=== PATIENT | female | born 1945 | race Caucasian/White ===

== ENCOUNTER 2018-05-09 13:47 | Emergency (ER) | payer MEDICARE, BC, SELFPAY ==
[2018-05-09 13:48] VITALS: BP 96/62; PULSE 60; RESP 18; TEMP 36.7; O2SAT 99; BMI 25.0
--- NOTE | 2018-05-09 15:07 | ED.VISSUMM ---
- ER Visit Summary Date of Service: 05/09/18 Chief Complaint: Bilateral hip pain History of Present Illness: The patient is a 73 F who fell out of bed 2 days ago. She did not hit her head. No LOC. She has pain in the bilateral hips. Worse with movement. She took nothing for it at home. Physical Examination: Vitals are reviewed. Bilateral hips are tender when you push the greater trochanter. She has mild pain with logroll. She does have painful range of motion. She has 2+ pulses in the feet bilaterally Test Results: X-rays of the bilateral hips with pelvis views reveal no fractures Emergency Department Course and Treatment: Patient was given Tylenol. She was ambulated in the emergency department. She does have some residual right-sided leg weakness from a stroke. states that her ambulation is at baseline. Patient will be given Tylenol to take at home. Will follow up with PCP Treatment Plan: [] Disposition: Discharge Impression: Bilateral hip contusion This note was generated with [employer] dictation software. It may contain incorrect words, spelling, and punctuation that were not noted in review of the chart prior to signing ED Disposition - Plan for ED Patient: Chief Complaint: Lower Extremity Injury Referrals: Stephane Palomino MD [Primary Care Provider] -
[2018-05-09] MEDS: Acetaminophen 500 MG Tablet 1000 MG PO (15:15)
--- NOTE | 2018-05-09 15:20 | RAD_ITS ---
STUDY: X-RAY - PELVIS AND BILATERAL HIPS REASON FOR EXAM: Female, 73 years old. Bilateral hip pain after a fall TECHNIQUE: Radiological exam, hip, bilateral, with pelvis when performed; minimum of 5 views, 5 views obtained COMPARISON: None. FINDINGS: There is a non-specific bowel gas pattern. Normal visualized soft tissue structures. Tubing coiled over the sacrum and left iliac bone. There is narrowing with cortical sclerosis and osteophyte formation of the sacroiliac joint consistent with degenerative osteoarthritic changes. Normal bilateral superior and inferior pubic rami. Normal pubic symphysis. Normal bilateral ischial tuberosities. Normal visualized right femoral head. Normal right acetabulum. There is mild articular joint space narrowing of the right hip. Normal visualized left femoral head. Normal left acetabulum. There is mild articular joint space narrowing of the left hip. RAD/Hips B/L min 2 views w/ Pelvis IMPRESSION: Degenerative arthrosis, no demonstrated fracture or suspicious osseous lesion. However, hip and pelvic fractures in patients of this age can be subtle, if there is strong clinical suspicion of a fracture, recommend further evaluation with cross-sectional imaging Electronically Signed: Bandar Keith MD at 15:37 EDT , Service support ,
--- NOTE | 2018-05-09 16:35 | ED.DEP ---
ED Disposition - Plan for ED Patient: Disposition: Home or Assisted Living Chief Complaint: Lower Extremity Injury Instructions: ED Contusion Hip Prescriptions: Acetaminophen [Tylenol Extra Strength] 500 mg PO Q6H PRN PRN #30 tab PRN Reason: Pain Referrals: Stephane Palomino MD [Primary Care Provider] -
--- NOTE | 2018-05-09 16:38 | ED.RN ---
this rn and pt assisted pt in ambulation. pt refuses to use walker, and insists on walking without an assistive device. pt with steady ambulation with assistance. per pt , pt drags right leg residually from a previous stroke.
[2018-05-09 16:46] VITALS: BP 151/100; PULSE 64; RESP 14; O2SAT 97
== END 2018-05-09 16:48 | disposition home or self-care (01) ==
PROVIDERS: Emergency Provider Emergency Medicine; Family Provider Family Medicine; PCP Family Medicine
DX: S70.02XA Contusion of left hip, initial encounter (principal); S70.01XA Contusion of right hip, initial encounter; I69.351 Hemiplegia and hemiparesis following cerebral infarction affecting right dominant side; I63.9 Cerebral infarction, unspecified; I10 Essential (primary) hypertension; F31.9 Bipolar disorder, unspecified; Z79.02 Long term (current) use of antithrombotics/antiplatelets; Z79.899 Other long term (current) drug therapy; W06.XXXA Fall from bed, initial encounter; Y93.89 Activity, other specified; Y92.003 Bedroom of unspecified non-institutional (private) residence as the place of occurrence of the external cause; Y99.8 Other external cause status
CPT/HCPCS: 73521; 99283

== ENCOUNTER 2018-08-06 12:40 | Observation (INO) | payer MEDICARE, MEDICAID, SELFPAY ==
[2018-08-06 12:40] VITALS: BP 130/82; PULSE 71; RESP 16; TEMP 36.9; BMI 23.3
--- NOTE | 2018-08-06 13:01 | RAD_ITS ---
STUDY: X-RAY - LEFT ANKLE REASON FOR EXAM: Female, 73 years old. Fall out of bed. Pain. TECHNIQUE: 3 view(s) of the ankle. COMPARISON: None. FINDINGS: There is generalized osteopenia. There is an oblique comminuted minimally displaced fracture of the distal fibula originating at the tibiotalar articulation. There is slight widening of the medial tibiotalar joint Normal visualized talus and calcaneus. The visualized subtalar, talonavicular, calcaneocuboid and tarsal articulations are normal. There is focal soft tissue swelling over the lateral malleolus/distal fibula. RAD/Ankle min 3 Views IMPRESSION: Osteopenia with distal fibular fracture and slight widening of the medial tibiotalar joint as described. Electronically Signed: Kody Shea MD at 14:06 EDT , Service support ,
--- NOTE | 2018-08-06 13:01 | RAD_ITS ---
STUDY: X-RAY - LEFT FOOT CLINICAL: Female, 73 years old. Fall out of bed. Pain and swelling. TECHNIQUE: 3 view(s) of the foot. COMPARISON: None. FINDINGS: There is generalized osteopenia. Normal talus, calcaneus, and tarsal bones. Normal visualized subtalar, talonavicular, calcaneocuboid, tarsal and tarsometatarsal articulations. Normal metatarsi. There is moderate arthrosis of the metatarsal phalangeal and interphalangeal joints with hammertoe deformities. The soft tissue structures are unremarkable. RAD/Foot min 3 Views IMPRESSION: Osteopenia with osteoarthritic changes. No acute osseous abnormality. Electronically Signed: Kody Shea MD at 14:04 EDT , Service support ,
--- NOTE | 2018-08-06 13:04 | ED.VISSUMM ---
- ER Visit Summary Date of Service: 08/06/18 Chief Complaint: Foot and ankle pain History of Present Illness: The patient is a 73 F with a history of stroke, left-sided deficits, speech changes, NPH. She fell out of bed last night and injured her left foot and ankle. She denies any other injuries. She did not hit her head or lose consciousness. She does take Plavix but denies any other thinners. Physical Examination: Afebrile and vital signs unremarkable. Head and neck are atraumatic. Heart regular. Lungs clear. Left foot and ankle are diffusely swollen, primarily over the dorsal surface and lateral surface of her foot as well as around her lateral malleolus. She is tender to palpation to the area. No obvious deformities. Skin intact. Test Results: X-rays pending Emergency Department Course and Treatment: Patient declined pain medicine while awaiting results. Patient has a distal fibula fracture with joint widening. Patient was placed in a posterior and sugar tong splint. She did have some pain with this but otherwise tolerated it well. She is neurovascular intact distally. She continued to declined pain medicine. Patient wanted to go home and follow-up as an outpatient. She was unable to ambulate using a walker. Patient was agreeable to admission. I did speak with Dr. Bejarano and I discussed with the hospitalist for admission. Treatment Plan: As above Disposition: Admission Impression: 1. Distal fibula fracture left 2. Inability to ambulate This note was generated with [employer] dictation software. It may contain incorrect words, spelling, and punctuation that were not noted in review of the chart prior to signing ED Disposition - Plan for ED Patient: Chief Complaint: Fall Referrals: Stephane Palomino MD [Primary Care Provider] -
[2018-08-06 15:07] VITALS: BP 125/63; PULSE 68; RESP 17; O2SAT 100
--- NOTE | 2018-08-06 15:21 | HP.PCM_ITS ---
Problem List (1) Fall Status: Acute History of Present Illness Date of Admission: 08/06/18 Chief Complaint: Mechanical fall The patient is a 73 year old F with past medical history of stroke with residual right-sided weakness and facial droop, NPH, hyperlipidemia, chronic alcoholic dementia, hype hypertension hypothyroidism. She was admitted via the ED on 08/06/18 with a complaint of a fall from her bed in the early hours of the day of presentation. According to patient and , she was sitting on her bed and then suddenly slumped out of bed and hit her head. She denies any loss of consciousness and denies any antecedent palpitations, dizziness, lightheadedness or loss of balance. According to her he thinks she may have tripped though he says she was sitting on the bed. This is not the first fall she has had in the last fell about a month or so ago. She denied any fever or chills, any burning sensation with urination, any cough or chest pain, any abdominal pain, any diarrhea vomiting. She lives at home with her and is able to ambulate only with his help. Review of systems otherwise negative. In the ED, x-rays done showed distal left fibula fracture. She has been admitted to be managed for the fibula fracture due to mechanical fall. [] Past Medical History Past Medical History (Chronic Problems): Chronic Problems Left-sided weakness (Chronic) recent CVA February 2016 Ramos esophagus (Chronic) Glaucoma (Chronic) Rheumatoid arthritis (Chronic) Lupus (Chronic) Mitral valve disorder (Chronic) Normal pressure hydrocephalus (Chronic) Bipolar disorder (Chronic) Hemiparesis affecting left side as late effect of stroke (Chronic) Alcoholic dementia (Chronic) Stroke (Chronic) Benign essential hypertension (Chronic) Allergies ciprofloxacin Allergy (Verified 08/06/18 12:44) Unknown Penicillins Allergy (Verified 08/06/18 12:44) Unknown Sulfa (Sulfonamide Antibiotics) Allergy (Verified 08/06/18 12:44) Unknown thimerosal [From Merthiolate] Allergy (Verified 08/06/18 12:44) Rash topiramate [From Topamax] Allergy (Verified 08/06/18 12:44) Unknown Home Medications: Ambulatory Orders Medication Instructions Recorded Atorvastatin Calcium 20 mg PO QHS 10/28/17 Calcitriol [Rocaltrol] 0.25 mcg PO DAILY 10/28/17 Cholecalciferol (Vitamin D3) 5,000 unit PO DAILY 10/28/17 [Vitamin D3] Donepezil HCl 10 mg PO DAILY 10/28/17 Esomeprazole Magnesium 40 mg PO DAILY 10/28/17 Levothyroxine [Synthroid] 50 mcg PO DAILY 10/28/17 Sertraline HCl [Zoloft] 50 mg PO QHS 10/28/17 Solifenacin Succinate [Vesicare] 5 mg PO DAILY 10/28/17 Bimatoprost [Lumigan] 1 drop LEFT EYE QHS 05/09/18 Clopidogrel Bisulfate [Plavix] 75 mg PO DAILY 05/09/18 Lisinopril [Prinivil] 10 mg PO DAILY 05/09/18 Vitamin B Complex 1 tab PO DAILY 05/09/18 Brimonidine Tartrate/Timolol 1 drop LEFT EYE BID 08/06/18 [Combigan Eye Drops] Calcium Carbonate/Vitamin D3 2 each PO DAILY 08/06/18 [Calcium 600-Vit D3 500 Softgel] Dorzolamide 2% [Trusopt] 1 drop LEFT EYE BID 08/06/18 Metoprolol Succinate 25 mg PO DAILY 08/06/18 Quetiapine Fumarate [Seroquel] 50 mg PO QHS 08/06/18 Surgical History: total knee arthroplasty - Bilateral, - - Right shoulder surgery Parathyroidectomy Psychiatric History: Bipolar - Bipolar disorder has not been verified according to the patient's , Depression 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 Lives: Spouse/ Significant Other Smoking Status: Former smoker Alcohol: None Drugs: None - *Family History Maternal History Items: Heart Disease Paternal History Items: Heart Disease, No pertinent history - in 70s Review of Systems Constitutional: Denies: Chills, Fever, Malaise, Weight Change Eyes: Denies: Blurred vision HEENT: Denies: Head Aches, Sinus Congestion, Sinus Drainage Cardiovascular: Denies: Chest Pain, Chest Tightness, Palpitations Respiratory: Denies: Cough, Shortness of breath at rest, Sputum production Gastrointestinal: Denies: Abdominal Pain, Diarrhea, Nausea, Vomiting Genitourinary: Denies: Dysuria Musculoskeletal: Reports: - - LLE pain from fall and fracture Skin: Denies: Rash, Wounds Neurological: Reports: Balance problems - 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 Denies: Focal weakness, Numbness, Tingling Psychiatric: Denies: Anxiety, Depression, Homicidal Ideations, Suicidal Ideations Hematologic/ Lymphatic: Denies: Easy Bruising, Easy Bleeding VTE Information - Inpt Only VTE Present on Admission: No VTE Pharm Prophylaxis ordered?: Yes Patient Problems: Active and Suspected Problems Fall (Acute) - Physical Exam General: Alert, Oriented x3, Cooperative, No apparent distress HEENT: Atraumatic, - - pupillary constriction and ptosis of right eye- chronic, residual from previous stroke Oral: Moist Mucosa Neck: Supple, No JVD, Negative Carotid Bruits Lungs: Clear to auscultation, Normal air movement, No rhonchi, No wheeze, No rales Cardiovascular: Regular rate, Regular Rhythm, Normal S1, Normal S2, No murmurs Abdomen: Bowel Sounds Present, Soft, Non Tender, Non-Distended, No Hepato- splenomegaly Extremities: No clubbing, No cyanosis, No edema, Capillary Refill Less than 3 Seconds Skin: No rashes, No breakdown Musculoskeletal: - - LLE in cast; able to wiggle toes Lymphatic: No Cervical, Supraclavicular, or Inguinal Adenopathy Neurological: Facial Droop - right facial droop, which is chronic; has expressive aphasia; ptosis and slight miosis of right eye, which is chronic, - - gait not checked Psych/Mental Status: Normal Affect, Agitated, Alert and oriented to time, place, person, mood and affect Vital Signs Temp Pulse Resp BP Pulse Ox 98.4 F 68 17 125/63 H 100 08/06/18 12:40 08/06/18 15:07 08/06/18 15:07 08/06/18 15:07 08/06/18 15:07 Oxygen Delivery Method Room Air Weight: 145 lb Body Mass Index (BMI) 23.3 Finger Stick Blood Glucose 88 Assessment/Plan All Active Problems Fall (Acute) medical management (Acute) Metabolic encephalopathy (Acute) Altered mental status (Acute) Aphasia (Acute) 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 1. Mechanical fall * slipped and fell out of her bed; has been having recurrent falls at home, according to her * hit her head and fractured her left fibula * admit to [facility] with telemetry; will get EKG * fall precautions * PT/OT consult * monitor telemetry to ensure she doesnt have arrhythmia which could contribute to her fall * Get CT of the brain to rule out any intracranial bleed. * 2. Distal left fibula fracture due to fall * X-ray showed displaced distal left fibular fracture was a result of the fall. * Orthopedics- Dr Bejarano consulted. Left leg put in splint in the ED. * tylenol for pain * 3. History of stroke, with residual right sided weakness * Statin, Plavix; will continue * PT/OT consulted * 4. Chronic dementia, aetiology unclear * On donepezil * 5. Bipolar disorder and depression: On Seroquel and sertraline. 6. Hypothyroidism: Synthroid 7. Vitamin D deficiency. Vitamin D replacement and calcitriol. 8. Hypertension: on lisinopril DVT prophylaxis: Heparin CODE STATUS: Full code. * Patient has been counseled extensively about different types of CODE STATUS namely DNR CCA, DNR CCA and full code. Patient and elected to be full code. Total [id number] time 18 minutes. Code Visit OBSV E&M: 38578 Initial observation care L3 Procedures: 60589 Advncd Care Plan 30 Min
--- NOTE | 2018-08-06 15:34 | CT_ITS ---
STUDY: CT BRAIN WITHOUT CONTRAST REASON FOR EXAM: Female, 73 years old. Status post fall RADIATION DOSAGE (If Supplied By Facility): CTDIvol = ( 44.99 ) mGy, DLP = ( 796.11 ) mGycm TECHNIQUE: Transaxial CT imaging of the brain was performed without administration of intravenous contrast material. Individualized dose optimization techniques were used for this CT. COMPARISON: October 28, 2017 FINDINGS: Normal soft tissue structures. Normal calvarium. There is a new right frontal approach ventriculostomy catheter terminating in the frontal horn of the left lateral ventricle. There is intracranial atherosclerosis. Remote lacunar infarcts noted in the basal ganglia bilaterally. There is moderate cerebral atrophy with widening of the extra-axial spaces and ventricular dilatation. There are areas of decreased attenuation within the white matter tracts of the supratentorial brain, consistent with microvascular disease changes. Normal brainstem. Normal cerebellum. There is no intracranial hemorrhage. There are no findings of an acute ischemic infarction. Normal visualized paranasal sinuses. CT/Brain/Head without Contrast IMPRESSION: Chronic involutional changes of the brain. Electronically Signed: Pranay Pacheco MD at 16:11 EDT , Service support ,
[2018-08-06 16:24] VITALS: BMI 25.0
[2018-08-06 16:50] VITALS: BMI 25.0
[2018-08-06 17:09] VITALS: BP 125/61; PULSE 76; RESP 16; TEMP 36.6; O2SAT 98
[2018-08-06 17:16] VITALS: PULSE 70
--- NOTE | 2018-08-06 17:48 | NURSING ---
PT REFUSING ENSURE- NOT ORDERED
[2018-08-06 19:19] VITALS: PULSE 79
[2018-08-06 19:58] VITALS: BP 132/62; PULSE 83; RESP 14; TEMP 36.7; O2SAT 98
--- NOTE | 2018-08-06 20:23 | EKG12_ITS ---
Test Reason : FALL Blood Pressure : / mmHG Vent. Rate : 077 BPM Atrial Rate : 077 BPM P-R Int : 158 ms QRS Dur : 076 ms QT Int : 400 ms P-R-T Axes : 054 022 050 degrees QTc Int : 452 ms Normal sinus rhythm Low voltage QRS Nonspecific T wave abnormality Abnormal ECG Confirmed by FLORENTINO PETER, JM ([id number]), make up editor CORTNEY STROUD ([id number]) on 08/16/2018 4:16:16 PM Referred By: DR DUNCAN Confirmed By:JM GOOD MD
[2018-08-06] MEDS: QUEtiapine 25 MG Tablet PO (22:45)
[2018-08-06] MEDS: Heparin Injection (Vial) 5,000 UNIT/ML VIAL 5000 UNIT SC (22:45)
[2018-08-06] MEDS: Donepezil HCl 10 MG Tablet PO (22:45)
[2018-08-06] MEDS: Atorvastatin Calcium 20 MG Tablet PO (22:45)
[2018-08-06] MEDS: Latanoprost 0.005% 1 Bottle 1 DRP EACH EYE (22:46)
[2018-08-06] MEDS: Timolol 0.5% 5ML OPTH.BTL 1 DRP LEFT EYE (22:46)
[2018-08-06] MEDS: Dorzolamide 2% 10ml Bottle 1 DRP LEFT EYE (23:02)
[2018-08-07] VITALS (10 sets, daily range): BP systolic 111–137; BP diastolic 67–79; PULSE 64–78; RESP 16–18; TEMP 36.4–36.9; O2SAT 98–100
[2018-08-07 05:37] LABS: Absolute Lymphocyte Count 1.94 X10^3/ul (0.83-4.51); Absolute Neutrophil Count 3.4 X10^3/uL (2.0-7.7); Basophil# 0.01 X10^3/uL; Basophil% 0.2 % (0-1); Eosinophil# 0.18 X10^3/uL; Eosinophils% 2.9 % (0-5); Hematocrit 35.7 % (37-47); Hemoglobin 11.3 g/dl (12.0-15.0); Lymphocyte # 1.94 X10^3/ul (4.0); Lymphocyte % 31.5 % (19-41); Mean Corp Hgb Conc 31.7 g/gl (32-36); Mean Corpuscular Hgb 27.1 pg (27.0-32.0); Mean Corpuscular Volume 85.6 fL (81-99); Mean Platelet Vol. 10.2 fl (6.2-12.0); Monocyte# 0.58 X10^3/uL; Monocyte% 9.4 % (0-10); Neutrophil # 3.43 X10^3/uL (2.7-7.7); Neutrophil % 55.8 % (47-70); Platelet Count 192 K/mm3 (150-450); RBC Distribution Width CV 14.1 % (11.6-14.6); RBC Distribution Width SD 43.5 fl (35.1-43.9); Red Blood Count 4.17 M/mm3 (4.2-5.4); White Blood Count 6.2 K/mm3 (4.4-11.0)
[2018-08-07 05:51] LABS: Anion Gap 7 (5-15); BUN 20 mg/dL (7-18); BUN/Creat Ratio 16.4 RATIO (10-20); Calcium,Total 8.9 mg/dL (8.5-10.1); Chloride 105 mmol/L (98-107); Creatinine, Serum 1.22 mg/dL (0.55-1.02); EST Glomerular Filtration Rate 46 mL/min (>60); Est Glom Filt Rate - Afr Amer 56 mL/min (>60); Estimated Creatinine Clearance 39.02 ml/min; Glucose 91 mg/dL (74-106); Potassium 3.6 mmol/L (3.5-5.1); Sodium Level 142 mmol/L (136-145)
[2018-08-07] MEDS: Heparin Injection (Vial) 5,000 UNIT/ML VIAL 5000 UNIT SC ×3 (06:07→21:10)
[2018-08-07] MEDS: Levothyroxine 50 MCG Tablet PO (06:07)
[2018-08-07 06:25] LABS: POSITIVE COUNT NO; POSITIVE DIFFERENTIAL NO; POSITIVE MORPHOLOGY NO
--- NOTE | 2018-08-07 09:50 | CASEMGMT ---
RN VEENA Assessment Intro role of CM to patient and her . Hx of CVA, R sided weakness and expressive aphasia noted. Pt was able to participate in assessment given time for speech difficulties. Pt and her are agreeable that with fx of L ankle, pending surgery, and weakness on R side, anticipation is that pt will need SNF on dc. First choice is [facility]CU and they are agreeable to having name placed on list. RN VEENA explained pending insurance approval and bed availability, secondary choice may be needed. -Surgery may not be scheduled until early next week. PT/OT evaluations pending. PCP: [facility]: [facility] D[facility]: [facility] Living Arrangements: Two story home, 1st floor set up SW Consult for dc planning, probable SNF placement. Carol GIL updated.
[2018-08-07] MEDS: Calcium Carb/Vitamin D 1 TABLET Tablet 2 TABLET PO (09:59)
[2018-08-07] MEDS: BRIMONIDINE 0.2% 5ML BOTTLE 1 DRP LEFT EYE ×2 (10:00→21:09)
[2018-08-07] MEDS: Clopidogrel Bisulfate 75 MG Tablet PO (10:01)
[2018-08-07] MEDS: Mirabegron 50 MG TAB.ER.24H PO (10:01)
[2018-08-07] MEDS: Tolterodine Tartrate 2 MG CAP.SA PO (10:01)
[2018-08-07] MEDS: Calcitriol 0.25 MCG Capsule PO (10:02)
[2018-08-07] MEDS: Pantoprazole Sodium 40 MG Tablet PO (10:02)
[2018-08-07] MEDS: Sertraline 50 MG Tablet PO (10:03)
[2018-08-07] MEDS: Lisinopril 10 MG Tablet PO (10:03)
[2018-08-07] MEDS: QUEtiapine 25 MG Tablet PO ×2 (10:03→21:13)
[2018-08-07] MEDS: Timolol 0.5% 5ML OPTH.BTL 1 DRP LEFT EYE ×2 (10:03→21:13)
[2018-08-07] MEDS: Metoprolol(XL)Succ 25 MG Tablet PO (10:05)
[2018-08-07] MEDS: Dorzolamide 2% 10ml Bottle 1 DRP LEFT EYE ×2 (10:05→21:18)
--- NOTE | 2018-08-07 10:15 | CASEMGMT ---
POTTER form reviewed and explained to pt's in room. Questions answered re: their MCR advantage plan and prior auth for SNF's. Signed by and copy given.
--- NOTE | 2018-08-07 10:56 | CASEMGMT ---
Per OT, recommendation is for SNF on dc. RN CM updated Carol GIL. Surgery on ankle fx not scheduled yet. Scar MARTINSN RN ACM
--- NOTE | 2018-08-07 11:20 | PCM.CONS.GEN ---
Reason for Consult Date of Consultation: 08/06/18 Reason for Consultation: Left ankle fracture History of Present Illness: The patient is a 73 year old F with a left unstable ankle fracture. She fell two nights ago and presented to the [facility] ER for evaluation. Given her complex medical history she was admitted when she was unable to be NWB LLE. [] Past Medical History Past Medical History (Chronic Problems): Chronic Problems Left-sided weakness (Chronic) recent CVA February 2016 Ramos esophagus (Chronic) Glaucoma (Chronic) Rheumatoid arthritis (Chronic) Lupus (Chronic) Mitral valve disorder (Chronic) Normal pressure hydrocephalus (Chronic) Bipolar disorder (Chronic) Hemiparesis affecting left side as late effect of stroke (Chronic) Alcoholic dementia (Chronic) Stroke (Chronic) Benign essential hypertension (Chronic) Allergies ciprofloxacin Allergy (Verified 08/06/18 12:44) Unknown Penicillins Allergy (Verified 08/06/18 12:44) Unknown Sulfa (Sulfonamide Antibiotics) Allergy (Verified 08/06/18 12:44) Unknown thimerosal [From Merthiolate] Allergy (Verified 08/06/18 12:44) Rash Home Medications: Ambulatory Orders Medication Instructions Recorded Atorvastatin Calcium 20 mg PO QHS 10/28/17 Calcitriol [Rocaltrol] 0.25 mcg PO DAILY 10/28/17 Cholecalciferol (Vitamin D3) 5,000 unit PO DAILY 10/28/17 [Vitamin D3] Donepezil HCl 10 mg PO DAILY 10/28/17 Esomeprazole Magnesium 40 mg PO DAILY 10/28/17 Levothyroxine [Synthroid] 50 mcg PO DAILY 10/28/17 Sertraline HCl [Zoloft] 50 mg PO QHS 10/28/17 Solifenacin Succinate [Vesicare] 5 mg PO DAILY 10/28/17 Bimatoprost [Lumigan] 1 drop LEFT EYE QHS 05/09/18 Clopidogrel Bisulfate [Plavix] 75 mg PO DAILY 05/09/18 Lisinopril [Prinivil] 10 mg PO DAILY 05/09/18 Vitamin B Complex 1 tab PO DAILY 05/09/18 Brimonidine Tartrate/Timolol 1 drop LEFT EYE BID 08/06/18 [Combigan Eye Drops] Calcium Carbonate/Vitamin D3 2 each PO DAILY 08/06/18 [Calcium 600-Vit D3 500 Softgel] Dorzolamide 2% [Trusopt] 1 drop LEFT EYE BID 08/06/18 Metoprolol Succinate 25 mg PO DAILY 08/06/18 Quetiapine Fumarate [Seroquel] 50 mg PO QHS 08/06/18 Surgical History: total knee arthroplasty - Bilateral, - - Right shoulder surgery Parathyroidectomy Psychiatric History: Bipolar - Bipolar disorder has not been verified according to the patient's , Depression 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 She states her ankle has less pain. She is concerned with being able to be nonweightbearing to the LLE Objective: Vasc: L digits with brisk cap refill, noted mild edema MS: multilayer compressive dressing in place Neuro: light touch sensation intact Radiographs: 3 views of the left ankle with an oblique comminuted fracture of the lateral malleolus and increased medial clear space noted - Physical Exam Psych/Mental Status: Normal Affect Vital Signs Temp Pulse Resp BP Pulse Ox 98.4 F 78 16 125/79 H 99 08/07/18 09:57 08/07/18 10:05 08/07/18 09:57 08/07/18 10:05 08/07/18 09:57 Oxygen Delivery Method Room Air Weight: 155 lb 1.6 oz Body Mass Index (BMI) 25.0 Finger Stick Blood Glucose 88 Intake and Output for Last 24 Hours 08/05/18 08/06/18 08/07/18 23:59 23:59 23:59 Intake Total 350 / 350 100 / 100 Balance 350 / 350 100 / 100 Laboratory Tests Past 24 Hrs 08/07/18 08/07/18 05:15 05:15 WBC 6.2 RBC 4.17 L Hgb 11.3 L Hct 35.7 L MCV 85.6 MCH 27.1 MCHC 31.7 L RDW 14.1 RDW Differential 43.5 Plt Count 192 MPV 10.2 Immature Gran % (Auto) 0.200 Neut % (Auto) 55.8 Lymph % (Auto) 31.5 [place] % (Auto) 9.4 Eos % (Auto) 2.9 Baso % (Auto) 0.2 Absolute Neuts (auto) 3.4 Absolute Lymphs (auto) 1.94 Total Counted Not Reportable Sodium 142 Potassium 3.6 Chloride 105 Carbon Dioxide 30.0 Anion Gap 7 BUN 20 H Creatinine 1.22 H Estim Creat Clear Calc 39.02 Est GFR (MDRD) Af Amer 56 L Est GFR (MDRD) Non-Af 46 L BUN/Creatinine Ratio 16.4 Glucose 91 Calcium 8.9 Assessment/Plan All Active Problems Fall (Acute) medical management (Acute) Metabolic encephalopathy (Acute) Altered mental status (Acute) Aphasia (Acute) 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 (Acute) A/p 73 yo F with unstable left ankle fracture -PT evaluated at bedside -imaging and notes reviewed -discussed the radiographs with pt and her . Her ankle fracture appears to be unstable with both a lateral malleolus fracture and increased medial clear space. I recommended ORIF of the L ankle. Given her complex medical history we will need an intradisciplinary approach for a successful post operative healing period. WE talked about potentially needing placement. Risks and benefits of surgery vs conservative treatment were discussed. PT and her will discuss this and we can schedule surgery next week if they would like to proceed. She will need to be NWB LLE with only limited toe touch for balance either for surgical or conservative care. All questions and concerns were addressed. If patient is still in patient next week I will come see her or if she is d/c then I would like them to follow up with me in clinic next Monday or Monday at [facility]. -Recommend RICE therapy and pt should be in a tall cam walker at all times. PT/PMNR consult for evaluation of NWB LLE and therapy. Please order cam walker. -Please call with questions
--- NOTE | 2018-08-07 14:16 | PCM.PN.HOSP ---
Patient Problems: Active and Suspected Problems Fall (Acute) Subjective: The patient was admitted yesterday after she had a fall on her head on the day of admission. She slumped out of her bed from sitting position and hit her head but no loss of consciousness, dizziness, lightheadedness or chest symptoms. There is a history of frequent fall, previous was on last month. She has history of a stroke with residual right-sided weakness and facial droop, NPH, dyslipidemia, chronic alcoholic dementia and hypertension X-ray shows distal left fibula fracture with widening of the medial tibiotalar joint. Left leg is in the cast. Patient is to complain of left lower leg pain mainly lateral aspect Vitals/I&O's: Vital Signs Temp Pulse Resp BP Pulse Ox 98.0 F 64 16 111/67 100 08/07/18 13:59 08/07/18 13:59 08/07/18 13:59 08/07/18 13:59 08/07/18 13:59 Oxygen Delivery Method Room Air Weight: 155 lb 1.6 oz Body Mass Index (BMI) 25.0 Finger Stick Blood Glucose 88 Intake and Output for Last 24 Hours 08/05/18 08/06/18 08/07/18 23:59 23:59 23:59 Intake Total 350 / 350 100 / 100 Balance 350 / 350 100 / 100 General: Alert, Oriented x3, Cooperative HEENT: Atraumatic, PERRLA, EOMI, Normocephalic Neck: Supple, No JVD, Negative Carotid Bruits Lungs: Clear to auscultation, No rhonchi, No wheeze, No rales, Diminished Cardiovascular: Regular rate, Regular Rhythm, Normal S1, Normal S2, No murmurs Abdomen: Bowel Sounds Present, Soft, Non Tender, Non-Distended Extremities: Capillary Refill Less than 3 Seconds, Edema Skin: No rashes, No breakdown Musculoskeletal: Arthritic Changes, Muscle Wasting, Tenderness, - - Left below-knee cast Neurological: - - Chronic right-sided weakness with facial droop from previous stroke Psych/Mental Status: Normal Affect, Appropriate Laboratory Results 08/07/18 05:15: WBC 6.2, RBC 4.17 L, Hgb 11.3 L, Hct 35.7 L, MCV 85.6, MCH 27.1, MCHC 31.7 L, RDW 14.1, RDW Differential 43.5, Plt Count 192, MPV 10.2, Immature Gran % (Auto) 0.200, Neut % (Auto) 55.8, Lymph % (Auto) 31.5, Graham % (Auto) 9.4, Eos % (Auto) 2.9, Baso % (Auto) 0.2, Absolute Neuts (auto) 3.4, Absolute Lymphs (auto) 1.94, Total Counted Not Reportable 08/07/18 05:15: Sodium 142, Potassium 3.6, Chloride 105, Carbon Dioxide 30.0, Anion Gap 7, BUN 20 H, Creatinine 1.22 H, Estim Creat Clear Calc 39.02, Est GFR (MDRD) Af Amer 56 L, Est GFR (MDRD) Non-Af 46 L, BUN/Creatinine Ratio 16.4, Glucose 91, Calcium 8.9 Current Medications Acetaminophen (Tylenol) 650 mg PO Q6H PRN PRN PRN Reason: PAIN Atorvastatin Calcium (Lipitor) 20 mg PO QHS [facility] Last Admin: 08/06/18 22:45 Dose: 20 mg Brimonidine Tartrate (Brimonidine 0.2% 5ml Bottle) 1 drop LEFT EYE BID [facility] Last Admin: 08/07/18 10:00 Dose: 1 drop Calcitriol (Rocaltrol) 0.25 mcg PO DAILY [facility] Last Admin: 08/07/18 10:02 Dose: 0.25 mcg Calcium/Vitamin D (Os-Geoff 500mg + D) [facility] Admin: 08/07/18 09:59 Dose: 2 tablet Cholecalciferol (Vitamin D) 5,000 unit PO DAILY [facility] Last Admin: 08/07/18 10:05 Dose: 5,000 unit Clopidogrel Bisulfate (Plavix) 75 mg PO DAILY [facility] Last Admin: 08/07/18 10:01 Dose: 75 mg Donepezil HCl (Aricept) 10 mg PO QHS [facility] Last Admin: 08/06/18 22:45 Dose: 10 mg Dorzolamide HCl (Trusopt) 1 drop LEFT EYE BID [facility] Last Admin: 08/07/18 10:05 Dose: 1 drop Heparin Sodium (Porcine) (Heparin Na) 5,000 unit SC Q8 [facility] Last Admin: 08/07/18 14:05 Dose: 5,000 unit Sodium Chloride () 250 mls @ 15 mls/hr IV .[id number] PRN PRN Reason: SALINE FLUSH Latanoprost (Xalatan Opthalmic) 1 drop EACH EYE QHS [facility] Last Admin: 08/06/18 22:46 Dose: 1 drop Levothyroxine Sodium (Synthroid) 50 mcg PO DAILY@0600 [facility] Last Admin: 08/07/18 06:07 Dose: 50 mcg Lisinopril (Zestril) 10 mg PO DAILY [facility] Last Admin: 08/07/18 10:03 Dose: 10 mg Magnesium Hydroxide (Milk Of Magnesia) 30 ml PO DAILY PRN PRN PRN Reason: Constipation Metoprolol Succinate (Toprol Xl (Beta Ben)) 25 mg PO DAILY [facility] Last Admin: 08/07/18 10:05 Dose: 25 mg Pantoprazole Sodium (Protonix) 40 mg PO DAILY [facility] Last Admin: 08/07/18 10:02 Dose: 40 mg Quetiapine Fumarate (Seroquel) 25 mg PO BID [facility] Last Admin: 08/07/18 10:03 Dose: 25 mg Sertraline HCl (Zoloft) 50 mg PO DAILY [facility] Last Admin: 08/07/18 10:03 Dose: 50 mg Sodium Chloride () 5 - 30 ml IV UD PRN PRN Reason: SALINE FLUSH Timolol Maleate (Timoptic) 1 drop LEFT EYE BID [facility] Last Admin: 08/07/18 10:03 Dose: 1 drop Tolterodine Tartrate (Detrol La) 2 mg PO DAILY [facility] Last Admin: 08/07/18 10:01 Dose: 2 mg Medical Necessity - Tobacco Use Smoking Status: Former smoker Tobacco Use: Cigarettes Assessment/Plan All Active Problems Fall (Acute) medical management (Acute) Metabolic encephalopathy (Acute) Altered mental status (Acute) Aphasia (Acute) 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 (Acute) The patient is a 73-year-old female with history of stroke with residual right-sided weakness and facial droop, NPH, dyslipidemia, chronic alcoholic dementia and hypertension was admitted on 08/06/18 after she had a fall on her head on the day of admission. She slumped out of her bed from sitting position and hit her head but no loss of consciousness, dizziness, lightheadedness or chest symptoms. She has recurrent history of frequent fall, previous was on last month. X-ray shows distal left fibula fracture with widening of the medial tibiotalar joint. Left leg is in the cast. Patient was seen by orthopedic surgeon. 1. Mechanical fall complicating into left unstable ankle fracture with distal fibular fracture, both a lateral malleolus fracture and increased medial tibotalar joint space complicated with generalized osteopenia. The x-ray of left ankle and foot reviewed. Shows oblique comminuted minimally displaced fracture of distal fibula originating at the tibiotalar articulation. Slight widening of the medial tibiotalar joint. Soft tissue swelling over the lateral malleolus and distal fibula. Fall precaution. PT and OT consult. Patient was seen by orthopedic surgeon and recommended 1 week of cast and conservative management and then operative intervention. 2. History of stroke, with residual right sided weakness Statin, Plavix; will continue PT/OT consulted 3. Chronic dementia, probably alcohol related dementia; exact aetiology unclear On donepezil 4. Bipolar disorder and depression: On Seroquel and sertraline. 5. Hypothyroidism: Synthroid 6. Vitamin D deficiency. Vitamin D replacement and calcitriol. 7. Hypertension: on lisinopril DVT prophylaxis: Heparin. Discussed with the patient and her near the bedside. Clinical updates were given regarding the management plan, orthopedic surgery input and discharge plan regarding transfer to SNF. Laboratory Results 08/07/18 05:15: WBC 6.2, RBC 4.17 L, Hgb 11.3 L, Hct 35.7 L, MCV 85.6, MCH 27.1, MCHC 31.7 L, RDW 14.1, RDW Differential 43.5, Plt Count 192, MPV 10.2, Immature Gran % (Auto) 0.200, Neut % (Auto) 55.8, Lymph % (Auto) 31.5, Graham % (Auto) 9.4, Eos % (Auto) 2.9, Baso % (Auto) 0.2, Absolute Neuts (auto) 3.4, Absolute Lymphs (auto) 1.94, Total Counted Not Reportable 08/07/18 05:15: Sodium 142, Potassium 3.6, Chloride 105, Carbon Dioxide 30.0, Anion Gap 7, BUN 20 H, Creatinine 1.22 H, Estim Creat Clear Calc 39.02, Est GFR (MDRD) Af Amer 56 L, Est GFR (MDRD) Non-Af 46 L, BUN/Creatinine Ratio 16.4, Glucose 91, Calcium 8.9 Clinical Impression(s) from Imaging Studies Ankle X-Ray 08/06/18 13:01 IMPRESSION: Osteopenia with distal fibular fracture and slight widening of the medial tibiotalar joint as described. Foot X-Ray 08/06/18 13:01 IMPRESSION: Osteopenia with osteoarthritic changes. No acute osseous abnormality. Brain CT 08/06/18 15:34 IMPRESSION: Chronic involutional changes of the brain. Code Visit Inpatient E&M: 32055 Subs Hosp L3
--- NOTE | 2018-08-07 14:20 | PN_ITS ---
Patient Problems: Active and Suspected Problems Fall (Acute) Subjective: The patient was admitted yesterday after she had a fall on her head on the day of admission. She slumped out of her bed from sitting position and hit her head but no loss of consciousness, dizziness, lightheadedness or chest symptoms. There is a history of frequent fall, previous was on last month. She has history of a stroke with residual right-sided weakness and facial droop, NPH, dyslipidemia, chronic alcoholic dementia and hypertension X-ray shows distal left fibula fracture with widening of the medial tibiotalar joint. Left leg is in the cast. Patient is to complain of left lower leg pain mainly lateral aspect Vitals/I&O's: Vital Signs Temp Pulse Resp BP Pulse Ox 98.0 F 64 16 111/67 100 08/07/18 13:59 08/07/18 13:59 08/07/18 13:59 08/07/18 13:59 08/07/18 13:59 Oxygen Delivery Method Room Air Weight: 155 lb 1.6 oz Body Mass Index (BMI) 25.0 Finger Stick Blood Glucose 88 Intake and Output for Last 24 Hours 08/05/18 08/06/18 08/07/18 23:59 23:59 23:59 Intake Total 350 / 350 100 / 100 Balance 350 / 350 100 / 100 General: Alert, Oriented x3, Cooperative HEENT: Atraumatic, PERRLA, EOMI, Normocephalic Neck: Supple, No JVD, Negative Carotid Bruits Lungs: Clear to auscultation, No rhonchi, No wheeze, No rales, Diminished Cardiovascular: Regular rate, Regular Rhythm, Normal S1, Normal S2, No murmurs Abdomen: Bowel Sounds Present, Soft, Non Tender, Non-Distended Extremities: Capillary Refill Less than 3 Seconds, Edema Skin: No rashes, No breakdown Musculoskeletal: Arthritic Changes, Muscle Wasting, Tenderness, - - Left below- knee cast Neurological: - - Chronic right-sided weakness with facial droop from previous stroke Psych/Mental Status: Normal Affect, Appropriate Laboratory Results 08/07/18 05:15: WBC 6.2, RBC 4.17 L, Hgb 11.3 L, Hct 35.7 L, MCV 85.6, MCH 27.1, MCHC 31.7 L, RDW 14.1, RDW Differential 43.5, Plt Count 192, MPV 10.2, Immature Gran % (Auto) 0.200, Neut % (Auto) 55.8, Lymph % (Auto) 31.5, Nance % (Auto) 9.4, Eos % (Auto) 2.9, Baso % (Auto) 0.2, Absolute Neuts (auto) 3.4, Absolute Lymphs (auto) 1.94, Total Counted Not Reportable 08/07/18 05:15: Sodium 142, Potassium 3.6, Chloride 105, Carbon Dioxide 30.0, Anion Gap 7, BUN 20 H, Creatinine 1.22 H, Estim Creat Clear Calc 39.02, Est GFR (MDRD) Af Amer 56 L, Est GFR (MDRD) Non-Af 46 L, BUN/Creatinine Ratio 16.4, Glucose 91, Calcium 8.9 Current Medications Acetaminophen (Tylenol) 650 mg PO Q6H PRN PRN PRN Reason: PAIN Atorvastatin Calcium (Lipitor) 20 mg PO QHS [facility] Last Admin: 08/06/18 22:45 Dose: 20 mg Brimonidine Tartrate (Brimonidine 0.2% 5ml Bottle) 1 drop LEFT EYE BID [facility] Last Admin: 08/07/18 10:00 Dose: 1 drop Calcitriol (Rocaltrol) 0.25 mcg PO DAILY [facility] Last Admin: 08/07/18 10:02 Dose: 0.25 mcg Calcium/Vitamin D (Os-Geoff 500mg + D) [facility] Last Admin: 08/07/18 09:59 Dose: 2 tablet Cholecalciferol (Vitamin D) 5,000 unit PO DAILY [facility] Last Admin: 08/07/18 10:05 Dose: 5,000 unit Clopidogrel Bisulfate (Plavix) 75 mg PO DAILY [facility] Last Admin: 08/07/18 10:01 Dose: 75 mg Donepezil HCl (Aricept) 10 mg PO QHS [facility] Last Admin: 08/06/18 22:45 Dose: 10 mg Dorzolamide HCl (Trusopt) 1 drop LEFT EYE BID [facility] Last Admin: 08/07/18 10:05 Dose: 1 drop Heparin Sodium (Porcine) (Heparin Na) 5,000 unit SC Q8 [facility] Last Admin: 08/07/18 14:05 Dose: 5,000 unit Sodium Chloride () 250 mls @ 15 mls/hr IV .[id number] PRN PRN Reason: SALINE FLUSH Latanoprost (Xalatan Opthalmic) 1 drop EACH EYE QHS [facility] Last Admin: 08/06/18 22:46 Dose: 1 drop Levothyroxine Sodium (Synthroid) 50 mcg PO DAILY@0600 [facility] Last Admin: 08/07/18 06:07 Dose: 50 mcg Lisinopril (Zestril) 10 mg PO DAILY [facility] Last Admin: 08/07/18 10:03 Dose: 10 mg Magnesium Hydroxide (Milk Of Magnesia) 30 ml PO DAILY PRN PRN PRN Reason: Constipation Metoprolol Succinate (Toprol Xl (Beta Ben)) 25 mg PO DAILY [facility] Last Admin: 08/07/18 10:05 Dose: 25 mg Pantoprazole Sodium (Protonix) 40 mg PO DAILY [facility] Last Admin: 08/07/18 10:02 Dose: 40 mg Quetiapine Fumarate (Seroquel) 25 mg PO BID [facility] Last Admin: 08/07/18 10:03 Dose: 25 mg Sertraline HCl (Zoloft) 50 mg PO DAILY [facility] Last Admin: 08/07/18 10:03 Dose: 50 mg Sodium Chloride () 5 - 30 ml IV UD PRN PRN Reason: SALINE FLUSH Timolol Maleate (Timoptic) 1 drop LEFT EYE BID [facility] Last Admin: 08/07/18 10:03 Dose: 1 drop Tolterodine Tartrate (Detrol La) 2 mg PO DAILY [facility] Last Admin: 08/07/18 10:01 Dose: 2 mg Medical Necessity - Tobacco Use Smoking Status: Former smoker Tobacco Use: Cigarettes Assessment/Plan All Active Problems Fall (Acute) medical management (Acute) Metabolic encephalopathy (Acute) Altered mental status (Acute) Aphasia (Acute) 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 (Acute) The patient is a 73-year-old female with history of stroke with residual right- sided weakness and facial droop, NPH, dyslipidemia, chronic alcoholic dementia and hypertension was admitted on 08/06/18 after she had a fall on her head on the day of admission. She slumped out of her bed from sitting position and hit her head but no loss of consciousness, dizziness, lightheadedness or chest symp toms. She has recurrent history of frequent fall, previous was on last month. X-ray shows distal left fibula fracture with widening of the medial tibiotalar joint. Left leg is in the cast. Patient was seen by orthopedic surgeon. 1. Mechanical fall complicating into left unstable ankle fracture with distal fibular fracture, both a lateral malleolus fracture and increased medial tibotalar joint space complicated with generalized osteopenia. The x-ray of left ankle and foot reviewed. Shows oblique comminuted minimally displaced fracture of distal fibula originating at the tibiotalar articulation. Slight widening of the medial tibiotalar joint. Soft tissue swelling over the lateral malleolus and distal fibula. Fall precaution. PT and OT consult. Patient was seen by orthopedic surgeon and recommended 1 week of cast and conservative management and then operative intervention. 2. History of stroke, with residual right sided weakness * Statin, Plavix; will continue * PT/OT consulted 3. Chronic dementia, probably alcohol related dementia; exact aetiology unclear * On donepezil 4. Bipolar disorder and depression: On Seroquel and sertraline. 5. Hypothyroidism: Synthroid 6. Vitamin D deficiency. Vitamin D replacement and calcitriol. 7. Hypertension: on lisinopril DVT prophylaxis: Heparin. Discussed with the patient and her near the bedside. Clinical updates were given regarding the management plan, orthopedic surgery input and discharge plan regarding transfer to SNF. Laboratory Results 08/07/18 05:15: WBC 6.2, RBC 4.17 L, Hgb 11.3 L, Hct 35.7 L, MCV 85.6, MCH 27.1, MCHC 31.7 L, RDW 14.1, RDW Differential 43.5, Plt Count 192, MPV 10.2, Immature Gran % (Auto) 0.200, Neut % (Auto) 55.8, Lymph % (Auto) 31.5, Nance % (Auto) 9.4, Eos % (Auto) 2.9, Baso % (Auto) 0.2, Absolute Neuts (auto) 3.4, Absolute Lymphs (auto) 1.94, Total Counted Not Reportable 08/07/18 05:15: Sodium 142, Potassium 3.6, Chloride 105, Carbon Dioxide 30.0, Anion Gap 7, BUN 20 H, Creatinine 1.22 H, Estim Creat Clear Calc 39.02, Est GFR (MDRD) Af Amer 56 L, Est GFR (MDRD) Non-Af 46 L, BUN/Creatinine Ratio 16.4, Glucose 91, Calcium 8.9 Clinical Impression(s) from Imaging Studies Ankle X-Ray 08/06/18 13:01 IMPRESSION: Osteopenia with distal fibular fracture and slight widening of the medial tibiotalar joint as described. Foot X-Ray 08/06/18 13:01 IMPRESSION: Osteopenia with osteoarthritic changes. No acute osseous abnormality. Brain CT 08/06/18 15:34 IMPRESSION: Chronic involutional changes of the brain. Code Visit Inpatient E&M: 14345 Subs Hosp L3
--- NOTE | 2018-08-07 15:30 | CASEMGMT ---
Social Work Note SW received referral that pt is interested in TCU at discharge. LOUISE placed a call to referral line and provided referral. Susan states that she is able to accept pt and will submit for pre-cert. LOUISE informed Susan that pt is not having surgery till next week so the plan is for pt to go to TCU and then probably back to TCU after surgery for rehabilitation. Susan states understanding. Plan: TCU pending pre-cert Danna Sarmiento DIRECTOR OF DIVERSITY AND INCLUSION, [employer]
[2018-08-07] MEDS: Acetaminophen 325 MG Tablet 650 MG PO (21:12)
[2018-08-07] MEDS: Donepezil HCl 10 MG Tablet PO (21:13)
[2018-08-07] MEDS: Atorvastatin Calcium 20 MG Tablet PO (21:13)
[2018-08-07] MEDS: Latanoprost 0.005% 1 Bottle 1 DRP EACH EYE (21:20)
[2018-08-08] VITALS (8 sets, daily range): BP systolic 106–120; BP diastolic 64–69; PULSE 60–80; RESP 16–18; TEMP 36.6–36.8; O2SAT 94–100
[2018-08-08] MEDS: Acetaminophen 325 MG Tablet 650 MG PO (06:53)
[2018-08-08] MEDS: Levothyroxine 50 MCG Tablet PO (06:56)
[2018-08-08] MEDS: Heparin Injection (Vial) 5,000 UNIT/ML VIAL 5000 UNIT SC (06:58)
--- NOTE | 2018-08-08 09:10 | PCM.TXEXTCAR ---
- Diet 08/06/18 16:45 Diet: Cardiac/Low Cholesterol Food consistency:: Regular Liquid Consistency:: Regular/Thin - Routine Orders/Code Status Suppository Type: Dulcolax 10mg Suppository Frequency: Daily PRN - Therapies Weight Bearing: Non weight bearing Extremity Affected:: Bilateral Lower Physical Therapy: Eval and Treat Occupational Therapy: Eval and Treat - Allergies/Procedures Done in Hospital Allergies/Adverse Reactions: Allergies ciprofloxacin Allergy (Verified 08/06/18 12:44) Unknown Penicillins Allergy (Verified 08/06/18 12:44) Unknown Sulfa (Sulfonamide Antibiotics) Allergy (Verified 08/06/18 12:44) Unknown thimerosal [From Merthiolate] Allergy (Verified 08/06/18 12:44) Rash - Type of Care/Length of Stay Estimated LOS: Convalescent Care Less Than 30 days Type of Care Needed: Skilled Rehab Potential: Good Prognosis: Good - Additional Orders/Day of Discharge Day of Discharge: 08/08/18 - Follow Up Care Primary Care Physician: Stephane Palomino MD [Primary Care Provider] - Please follow up with your Primary Care Physician in: in 2 weeks Please Follow Up With: Don Bejarano DO When: in 1 week Please Follow Up With: Ann Aguilar DPM When: in 1 weeks
--- NOTE | 2018-08-08 09:13 | PCM.DC.SUM ---
Discharge Date and Diagnosis - Problem List Patient Problems: Active and Suspected Problems Fall (Acute) Date of Admission: 08/06/18 Date of Discharge: 08/08/18 - Primary Discharge Diagnosis Active and Suspected Problems Fall (Acute) - Secondary Discharge Diagnosis Chronic Problems Left-sided weakness (Chronic) recent CVA February 2016 Ramos esophagus (Chronic) Glaucoma (Chronic) Rheumatoid arthritis (Chronic) Lupus (Chronic) Mitral valve disorder (Chronic) Normal pressure hydrocephalus (Chronic) Bipolar disorder (Chronic) Hemiparesis affecting left side as late effect of stroke (Chronic) Alcoholic dementia (Chronic) Stroke (Chronic) Benign essential hypertension (Chronic) Hospital Course and Treatment Operations: None Summary of Care Provided: [] The patient is a 73-year-old female with history of stroke with residual right-sided weakness and facial droop, NPH, dyslipidemia, chronic alcoholic dementia and hypertension was admitted on 08/06/18 after she had a fall on her head on the day of admission. She slumped out of her bed from sitting position and hit her head but no loss of consciousness, dizziness, lightheadedness or chest symptoms. She has recurrent history of frequent fall, previous was on last month. X-ray shows distal left fibula fracture with widening of the medial tibiotalar joint. Left leg is in the cast. Patient was seen by orthopedic surgeon. 1. Mechanical fall complicating into left unstable ankle fracture with distal fibular fracture, both lateral malleolus fracture and increased medial tibotalar joint space complicated with generalized osteopenia. The x-ray of left ankle and foot reviewed. Shows oblique comminuted minimally displaced fracture of distal fibula originating at the tibiotalar articulation. Slight widening of the medial tibiotalar joint. Soft tissue swelling over the lateral malleolus and distal fibula. Fall precaution. PT and OT consult. Patient was seen by orthopedic surgeon and recommended 1 week of cast and conservative management and then operative intervention. CT head is negative of acute change. 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 History of stroke, with residual right sided weakness Statin, Plavix; will continue PT/OT consulted 3. Chronic dementia, probably alcohol related dementia; exact aetiology unclear On donepezil 4. Bipolar disorder and depression: On Seroquel and sertraline. 5. Hypothyroidism: Synthroid 6. Vitamin D deficiency. Vitamin D replacement and calcitriol. 7. Hypertension: on lisinopril DVT prophylaxis: Heparin. The patient was seen by PT and OT. Recommended subacute rehab. Patient is being transferred to SNF. Follow-up with orthopedic surgeon, Dr. Bejarano and podiatry Dr. Aguilar for left unstable ankle fracture with distal femoral fracture. Patient will need definitive ORIF surgery after improvement of swelling of leg. Discharge medication and discharge plan was discussed with the patient the presence of her . Discharge follow-up instructions completed. Prescription for Cam walker signed total time spent, exact 35 minutes on discharge meds reconciliation, examination, review of imaging and blood test and discussion with the patient on follow-up instructions. Patient Problems: Active and Suspected Problems Fall (Acute) Objective: General: Alert, Oriented x3, Cooperative HEENT: Atraumatic, PERRLA, EOMI, Normocephalic Neck: Supple, No JVD, Negative Carotid Bruits Lungs: Clear to auscultation, No rhonchi, No wheeze, No rales, air entry improved bilaterally. Cardiovascular: Regular rate, Regular Rhythm, Normal S1, Normal S2, No murmurs Abdomen: Bowel Sounds Present, Soft, Non Tender, Non-Distended Extremities: Capillary Refill Less than 3 Seconds, Edema on the left ankle Skin: No rashes, No breakdown Musculoskeletal: Arthritic Changes, Muscle Wasting, Tenderness, -Left below-knee cast Neurological: - - Chronic right-sided weakness with facial droop from previous stroke Psych/Mental Status: Normal Affect, Appropriate - Physical Exam Vital Signs Temp Pulse Resp BP Pulse Ox 98.3 F 63 16 109/69 100 08/08/18 03:05 08/08/18 04:01 08/08/18 03:05 08/08/18 03:05 08/08/18 03:05 Oxygen Delivery Method Room Air Weight: 155 lb 1.6 oz Body Mass Index (BMI) 25.0 Finger Stick Blood Glucose 88 Intake and Output for Last 24 Hours 08/06/18 08/07/18 08/08/18 23:59 23:59 23:59 Intake Total 350 / 350 570 / 570 100 / 100 Balance 350 / 350 570 / 570 100 / 100 Home Medications: Medications to take at Discharge Atorvastatin Calcium 20 mg PO QHS 10/28/17 Calcitriol [Rocaltrol] 0.25 mcg PO DAILY 10/28/17 Cholecalciferol (Vitamin D3) [Vitamin D3] 5,000 unit PO DAILY 10/28/17 Donepezil HCl 10 mg PO DAILY 10/28/17 Esomeprazole Magnesium 40 mg PO DAILY 10/28/17 Levothyroxine [Synthroid] 50 mcg PO DAILY 10/28/17 Sertraline HCl [Zoloft] 50 mg PO QHS 10/28/17 Solifenacin Succinate [Vesicare] 5 mg PO DAILY 10/28/17 Bimatoprost [Lumigan] 1 drop LEFT EYE QHS 05/09/18 Clopidogrel Bisulfate [Plavix] 75 mg PO DAILY 05/09/18 Lisinopril [Prinivil] 10 mg PO DAILY 05/09/18 Vitamin B Complex 1 tab PO DAILY 05/09/18 Brimonidine Tartrate/Timolol [Combigan Eye Drops] 1 drop LEFT EYE BID 08/06/18 Calcium Carbonate/Vitamin D3 [Calcium 600-Vit D3 500 Softgel] 2 each PO DAILY 08/06/18 Dorzolamide 2% [Trusopt] 1 drop LEFT EYE BID 08/06/18 Metoprolol Succinate 25 mg PO DAILY 08/06/18 Quetiapine Fumarate [Seroquel] 50 mg PO QHS 08/06/18 Acetaminophen [Tylenol Tablet] 650 mg PO Q6H PRN PRN tablet 08/08/18 Primary Care Physician: Stephane Palomino MD [Primary Care Provider] - Please follow up with your Primary Care Physician in: in 2 weeks Please Follow Up With: Don Bejarano DO When: in 1 week Please Follow Up With: Ann Aguilar DPM When: in 1 weeks Medical Necessity - Tobacco Use Smoking Status: Former smoker Tobacco Use: Cigarettes Meaningful Use Info Meaningful Use Diagnoses (Choose all that apply): None applicable Code Visit Inpatient E&M: 79225 Disch Hosp
[2018-08-08] MEDS: Calcium Carb/Vitamin D 1 TABLET Tablet 2 TABLET PO (09:53)
[2018-08-08] MEDS: Tolterodine Tartrate 2 MG CAP.SA PO (09:54)
[2018-08-08] MEDS: BRIMONIDINE 0.2% 5ML BOTTLE 1 DRP LEFT EYE (09:54)
[2018-08-08] MEDS: Calcitriol 0.25 MCG Capsule PO (09:55)
[2018-08-08] MEDS: Pantoprazole Sodium 40 MG Tablet PO (09:55)
[2018-08-08] MEDS: Clopidogrel Bisulfate 75 MG Tablet PO (09:55)
[2018-08-08] MEDS: QUEtiapine 25 MG Tablet PO (09:55)
--- NOTE | 2018-08-08 09:55 | CASEMGMT ---
RN CM Assessment CAM Walker script faxed to [facility] w/face sheet/insurance information. Requested to have delivered to [facility]. Scar HOPSON RN ACM
[2018-08-08] MEDS: Metoprolol(XL)Succ 25 MG Tablet PO (09:56)
[2018-08-08] MEDS: Timolol 0.5% 5ML OPTH.BTL 1 DRP LEFT EYE (09:56)
[2018-08-08] MEDS: Dorzolamide 2% 10ml Bottle 1 DRP LEFT EYE (09:56)
[2018-08-08] MEDS: Sertraline 50 MG Tablet PO (09:57)
[2018-08-08] MEDS: Lisinopril 10 MG Tablet PO (09:57)
--- NOTE | 2018-08-08 11:08 | CASEMGMT ---
PT/OT are now both completed so Susan in TCU was able to submit for precert. ZAAFR Penn, AUTOMATIC CORN GRINDER OPERATOR
--- NOTE | 2018-08-08 13:37 | CASEMGMT ---
Pt was approved to go to TCU today. LOUISE let pt, pt's , and pt's RN here know. LOUISE faxed over discharge instructions. No further needs anticipated. ZAFAR Penn, SENIOR INSPECTOR
--- NOTE | 2018-08-08 13:45 | CASEMGMT ---
Script for cam walker faxed to [facility]. Per Smita, it will be delivered to pt's room. RN CM notified nursing, and pt. Scar BSN RN ACM
--- NOTE | 2018-08-08 15:16 | NURSING ---
report called to TCU
== END 2018-08-08 15:59 | disposition skilled nursing facility (03) ==
LOC: ED 13:21 → MS2 15:45
PROVIDERS: Admitting Provider Student in an Organized Health Care Education/Training Program; Emergency Provider Emergency Medicine; Family Provider Family Medicine; PCP Family Medicine; Visit Provider Internal Medicine
DX: S82.832A Other fracture of upper and lower end of left fibula, initial encounter for closed fracture (principal); W06.XXXA Fall from bed, initial encounter; Y93.9 Activity, unspecified; Y92.9 Unspecified place or not applicable; I69.351 Hemiplegia and hemiparesis following cerebral infarction affecting right dominant side; Z87.891 Personal history of nicotine dependence; I69.392 Facial weakness following cerebral infarction; G91.2 (Idiopathic) normal pressure hydrocephalus; I10 Essential (primary) hypertension; F10.97 Alcohol use, unspecified with alcohol-induced persisting dementia; M06.9 Rheumatoid arthritis, unspecified; M32.9 Systemic lupus erythematosus, unspecified; S82.62XA Displaced fracture of lateral malleolus of left fibula, initial encounter for closed fracture; F31.9 Bipolar disorder, unspecified; E03.9 Hypothyroidism, unspecified; E55.9 Vitamin D deficiency, unspecified; E78.5 Hyperlipidemia, unspecified; Z23 Encounter for immunization; Z79.899 Other long term (current) drug therapy
CPT/HCPCS: 36415; 70450; 73610; 73630; 80048; 85025; 93005; 96372; 97110; 97162; 97166; 99218; 99281; G0008; 90686; G0378

== ENCOUNTER 2018-08-08 16:15 | Inpatient (IN) | payer MEDICARE, MEDICAID, SELFPAY ==
--- NOTE | 2018-08-08 16:15 | NURSING ---
PT ARRIVED FROM [facility] @
[2018-08-08 16:17] VITALS: BP 109/69; PULSE 81; RESP 20; TEMP 36.7; O2SAT 94
[2018-08-08 20:26] VITALS: BMI 24.7
[2018-08-08 20:30] VITALS: BMI 24.7
[2018-08-08] MEDS: Dorzolamide 2% 10ml Bottle 1 DRP LEFT EYE (21:01)
[2018-08-08] MEDS: BRIMONIDINE 0.2% 5ML BOTTLE 1 DRP LEFT EYE (21:02)
[2018-08-08] MEDS: Timolol 0.5% 5ML OPTH.BTL 1 DRP LEFT EYE (21:04)
[2018-08-08] MEDS: Atorvastatin Calcium 20 MG Tablet PO (21:06)
[2018-08-08] MEDS: QUEtiapine 25 MG Tablet 50 MG PO (21:06)
[2018-08-08] MEDS: Sertraline 50 MG Tablet PO (21:07)
[2018-08-08] MEDS: Latanoprost 0.005% 1 Bottle 1 DRP EACH EYE (21:07)
--- NOTE | 2018-08-08 21:59 | PCM.HP.STD ---
Problem List (1) Closed left ankle fracture Status: Acute (2) Left hemiparesis Status: Chronic (3) Dysarthria Status: Chronic (4) Hypertension Status: Chronic (5) Hypothyroidism Status: Chronic (6) GERD (gastroesophageal reflux disease) Status: Chronic (7) Overactive bladder Status: Chronic (8) Depression Status: Chronic (9) Ramos esophagus Status: Chronic (10) Glaucoma Status: Chronic (11) Rheumatoid arthritis Status: Chronic (12) Lupus Status: Chronic (13) Normal pressure hydrocephalus Status: Chronic (14) Bipolar disorder Status: Chronic (15) Alcoholic dementia Status: Chronic (16) Stroke Status: Chronic History of Present Illness Date of Admission: 08/08/18 Chief Complaint: Here for rehabiliation, strengthening, prior to ORIF left ankle per Dr. Aguliar. The patient is a 73 year old Female with below past medical history presented to [facility] Emergency Department 08/06/2018 with left foot, ankle pain. 08/06/2018 X-ray left ankle showed left ankle fracture. 08/06/2018 X-ray left foot showed osteoarthritis. Fell out of bed, hurt left ankle. Unable to ambulate with walker. 08/06/[address] CT head. Consult Orthopedics for left ankle fracture. 08/06/2018 CT head negative. 08/07/2018 Dr Aguilar recommends ORIF left ankle fracture. PT/OT. Surgery in 1 week when swelling improved. 08/08/2018 Admit to TCU with debility, here for rehabilitation, strengthening, prior to ORIF left ankle per Dr. Aguilar next week. Past Medical History Past Medical History (Chronic Problems): Chronic Problems Left hemiparesis (Chronic) Dysarthria (Chronic) Hypertension (Chronic) Hypothyroidism (Chronic) GERD (gastroesophageal reflux disease) (Chronic) Overactive bladder (Chronic) Depression (Chronic) Left-sided weakness (Chronic) recent CVA February 2016 Ramos esophagus (Chronic) Glaucoma (Chronic) Rheumatoid arthritis (Chronic) Lupus (Chronic) Mitral valve disorder (Chronic) Normal pressure hydrocephalus (Chronic) Bipolar disorder (Chronic) Hemiparesis affecting left side as late effect of stroke (Chronic) Alcoholic dementia (Chronic) Stroke (Chronic) Benign essential hypertension (Chronic) Allergies ciprofloxacin Allergy (Verified 08/06/18 12:44) Unknown Penicillins Allergy (Verified 08/06/18 12:44) Unknown Sulfa (Sulfonamide Antibiotics) Allergy (Verified 08/06/18 12:44) Unknown thimerosal [From Merthiolate] Allergy (Verified 08/06/18 12:44) Rash Home Medications: Ambulatory Orders Medication Instructions Recorded Atorvastatin Calcium 20 mg PO QHS 10/28/17 Calcitriol [Rocaltrol] 0.25 mcg PO DAILY 10/28/17 Cholecalciferol (Vitamin D3) 5,000 unit PO DAILY 10/28/17 [Vitamin D3] Donepezil HCl 10 mg PO DAILY 10/28/17 Esomeprazole Magnesium 40 mg PO DAILY 10/28/17 Levothyroxine [Synthroid] 50 mcg PO DAILY 10/28/17 Sertraline HCl [Zoloft] 50 mg PO QHS 10/28/17 Solifenacin Succinate [Vesicare] 5 mg PO DAILY 10/28/17 Bimatoprost [Lumigan] 1 drop LEFT EYE QHS 05/09/18 Clopidogrel Bisulfate [Plavix] 75 mg PO DAILY 05/09/18 Lisinopril [Prinivil] 10 mg PO DAILY 05/09/18 Vitamin B Complex 1 tab PO DAILY 05/09/18 Brimonidine Tartrate/Timolol 1 drop LEFT EYE BID 08/06/18 [Combigan Eye Drops] Calcium Carbonate/Vitamin D3 2 each PO DAILY 08/06/18 [Calcium 600-Vit D3 500 Softgel] Dorzolamide 2% [Trusopt] 1 drop LEFT EYE BID 08/06/18 Metoprolol Succinate 25 mg PO DAILY 08/06/18 Quetiapine Fumarate [Seroquel] 50 mg PO QHS 08/06/18 Acetaminophen [Tylenol Tablet] 650 mg PO Q6H PRN PRN tablet 08/08/18 Surgical History: total knee arthroplasty - Bilateral, - - Right shoulder surgery Parathyroidectomy Psychiatric History: Bipolar - Bipolar disorder has not been verified according to the patient's , Depression 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 VAULT CUSTODIAN history Lives: Spouse/ Significant Other Smoking Status: Former smoker Tobacco Use: Non-smoker Alcohol: None Drugs: None - *Family History Maternal History Items: Heart Disease Paternal History Items: Heart Disease, No pertinent history - in 70s Review of Systems Constitutional: Denies: Chills, Fever, Weight Change HEENT: Denies: Head Aches, Sinus Congestion, Sinus Drainage Cardiovascular: Denies: Chest Pain, Palpitations Respiratory: Denies: Cough, Shortness of breath at rest, Sputum production Gastrointestinal: Denies: Abdominal Pain, Nausea, Vomiting Genitourinary: Denies: Dysuria Musculoskeletal: Denies: Joint Pain, Joint Tenderness Skin: Denies: Rash, Wounds Neurological: Denies: Numbness, Tingling, Focal weakness Psychiatric: Denies: Anxiety, Depression, Homicidal Ideations, Suicidal Ideations Hematologic/ Lymphatic: Denies: Easy Bruising, Easy Bleeding VTE Information - Inpt Only VTE Present on Admission: No VTE Mechan Device Prophylaxis: Knee High MARGRET Hose VTE Pharm Prophylaxis ordered?: Yes Patient Problems: Active and Suspected Problems Closed left ankle fracture (Acute) - Physical Exam General: Alert, Oriented x3, Cooperative HEENT: Atraumatic, PERRLA, EOMI, Normocephalic Neck: Supple, No JVD, Negative Carotid Bruits Lungs: Clear to auscultation, Normal air movement Cardiovascular: Regular rate, No murmurs Abdomen: Bowel Sounds Present, Soft, Non Tender Extremities: No edema, Capillary Refill Less than 3 Seconds, - - Left ankle splinted. Skin: No rashes, No breakdown Musculoskeletal: No Tenderness to Palpation of Joints or Extremities Neurological: Cranial nerves II-XII grossly intact Psych/Mental Status: Normal Affect, Appropriate Vital Signs Temp Pulse Resp BP Pulse Ox 98.1 F 81 20 H 109/69 94 08/08/18 16:17 08/08/18 16:17 08/08/18 16:17 08/08/18 16:17 08/08/18 16:17 Oxygen Delivery Method Room Air Weight: 69.4 kg Body Mass Index (BMI) 24.7 Finger Stick Blood Glucose 88 Intake and Output for Last 24 Hours 08/06/18 08/07/18 08/08/18 23:59 23:59 23:59 Intake Total 360 / 360 Balance 360 / 360 Assessment/Plan All Active Problems Fall (Acute) Closed left ankle fracture (Acute) medical management (Acute) Metabolic encephalopathy (Acute) Altered mental status (Acute) Aphasia (Acute) 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 (Acute) 73 year old female with below past medical history hospitalized for left ankle fracture, admitted to TCU with debility, here for rehabilitation, strengthening, prior to ORIF left ankle per Dr. Aguilar next week, then disposition determination. Debility - PT/OT. Pain - Tylenol 1000MG Q6H PRN mild pain. Bowel - Miralax 17GM daily, Senna/colace 1 tablet BID, Dulcolax 10MG PO daily PRN. Pneumonia vaccination - Administer Prevnar 13 and/or Pneumovax 23 as necessary. DVT prophylaxis - Lovenox 30MG SC daily. Hyperlipidemia - Atorvastatin 20MG QHS. Glaucoma - Brimonidine 1GTT OS BID, Trusopt 1GTT OS BID, Xalatan 1GTT OU BID, Timoptic 1GTT OS BID. Vitamin D deficiency - Calcitriol 0.25MG daily, D3 5000IU daily. Calcium deficiency - Os-Geoff 500MG daily. Stroke - Plavix 75MG daily. Alcohol dementia - Donepezil 10MG daily. Nutrition - Ensure Enlive 120ML 4x/day. Hypothyroidism - Levothyroxine 50MCG daily. Hypertension - Metoprolol succinate 25MG daily, Lisinopril 10MG daily. GERD - Pantoprazole 40MG daily. 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 Overactive bladder - Tolterodine 2MG daily.
--- NOTE | 2018-08-08 22:05 | HP.PCM_ITS ---
Problem List (1) Closed left ankle fracture Status: Acute (2) Left hemiparesis Status: Chronic (3) Dysarthria Status: Chronic (4) Hypertension Status: Chronic (5) Hypothyroidism Status: Chronic (6) GERD (gastroesophageal reflux disease) Status: Chronic (7) Overactive bladder Status: Chronic (8) Depression Status: Chronic (9) Ramos esophagus Status: Chronic (10) Glaucoma Status: Chronic (11) Rheumatoid arthritis Status: Chronic (12) Lupus Status: Chronic (13) Normal pressure hydrocephalus Status: Chronic (14) Bipolar disorder Status: Chronic (15) Alcoholic dementia Status: Chronic (16) Stroke Status: Chronic History of Present Illness Date of Admission: 08/08/18 Chief Complaint: Here for rehabiliation, strengthening, prior to ORIF left ankle per Dr. Aguilar. The patient is a 73 year old Female with below past medical history presented to [facility] Emergency Department 08/06/2018 with left foot, ankle pain. 08/06/2018 X-ray left ankle showed left ankle fracture. 08/06/2018 X-ray left foot showed osteoarthritis. Fell out of bed, hurt left ankle. Unable to ambulate with walker. 08/06/2018 Admit [address] CT head. Consult Orthopedics for left ankle fracture. 08/06/2018 CT head negative. 08/07/2018 Dr Aguilar recommends ORIF left ankle fracture. PT/OT. Surgery in 1 week when swelling improved. 08/08/2018 Admit to TCU with debility, here for rehabilitation, strengthening, prior to ORIF left ankle per Dr. Aguilar next week. Past Medical History Past Medical History (Chronic Problems): Chronic Problems Left hemiparesis (Chronic) Dysarthria (Chronic) Hypertension (Chronic) Hypothyroidism (Chronic) GERD (gastroesophageal reflux disease) (Chronic) Overactive bladder (Chronic) Depression (Chronic) Left-sided weakness (Chronic) recent CVA February 2016 Ramos esophagus (Chronic) Glaucoma (Chronic) Rheumatoid arthritis (Chronic) Lupus (Chronic) Mitral valve disorder (Chronic) Normal pressure hydrocephalus (Chronic) Bipolar disorder (Chronic) Hemiparesis affecting left side as late effect of stroke (Chronic) Alcoholic dementia (Chronic) Stroke (Chronic) Benign essential hypertension (Chronic) Allergies ciprofloxacin Allergy (Verified 08/06/18 12:44) Unknown Penicillins Allergy (Verified 08/06/18 12:44) Unknown Sulfa (Sulfonamide Antibiotics) Allergy (Verified 08/06/18 12:44) Unknown thimerosal [From Merthiolate] Allergy (Verified 08/06/18 12:44) Rash Home Medications: Ambulatory Orders Medication Instructions Recorded Atorvastatin Calcium 20 mg PO QHS 10/28/17 Calcitriol [Rocaltrol] 0.25 mcg PO DAILY 10/28/17 Cholecalciferol (Vitamin D3) 5,000 unit PO DAILY 10/28/17 [Vitamin D3] Donepezil HCl 10 mg PO DAILY 10/28/17 Esomeprazole Magnesium 40 mg PO DAILY 10/28/17 Levothyroxine [Synthroid] 50 mcg PO DAILY 10/28/17 Sertraline HCl [Zoloft] 50 mg PO QHS 10/28/17 Solifenacin Succinate [Vesicare] 5 mg PO DAILY 10/28/17 Bimatoprost [Lumigan] 1 drop LEFT EYE QHS 05/09/18 Clopidogrel Bisulfate [Plavix] 75 mg PO DAILY 05/09/18 Lisinopril [Prinivil] 10 mg PO DAILY 05/09/18 Vitamin B Complex 1 tab PO DAILY 05/09/18 Brimonidine Tartrate/Timolol 1 drop LEFT EYE BID 08/06/18 [Combigan Eye Drops] Calcium Carbonate/Vitamin D3 2 each PO DAILY 08/06/18 [Calcium 600-Vit D3 500 Softgel] Dorzolamide 2% [Trusopt] 1 drop LEFT EYE BID 08/06/18 Metoprolol Succinate 25 mg PO DAILY 08/06/18 Quetiapine Fumarate [Seroquel] 50 mg PO QHS 08/06/18 Acetaminophen [Tylenol Tablet] 650 mg PO Q6H PRN PRN tablet 08/08/18 Surgical History: total knee arthroplasty - Bilateral, - - Right shoulder surgery Parathyroidectomy Psychiatric History: Bipolar - Bipolar disorder has not been verified according to the patient's , Depression 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 pertinent GASTROENTEROLOGY NURSE PRACTITIONER history Lives: Spouse/ Significant Other Smoking Status: Former smoker Tobacco Use: Non-smoker Alcohol: None Drugs: None - *Family History Maternal History Items: Heart Disease Paternal History Items: Heart Disease, No pertinent history - in 70s Review of Systems Constitutional: Denies: Chills, Fever, Weight Change HEENT: Denies: Head Aches, Sinus Congestion, Sinus Drainage Cardiovascular: Denies: Chest Pain, Palpitations Respiratory: Denies: Cough, Shortness of breath at rest, Sputum production Gastrointestinal: Denies: Abdominal Pain, Nausea, Vomiting Genitourinary: Denies: Dysuria Musculoskeletal: Denies: Joint Pain, Joint Tenderness Skin: Denies: Rash, Wounds Neurological: Denies: Numbness, Tingling, Focal weakness Psychiatric: Denies: Anxiety, Depression, Homicidal Ideations, Suicidal Sushant ations Hematologic/ Lymphatic: Denies: Easy Bruising, Easy Bleeding VTE Information - Inpt Only VTE Present on Admission: No VTE Mechan Device Prophylaxis: Knee High MARGRET Hose VTE Pharm Prophylaxis ordered?: Yes Patient Problems: Active and Suspected Problems Closed left ankle fracture (Acute) - Physical Exam General: Alert, Oriented x3, Cooperative HEENT: Atraumatic, PERRLA, EOMI, Normocephalic Neck: Supple, No JVD, Negative Carotid Bruits Lungs: Clear to auscultation, Normal air movement Cardiovascular: Regular rate, No murmurs Abdomen: Bowel Sounds Present, Soft, Non Tender Extremities: No edema, Capillary Refill Less than 3 Seconds, - - Left ankle splinted. Skin: No rashes, No breakdown Musculoskeletal: No Tenderness to Palpation of Joints or Extremities Neurological: Cranial nerves II-XII grossly intact Psych/Mental Status: Normal Affect, Appropriate Vital Signs Temp Pulse Resp BP Pulse Ox 98.1 F 81 20 H 109/69 94 08/08/18 16:17 08/08/18 16:17 08/08/18 16:17 08/08/18 16:17 08/08/18 16:17 Oxygen Delivery Method Room Air Weight: 69.4 kg Body Mass Index (BMI) 24.7 Finger Stick Blood Glucose 88 Intake and Output for Last 24 Hours 08/06/18 08/07/18 08/08/18 23:59 23:59 23:59 Intake Total 360 / 360 Balance 360 / 360 Assessment/Plan All Active Problems Fall (Acute) Closed left ankle fracture (Acute) medical management (Acute) Metabolic encephalopathy (Acute) Altered mental status (Acute) Aphasia (Acute) 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 (Acute) 73 year old female with below past medical history hospitalized for left ankle fracture, admitted to TCU with debility, here for rehabilitation, strengthening, prior to ORIF left ankle per Dr. Mychak next week, then disposition determination. * Debility - PT/OT. * Pain - Tylenol 1000MG Q6H PRN mild pain. * Bowel - Miralax 17GM daily, Senna/colace 1 tablet BID, Dulcolax 10MG PO daily PRN. * Pneumonia vaccination - Administer Prevnar 13 and/or Pneumovax 23 as necessary. * DVT prophylaxis - Lovenox 30MG SC daily. * Hyperlipidemia - Atorvastatin 20MG QHS. * Glaucoma - Brimonidine 1GTT OS BID, Trusopt 1GTT OS BID, Xalatan 1GTT OU BID, Timoptic 1GTT OS BID. * Vitamin D deficiency - Calcitriol 0.25MG daily, D3 5000IU daily. * Calcium deficiency - Os-Geoff 500MG daily. * Stroke - Plavix 75MG daily. * Alcohol dementia - Donepezil 10MG daily. * Nutrition - Ensure Enlive 120ML 4x/day. * Hypothyroidism - Levothyroxine 50MCG daily. * Hypertension - Metoprolol succinate 25MG daily, Lisinopril 10MG daily. * GERD - Pantoprazole 40MG daily. * Bipolar disorder - resident doing well on Seroquel 50MG QHS, assisted chronic use, GDR clinically contraindicated. 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 * Overactive bladder - Tolterodine 2MG daily.
[2018-08-09 05:58] LABS: Absolute Lymphocyte Count 1.47 X10^3/ul (0.83-4.51); Absolute Neutrophil Count 3.9 X10^3/uL (2.0-7.7); Basophil# 0.01 X10^3/uL; Basophil% 0.2 % (0-1); Eosinophil# 0.22 X10^3/uL; Eosinophils% 3.5 % (0-5); Hematocrit 35.6 % (37-47); Hemoglobin 11.3 g/dl (12.0-15.0); Lymphocyte # 1.47 X10^3/ul (4.0); Lymphocyte % 23.6 % (19-41); Mean Corp Hgb Conc 31.7 g/gl (32-36); Mean Corpuscular Hgb 26.9 pg (27.0-32.0); Mean Corpuscular Volume 84.8 fL (81-99); Mean Platelet Vol. 10.1 fl (6.2-12.0); Monocyte# 0.64 X10^3/uL; Monocyte% 10.3 % (0-10); Neutrophil # 3.87 X10^3/uL (2.7-7.7); Neutrophil % 62.2 % (47-70); POSITIVE COUNT NO; POSITIVE DIFFERENTIAL NO; POSITIVE MORPHOLOGY NO; Platelet Count 190 K/mm3 (150-450); RBC Distribution Width CV 14.1 % (11.6-14.6); RBC Distribution Width SD 43.3 fl (35.1-43.9); White Blood Count 6.2 K/mm3 (4.4-11.0)
[2018-08-09 06:33] LABS: Anion Gap 8 (5-15); BUN 27 mg/dL (7-18); BUN/Creat Ratio 19.4 RATIO (10-20); Calcium,Total 8.7 mg/dL (8.5-10.1); Chloride 105 mmol/L (98-107); Creatinine, Serum 1.39 mg/dL (0.55-1.02); EST Glomerular Filtration Rate 40 mL/min (>60); Est Glom Filt Rate - Afr Amer 48 mL/min (>60); Estimated Creatinine Clearance 34.25 ml/min; Glucose 96 mg/dL (74-106); Sodium Level 141 mmol/L (136-145)
[2018-08-09] MEDS: Timolol 0.5% 5ML OPTH.BTL 1 DRP LEFT EYE ×2 (06:34→20:27)
[2018-08-09] MEDS: Dorzolamide 2% 10ml Bottle 1 DRP LEFT EYE ×2 (06:34→20:27)
[2018-08-09] MEDS: Menthol/Lanolin/Calamine/Znox 113 GM Tube 1 APPLIC TOPICAL ×2 (06:34→20:27)
[2018-08-09] MEDS: Pantoprazole Sodium 40 MG Tablet PO (06:34)
[2018-08-09] MEDS: BRIMONIDINE 0.2% 5ML BOTTLE 1 DRP LEFT EYE ×2 (06:34→20:26)
[2018-08-09 06:35] VITALS: PULSE 81
[2018-08-09] MEDS: Polyethylene Glycol 3350 17 GM PACKET PO (06:35)
[2018-08-09] MEDS: Tolterodine Tartrate 2 MG CAP.SA PO (06:35)
[2018-08-09] MEDS: Metoprolol(XL)Succ 25 MG Tablet PO (06:35)
[2018-08-09] MEDS: Donepezil HCl 10 MG Tablet PO (06:35)
[2018-08-09] MEDS: Enoxaparin 30 MG/0.3 ML Syringe SC (06:35)
[2018-08-09] MEDS: Lisinopril 10 MG Tablet PO (06:35)
[2018-08-09] MEDS: Senna/Docusate Sodium 1 Tablet PO (06:35)
[2018-08-09] MEDS: Levothyroxine 50 MCG Tablet PO (06:35)
[2018-08-09] MEDS: Clopidogrel Bisulfate 75 MG Tablet PO (06:35)
[2018-08-09] MEDS: Calcitriol 0.25 MCG Capsule PO (06:37)
[2018-08-09] MEDS: Calcium Carb/Vitamin D 1 TABLET Tablet 2 TABLET PO (08:11)
[2018-08-09] MEDS: Tuberculin,Purif.prot.deriv. 50 TU/ML Vial 5 ML ID (11:22)
--- NOTE | 2018-08-09 12:48 | CASEMGMT ---
Reviewed and approved attached social services specialist student documentation. Rupali PETERSON, CHILDREN'S ENTERTAINER
[2018-08-09 15:39] VITALS: BP 126/60; PULSE 62; RESP 16; TEMP 36.4; O2SAT 99
[2018-08-09] MEDS: Nystatin Powder 15gm Bottle 1 APPLIC TOPICAL (20:28)
[2018-08-09] MEDS: QUEtiapine 25 MG Tablet 50 MG PO (21:34)
[2018-08-09] MEDS: Sertraline 50 MG Tablet PO (21:34)
[2018-08-09] MEDS: Atorvastatin Calcium 20 MG Tablet PO (21:34)
[2018-08-09] MEDS: Latanoprost 0.005% 1 Bottle 1 DRP EACH EYE (21:34)
[2018-08-09 21:35] VITALS: PULSE 72; O2SAT 95
[2018-08-10] MEDS: Donepezil HCl 10 MG Tablet PO (05:28)
[2018-08-10] MEDS: Tolterodine Tartrate 2 MG CAP.SA PO (05:28)
[2018-08-10] MEDS: Menthol/Lanolin/Calamine/Znox 113 GM Tube 1 APPLIC TOPICAL ×2 (05:28→20:50)
[2018-08-10] MEDS: Clopidogrel Bisulfate 75 MG Tablet PO (05:29)
[2018-08-10] MEDS: Enoxaparin 30 MG/0.3 ML Syringe SC (05:29)
[2018-08-10] MEDS: Senna/Docusate Sodium 1 Tablet PO (05:29)
[2018-08-10] MEDS: Pantoprazole Sodium 40 MG Tablet PO (05:29)
[2018-08-10] MEDS: Polyethylene Glycol 3350 17 GM PACKET PO (05:29)
[2018-08-10] MEDS: Nystatin Powder 15gm Bottle 1 APPLIC TOPICAL ×2 (05:29→20:51)
[2018-08-10 05:30] VITALS: PULSE 71
[2018-08-10] MEDS: Metoprolol(XL)Succ 25 MG Tablet PO (05:30)
[2018-08-10] MEDS: Levothyroxine 50 MCG Tablet PO (05:30)
[2018-08-10] MEDS: Lisinopril 10 MG Tablet PO (05:30)
[2018-08-10] MEDS: Acetaminophen 500 MG Tablet 1000 MG PO (09:00)
[2018-08-10] MEDS: Calcium Carb/Vitamin D 1 TABLET Tablet 2 TABLET PO (09:05)
[2018-08-10] MEDS: Calcitriol 0.25 MCG Capsule PO (09:05)
[2018-08-10] MEDS: BRIMONIDINE 0.2% 5ML BOTTLE 1 DRP LEFT EYE ×2 (09:06→20:53)
[2018-08-10] MEDS: Timolol 0.5% 5ML OPTH.BTL 1 DRP LEFT EYE ×2 (09:06→20:52)
[2018-08-10] MEDS: Dorzolamide 2% 10ml Bottle 1 DRP LEFT EYE ×2 (09:06→20:50)
[2018-08-10 16:00] VITALS: BP 97/63; PULSE 63; RESP 18; TEMP 36.4; O2SAT 96
[2018-08-10] MEDS: QUEtiapine 25 MG Tablet 50 MG PO (20:54)
[2018-08-10] MEDS: Atorvastatin Calcium 20 MG Tablet PO (20:54)
[2018-08-10] MEDS: Sertraline 50 MG Tablet PO (20:54)
[2018-08-10] MEDS: Latanoprost 0.005% 1 Bottle 1 DRP EACH EYE (20:56)
[2018-08-11] MEDS: Donepezil HCl 10 MG Tablet PO (06:19)
[2018-08-11 06:20] VITALS: BP 125/69; PULSE 63
[2018-08-11] MEDS: Metoprolol(XL)Succ 25 MG Tablet PO (06:20)
[2018-08-11] MEDS: Tolterodine Tartrate 2 MG CAP.SA PO (06:20)
[2018-08-11] MEDS: Enoxaparin 30 MG/0.3 ML Syringe SC (06:20)
[2018-08-11] MEDS: Levothyroxine 50 MCG Tablet PO (06:21)
[2018-08-11] MEDS: Lisinopril 10 MG Tablet PO (06:21)
[2018-08-11] MEDS: Clopidogrel Bisulfate 75 MG Tablet PO (06:21)
[2018-08-11] MEDS: Pantoprazole Sodium 40 MG Tablet PO (06:22)
[2018-08-11] MEDS: Nystatin Powder 15gm Bottle 1 APPLIC TOPICAL ×2 (06:23→20:19)
[2018-08-11] MEDS: Menthol/Lanolin/Calamine/Znox 113 GM Tube 1 APPLIC TOPICAL ×2 (06:23→20:18)
[2018-08-11] MEDS: Calcium Carb/Vitamin D 1 TABLET Tablet 2 TABLET PO (08:15)
[2018-08-11] MEDS: BRIMONIDINE 0.2% 5ML BOTTLE 1 DRP LEFT EYE ×2 (08:15→20:22)
[2018-08-11] MEDS: Calcitriol 0.25 MCG Capsule PO (08:15)
[2018-08-11] MEDS: Timolol 0.5% 5ML OPTH.BTL 1 DRP LEFT EYE ×2 (08:16→20:20)
[2018-08-11] MEDS: Dorzolamide 2% 10ml Bottle 1 DRP LEFT EYE ×2 (08:18→20:16)
[2018-08-11 15:28] VITALS: BP 104/63; PULSE 72; RESP 20; TEMP 36.7; O2SAT 98
[2018-08-11] MEDS: Atorvastatin Calcium 20 MG Tablet PO (20:19)
[2018-08-11] MEDS: QUEtiapine 25 MG Tablet 50 MG PO (20:20)
[2018-08-11] MEDS: Sertraline 50 MG Tablet PO (20:22)
[2018-08-11] MEDS: Latanoprost 0.005% 1 Bottle 1 DRP EACH EYE (20:26)
[2018-08-12] MEDS: Enoxaparin 30 MG/0.3 ML Syringe SC (06:41)
[2018-08-12] MEDS: Tolterodine Tartrate 2 MG CAP.SA PO (06:42)
[2018-08-12] MEDS: Levothyroxine 50 MCG Tablet PO (06:42)
[2018-08-12] MEDS: Donepezil HCl 10 MG Tablet PO (06:42)
[2018-08-12 06:43] VITALS: BP 140/71; PULSE 68
[2018-08-12] MEDS: Menthol/Lanolin/Calamine/Znox 113 GM Tube 1 APPLIC TOPICAL ×2 (06:43→19:58)
[2018-08-12] MEDS: Clopidogrel Bisulfate 75 MG Tablet PO (06:43)
[2018-08-12] MEDS: Pantoprazole Sodium 40 MG Tablet PO (06:43)
[2018-08-12] MEDS: Lisinopril 10 MG Tablet PO (06:43)
[2018-08-12] MEDS: Metoprolol(XL)Succ 25 MG Tablet PO (06:43)
[2018-08-12] MEDS: Nystatin Powder 15gm Bottle 1 APPLIC TOPICAL ×2 (06:44→19:48)
[2018-08-12] MEDS: Calcium Carb/Vitamin D 1 TABLET Tablet 2 TABLET PO (08:14)
[2018-08-12] MEDS: Calcitriol 0.25 MCG Capsule PO (08:14)
[2018-08-12] MEDS: Timolol 0.5% 5ML OPTH.BTL 1 DRP LEFT EYE ×2 (08:14→19:57)
[2018-08-12] MEDS: BRIMONIDINE 0.2% 5ML BOTTLE 1 DRP LEFT EYE ×2 (08:15→19:47)
[2018-08-12] MEDS: Dorzolamide 2% 10ml Bottle 1 DRP LEFT EYE ×2 (08:16→19:52)
[2018-08-12 15:20] VITALS: BP 81/47; PULSE 75; RESP 18; TEMP 35.8; O2SAT 99
[2018-08-12 15:23] VITALS: BP 106/47; PULSE 68
[2018-08-12] MEDS: QUEtiapine 25 MG Tablet 50 MG PO (20:32)
[2018-08-12] MEDS: Atorvastatin Calcium 20 MG Tablet PO (20:33)
[2018-08-12] MEDS: Sertraline 50 MG Tablet PO (20:33)
[2018-08-12] MEDS: Latanoprost 0.005% 1 Bottle 1 DRP EACH EYE (20:33)
[2018-08-13] MEDS: Donepezil HCl 10 MG Tablet PO (05:44)
[2018-08-13] MEDS: Levothyroxine 50 MCG Tablet PO (05:44)
[2018-08-13] MEDS: Pantoprazole Sodium 40 MG Tablet PO (05:44)
[2018-08-13] MEDS: Lisinopril 10 MG Tablet PO (05:44)
[2018-08-13] MEDS: Clopidogrel Bisulfate 75 MG Tablet PO (05:44)
[2018-08-13] MEDS: Enoxaparin 30 MG/0.3 ML Syringe SC (05:44)
[2018-08-13] MEDS: Tolterodine Tartrate 2 MG CAP.SA PO (05:44)
[2018-08-13] MEDS: Nystatin Powder 15gm Bottle 1 APPLIC TOPICAL ×2 (05:45→20:02)
[2018-08-13] MEDS: Menthol/Lanolin/Calamine/Znox 113 GM Tube 1 APPLIC TOPICAL ×2 (05:45→20:01)
[2018-08-13 05:48] VITALS: BP 108/62; PULSE 65
[2018-08-13] MEDS: Metoprolol(XL)Succ 25 MG Tablet PO (05:48)
[2018-08-13] MEDS: Timolol 0.5% 5ML OPTH.BTL 1 DRP LEFT EYE ×2 (08:51→20:03)
[2018-08-13] MEDS: BRIMONIDINE 0.2% 5ML BOTTLE 1 DRP LEFT EYE ×2 (08:51→19:53)
[2018-08-13] MEDS: Calcitriol 0.25 MCG Capsule PO (08:52)
[2018-08-13] MEDS: Calcium Carb/Vitamin D 1 TABLET Tablet 2 TABLET PO (08:52)
[2018-08-13] MEDS: Dorzolamide 2% 10ml Bottle 1 DRP LEFT EYE ×2 (08:52→19:58)
--- NOTE | 2018-08-13 14:01 | CASEMGMT ---
Insurance Clinical information sent. Pending continued stay approval at this time. Auth#[id number] Rupali PETERSON, CONTRACT FORESTER
[2018-08-13 15:42] VITALS: BP 103/58; PULSE 71; RESP 20; TEMP 35.9; O2SAT 95
[2018-08-13] MEDS: Atorvastatin Calcium 20 MG Tablet PO (20:56)
[2018-08-13] MEDS: QUEtiapine 25 MG Tablet 50 MG PO (20:56)
[2018-08-13] MEDS: Sertraline 50 MG Tablet PO (20:56)
[2018-08-13] MEDS: Latanoprost 0.005% 1 Bottle 1 DRP EACH EYE (20:56)
[2018-08-14 05:47] VITALS: BP 101/59; PULSE 69
[2018-08-14] MEDS: Enoxaparin 30 MG/0.3 ML Syringe SC (05:47)
[2018-08-14] MEDS: Levothyroxine 50 MCG Tablet PO (05:47)
[2018-08-14] MEDS: Metoprolol(XL)Succ 25 MG Tablet PO (05:47)
[2018-08-14] MEDS: Tolterodine Tartrate 2 MG CAP.SA PO (05:47)
[2018-08-14] MEDS: Pantoprazole Sodium 40 MG Tablet PO (05:47)
[2018-08-14] MEDS: Clopidogrel Bisulfate 75 MG Tablet PO (05:47)
[2018-08-14] MEDS: Lisinopril 10 MG Tablet PO (05:47)
[2018-08-14] MEDS: Donepezil HCl 10 MG Tablet PO (05:47)
[2018-08-14] MEDS: Nystatin Powder 15gm Bottle 1 APPLIC TOPICAL ×2 (05:48→20:27)
[2018-08-14] MEDS: Menthol/Lanolin/Calamine/Znox 113 GM Tube 1 APPLIC TOPICAL ×2 (05:49→20:26)
[2018-08-14] MEDS: Calcium Carb/Vitamin D 1 TABLET Tablet 2 TABLET PO (07:51)
[2018-08-14] MEDS: Dorzolamide 2% 10ml Bottle 1 DRP LEFT EYE ×2 (07:52→20:31)
[2018-08-14] MEDS: BRIMONIDINE 0.2% 5ML BOTTLE 1 DRP LEFT EYE ×2 (07:52→20:21)
[2018-08-14] MEDS: Calcitriol 0.25 MCG Capsule PO (07:52)
[2018-08-14] MEDS: Timolol 0.5% 5ML OPTH.BTL 1 DRP LEFT EYE ×2 (07:52→20:26)
--- NOTE | 2018-08-14 10:50 | CASEMGMT ---
Insurance Continued stay approved with next update due on 08/16/18. Auth#[id number] KRISTEN Don, MODELING TEACHER
[2018-08-14 15:30] VITALS: BP 97/63; PULSE 69; RESP 16; TEMP 36.4; O2SAT 98
[2018-08-14] MEDS: Atorvastatin Calcium 20 MG Tablet PO (20:32)
[2018-08-14] MEDS: QUEtiapine 25 MG Tablet 50 MG PO (20:33)
[2018-08-14] MEDS: Sertraline 50 MG Tablet PO (20:36)
[2018-08-14] MEDS: Latanoprost 0.005% 1 Bottle 1 DRP EACH EYE (20:36)
[2018-08-15 04:51] VITALS: BP 116/72; PULSE 61
[2018-08-15] MEDS: Clopidogrel Bisulfate 75 MG Tablet PO (04:51)
[2018-08-15] MEDS: Metoprolol(XL)Succ 25 MG Tablet PO (04:51)
[2018-08-15] MEDS: Nystatin Powder 15gm Bottle 1 APPLIC TOPICAL ×2 (04:51→21:37)
[2018-08-15] MEDS: Levothyroxine 50 MCG Tablet PO (04:51)
[2018-08-15] MEDS: Lisinopril 10 MG Tablet PO (04:51)
[2018-08-15] MEDS: Pantoprazole Sodium 40 MG Tablet PO (04:51)
[2018-08-15] MEDS: Enoxaparin 30 MG/0.3 ML Syringe SC (04:51)
[2018-08-15] MEDS: Donepezil HCl 10 MG Tablet PO (04:52)
[2018-08-15] MEDS: Menthol/Lanolin/Calamine/Znox 113 GM Tube 1 APPLIC TOPICAL ×2 (04:52→21:36)
[2018-08-15] MEDS: Tolterodine Tartrate 2 MG CAP.SA PO (04:52)
[2018-08-15] MEDS: Calcium Carb/Vitamin D 1 TABLET Tablet 2 TABLET PO (08:27)
[2018-08-15] MEDS: Timolol 0.5% 5ML OPTH.BTL 1 DRP LEFT EYE ×2 (08:27→21:35)
[2018-08-15] MEDS: Dorzolamide 2% 10ml Bottle 1 DRP LEFT EYE ×2 (08:27→21:35)
[2018-08-15] MEDS: Calcitriol 0.25 MCG Capsule PO (08:27)
[2018-08-15] MEDS: BRIMONIDINE 0.2% 5ML BOTTLE 1 DRP LEFT EYE ×2 (08:27→21:34)
--- NOTE | 2018-08-15 11:06 | NURSING ---
CLARIFIED WITH DR MADDEN OFFICE REGARDING APPT TODAY. DR TURNER WILL BE IN TO SEE PT TODAY. NO NEED TO GO TO APPT TODAY. WILL CANCEL TRANSPORT.
--- NOTE | 2018-08-15 11:32 | CASEMGMT ---
Brief interview for mental status (BIMS) and resident mood interview (PHQ-9) completed on this day. BIMS score 04/29. PHQ-9 score 02/09
[2018-08-15 15:56] VITALS: BP 104/54; PULSE 61; RESP 18; TEMP 35.9; O2SAT 91
--- NOTE | 2018-08-15 19:54 | PCM.CONS.GEN ---
Reason for Consult Date of Consultation: 08/15/18 Reason for Consultation: L ankle fracture History of Present Illness: The patient is a 73 year old F [] Past Medical History Past Medical History (Chronic Problems): Chronic Problems Left hemiparesis (Chronic) Dysarthria (Chronic) Hypertension (Chronic) Hypothyroidism (Chronic) GERD (gastroesophageal reflux disease) (Chronic) Overactive bladder (Chronic) Depression (Chronic) Left-sided weakness (Chronic) recent CVA February 2016 Ramos esophagus (Chronic) Glaucoma (Chronic) Rheumatoid arthritis (Chronic) Lupus (Chronic) Mitral valve disorder (Chronic) Normal pressure hydrocephalus (Chronic) Bipolar disorder (Chronic) Hemiparesis affecting left side as late effect of stroke (Chronic) Alcoholic dementia (Chronic) Stroke (Chronic) Benign essential hypertension (Chronic) Allergies ciprofloxacin Allergy (Verified 08/06/18 12:44) Unknown Penicillins Allergy (Verified 08/06/18 12:44) Unknown Sulfa (Sulfonamide Antibiotics) Allergy (Verified 08/06/18 12:44) Unknown thimerosal [From Merthiolate] Allergy (Verified 08/06/18 12:44) Rash Home Medications: Ambulatory Orders Medication Instructions Recorded Atorvastatin Calcium 20 mg PO QHS 10/28/17 Calcitriol [Rocaltrol] 0.25 mcg PO DAILY 10/28/17 Cholecalciferol (Vitamin D3) 5,000 unit PO DAILY 10/28/17 [Vitamin D3] Donepezil HCl 10 mg PO DAILY 10/28/17 Esomeprazole Magnesium 40 mg PO DAILY 10/28/17 Levothyroxine [Synthroid] 50 mcg PO DAILY 10/28/17 Sertraline HCl [Zoloft] 50 mg PO QHS 10/28/17 Solifenacin Succinate [Vesicare] 5 mg PO DAILY 10/28/17 Bimatoprost [Lumigan] 1 drop LEFT EYE QHS 05/09/18 Clopidogrel Bisulfate [Plavix] 75 mg PO DAILY 05/09/18 Lisinopril [Prinivil] 10 mg PO DAILY 05/09/18 Vitamin B Complex 1 tab PO DAILY 05/09/18 Brimonidine Tartrate/Timolol 1 drop LEFT EYE BID 08/06/18 [Combigan Eye Drops] Calcium Carbonate/Vitamin D3 2 each PO DAILY 08/06/18 [Calcium 600-Vit D3 500 Softgel] Dorzolamide 2% [Trusopt] 1 drop LEFT EYE BID 08/06/18 Metoprolol Succinate 25 mg PO DAILY 08/06/18 Quetiapine Fumarate [Seroquel] 50 mg PO QHS 08/06/18 Acetaminophen [Tylenol Tablet] 650 mg PO Q6H PRN PRN tablet 08/08/18 Surgical History: total knee arthroplasty - Bilateral, - - Right shoulder surgery Parathyroidectomy Psychiatric History: Bipolar - Bipolar disorder has not been verified according to the patient's , Depression 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 She was seen in the [facility] ER and than admitted secondary to fracture, hx of stroke and balance issues. I evaluated her last week as an inpatient and surgical intervention was discussed. She was then transferred to the TCU to improve ability to remain NWB LLE and await edema resolution for the L ankle ORIF. She is in a well padded posterior splint to LLE. PT examined at bedside. Her is present. Objective: LLE Exam: Vasc: DP pulse palpable, PT nonpalpable 2/2 edema, CRF < 3 seconds to all digits, warm to warm distal to proximal, Musc: + wiggle toes, other testing deferred 2/2 injury Neuro: light touch sensation diminished Derm: ++ edema and minimal ecchymosis Radiographs 08/06/2018 L ankle 3 views reviewed: oblique, comminuted fracture of the lateral malleolus with displacement laterally and proximally and increased medial clear space - Physical Exam General: Alert Extremities: No Calf Tenderness, Edema Skin: No rashes, No breakdown Vital Signs Temp Pulse Resp BP Pulse Ox 96.6 F L 61 18 104/54 L 91 08/15/18 15:56 08/15/18 15:56 08/15/18 15:56 08/15/18 15:56 08/15/18 15:56 Oxygen Delivery Method Room Air Weight: 153 lb 14.122 oz Body Mass Index (BMI) 24.7 Finger Stick Blood Glucose 88 Intake and Output for Last 24 Hours 08/13/18 08/14/18 08/15/18 23:59 23:59 23:59 Intake Total 360 / 360 660 / 660 440 / 440 Balance 360 / 360 660 / 660 440 / 440 Assessment/Plan All Active Problems Fall (Acute) Closed left ankle fracture (Acute) medical management (Acute) Metabolic encephalopathy (Acute) Altered mental status (Acute) Aphasia (Acute) 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 (Acute) 73 yo F with L unstable ankle fracture -pt evaluated at bedside- -labs, studies and notes reviewed -Recommend ORIF for L ankle fracture. Would like to take her MondayAugust 21 pending OR availability. Please make NPO monday @ mdn, pre-op labs to include bmp, cbc, active t&s along with any labs/studies per medicine and anesthesia. Please risk stratify. will be general anesthesia with a L popliteal-femoral block. PT and agree to procedure. Benefits and risks of non-operative and operative intervention discussed, including both internal and external fixation options. They elect to have ORIF done. Pt understands she will need to be NWB LLE post operatively. Risks include but are not limited to pain, bleeding, infection, delayed/nonhealing, need for further surgery, DVT PE. All questions and concerns were addressed. If OR time does not permit a case on MondayAugust 21 I will request August 23. -Please call with questions or concerns. Will let TCU know when surgery date is definite. -Please keep LLE elevated on 1-2 pillows while in bed. NWB LLE at all times. Pain medication per medicine team.
--- NOTE | 2018-08-15 20:02 | CON.PCM_ITS ---
Reason for Consult Date of Consultation: 08/15/18 Reason for Consultation: L ankle fracture History of Present Illness: The patient is a 73 year old F [] Past Medical History Past Medical History (Chronic Problems): Chronic Problems Left hemiparesis (Chronic) Dysarthria (Chronic) Hypertension (Chronic) Hypothyroidism (Chronic) GERD (gastroesophageal reflux disease) (Chronic) Overactive bladder (Chronic) Depression (Chronic) Left-sided weakness (Chronic) recent CVA February 2016 Ramos esophagus (Chronic) Glaucoma (Chronic) Rheumatoid arthritis (Chronic) Lupus (Chronic) Mitral valve disorder (Chronic) Normal pressure hydrocephalus (Chronic) Bipolar disorder (Chronic) Hemiparesis affecting left side as late effect of stroke (Chronic) Alcoholic dementia (Chronic) Stroke (Chronic) Benign essential hypertension (Chronic) Allergies ciprofloxacin Allergy (Verified 08/06/18 12:44) Unknown Penicillins Allergy (Verified 08/06/18 12:44) Unknown Sulfa (Sulfonamide Antibiotics) Allergy (Verified 08/06/18 12:44) Unknown thimerosal [From Merthiolate] Allergy (Verified 08/06/18 12:44) Rash Home Medications: Ambulatory Orders Medication Instructions Recorded Atorvastatin Calcium 20 mg PO QHS 10/28/17 Calcitriol [Rocaltrol] 0.25 mcg PO DAILY 10/28/17 Cholecalciferol (Vitamin D3) 5,000 unit PO DAILY 10/28/17 [Vitamin D3] Donepezil HCl 10 mg PO DAILY 10/28/17 Esomeprazole Magnesium 40 mg PO DAILY 10/28/17 Levothyroxine [Synthroid] 50 mcg PO DAILY 10/28/17 Sertraline HCl [Zoloft] 50 mg PO QHS 10/28/17 Solifenacin Succinate [Vesicare] 5 mg PO DAILY 10/28/17 Bimatoprost [Lumigan] 1 drop LEFT EYE QHS 05/09/18 Clopidogrel Bisulfate [Plavix] 75 mg PO DAILY 05/09/18 Lisinopril [Prinivil] 10 mg PO DAILY 05/09/18 Vitamin B Complex 1 tab PO DAILY 05/09/18 Brimonidine Tartrate/Timolol 1 drop LEFT EYE BID 08/06/18 [Combigan Eye Drops] Calcium Carbonate/Vitamin D3 2 each PO DAILY 08/06/18 [Calcium 600-Vit D3 500 Softgel] Dorzolamide 2% [Trusopt] 1 drop LEFT EYE BID 08/06/18 Metoprolol Succinate 25 mg PO DAILY 08/06/18 Quetiapine Fumarate [Seroquel] 50 mg PO QHS 08/06/18 Acetaminophen [Tylenol Tablet] 650 mg PO Q6H PRN PRN tablet 08/08/18 Surgical History: total knee arthroplasty - Bilateral, - - Right shoulder surgery Parathyroidectomy Psychiatric History: Bipolar - Bipolar disorder has not been verified according to the patient's , Depression 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 She was seen in the [facility] ER and than admitted secondary to fracture, hx of stroke and balance issues. I evaluated her last week as an inpatient and surgical intervention was discussed. She was then transferred to the TCU to improve ability to remain NWB LLE and await edema resolution for the L ankle ORIF. She is in a well padded posterior splint to LLE. PT examined at bedside. Her is present. Objective: LLE Exam: Vasc: DP pulse palpable, PT nonpalpable 2/2 edema, CRF < 3 seconds to all digits, warm to warm distal to proximal, Musc: + wiggle toes, other testing deferred 2/2 injury Neuro: light touch sensation diminished Derm: ++ edema and minimal ecchymosis Radiographs 08/06/2018 L ankle 3 views reviewed: oblique, comminuted fracture of the lateral malleolus with displacement laterally and proximally and increased medial clear space - Physical Exam General: Alert Extremities: No Calf Tenderness, Edema Skin: No rashes, No breakdown Vital Signs Temp Pulse Resp BP Pulse Ox 96.6 F L 61 18 104/54 L 91 08/15/18 15:56 08/15/18 15:56 08/15/18 15:56 08/15/18 15:56 08/15/18 15:56 Oxygen Delivery Method Room Air Weight: 153 lb 14.122 oz Body Mass Index (BMI) 24.7 Finger Stick Blood Glucose 88 Intake and Output for Last 24 Hours 08/13/18 08/14/18 08/15/18 23:59 23:59 23:59 Intake Total 360 / 360 660 / 660 440 / 440 Balance 360 / 360 660 / 660 440 / 440 Assessment/Plan All Active Problems Fall (Acute) Closed left ankle fracture (Acute) medical management (Acute) Metabolic encephalopathy (Acute) Altered mental status (Acute) Aphasia (Acute) 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 (Acute) 73 yo F with L unstable ankle fracture -pt evaluated at bedside- -labs, studies and notes reviewed -Recommend ORIF for L ankle fracture. Would like to take her MondayAugust 21 pending OR availability. Please make NPO monday @ mdn, pre-op labs to include bmp, cbc, active t&s along with any labs/studies per medicine and anesthesia. Please risk stratify. will be general anesthesia with a L popliteal- femoral block. PT and agree to procedure. Benefits and risks of non- operative and operative intervention discussed, including both internal and external fixation options. They elect to have ORIF done. Pt understands she will need to be NWB LLE post operatively. Risks include but are not limited to pain, bleeding, infection, delayed/nonhealing, need for further surgery, DVT PE. All questions and concerns were addressed. If OR time does not permit a case on MondayAugust 21 I will request August 23. -Please call with questions or concerns. Will let TCU know when surgery date is definite. -Please keep LLE elevated on 1-2 pillows while in bed. NWB LLE at all times. Pain medication per medicine team.
[2018-08-15 20:44] VITALS: PULSE 78; RESP 18; O2SAT 97
[2018-08-15] MEDS: Atorvastatin Calcium 20 MG Tablet PO (21:36)
[2018-08-15] MEDS: Latanoprost 0.005% 1 Bottle 1 DRP EACH EYE (21:37)
[2018-08-15] MEDS: QUEtiapine 25 MG Tablet 50 MG PO (21:37)
[2018-08-15] MEDS: Sertraline 50 MG Tablet PO (21:37)
[2018-08-16] MEDS: Tolterodine Tartrate 2 MG CAP.SA PO (04:37)
[2018-08-16] MEDS: Donepezil HCl 10 MG Tablet PO (04:37)
[2018-08-16] MEDS: Menthol/Lanolin/Calamine/Znox 113 GM Tube 1 APPLIC TOPICAL ×2 (04:37→20:18)
[2018-08-16] MEDS: Clopidogrel Bisulfate 75 MG Tablet PO (04:38)
[2018-08-16] MEDS: Lisinopril 10 MG Tablet PO (04:38)
[2018-08-16] MEDS: Levothyroxine 50 MCG Tablet PO (04:38)
[2018-08-16] MEDS: Pantoprazole Sodium 40 MG Tablet PO (04:38)
[2018-08-16] MEDS: Nystatin Powder 15gm Bottle 1 APPLIC TOPICAL ×2 (04:38→20:18)
[2018-08-16 04:40] VITALS: BP 107/67; PULSE 63
[2018-08-16] MEDS: Metoprolol(XL)Succ 25 MG Tablet PO (04:40)
[2018-08-16] MEDS: Enoxaparin 30 MG/0.3 ML Syringe SC (04:40)
[2018-08-16 06:09] LABS: Anion Gap 9 (5-15); BUN 31 mg/dL (7-18); BUN/Creat Ratio 25.2 RATIO (10-20); Calcium,Total 8.7 mg/dL (8.5-10.1); Chloride 107 mmol/L (98-107); Creatinine, Serum 1.23 mg/dL (0.55-1.02); EST Glomerular Filtration Rate 46 mL/min (>60); Est Glom Filt Rate - Afr Amer 55 mL/min (>60); Glucose 86 mg/dL (74-106); Sodium Level 142 mmol/L (136-145)
[2018-08-16 06:24] LABS: Absolute Lymphocyte Count 1.83 X10^3/ul (0.83-4.51); Absolute Neutrophil Count 4.5 X10^3/uL (2.0-7.7); Basophil# 0.01 X10^3/uL; Basophil% 0.1 % (0-1); Eosinophil# 0.31 X10^3/uL; Eosinophils% 4.3 % (0-5); Hematocrit 35.2 % (37-47); Hemoglobin 11.2 g/dl (12.0-15.0); Lymphocyte # 1.83 X10^3/ul (4.0); Lymphocyte % 25.5 % (19-41); Mean Corp Hgb Conc 31.8 g/gl (32-36); Mean Corpuscular Hgb 26.9 pg (27.0-32.0); Mean Corpuscular Volume 84.4 fL (81-99); Mean Platelet Vol. 10.1 fl (6.2-12.0); Monocyte# 0.49 X10^3/uL; Monocyte% 6.8 % (0-10); Neutrophil # 4.54 X10^3/uL (2.7-7.7); Neutrophil % 63.2 % (47-70); Platelet Count 238 K/mm3 (150-450); RBC Distribution Width SD 43.3 fl (35.1-43.9); Red Blood Count 4.17 M/mm3 (4.2-5.4); White Blood Count 7.2 K/mm3 (4.4-11.0)
[2018-08-16 06:34] LABS: POSITIVE COUNT NO; POSITIVE DIFFERENTIAL NO; POSITIVE MORPHOLOGY NO
[2018-08-16] MEDS: Calcitriol 0.25 MCG Capsule PO (08:22)
[2018-08-16] MEDS: Calcium Carb/Vitamin D 1 TABLET Tablet 2 TABLET PO (08:23)
[2018-08-16] MEDS: Dorzolamide 2% 10ml Bottle 1 DRP LEFT EYE ×2 (08:25→20:19)
[2018-08-16] MEDS: BRIMONIDINE 0.2% 5ML BOTTLE 1 DRP LEFT EYE ×2 (08:25→20:16)
[2018-08-16] MEDS: Timolol 0.5% 5ML OPTH.BTL 1 DRP LEFT EYE ×2 (08:25→20:23)
--- NOTE | 2018-08-16 11:44 | CASEMGMT ---
Insurance Clinical information sent. Pending continued stay approval at this time. Auth#[id number] KRISTEN Don, SEAFOOD CLERK
[2018-08-16] MEDS: Tuberculin,Purif.prot.deriv. 50 TU/ML Vial 5 ML ID (12:30)
[2018-08-16 16:00] VITALS: BP 94/52; PULSE 64; RESP 18; TEMP 36.2; O2SAT 94
--- NOTE | 2018-08-16 18:25 | NURSING ---
Dr. Jj called and said she is planning on doing surgery on pt's ankle on Aug 21 at noon. She will enter orders, pt and informed.
[2018-08-16] MEDS: QUEtiapine 25 MG Tablet 50 MG PO (20:20)
[2018-08-16] MEDS: Sertraline 50 MG Tablet PO (20:25)
[2018-08-16] MEDS: Latanoprost 0.005% 1 Bottle 1 DRP EACH EYE (20:26)
[2018-08-16] MEDS: Atorvastatin Calcium 20 MG Tablet PO (20:28)
[2018-08-17 06:11] VITALS: PULSE 74
[2018-08-17] MEDS: Metoprolol(XL)Succ 25 MG Tablet PO (06:11)
[2018-08-17] MEDS: Lisinopril 10 MG Tablet PO (06:11)
[2018-08-17] MEDS: Enoxaparin 30 MG/0.3 ML Syringe SC (06:11)
[2018-08-17] MEDS: Pantoprazole Sodium 40 MG Tablet PO (06:12)
[2018-08-17] MEDS: Tolterodine Tartrate 2 MG CAP.SA PO (06:12)
[2018-08-17] MEDS: Donepezil HCl 10 MG Tablet PO (06:12)
[2018-08-17] MEDS: Menthol/Lanolin/Calamine/Znox 113 GM Tube 1 APPLIC TOPICAL ×2 (06:12→21:41)
[2018-08-17] MEDS: Levothyroxine 50 MCG Tablet PO (06:12)
[2018-08-17] MEDS: Nystatin Powder 15gm Bottle 1 APPLIC TOPICAL ×2 (06:12→21:43)
[2018-08-17] MEDS: Clopidogrel Bisulfate 75 MG Tablet PO (06:12)
[2018-08-17] MEDS: Calcitriol 0.25 MCG Capsule PO (09:06)
[2018-08-17] MEDS: Timolol 0.5% 5ML OPTH.BTL 1 DRP LEFT EYE ×2 (09:07→21:41)
[2018-08-17] MEDS: Calcium Carb/Vitamin D 1 TABLET Tablet 2 TABLET PO (09:07)
[2018-08-17] MEDS: BRIMONIDINE 0.2% 5ML BOTTLE 1 DRP LEFT EYE ×2 (09:07→21:40)
[2018-08-17] MEDS: Dorzolamide 2% 10ml Bottle 1 DRP LEFT EYE ×2 (09:08→21:41)
--- NOTE | 2018-08-17 10:23 | CASEMGMT ---
Insurance Continued stay approved with next update due 08/21/18. Auth#[id number] KRISTEN Don, ADMINISTRATIVE TECHNICIAN
[2018-08-17 16:00] VITALS: BP 100/52; PULSE 73; RESP 16; TEMP 36.4; O2SAT 98
[2018-08-17] MEDS: Atorvastatin Calcium 20 MG Tablet PO (21:42)
[2018-08-17] MEDS: QUEtiapine 25 MG Tablet 50 MG PO (21:43)
[2018-08-17] MEDS: Latanoprost 0.005% 1 Bottle 1 DRP EACH EYE (21:44)
[2018-08-17] MEDS: Sertraline 50 MG Tablet PO (21:44)
[2018-08-18 05:15] VITALS: BP 96/55; PULSE 73; RESP 14; TEMP 36.6; O2SAT 96
[2018-08-18] MEDS: Clopidogrel Bisulfate 75 MG Tablet PO (05:18)
[2018-08-18] MEDS: Enoxaparin 30 MG/0.3 ML Syringe SC (05:18)
[2018-08-18] MEDS: Donepezil HCl 10 MG Tablet PO (05:18)
[2018-08-18] MEDS: Tolterodine Tartrate 2 MG CAP.SA PO (05:18)
[2018-08-18] MEDS: Pantoprazole Sodium 40 MG Tablet PO (05:18)
[2018-08-18 05:19] VITALS: PULSE 73
[2018-08-18] MEDS: Senna/Docusate Sodium 1 Tablet PO (05:19)
[2018-08-18] MEDS: Metoprolol(XL)Succ 25 MG Tablet PO (05:19)
[2018-08-18] MEDS: Lisinopril 10 MG Tablet PO (05:19)
[2018-08-18] MEDS: Levothyroxine 50 MCG Tablet PO (05:19)
[2018-08-18] MEDS: Menthol/Lanolin/Calamine/Znox 113 GM Tube 1 APPLIC TOPICAL ×2 (05:24→21:20)
[2018-08-18] MEDS: Nystatin Powder 15gm Bottle 1 APPLIC TOPICAL ×2 (05:24→21:23)
[2018-08-18] MEDS: Calcium Carb/Vitamin D 1 TABLET Tablet 2 TABLET PO (08:11)
[2018-08-18] MEDS: Dorzolamide 2% 10ml Bottle 1 DRP LEFT EYE ×2 (08:11→21:22)
[2018-08-18] MEDS: Calcitriol 0.25 MCG Capsule PO (08:12)
[2018-08-18] MEDS: BRIMONIDINE 0.2% 5ML BOTTLE 1 DRP LEFT EYE ×2 (08:12→21:19)
[2018-08-18] MEDS: Timolol 0.5% 5ML OPTH.BTL 1 DRP LEFT EYE ×2 (08:12→21:19)
[2018-08-18 15:44] VITALS: BP 99/54; PULSE 67; RESP 16; TEMP 36; O2SAT 98
[2018-08-18] MEDS: Acetaminophen 500 MG Tablet 1000 MG PO (17:52)
[2018-08-18] MEDS: Atorvastatin Calcium 20 MG Tablet PO (21:23)
[2018-08-18] MEDS: Latanoprost 0.005% 1 Bottle 1 DRP EACH EYE (21:23)
[2018-08-18] MEDS: QUEtiapine 25 MG Tablet 50 MG PO (21:23)
[2018-08-18 21:25] VITALS: PULSE 62; O2SAT 99
[2018-08-18] MEDS: Sertraline 50 MG Tablet PO (21:25)
[2018-08-19] MEDS: Donepezil HCl 10 MG Tablet PO (04:41)
[2018-08-19] MEDS: Menthol/Lanolin/Calamine/Znox 113 GM Tube 1 APPLIC TOPICAL ×2 (04:41→20:12)
[2018-08-19] MEDS: Tolterodine Tartrate 2 MG CAP.SA PO (04:41)
[2018-08-19 04:42] VITALS: BP 131/71; PULSE 67
[2018-08-19] MEDS: Senna/Docusate Sodium 1 Tablet PO (04:42)
[2018-08-19] MEDS: Pantoprazole Sodium 40 MG Tablet PO (04:42)
[2018-08-19] MEDS: Clopidogrel Bisulfate 75 MG Tablet PO (04:42)
[2018-08-19] MEDS: Nystatin Powder 15gm Bottle 1 APPLIC TOPICAL ×2 (04:42→20:14)
[2018-08-19] MEDS: Metoprolol(XL)Succ 25 MG Tablet PO (04:42)
[2018-08-19] MEDS: Levothyroxine 50 MCG Tablet PO (04:42)
[2018-08-19] MEDS: Enoxaparin 30 MG/0.3 ML Syringe SC (04:42)
[2018-08-19] MEDS: Lisinopril 10 MG Tablet PO (04:43)
[2018-08-19] MEDS: BRIMONIDINE 0.2% 5ML BOTTLE 1 DRP LEFT EYE ×2 (08:09→20:11)
[2018-08-19] MEDS: Calcium Carb/Vitamin D 1 TABLET Tablet 2 TABLET PO (08:09)
[2018-08-19] MEDS: Calcitriol 0.25 MCG Capsule PO (08:10)
[2018-08-19] MEDS: Dorzolamide 2% 10ml Bottle 1 DRP LEFT EYE ×2 (08:10→20:12)
[2018-08-19] MEDS: Timolol 0.5% 5ML OPTH.BTL 1 DRP LEFT EYE ×2 (08:12→20:11)
[2018-08-19 16:00] VITALS: BP 90/52; PULSE 60; RESP 16; TEMP 36.1; O2SAT 95
[2018-08-19] MEDS: Latanoprost 0.005% 1 Bottle 1 DRP EACH EYE (20:12)
[2018-08-19] MEDS: Atorvastatin Calcium 20 MG Tablet PO (20:14)
[2018-08-19] MEDS: Sertraline 50 MG Tablet PO (20:15)
[2018-08-19] MEDS: QUEtiapine 25 MG Tablet 50 MG PO (20:15)
[2018-08-19 20:17] VITALS: PULSE 70; O2SAT 98
[2018-08-20] MEDS: Menthol/Lanolin/Calamine/Znox 113 GM Tube 1 APPLIC TOPICAL ×2 (04:59→20:34)
[2018-08-20] MEDS: Enoxaparin 30 MG/0.3 ML Syringe SC (04:59)
[2018-08-20] MEDS: Tolterodine Tartrate 2 MG CAP.SA PO (04:59)
[2018-08-20] MEDS: Donepezil HCl 10 MG Tablet PO (04:59)
[2018-08-20 05:00] VITALS: BP 106/69; PULSE 60
[2018-08-20] MEDS: Metoprolol(XL)Succ 25 MG Tablet PO (05:00)
[2018-08-20] MEDS: Levothyroxine 50 MCG Tablet PO (05:00)
[2018-08-20] MEDS: Pantoprazole Sodium 40 MG Tablet PO (05:00)
[2018-08-20] MEDS: Lisinopril 10 MG Tablet PO (05:00)
[2018-08-20] MEDS: Clopidogrel Bisulfate 75 MG Tablet PO (05:00)
[2018-08-20] MEDS: Nystatin Powder 15gm Bottle 1 APPLIC TOPICAL ×2 (05:00→20:34)
[2018-08-20] MEDS: Senna/Docusate Sodium 1 Tablet PO (05:00)
[2018-08-20] MEDS: Calcium Carb/Vitamin D 1 TABLET Tablet 2 TABLET PO (09:17)
[2018-08-20] MEDS: Dorzolamide 2% 10ml Bottle 1 DRP LEFT EYE ×2 (09:18→20:29)
[2018-08-20] MEDS: Calcitriol 0.25 MCG Capsule PO (09:18)
[2018-08-20] MEDS: Timolol 0.5% 5ML OPTH.BTL 1 DRP LEFT EYE ×2 (09:18→20:29)
[2018-08-20] MEDS: BRIMONIDINE 0.2% 5ML BOTTLE 1 DRP LEFT EYE ×2 (09:19→20:29)
--- NOTE | 2018-08-20 11:56 | PCM.PN.RX ---
<Randy Archuleta D - Last Filed: 08/20/18 11:56> Progress Note - Pharmacy Subjective: TCU Admission Objective: Allergies ciprofloxacin Allergy (Verified 08/06/18 12:44) Unknown Penicillins Allergy (Verified 08/06/18 12:44) Unknown Sulfa (Sulfonamide Antibiotics) Allergy (Verified 08/06/18 12:44) Unknown thimerosal [From Merthiolate] Allergy (Verified 08/06/18 12:44) Rash Current Medications Generic Name Dose Route Start Last Admin Trade Name Freq PRN Reason Stop Dose Admin Acetaminophen 1,000 mg 08/08/18 22:23 08/18/18 17:52 Tylenol PO 1,000 mg Q6H PRN PRN Administration MILD PAIN (1-3/10) Atorvastatin Calcium 20 mg 08/08/18 22:00 08/19/18 20:14 Lipitor PO 20 mg QHS KHANH Administration Bisacodyl 10 mg 08/08/18 22:23 Dulcolax PO DAILY PRN Constipation Brimonidine Tartrate 1 drop 08/09/18 20:00 08/20/18 09:19 Brimonidine 0.2% 5ml Bottle LEFT EYE 1 drop 0800,1999 KHANH Administration Calamine/Phenol 1 applic 08/09/18 06:00 08/20/18 04:59 Calmoseptine Ointment TOPICAL 1 applicatio 0600,2200 KHANH Administration Protocol Calcitriol 0.25 mcg 08/10/18 08:00 08/20/18 09:18 Rocaltrol PO 0.25 mcg DAILY@0800 KHANH Administration Calcium/Vitamin D 2 tablet 08/09/18 08:00 08/20/18 09:17 Os-Geoff 500mg + D PO 2 tablet DAILYCM KHANH Administration Cholecalciferol 5,000 unit 08/10/18 08:00 08/20/18 09:18 Vitamin D PO 5,000 unit DAILY@0800 KHANH Administration Clopidogrel Bisulfate 75 mg 08/09/18 06:00 08/20/18 05:00 Plavix PO 75 mg DAILY KHANH Administration Donepezil HCl 10 mg 08/09/18 06:00 08/20/18 04:59 Aricept PO 10 mg DAILY KHANH Administration Dorzolamide HCl 1 drop 08/09/18 20:00 08/20/18 09:18 Trusopt LEFT EYE 1 drop 0800,2000 [facility] Administration Emollient Ointment 1 applic 08/09/18 06:00 08/20/18 04:59 Eucerin Intensive Repair TOPICAL 1 applicatio 599,2199 [facility] Administration Protocol Enoxaparin Sodium 30 mg 08/09/18 06:00 08/20/18 04:59 Lovenox SC 30 mg DAILY@0600 KHANH Administration Latanoprost 1 drop 08/08/18 22:00 08/19/18 20:12 Xalatan Opthalmic EACH EYE 1 drop QHS [facility] Administration Levothyroxine Sodium 50 mcg 08/09/18 06:00 08/20/18 05:00 Synthroid PO 50 mcg DAILY [facility] Administration Lisinopril 10 mg 08/09/18 06:00 08/20/18 05:00 Zestril PO 10 mg DAILY [facility] Administration Metoprolol Succinate 25 mg 08/09/18 06:00 08/20/18 05:00 Toprol Xl (Beta Ben) PO 25 mg DAILY [facility] Administration Nystatin 1 applic 08/09/18 22:00 08/20/18 05:00 Mycostatin Powder TOPICAL 1 applicatio 599,2199 [facility] Administration Protocol Pantoprazole Sodium 40 mg 08/09/18 06:00 08/20/18 05:00 Protonix PO 40 mg DAILY [facility] Administration Polyethylene Glycol 17 gm 08/09/18 06:00 08/20/18 05:00 Miralax PO Not Given DAILY [facility] Quetiapine Fumarate 50 mg 08/08/18 22:00 08/19/18 20:15 Seroquel PO 50 mg QHS [facility] Administration Senna/Docusate Sodium 1 tablet 08/09/18 06:00 08/20/18 05:00 Senokot-S, Angelia-Colace PO 1 tablet BID [facility] Administration Sertraline HCl 50 mg 08/08/18 22:00 08/19/18 20:15 Zoloft PO 50 mg QHS [facility] Administration Timolol Maleate 1 drop 08/09/18 20:00 08/20/18 09:18 Timoptic LEFT EYE 1 drop [facility] Administration Tolterodine Tartrate 2 mg 08/09/18 06:00 08/20/18 04:59 Detrol La PO 2 mg DAILY [facility] Administration Problem List Closed left ankle fracture (Acute) Left hemiparesis (Chronic) Dysarthria (Chronic) Hypertension (Chronic) Hypothyroidism (Chronic) GERD (gastroesophageal reflux disease) (Chronic) Overactive bladder (Chronic) Depression (Chronic) Vital Signs Temp Pulse Resp BP Pulse Ox 97.0 F L 60 16 106/69 98 08/19/18 16:00 08/20/18 05:00 08/19/18 16:00 08/20/18 05:00 08/19/18 20:17 Oxygen Delivery Method Room Air Weight: 69.8 kg Body Mass Index (BMI) 24.7 Finger Stick Blood Glucose 88 Sodium 142 mmol/L (136-145) 08/16/18 05:35 Potassium 4.0 mmol/L (3.5-5.1) 08/16/18 05:35 Chloride 107 mmol/L (98-107) 08/16/18 05:35 Carbon Dioxide 26.0 mmol/L (21.0-32.0) 08/16/18 05:35 Anion Gap 9 (5-15) 08/16/18 05:35 BUN 31 mg/dL (7-18) H 08/16/18 05:35 Creatinine 1.23 mg/dL (0.55-1.02) H 08/16/18 05:35 Est GFR (MDRD) Af Amer 55 mL/min (>60) L 08/16/18 05:35 Est GFR (MDRD) Non-Af 46 mL/min (>60) L 08/16/18 05:35 BUN/Creatinine Ratio 25.2 RATIO (10-20) H 08/16/18 05:35 Glucose 86 mg/dL (74-106) 08/16/18 05:35 Assessment/Plan: 1) Pain APAP for mild pain. Continue to monitor prn medication use, daily pain scores. 2) HTN Lisinopril, metoprolol. Continue to monitor BP/HR, renal function, electrolytes. 3) Hx Stroke Clopidogrel, atorvastatin. Continue to monitor lipids, s/s stroke, s/s bleeding. 4) Dementia Donepezil at HS. Continue to monitor clinically. 5) GI Pantoprazole daily. Continue to monitor s/s GI distress. 6) Hypothyroidism Levothyroxine daily. Continue to monitor s/s hyper/hypothyroidism. 7) Ophtho Dorzolamide, latanoprost, brimonidine, timolol. Continue to monitor clinically. 8) DVT PPx Enoxaparin daily. Continue to monitor s/s bleeding/clot. 9) D Deficiency D, Ca/D, calcitriol. Continue to monitor clinically. 10) OAB Tolterodine daily. Continue to monitor clinically. Consider dc for lack of efficacy and increased risk of ADR in elderly. Psychotropic Medications: 11) Bipolar/Depression Quetiapine at HS, sertraline daily. Continue to monitor s/s depression. Patient has been maintained on both medications for a long period of time with good efficacy. Unnecessary Medications: None Bowel Regimen: 12) Senna/s, PEG, prn bisacodyl. Continue to monitor prn medication use, for constipation/diarrhea. Date of Note:: 08/20/18 - Provider Comments Provider responsibility: Provider responsible to enter orders to implement recommendations <Keenan Simmons Chi - Last Filed: 08/20/18 12:58> Progress Note - Pharmacy Subjective: [] Objective: Allergies ciprofloxacin Allergy (Verified 08/20/18 11:57) Unknown Penicillins Allergy (Verified 08/20/18 11:57) Unknown Sulfa (Sulfonamide Antibiotics) Allergy (Verified 08/20/18 11:57) Unknown thimerosal [From Merthiolate] Allergy (Verified 08/20/18 11:57) Rash Current Medications Generic Name Dose Route Start Last Admin Trade Name Freq PRN Reason Stop Dose Admin Acetaminophen 1,000 mg 08/08/18 22:23 08/18/18 17:52 Tylenol PO 1,000 mg Q6H PRN PRN Administration MILD PAIN (1-3/10) Atorvastatin Calcium 20 mg 08/08/18 22:00 08/19/18 20:14 Lipitor PO 20 mg QHS KHANH Administration Bisacodyl 10 mg 08/08/18 22:23 Dulcolax PO DAILY PRN Constipation Brimonidine Tartrate 1 drop 08/09/18 20:00 08/20/18 09:19 Brimonidine 0.2% 5ml Bottle LEFT EYE 1 drop 0800,1999 [facility] Administration Calamine/Phenol 1 applic 08/09/18 06:00 08/20/18 04:59 Calmoseptine Ointment TOPICAL 1 applicatio 0600,2200 [facility] Administration Protocol Calcitriol 0.25 mcg 08/10/18 08:00 08/20/18 09:18 Rocaltrol PO 0.25 mcg DAILY@0800 [facility] Administration Calcium/Vitamin D 2 tablet 08/09/18 08:00 08/20/18 09:17 Os-Geoff 500mg + D PO 2 tablet DAILYCM [facility] Administration Cholecalciferol 5,000 unit 08/10/18 08:00 08/20/18 09:18 Vitamin D PO 5,000 unit DAILY@0800 [facility] Administration Clopidogrel Bisulfate 75 mg 08/09/18 06:00 08/20/18 12:07 Plavix PO Not Given DAILY [facility] Donepezil HCl 10 mg 08/09/18 06:00 08/20/18 04:59 Aricept PO 10 mg DAILY [facility] Administration Dorzolamide HCl 1 drop 08/09/18 20:00 08/20/18 09:18 Trusopt LEFT EYE 1 drop [facility] Administration Emollient Ointment 1 applic 08/09/18 06:00 08/20/18 04:59 Eucerin Intensive Repair TOPICAL 1 applicatio [phone] [facility] Administration Protocol Enoxaparin Sodium 30 mg 08/09/18 06:00 08/20/18 12:07 Lovenox SC Not Given DAILY@0600 [facility] Latanoprost 1 drop 08/08/18 22:00 08/19/18 20:12 Xalatan Opthalmic EACH EYE 1 drop QHS [facility] Administration Levothyroxine Sodium 50 mcg 08/09/18 06:00 08/20/18 05:00 Synthroid PO 50 mcg DAILY [facility] Administration Lisinopril 10 mg 08/09/18 06:00 08/20/18 05:00 Zestril PO 10 mg DAILY [facility] Administration Metoprolol Succinate 25 mg 08/09/18 06:00 08/20/18 05:00 Toprol Xl (Beta Ben) PO 25 mg DAILY [facility] Administration Nystatin 1 applic 08/09/18 22:00 08/20/18 05:00 Mycostatin Powder TOPICAL 1 applicatio 599,2199 [facility] Administration Protocol Pantoprazole Sodium 40 mg 08/09/18 06:00 08/20/18 05:00 Protonix PO 40 mg DAILY [facility] Administration Polyethylene Glycol 17 gm 08/09/18 06:00 08/20/18 05:00 Miralax PO Not Given DAILY [facility] Quetiapine Fumarate 50 mg 08/08/18 22:00 08/19/18 20:15 Seroquel PO 50 mg QHS KHANH Administration Senna/Docusate Sodium 1 tablet 08/09/18 06:00 08/20/18 05:00 Senokot-S, Angelia-Colace PO 1 tablet BID K[facility]ANH Administration Sertraline HCl 50 mg 08/08/18 22:00 08/19/18 20:15 Zoloft PO 50 mg QHS KHANH Administration Timolol Maleate 1 drop 08/09/18 20:00 08/20/18 09:18 Timoptic LEFT EYE 1 drop K[facility]ANH Administration Tolterodine Tartrate 2 mg 08/09/18 06:00 08/20/18 04:59 Detrol La PO 2 mg DAILY KHANH Administration Problem List Closed left ankle fracture (Acute) Left hemiparesis (Chronic) Dysarthria (Chronic) Hypertension (Chronic) Hypothyroidism (Chronic) GERD (gastroesophageal reflux disease) (Chronic) Overactive bladder (Chronic) Depression (Chronic) Vital Signs Temp Pulse Resp BP Pulse Ox 97.0 F L 60 16 106/69 98 08/19/18 16:00 08/20/18 05:00 08/19/18 16:00 08/20/18 05:00 08/19/18 20:17 Oxygen Delivery Method Room Air Weight: 69.8 kg Body Mass Index (BMI) 24.7 Finger Stick Blood Glucose 88 Sodium 142 mmol/L (136-145) 08/16/18 05:35 Potassium 4.0 mmol/L (3.5-5.1) 08/16/18 05:35 Chloride 107 mmol/L (98-107) 08/16/18 05:35 Carbon Dioxide 26.0 mmol/L (21.0-32.0) 08/16/18 05:35 Anion Gap 9 (5-15) 08/16/18 05:35 BUN 31 mg/dL (7-18) H 08/16/18 05:35 Creatinine 1.23 mg/dL (0.55-1.02) H 08/16/18 05:35 Est GFR (MDRD) Af Amer 55 mL/min (>60) L 08/16/18 05:35 Est GFR (MDRD) Non-Af 46 mL/min (>60) L 08/16/18 05:35 BUN/Creatinine Ratio 25.2 RATIO (10-20) H 08/16/18 05:35 Glucose 86 mg/dL (74-106) 08/16/18 05:35 Assessment/Plan: Psychotropic Medications: Unnecessary Medications: Bowel Regimen: - Provider Comments Provider responsibility: Provider responsible to enter orders to implement recommendations Provider Comments to Recommendations by Pharmacy: Agree
--- NOTE | 2018-08-20 12:06 | PHA.CONS_ITS ---
<Randy Archuleta D - Last Filed: 08/20/18 11:56> Progress Note - Pharmacy Subjective: TCU Admission Objective: Allergies ciprofloxacin Allergy (Verified 08/06/18 12:44) Unknown Penicillins Allergy (Verified 08/06/18 12:44) Unknown Sulfa (Sulfonamide Antibiotics) Allergy (Verified 08/06/18 12:44) Unknown thimerosal [From Merthiolate] Allergy (Verified 08/06/18 12:44) Rash Current Medications Generic Name Dose Route Start Last Admin Trade Name Freq PRN Reason Stop Dose Admin Acetaminophen 1,000 mg 08/08/18 22:23 08/18/18 17:52 Tylenol PO 1,000 mg Q6H PRN PRN Administration MILD PAIN (1-3/10) Atorvastatin Calcium 20 mg 08/08/18 22:00 08/19/18 20:14 Lipitor PO 20 mg QHS KHANH Administration Bisacodyl 10 mg 08/08/18 22:23 Dulcolax PO DAILY PRN Constipation Brimonidine Tartrate 1 drop 08/09/18 20:00 08/20/18 09:19 Brimonidine 0.2% 5ml Bottle LEFT EYE 1 drop 0800,1999 KHANH Administration Calamine/Phenol 1 applic 08/09/18 06:00 08/20/18 04:59 Calmoseptine Ointment TOPICAL 1 applicatio 0600,2200 KHANH Administration Protocol Calcitriol 0.25 mcg 08/10/18 08:00 08/20/18 09:18 Rocaltrol PO 0.25 mcg DAILY@0800 KHANH Administration Calcium/Vitamin D 2 tablet 08/09/18 08:00 08/20/18 09:17 Os-Geoff 500mg + D PO 2 tablet DAILYCM KHANH Administration Cholecalciferol 5,000 unit 08/10/18 08:00 08/20/18 09:18 Vitamin D PO 5,000 unit DAILY@0800 KHANH Administration Clopidogrel Bisulfate 75 mg 08/09/18 06:00 08/20/18 05:00 Plavix PO 75 mg DAILY KHANH Administration Donepezil HCl 10 mg 08/09/18 06:00 08/20/18 04:59 Aricept PO 10 mg DAILY KHANH Administration Dorzolamide HCl 1 drop 08/09/18 20:00 08/20/18 09:18 Trusopt LEFT EYE 1 drop 0800,2000 [facility] Administration Emollient Ointment 1 applic 08/09/18 06:00 08/20/18 04:59 Eucerin Intensive Repair TOPICAL 1 applicatio 599,2199 [facility] Administration Protocol Enoxaparin Sodium 30 mg 08/09/18 06:00 08/20/18 04:59 Lovenox SC 30 mg DAILY@0600 KHANH Administration Latanoprost 1 drop 08/08/18 22:00 08/19/18 20:12 Xalatan Opthalmic EACH EYE 1 drop QHS [facility] Administration Levothyroxine Sodium 50 mcg 08/09/18 06:00 08/20/18 05:00 Synthroid PO 50 mcg DAILY [facility] Administration Lisinopril 10 mg 08/09/18 06:00 08/20/18 05:00 Zestril PO 10 mg DAILY [facility] Administration Metoprolol Succinate 25 mg 08/09/18 06:00 08/20/18 05:00 Toprol Xl (Beta Ben) PO 25 mg DAILY [facility] Administration Nystatin 1 applic 08/09/18 22:00 08/20/18 05:00 Mycostatin Powder TOPICAL 1 applicatio 599,2199 [facility] Administration Protocol Pantoprazole Sodium 40 mg 08/09/18 06:00 08/20/18 05:00 Protonix PO 40 mg DAILY [facility] Administration Polyethylene Glycol 17 gm 08/09/18 06:00 08/20/18 05:00 Miralax PO Not Given DAILY [facility] Quetiapine Fumarate 50 mg 08/08/18 22:00 08/19/18 20:15 Seroquel PO 50 mg QHS [facility] Administration Senna/Docusate Sodium 1 tablet 08/09/18 06:00 08/20/18 05:00 Senokot-S, Angelia-Colace PO 1 tablet BID [facility] Administration Sertraline HCl 50 mg 08/08/18 22:00 08/19/18 20:15 Zoloft PO 50 mg QHS [facility] Administration Timolol Maleate 1 drop 08/09/18 20:00 08/20/18 09:18 Timoptic LEFT EYE 1 drop [facility] Administration Tolterodine Tartrate 2 mg 08/09/18 06:00 08/20/18 04:59 Detrol La PO 2 mg DAILY [facility] Administration Problem List Closed left ankle fracture (Acute) Left hemiparesis (Chronic) Dysarthria (Chronic) Hypertension (Chronic) Hypothyroidism (Chronic) GERD (gastroesophageal reflux disease) (Chronic) Overactive bladder (Chronic) Depression (Chronic) Vital Signs Temp Pulse Resp BP Pulse Ox 97.0 F L 60 16 106/69 98 08/19/18 16:00 08/20/18 05:00 08/19/18 16:00 08/20/18 05:00 08/19/18 20:17 Oxygen Delivery Method Room Air Weight: 69.8 kg Body Mass Index (BMI) 24.7 Finger Stick Blood Glucose 88 Sodium 142 mmol/L (136-145) 08/16/18 05:35 Potassium 4.0 mmol/L (3.5-5.1) 08/16/18 05:35 Chloride 107 mmol/L (98-107) 08/16/18 05:35 Carbon Dioxide 26.0 mmol/L (21.0-32.0) 08/16/18 05:35 Anion Gap 9 (5-15) 08/16/18 05:35 BUN 31 mg/dL (7-18) H 08/16/18 05:35 Creatinine 1.23 mg/dL (0.55-1.02) H 08/16/18 05:35 Est GFR (MDRD) Af Amer 55 mL/min (>60) L 08/16/18 05:35 Est GFR (MDRD) Non-Af 46 mL/min (>60) L 08/16/18 05:35 BUN/Creatinine Ratio 25.2 RATIO (10-20) H 08/16/18 05:35 Glucose 86 mg/dL (74-106) 08/16/18 05:35 Assessment/Plan: 1) Pain APAP for mild pain. Continue to monitor prn medication use, daily pain scores. 2) HTN Lisinopril, metoprolol. Continue to monitor BP/HR, renal function, electrolytes. 3) Hx Stroke Clopidogrel, atorvastatin. Continue to monitor lipids, s/s stroke, s/s bleeding. 4) Dementia Donepezil at HS. Continue to monitor clinically. 5) GI Pantoprazole daily. Continue to monitor s/s GI distress. 6) Hypothyroidism Levothyroxine daily. Continue to monitor s/s hyper/hypothyroidism. 7) Ophtho Dorzolamide, latanoprost, brimonidine, timolol. Continue to monitor clinic ally. 8) DVT PPx Enoxaparin daily. Continue to monitor s/s bleeding/clot. 9) D Deficiency D, Ca/D, calcitriol. Continue to monitor clinically. 10) OAB Tolterodine daily. Continue to monitor clinically. Consider dc for lack of efficacy and increased risk of ADR in elderly. Psychotropic Medications: 11) Bipolar/Depression Quetiapine at HS, sertraline daily. Continue to monitor s/s depression. Patient has been maintained on both medications for a long period of time with good efficacy. Unnecessary Medications: None Bowel Regimen: 12) Senna/s, PEG, prn bisacodyl. Continue to monitor prn medication use, for constipation/diarrhea. Date of Note:: 08/20/18 - Provider Comments Provider responsibility: Provider responsible to enter orders to implement recommendations <Keenan Simmons Chi - Last Filed: 08/20/18 12:58> Progress Note - Pharmacy Subjective: [] Objective: Allergies ciprofloxacin Allergy (Verified 08/20/18 11:57) Unknown Penicillins Allergy (Verified 08/20/18 11:57) Unknown Sulfa (Sulfonamide Antibiotics) Allergy (Verified 08/20/18 11:57) Unknown thimerosal [From Merthiolate] Allergy (Verified 08/20/18 11:57) Rash Current Medications Generic Name Dose Route Start Last Admin Trade Name Freq PRN Reason Stop Dose Admin Acetaminophen 1,000 mg 08/08/18 22:23 08/18/18 17:52 Tylenol PO 1,000 mg Q6H PRN PRN Administration MILD PAIN (1-3/10) Atorvastatin Calcium 20 mg 08/08/18 22:00 08/19/18 20:14 Lipitor PO 20 mg QHS KHANH Administration Bisacodyl 10 mg 08/08/18 22:23 Dulcolax PO DAILY PRN Constipation Brimonidine Tartrate 1 drop 08/09/18 20:00 08/20/18 09:19 Brimonidine 0.2% 5ml Bottle LEFT EYE 1 drop 0800,1999 [facility] Administration Calamine/Phenol 1 applic 08/09/18 06:00 08/20/18 04:59 Calmoseptine Ointment TOPICAL 1 applicatio 0600,2200 [facility] Administration Protocol Calcitriol 0.25 mcg 08/10/18 08:00 08/20/18 09:18 Rocaltrol PO 0.25 mcg DAILY@0800 [facility] Administration Calcium/Vitamin D 2 tablet 08/09/18 08:00 08/20/18 09:17 Os-Geoff 500mg + D PO 2 tablet DAILYCM [facility] Administration Cholecalciferol 5,000 unit 08/10/18 08:00 08/20/18 09:18 Vitamin D PO 5,000 unit DAILY@0800 [facility] Administration Clopidogrel Bisulfate 75 mg 08/09/18 06:00 08/20/18 12:07 Plavix PO Not Given DAILY [facility] Donepezil HCl 10 mg 08/09/18 06:00 08/20/18 04:59 Aricept PO 10 mg DAILY [facility] Administration Dorzolamide HCl 1 drop 08/09/18 20:00 08/20/18 09:18 Trusopt LEFT EYE 1 drop 799,1999 [facility] Administration Emollient Ointment 1 applic 08/09/18 06:00 08/20/18 04:59 Eucerin Intensive Repair TOPICAL 1 applicatio 599,2199 [facility] Administration Protocol Enoxaparin Sodium 30 mg 08/09/18 06:00 08/20/18 12:07 Lovenox SC Not Given DAILY@0600 [facility] Latanoprost 1 drop 08/08/18 22:00 08/19/18 20:12 Xalatan Opthalmic EACH EYE 1 drop QHS [facility] Administration Levothyroxine Sodium 50 mcg 08/09/18 06:00 08/20/18 05:00 Synthroid PO 50 mcg DAILY [facility] Administration Lisinopril 10 mg 08/09/18 06:00 08/20/18 05:00 Zestril PO 10 mg DAILY [facility] Administration Metoprolol Succinate 25 mg 08/09/18 06:00 08/20/18 05:00 Toprol Xl (Beta Ben) PO 25 mg DAILY [facility] Administration Nystatin 1 applic 08/09/18 22:00 08/20/18 05:00 Mycostatin Powder TOPICAL 1 applicatio 599,2199 [facility] Administration Protocol Pantoprazole Sodium 40 mg 08/09/18 06:00 08/20/18 05:00 Protonix PO 40 mg DAILY [facility] Administration Polyethylene Glycol 17 gm 08/09/18 06:00 08/20/18 05:00 Miralax PO Not Given DAILY [facility] Quetiapine Fumarate 50 mg 08/08/18 22:00 08/19/18 20:15 Seroquel PO 50 mg QHS KHANH Administration Senna/Docusate Sodium 1 tablet 08/09/18 06:00 08/20/18 05:00 Senokot-S, Angelia-Colace PO 1 tablet BID KHANH Administration Sertraline HCl 50 mg 08/08/18 22:00 08/19/18 20:15 Zoloft PO 50 mg QHS KHANH Administration Timolol Maleate 1 drop 08/09/18 20:00 08/20/18 09:18 Timoptic LEFT EYE 1 drop KHANH Administration Tolterodine Tartrate 2 mg 08/09/18 06:00 08/20/18 04:59 Detrol La PO 2 mg DAILY KHANH Administration Problem List Closed left ankle fracture (Acute) Left hemiparesis (Chronic) Dysarthria (Chronic) Hypertension (Chronic) Hypothyroidism (Chronic) GERD (gastroesophageal reflux disease) (Chronic) Overactive bladder (Chronic) Depression (Chronic) Vital Signs Temp Pulse Resp BP Pulse Ox 97.0 F L 60 16 106/69 98 08/19/18 16:00 08/20/18 05:00 08/19/18 16:00 08/20/18 05:00 08/19/18 20:17 Oxygen Delivery Method Room Air Weight: 69.8 kg Body Mass Index (BMI) 24.7 Finger Stick Blood Glucose 88 Sodium 142 mmol/L (136-145) 08/16/18 05:35 Potassium 4.0 mmol/L (3.5-5.1) 08/16/18 05:35 Chloride 107 mmol/L (98-107) 08/16/18 05:35 Carbon Dioxide 26.0 mmol/L (21.0-32.0) 08/16/18 05:35 Anion Gap 9 (5-15) 08/16/18 05:35 BUN 31 mg/dL (7-18) H 08/16/18 05:35 Creatinine 1.23 mg/dL (0.55-1.02) H 08/16/18 05:35 Est GFR (MDRD) Af Amer 55 mL/min (>60) L 08/16/18 05:35 Est GFR (MDRD) Non-Af 46 mL/min (>60) L 08/16/18 05:35 BUN/Creatinine Ratio 25.2 RATIO (10-20) H 08/16/18 05:35 Glucose 86 mg/dL (74-106) 08/16/18 05:35 Assessment/Plan: Psychotropic Medications: Unnecessary Medications: Bowel Regimen: - Provider Comments Provider responsibility: Provider responsible to enter orders to implement recommendations Provider Comments to Recommendations by Pharmacy: Agree
--- NOTE | 2018-08-20 12:07 | NURSING ---
Yris from preop called with orders to hold plavix and lovenox in AM for ORIF lt ankle by Dr Aguilar. Pt NPO after MN, ok to give thyroid med, metoprolol and protonix before surgery with sips water.
[2018-08-20 16:00] VITALS: BP 103/63; PULSE 74; RESP 20; TEMP 36.2; O2SAT 97
--- NOTE | 2018-08-20 20:17 | PCM.PN.ORT ---
Patient Problems: Active and Suspected Problems Closed left ankle fracture (Acute) Subjective: PT evaluated at bedside. She reports she is doing well and ready for surgery tomorrow. We again reviewed the surgical plan with plates and screws. She understands she will need to be NWB to operative extremity. LEg is wrapped in a compressive bandage with a well padded posterior splint in place. Denies calf pain/cp/sob. Objective: Vasc: capillary refill < 3 seconds to all digits Derm: dressing place Neuro: light touch sensation intact MS: deferred 2/2 fx - Physical Exam General: Alert, Cooperative Vital Signs Temp Pulse Resp BP Pulse Ox 97.2 F L 74 20 H 103/63 97 08/20/18 16:00 08/20/18 16:00 08/20/18 16:00 08/20/18 16:00 08/20/18 16:00 Oxygen Delivery Method Room Air Weight: 153 lb 14.122 oz Body Mass Index (BMI) 24.7 Finger Stick Blood Glucose 88 Intake and Output for Last 24 Hours 08/19/18 08/19/18 08/20/18 00:59 23:59 23:59 Intake Total 360 / 360 Balance 360 / 360 Medical Necessity - Tobacco Use Smoking Status: Former smoker Tobacco Use: Non-smoker Assessment/Plan All Active Problems Fall (Acute) Closed left ankle fracture (Acute) medical management (Acute) Metabolic encephalopathy (Acute) Altered mental status (Acute) Aphasia (Acute) 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 -will need to be strict NWB LLE -will defer to anesthesia regarding type of anesthesia and regional block vs local -please call with questions or concerns
[2018-08-20] MEDS: Atorvastatin Calcium 20 MG Tablet PO (20:28)
[2018-08-20] MEDS: Latanoprost 0.005% 1 Bottle 1 DRP EACH EYE (20:28)
[2018-08-20] MEDS: Sertraline 50 MG Tablet PO (20:28)
[2018-08-20] MEDS: QUEtiapine 25 MG Tablet 50 MG PO (20:28)
[2018-08-21 06:07] VITALS: BP 157/93; PULSE 73
[2018-08-21] MEDS: Pantoprazole Sodium 40 MG Tablet PO (06:07)
[2018-08-21] MEDS: Levothyroxine 50 MCG Tablet PO (06:07)
[2018-08-21] MEDS: Metoprolol(XL)Succ 25 MG Tablet PO (06:07)
--- NOTE | 2018-08-21 10:38 | NURSING ---
Resident off unit at this time. Has been taken to OR.
--- NOTE | 2018-08-21 10:47 | NURSING ---
Pt off unit to surgery via bed at 1030
--- NOTE | 2018-08-21 11:29 | CASEMGMT ---
Insurance Clinical information sent. Pending continued stay approval at this time. Auth#[id number] KRISTEN Don, NON DESTRUCTIVE TESTER
--- NOTE | 2018-08-21 14:57 | MDS.RN ---
Information for the mds was obtained from review of the clinical record, interview of resident, staff, and direct observation of resident's care.
--- NOTE | 2018-08-21 15:32 | NURSING ---
Back from OR and back in room. Eyes open and talking to staff. Reports having some pain. Ice pack to Lt ankle. Ankle incision and lower leg covered with dressing. Taking sips of water. Scopolamine patch noted behind Rt ear.
[2018-08-21] MEDS: Lisinopril 10 MG Tablet PO (15:39)
[2018-08-21] MEDS: Tolterodine Tartrate 2 MG CAP.SA PO (15:39)
[2018-08-21] MEDS: Donepezil HCl 10 MG Tablet PO (15:40)
[2018-08-21 16:00] VITALS: BP 145/76; PULSE 68; RESP 16; TEMP 36.3; O2SAT 95
[2018-08-21] MEDS: Sertraline 50 MG Tablet PO (21:01)
[2018-08-21] MEDS: Atorvastatin Calcium 20 MG Tablet PO (21:01)
[2018-08-21] MEDS: oxyCODONE 5 MG Tablet 10 MG PO (21:01)
[2018-08-21] MEDS: QUEtiapine 25 MG Tablet 50 MG PO (21:01)
[2018-08-21] MEDS: Dorzolamide 2% 10ml Bottle 1 DRP LEFT EYE (21:10)
[2018-08-21] MEDS: Latanoprost 0.005% 1 Bottle 1 DRP EACH EYE (21:10)
[2018-08-21] MEDS: BRIMONIDINE 0.2% 5ML BOTTLE 1 DRP LEFT EYE (21:10)
[2018-08-21] MEDS: Timolol 0.5% 5ML OPTH.BTL 1 DRP LEFT EYE (21:12)
[2018-08-21] MEDS: Menthol/Lanolin/Calamine/Znox 113 GM Tube 1 APPLIC TOPICAL (21:13)
[2018-08-21] MEDS: Nystatin Powder 15gm Bottle 1 APPLIC TOPICAL (21:13)
--- NOTE | 2018-08-21 23:55 | NURSING ---
Pt complaint of lower abd pain. Abd distended and firm. Pt incontinent of small amounts of urine since return from surgery. Pt bladder scanned for 449. Pt straight cath of 500cc with moderate amount of urine in attends.
[2018-08-22] MEDS: oxyCODONE 5 MG Tablet 10 MG PO ×3 (05:07→21:02)
[2018-08-22 05:08] VITALS: BP 108/71; PULSE 80
[2018-08-22] MEDS: Donepezil HCl 10 MG Tablet PO (05:08)
[2018-08-22] MEDS: Lisinopril 10 MG Tablet PO (05:08)
[2018-08-22] MEDS: Tolterodine Tartrate 2 MG CAP.SA PO (05:08)
[2018-08-22] MEDS: Pantoprazole Sodium 40 MG Tablet PO (05:08)
[2018-08-22] MEDS: Enoxaparin 30 MG/0.3 ML Syringe SC (05:08)
[2018-08-22] MEDS: Levothyroxine 50 MCG Tablet PO (05:08)
[2018-08-22] MEDS: Metoprolol(XL)Succ 25 MG Tablet PO (05:08)
[2018-08-22] MEDS: Clopidogrel Bisulfate 75 MG Tablet PO (05:08)
[2018-08-22] MEDS: Menthol/Lanolin/Calamine/Znox 113 GM Tube 1 APPLIC TOPICAL ×2 (05:15→21:01)
[2018-08-22] MEDS: Nystatin Powder 15gm Bottle 1 APPLIC TOPICAL ×2 (05:15→21:01)
[2018-08-22] MEDS: Calcium Carb/Vitamin D 1 TABLET Tablet 2 TABLET PO (08:32)
[2018-08-22] MEDS: BRIMONIDINE 0.2% 5ML BOTTLE 1 DRP LEFT EYE ×2 (08:32→20:58)
[2018-08-22] MEDS: Calcitriol 0.25 MCG Capsule PO (08:33)
[2018-08-22] MEDS: Dorzolamide 2% 10ml Bottle 1 DRP LEFT EYE ×2 (08:34→20:57)
[2018-08-22] MEDS: Timolol 0.5% 5ML OPTH.BTL 1 DRP LEFT EYE ×2 (08:34→20:58)
[2018-08-22] MEDS: 0.9% NaCl Peripheral Flush Adult/Peds IV (11:30)
[2018-08-22 14:19] VITALS: BP 113/49; PULSE 73; RESP 20; TEMP 36.8; O2SAT 96
--- NOTE | 2018-08-22 14:23 | NURSING ---
Addendum entered by Danna Barr 08/22/18 18:25: CALLED RADIOLOGY TO READ KUB. STATES IT WILL BE READ WITHIN THE HOUR. Original Note: Addendum entered by Danna Barr 08/22/18 16:43: R' IN LESS DISTRESS THAN EARLIER. WHEN ASKED TO RATE PAIN, STILL RATES 10/10. OFFERED TYLENOL BUT REFUSED. R' APPEARS COMFORTABLE IN BED. AT BEDSIDE. WILL MONITOR. Original Note: R' C/O SEVERE ABDOMINAL PAIN RATES 10/10. STATES IT'S SHARP. SPANS ACROSS LOWER ABDOMEN. R' TEARFUL. VS STABLE. BS PRESENT X4, ABDOMEN SLIGHTLY DISTENDED. INCONTINENT MODERATE AMOUNT. BLADDER SCAN FOR 181CC. NOTIFIED DR. WASHINGTON-LEANN FOR KUB. MEDICATED WITH OXYIR. WILL MONITOR.
--- NOTE | 2018-08-22 15:00 | RAD_ITS ---
STUDY: X-RAY - ABDOMEN/PELVIS REASON FOR EXAM: Female, 73 years old. Abdominal pain TECHNIQUE: AP supine and decubitus views of the abdomen and pelvis. COMPARISON: None. FINDINGS: Normal visualized lung bases. There is an unremarkable bowel gas pattern. There is no demonstrated free abdominal air. The visualized liver, spleen and kidneys are grossly normal in size and morphology. Normal soft tissue structures. There are degenerative changes of the visualized thoracic and lumbar spine. A ASSOCIATE DENTIST shunt is noted. RAD/Abd Inc Decub and/or Erect IMPRESSION: There is no evidence of ileus, obstruction, or free intraperitoneal air. There are degenerative changes of the visualized thoracic and lumbar spine spine. A ASSOCIATE DENTIST shunt is noted with tip terminating in the right pelvis. Electronically Signed: Luis Mascorro MD at 19:10 EST , Service support ,
[2018-08-22 16:00] VITALS: BP 136/89; PULSE 69; RESP 20; TEMP 36.8; O2SAT 99
--- NOTE | 2018-08-22 16:35 | CASEMGMT ---
Insurance Continued stay approved with next update due on 08/24/18. Auth#[id number] KRISTEN Don, PORTAL ADMINISTRATOR
--- NOTE | 2018-08-22 20:10 | NURSING ---
Dr. Aguilar in to see pt. Continue with NWB, leave splint dry and intact, ice and elevate.
[2018-08-22] MEDS: Latanoprost 0.005% 1 Bottle 1 DRP EACH EYE (20:58)
[2018-08-22] MEDS: QUEtiapine 25 MG Tablet 50 MG PO (21:02)
[2018-08-22] MEDS: Atorvastatin Calcium 20 MG Tablet PO (21:02)
[2018-08-22] MEDS: Sertraline 50 MG Tablet PO (21:02)
[2018-08-23] MEDS: oxyCODONE 5 MG Tablet 10 MG PO ×2 (05:23→17:15)
[2018-08-23] MEDS: Tolterodine Tartrate 2 MG CAP.SA PO (05:23)
[2018-08-23] MEDS: Menthol/Lanolin/Calamine/Znox 113 GM Tube 1 APPLIC TOPICAL ×2 (05:24→20:53)
[2018-08-23] MEDS: Levothyroxine 50 MCG Tablet PO (05:24)
[2018-08-23] MEDS: Donepezil HCl 10 MG Tablet PO (05:24)
[2018-08-23] MEDS: Enoxaparin 30 MG/0.3 ML Syringe SC (05:24)
[2018-08-23] MEDS: Clopidogrel Bisulfate 75 MG Tablet PO (05:24)
[2018-08-23] MEDS: Lisinopril 10 MG Tablet PO (05:24)
[2018-08-23] MEDS: Pantoprazole Sodium 40 MG Tablet PO (05:24)
[2018-08-23] MEDS: Nystatin Powder 15gm Bottle 1 APPLIC TOPICAL ×2 (05:24→20:52)
[2018-08-23 05:26] VITALS: BP 145/72; PULSE 88
[2018-08-23] MEDS: Metoprolol(XL)Succ 25 MG Tablet PO (05:26)
[2018-08-23 06:14] LABS: Absolute Lymphocyte Count 1.68 X10^3/ul (0.83-4.51); Absolute Neutrophil Count 6.6 X10^3/uL (2.0-7.7); Basophil# 0.01 X10^3/uL; Basophil% 0.1 % (0-1); Eosinophil# 0.17 X10^3/uL; Eosinophils% 1.8 % (0-5); Hematocrit 35.1 % (37-47); Hemoglobin 11.2 g/dl (12.0-15.0); Lymphocyte # 1.68 X10^3/ul (4.0); Lymphocyte % 18.2 % (19-41); Mean Corp Hgb Conc 31.9 g/gl (32-36); Mean Corpuscular Hgb 27.1 pg (27.0-32.0); Mean Platelet Vol. 10.3 fl (6.2-12.0); Monocyte# 0.78 X10^3/uL; Monocyte% 8.4 % (0-10); Neutrophil # 6.58 X10^3/uL (2.7-7.7); Neutrophil % 71.2 % (47-70); Platelet Count 276 K/mm3 (150-450); RBC Distribution Width CV 14.2 % (11.6-14.6); Red Blood Count 4.13 M/mm3 (4.2-5.4); White Blood Count 9.3 K/mm3 (4.4-11.0)
[2018-08-23 06:26] LABS: Anion Gap 8 (5-15); BUN 22 mg/dL (7-18); BUN/Creat Ratio 16.3 RATIO (10-20); Calcium,Total 8.8 mg/dL (8.5-10.1); Chloride 103 mmol/L (98-107); Creatinine, Serum 1.35 mg/dL (0.55-1.02); EST Glomerular Filtration Rate 41 mL/min (>60); Est Glom Filt Rate - Afr Amer 50 mL/min (>60); Estimated Creatinine Clearance 35.26 ml/min; Glucose 99 mg/dL (74-106); Sodium Level 140 mmol/L (136-145)
[2018-08-23 06:33] LABS: POSITIVE COUNT NO; POSITIVE DIFFERENTIAL NO; POSITIVE MORPHOLOGY NO
[2018-08-23] MEDS: Calcium Carb/Vitamin D 1 TABLET Tablet 2 TABLET PO (08:23)
[2018-08-23] MEDS: Calcitriol 0.25 MCG Capsule PO (08:23)
[2018-08-23] MEDS: Dorzolamide 2% 10ml Bottle 1 DRP LEFT EYE ×2 (08:24→20:49)
[2018-08-23] MEDS: BRIMONIDINE 0.2% 5ML BOTTLE 1 DRP LEFT EYE ×2 (08:24→20:51)
[2018-08-23] MEDS: Timolol 0.5% 5ML OPTH.BTL 1 DRP LEFT EYE ×2 (08:25→20:50)
[2018-08-23 15:39] VITALS: BP 130/62; PULSE 73; RESP 16; TEMP 36.8; O2SAT 94
[2018-08-23] MEDS: Atorvastatin Calcium 20 MG Tablet PO (20:49)
[2018-08-23] MEDS: Sertraline 50 MG Tablet PO (20:49)
[2018-08-23] MEDS: QUEtiapine 25 MG Tablet 50 MG PO (20:49)
[2018-08-23] MEDS: Latanoprost 0.005% 1 Bottle 1 DRP EACH EYE (20:50)
[2018-08-24 05:06] VITALS: BP 155/77; PULSE 71
[2018-08-24] MEDS: oxyCODONE 5 MG Tablet 10 MG PO ×2 (05:06→13:17)
[2018-08-24] MEDS: Clopidogrel Bisulfate 75 MG Tablet PO (05:06)
[2018-08-24] MEDS: Levothyroxine 50 MCG Tablet PO (05:06)
[2018-08-24] MEDS: Tolterodine Tartrate 2 MG CAP.SA PO (05:06)
[2018-08-24] MEDS: Enoxaparin 30 MG/0.3 ML Syringe SC (05:06)
[2018-08-24] MEDS: Pantoprazole Sodium 40 MG Tablet PO (05:06)
[2018-08-24] MEDS: Metoprolol(XL)Succ 25 MG Tablet PO (05:06)
[2018-08-24] MEDS: Lisinopril 10 MG Tablet PO (05:06)
[2018-08-24] MEDS: Menthol/Lanolin/Calamine/Znox 113 GM Tube 1 APPLIC TOPICAL ×2 (05:06→20:17)
[2018-08-24] MEDS: Donepezil HCl 10 MG Tablet PO (05:06)
[2018-08-24] MEDS: Nystatin Powder 15gm Bottle 1 APPLIC TOPICAL ×2 (05:13→20:20)
[2018-08-24] MEDS: Calcium Carb/Vitamin D 1 TABLET Tablet 2 TABLET PO (08:42)
[2018-08-24] MEDS: Timolol 0.5% 5ML OPTH.BTL 1 DRP LEFT EYE ×2 (08:42→20:16)
[2018-08-24] MEDS: Calcitriol 0.25 MCG Capsule PO (08:42)
[2018-08-24] MEDS: BRIMONIDINE 0.2% 5ML BOTTLE 1 DRP LEFT EYE ×2 (08:43→20:16)
[2018-08-24] MEDS: Dorzolamide 2% 10ml Bottle 1 DRP LEFT EYE ×2 (08:43→20:17)
--- NOTE | 2018-08-24 13:36 | CASEMGMT ---
Insurance Clinical update sent via secure email. Will await continued stay determination. Auth # [id number] KRISTEN Small
[2018-08-24 14:42] VITALS: PULSE 73; O2SAT 92
[2018-08-24 15:57] VITALS: BP 101/49; PULSE 78; RESP 18; TEMP 36.8; O2SAT 97
[2018-08-24] MEDS: Polyethylene Glycol 3350 17 GM PACKET PO (16:55)
[2018-08-24] MEDS: Latanoprost 0.005% 1 Bottle 1 DRP EACH EYE (20:20)
[2018-08-24] MEDS: Sertraline 50 MG Tablet PO (21:05)
[2018-08-24] MEDS: Atorvastatin Calcium 20 MG Tablet PO (21:05)
[2018-08-24] MEDS: QUEtiapine 25 MG Tablet 50 MG PO (21:05)
[2018-08-25] MEDS: Levothyroxine 50 MCG Tablet PO (05:43)
[2018-08-25] MEDS: Lisinopril 10 MG Tablet PO (05:43)
[2018-08-25 05:44] VITALS: BP 135/78; PULSE 81
[2018-08-25] MEDS: Pantoprazole Sodium 40 MG Tablet PO (05:44)
[2018-08-25] MEDS: Tolterodine Tartrate 2 MG CAP.SA PO (05:44)
[2018-08-25] MEDS: Metoprolol(XL)Succ 25 MG Tablet PO (05:44)
[2018-08-25] MEDS: Donepezil HCl 10 MG Tablet PO (05:44)
[2018-08-25] MEDS: Clopidogrel Bisulfate 75 MG Tablet PO (05:44)
[2018-08-25] MEDS: Enoxaparin 30 MG/0.3 ML Syringe SC (05:45)
[2018-08-25] MEDS: Menthol/Lanolin/Calamine/Znox 113 GM Tube 1 APPLIC TOPICAL ×2 (05:45→19:54)
[2018-08-25] MEDS: Nystatin Powder 15gm Bottle 1 APPLIC TOPICAL ×2 (05:45→19:55)
[2018-08-25] MEDS: Senna/Docusate Sodium 1 Tablet PO (05:46)
[2018-08-25] MEDS: BRIMONIDINE 0.2% 5ML BOTTLE 1 DRP LEFT EYE ×2 (09:44→19:52)
[2018-08-25] MEDS: Dorzolamide 2% 10ml Bottle 1 DRP LEFT EYE ×2 (09:44→19:54)
[2018-08-25] MEDS: Timolol 0.5% 5ML OPTH.BTL 1 DRP LEFT EYE ×2 (09:44→19:53)
[2018-08-25] MEDS: Calcium Carb/Vitamin D 1 TABLET Tablet 2 TABLET PO (09:45)
[2018-08-25] MEDS: Calcitriol 0.25 MCG Capsule PO (09:46)
[2018-08-25] MEDS: oxyCODONE 5 MG Tablet 10 MG PO (15:45)
[2018-08-25 16:00] VITALS: BP 102/52; PULSE 76; RESP 18; TEMP 36.8; O2SAT 98
[2018-08-25] MEDS: Latanoprost 0.005% 1 Bottle 1 DRP EACH EYE (19:56)
[2018-08-25 20:00] VITALS: PULSE 60; O2SAT 96
[2018-08-25] MEDS: QUEtiapine 25 MG Tablet 50 MG PO (21:12)
[2018-08-25] MEDS: Atorvastatin Calcium 20 MG Tablet PO (21:12)
[2018-08-25] MEDS: Sertraline 50 MG Tablet PO (21:12)
[2018-08-26] MEDS: Tolterodine Tartrate 2 MG CAP.SA PO (05:15)
[2018-08-26] MEDS: Enoxaparin 30 MG/0.3 ML Syringe SC (05:15)
[2018-08-26] MEDS: Donepezil HCl 10 MG Tablet PO (05:15)
[2018-08-26] MEDS: Menthol/Lanolin/Calamine/Znox 113 GM Tube 1 APPLIC TOPICAL ×2 (05:15→20:30)
[2018-08-26 05:16] VITALS: PULSE 64
[2018-08-26] MEDS: Nystatin Powder 15gm Bottle 1 APPLIC TOPICAL ×2 (05:16→20:31)
[2018-08-26] MEDS: Metoprolol(XL)Succ 25 MG Tablet PO (05:16)
[2018-08-26] MEDS: Clopidogrel Bisulfate 75 MG Tablet PO (05:16)
[2018-08-26] MEDS: Levothyroxine 50 MCG Tablet PO (05:16)
[2018-08-26] MEDS: Pantoprazole Sodium 40 MG Tablet PO (05:16)
[2018-08-26] MEDS: Senna/Docusate Sodium 1 Tablet PO (05:16)
[2018-08-26] MEDS: Lisinopril 10 MG Tablet PO (05:17)
[2018-08-26] MEDS: BRIMONIDINE 0.2% 5ML BOTTLE 1 DRP LEFT EYE ×2 (07:54→20:29)
[2018-08-26] MEDS: Timolol 0.5% 5ML OPTH.BTL 1 DRP LEFT EYE ×2 (07:55→20:29)
[2018-08-26] MEDS: Dorzolamide 2% 10ml Bottle 1 DRP LEFT EYE ×2 (07:55→20:30)
[2018-08-26] MEDS: Calcitriol 0.25 MCG Capsule PO (07:56)
[2018-08-26] MEDS: Calcium Carb/Vitamin D 1 TABLET Tablet 2 TABLET PO (07:56)
--- NOTE | 2018-08-26 11:50 | NURSING ---
pt assisted in sitting up in bed and lunch served. visitor in to see pt.
[2018-08-26 15:40] VITALS: BP 123/63; PULSE 72; RESP 18; TEMP 36.7; O2SAT 97
[2018-08-26] MEDS: Latanoprost 0.005% 1 Bottle 1 DRP EACH EYE (20:32)
[2018-08-26 21:25] VITALS: PULSE 71; O2SAT 96
[2018-08-26] MEDS: Atorvastatin Calcium 20 MG Tablet PO (21:25)
[2018-08-26] MEDS: Sertraline 50 MG Tablet PO (21:25)
[2018-08-26] MEDS: QUEtiapine 25 MG Tablet 50 MG PO (21:25)
[2018-08-27] MEDS: Menthol/Lanolin/Calamine/Znox 113 GM Tube 1 APPLIC TOPICAL ×2 (06:17→20:24)
[2018-08-27] MEDS: Tolterodine Tartrate 2 MG CAP.SA PO (06:18)
[2018-08-27] MEDS: Donepezil HCl 10 MG Tablet PO (06:18)
[2018-08-27 06:19] VITALS: BP 122/75; PULSE 64
[2018-08-27] MEDS: Levothyroxine 50 MCG Tablet PO (06:19)
[2018-08-27] MEDS: Metoprolol(XL)Succ 25 MG Tablet PO (06:19)
[2018-08-27] MEDS: Clopidogrel Bisulfate 75 MG Tablet PO (06:19)
[2018-08-27] MEDS: Enoxaparin 30 MG/0.3 ML Syringe SC (06:19)
[2018-08-27] MEDS: Pantoprazole Sodium 40 MG Tablet PO (06:19)
[2018-08-27] MEDS: Nystatin Powder 15gm Bottle 1 APPLIC TOPICAL ×2 (06:19→20:24)
[2018-08-27] MEDS: Senna/Docusate Sodium 1 Tablet PO (06:19)
[2018-08-27] MEDS: Lisinopril 10 MG Tablet PO (06:20)
[2018-08-27] MEDS: Calcium Carb/Vitamin D 1 TABLET Tablet 2 TABLET PO (08:48)
[2018-08-27] MEDS: Calcitriol 0.25 MCG Capsule PO (08:48)
[2018-08-27] MEDS: BRIMONIDINE 0.2% 5ML BOTTLE 1 DRP LEFT EYE ×2 (08:49→20:19)
[2018-08-27] MEDS: Dorzolamide 2% 10ml Bottle 1 DRP LEFT EYE ×2 (08:49→20:19)
[2018-08-27] MEDS: Timolol 0.5% 5ML OPTH.BTL 1 DRP LEFT EYE ×2 (08:49→20:19)
[2018-08-27 16:00] VITALS: BP 92/48; PULSE 70; RESP 16; TEMP 36.4; O2SAT 96
--- NOTE | 2018-08-27 17:01 | RAD_ITS ---
STUDY: X-RAY - ABDOMEN/PELVIS REASON FOR EXAM: Female, 73 years old. Abdominal pain TECHNIQUE: Single AP view of the abdomen / pelvis. COMPARISON: August 22, 2018. FINDINGS: Normal visualized lung bases. Shunt catheter extends to the pelvis. There is an unremarkable bowel gas pattern. There is no demonstrated free abdominal air. The visualized liver, spleen and kidneys are grossly normal in size and morphology. There are vascular calcifications. There is levoscoliosis with degenerative change of the spine. RAD/Abdomen Single View (Portable) IMPRESSION: No obstruction. Electronically Signed: Kevin Elizabeth MD at 22:30 EST , Service support ,
[2018-08-27] MEDS: Latanoprost 0.005% 1 Bottle 1 DRP EACH EYE (20:19)
[2018-08-27] MEDS: QUEtiapine 25 MG Tablet 50 MG PO (20:21)
[2018-08-27] MEDS: Sertraline 50 MG Tablet PO (20:21)
[2018-08-27] MEDS: Atorvastatin Calcium 20 MG Tablet PO (20:22)
[2018-08-27 20:55] LABS: Bacteria 0 SEEN /hpf (None Seen); Mucous, Urine 0 SEEN /hpf (<or=2+); Squamous Epithelial Cells - UA 0 SEEN /hpf (5-10)
[2018-08-27 20:58] LABS: Color, Urine Yellow (Yellow); Glucose, Dipstick Normal (Normal); Ketone-Dipstick Negative (Negative); Leukocyte Esterase-Dipstick 500 /ul (Negative); Nitrite-Dipstick Negative (Negative); Occult Blood-Urine 10 /ul (Negative); Protein-Dipstick 30 mg/dl (Negative); Urine Bilirubin Dipstick Negative (Negative); Urine Clarity Sl. Cloudy (Clear); Urine Urobilinogen Normal (Normal)
[2018-08-27 21:20] LABS: Red Blood Cells-Urine 0-5 SEEN /hpf (0-5); White Blood Cells 50-100 SEEN /hpf (0-5)
[2018-08-28 06:16] VITALS: PULSE 89
[2018-08-28] MEDS: Tolterodine Tartrate 2 MG CAP.SA PO (06:16)
[2018-08-28] MEDS: Clopidogrel Bisulfate 75 MG Tablet PO (06:16)
[2018-08-28] MEDS: Levothyroxine 50 MCG Tablet PO (06:16)
[2018-08-28] MEDS: Lisinopril 10 MG Tablet PO (06:16)
[2018-08-28] MEDS: CEFUROXIME AXETIL 250 MG TABLET 500 MG PO ×2 (06:16→17:00)
[2018-08-28] MEDS: Donepezil HCl 10 MG Tablet PO (06:16)
[2018-08-28] MEDS: Metoprolol(XL)Succ 25 MG Tablet PO (06:16)
[2018-08-28] MEDS: Pantoprazole Sodium 40 MG Tablet PO (06:16)
[2018-08-28] MEDS: Enoxaparin 30 MG/0.3 ML Syringe SC (06:16)
[2018-08-28] MEDS: Menthol/Lanolin/Calamine/Znox 113 GM Tube 1 APPLIC TOPICAL ×2 (06:17→19:49)
[2018-08-28] MEDS: Nystatin Powder 15gm Bottle 1 APPLIC TOPICAL ×2 (06:17→19:48)
[2018-08-28] MEDS: Calcium Carb/Vitamin D 1 TABLET Tablet 2 TABLET PO (08:04)
[2018-08-28] MEDS: Calcitriol 0.25 MCG Capsule PO (08:05)
[2018-08-28] MEDS: Dorzolamide 2% 10ml Bottle 1 DRP LEFT EYE ×2 (08:06→19:48)
[2018-08-28] MEDS: BRIMONIDINE 0.2% 5ML BOTTLE 1 DRP LEFT EYE ×2 (08:06→19:48)
[2018-08-28] MEDS: Timolol 0.5% 5ML OPTH.BTL 1 DRP LEFT EYE ×2 (08:06→19:48)
--- NOTE | 2018-08-28 15:14 | CASEMGMT ---
Insurance Continued stay approved with next update due on 08/28/18. Clinical information faxed on this day, pending continued stay approval at this time. Auth#[id number] KRISTEN Don, SPOOLING SUPERVISOR
[2018-08-28 16:00] VITALS: BP 106/62; PULSE 64; RESP 18; TEMP 37; O2SAT 97
[2018-08-28] MEDS: Sertraline 50 MG Tablet PO (19:48)
[2018-08-28] MEDS: Atorvastatin Calcium 20 MG Tablet PO (19:48)
[2018-08-28] MEDS: Latanoprost 0.005% 1 Bottle 1 DRP EACH EYE (19:48)
[2018-08-28] MEDS: QUEtiapine 25 MG Tablet 50 MG PO (19:48)
[2018-08-29 05:09] VITALS: BP 114/65; PULSE 69
[2018-08-29] MEDS: Donepezil HCl 10 MG Tablet PO (05:09)
[2018-08-29] MEDS: Levothyroxine 50 MCG Tablet PO (05:09)
[2018-08-29] MEDS: Metoprolol(XL)Succ 25 MG Tablet PO (05:09)
[2018-08-29] MEDS: Pantoprazole Sodium 40 MG Tablet PO (05:09)
[2018-08-29] MEDS: Clopidogrel Bisulfate 75 MG Tablet PO (05:09)
[2018-08-29] MEDS: Tolterodine Tartrate 2 MG CAP.SA PO (05:09)
[2018-08-29] MEDS: CEFUROXIME AXETIL 250 MG TABLET 500 MG PO ×2 (05:10→17:01)
[2018-08-29] MEDS: Enoxaparin 30 MG/0.3 ML Syringe SC (05:10)
[2018-08-29] MEDS: Lisinopril 10 MG Tablet PO (05:10)
[2018-08-29] MEDS: Menthol/Lanolin/Calamine/Znox 113 GM Tube 1 APPLIC TOPICAL ×2 (05:14→21:44)
[2018-08-29] MEDS: Nystatin Powder 15gm Bottle 1 APPLIC TOPICAL ×2 (05:14→21:43)
[2018-08-29] MEDS: Calcitriol 0.25 MCG Capsule PO (08:43)
[2018-08-29] MEDS: Calcium Carb/Vitamin D 1 TABLET Tablet 2 TABLET PO (08:43)
[2018-08-29] MEDS: Timolol 0.5% 5ML OPTH.BTL 1 DRP LEFT EYE ×2 (08:43→21:41)
[2018-08-29] MEDS: BRIMONIDINE 0.2% 5ML BOTTLE 1 DRP LEFT EYE ×2 (08:44→21:40)
[2018-08-29] MEDS: Dorzolamide 2% 10ml Bottle 1 DRP LEFT EYE ×2 (08:44→21:41)
--- NOTE | 2018-08-29 15:07 | CASEMGMT ---
Insurance Continued stay denied with last cover day being 08/31/18 and resident to discharge or financial responsibility to begin on 09/01/18. Auth#[id number] KRISTEN Don, PARTS PERSON
[2018-08-29 16:00] VITALS: BP 111/71; PULSE 66; RESP 20; TEMP 36.3; O2SAT 97
--- NOTE | 2018-08-29 16:33 | CASEMGMT ---
Social Work Spoke with resident and resident family in room. This mental health social worker communicating that continued stay has been denied by insurance with last cover day being 08/31/18 and resident to discharge or financial responsibility to begin on 09/01/18. Resident and resident family are not agreeable to insurance decision and plan to appeal. This mental health social worker communicating appeal process. Resident spouse plans to initiate appeal on this day. This mental health social worker broaching topic of discharge plan in the event that appeal is lost. Resident and resident spouse aware that resident spouse is unable to provide needed care within the home. Resident/resident family aware that an extended care facility will not be covered by resident [place] insurance, resident does have Medicaid. Resident plan B would be to discharge to an extended care facility under Medicaid if appeal is lost. Resident choices of nursing homes in order of preference are as follows: 1. [facility] and 2. [facility]. Support given. [facility] This mental health social worker making referral. [facility] reporting to have openings. Clinical information faxed. Pending approval at this time. Transfer form initiated. Proposed discharge date: 09/01/18 pending appeal. PLAN: Discharge to [facility] pending approval by the [place] and outcome of appeal. Would transfer under intermediate level of care. Will continue to follow. TWIN DonW, TABLE COVER FOLDER
--- NOTE | 2018-08-29 18:20 | NURSING ---
dr gill reviewed urine culture prelim results, new order to dc ceftin.
[2018-08-29] MEDS: oxyCODONE 5 MG Tablet 10 MG PO (19:07)
--- NOTE | 2018-08-29 21:23 | TREXTCAR_ITS ---
- Diet 08/21/18 17:33 Diet: Regular Diet Is pt able to select menu?: Yes Diet Comments: no added salt - Routine Orders/Code Status Suppository Type: Dulcolax 10mg Suppository Frequency: Daily PRN [facility] - Wound(s) Lt ankle Wound Type: Surgical Incision - Therapies Weight Bearing: Non weight bearing - Problem/Diagnosis (1) Closed left ankle fracture Status: Acute Current Visit: Yes (2) Left hemiparesis Status: Chronic Current Visit: Yes (3) Dysarthria Status: Chronic Current Visit: Yes (4) Hypertension Status: Chronic Current Visit: Yes (5) Hypothyroidism Status: Chronic Current Visit: Yes (6) GERD (gastroesophageal reflux disease) Status: Chronic Current Visit: Yes (7) Overactive bladder Status: Chronic Current Visit: Yes (8) Depression Status: Chronic Current Visit: Yes (9) Ramos esophagus Status: Chronic Current Visit: No (10) Glaucoma Status: Chronic Current Visit: No (11) Rheumatoid arthritis Status: Chronic Current Visit: No (12) Lupus Status: Chronic Current Visit: No (13) Normal pressure hydrocephalus Status: Chronic Current Visit: No (14) Bipolar disorder Status: Chronic Current Visit: No (15) Alcoholic dementia Status: Chronic Current Visit: No (16) Stroke Status: Chronic Current Visit: No - Allergies/Procedures Done in Hospital Allergies/Adverse Reactions: Allergies ciprofloxacin Allergy (Verified 08/20/18 11:57) Unknown Penicillins Allergy (Verified 08/20/18 11:57) Unknown Sulfa (Sulfonamide Antibiotics) Allergy (Verified 08/20/18 11:57) Unknown thimerosal [From Merthiolate] Allergy (Verified 08/20/18 11:57) Rash - Type of Care/Length of Stay Estimated LOS: More Than 30 Days Type of Care Needed: Intermediate Rehab Potential: Fair Prognosis: Fair - Additional Orders/Day of Discharge Day of Discharge: 09/01/18 - Dietary and Speech Recommendations Dietitian Recommendations/Changes: Rec diet change to regular, no added salt to maximize PO intake prior to surgery next week. Continue Ensure w/ medpass. - Follow Up Care Primary Care Physician: Stephane Palomino MD [Primary Care Provider] - Please follow up with your Primary Care Physician in: 1 week. Please Follow Up With: Knapic,Don, DO When: 2 weeks. Please Follow Up With: Ann Aguilar DPM When: 2 weeks.
--- NOTE | 2018-08-29 21:23 | PCM.DC.SUM ---
Discharge Date and Diagnosis - Problem List Patient Problems: Active and Suspected Problems Closed left ankle fracture (Acute) Date of Admission: 08/08/18 Date of Discharge: 09/01/18 - Primary Discharge Diagnosis Active and Suspected Problems Closed left ankle fracture (Acute) - Secondary Discharge Diagnosis Chronic Problems Left hemiparesis (Chronic) Dysarthria (Chronic) Hypertension (Chronic) Hypothyroidism (Chronic) GERD (gastroesophageal reflux disease) (Chronic) Overactive bladder (Chronic) Depression (Chronic) Left-sided weakness (Chronic) recent CVA February 2016 Ramos esophagus (Chronic) Glaucoma (Chronic) Rheumatoid arthritis (Chronic) Lupus (Chronic) Mitral valve disorder (Chronic) Normal pressure hydrocephalus (Chronic) Bipolar disorder (Chronic) Hemiparesis affecting left side as late effect of stroke (Chronic) Alcoholic dementia (Chronic) Stroke (Chronic) Benign essential hypertension (Chronic) Hospital Course and Treatment Imaging Results: 08/21/18 17:33 Diet: Regular Diet Is pt able to select menu?: Yes Diet Comments: no added salt Clinical Impression(s) from Imaging Studies Abdomen X-Ray 08/22/18 15:00 IMPRESSION: There is no evidence of ileus, obstruction, or free intraperitoneal air. There are degenerative changes of the visualized thoracic and lumbar spine spine. A ROAD BUILDER shunt is noted with tip terminating in the right pelvis. Electronically Signed: Luis Mascorro MD at 19:10 EST , Service support , KUB X-Ray 08/27/18 17:01 IMPRESSION: No obstruction. Electronically Signed: Kevin Elizabeth MD at 22:30 EST , Service support , Microbiology 08/27/18 20:44 Urine Catheter - Catheter Urine Culture - Preliminary Gram positive joanne Operations: None Procedures: None Summary of Care Provided: The patient is a 73 year old Female with below past medical history hospitalized for left ankle fracture, admitted to TCU with debility, here for rehabilitation, strengthening, prior to ORIF left ankle per Dr. Aguilar next week, then disposition determination. 08/21/2018 Dr. Aguilar L lateral malleolus ORIF with transyndesmotic screw fixation. Discharge to the [facility] [place], under intermediate level of care. Patient Problems: Active and Suspected Problems Closed left ankle fracture (Acute) - Physical Exam Vital Signs Temp Pulse Resp BP Pulse Ox 97.3 F L 66 20 H 111/71 97 08/29/18 16:00 08/29/18 16:00 08/29/18 16:00 08/29/18 16:00 08/29/18 16:00 Oxygen Delivery Method Room Air Weight: 70.42 kg Body Mass Index (BMI) 24.7 Finger Stick Blood Glucose 88 Intake and Output for Last 24 Hours 08/27/18 08/28/18 08/29/18 23:59 23:59 23:59 Intake Total 360 / 360 480 / 480 720 / 720 Balance 360 / 360 480 / 480 720 / 720 Microbiology Past 72 Hours 08/27/18 20:44 Urine Culture - Preliminary Urine Catheter - Catheter Gram positive joanne Discharge Diet: No Restrictions Weight Bearing Status: No weight bearing Call your doctor if you observe: Fever of 101 or Higher, Inability to urinate, Inability to have a bowel movement, Shortness of breath, Chest pain, Uncontrolled pain Home Medications: Medications to take at Discharge Atorvastatin Calcium 20 mg PO QHS 10/28/17 Calcitriol [Rocaltrol] 0.25 mcg PO DAILY 10/28/17 Cholecalciferol (Vitamin D3) [Vitamin D3] 5,000 unit PO DAILY 10/28/17 Donepezil HCl 10 mg PO DAILY 10/28/17 Esomeprazole Magnesium 40 mg PO DAILY 10/28/17 Levothyroxine [Synthroid] 50 mcg PO DAILY 10/28/17 Sertraline HCl [Zoloft] 50 mg PO QHS 10/28/17 Solifenacin Succinate [Vesicare] 5 mg PO DAILY 10/28/17 Bimatoprost [Lumigan] 1 drop LEFT EYE QHS 05/09/18 Clopidogrel Bisulfate [Plavix] 75 mg PO DAILY 05/09/18 Lisinopril [Prinivil] 10 mg PO DAILY 05/09/18 Vitamin B Complex 1 tab PO DAILY 05/09/18 Brimonidine Tartrate/Timolol [Combigan Eye Drops] 1 drop LEFT EYE BID 08/06/18 Calcium Carbonate/Vitamin D3 [Calcium 600-Vit D3 500 Softgel] 2 each PO DAILY 08/06/18 Dorzolamide 2% [Trusopt] 1 drop LEFT EYE BID 08/06/18 Metoprolol Succinate 25 mg PO DAILY 08/06/18 Quetiapine Fumarate [Seroquel] 50 mg PO QHS 08/06/18 Acetaminophen [Tylenol] 1,000 mg PO Q6H PRN PRN tablet 08/29/18 Brimonidine Tartrate 0.2% [Brimonidine 0.2% 5Ml Bottle] 1 drop LEFT EYE 0800,2000 bottle 08/29/18 Menthol/Lanolin/Calamine/Znox [Calmoseptine Ointment] 1 applic TOPICAL 0600,2200 tube 08/29/18 Nystatin Powder [Mycostatin Powder] 1 applic TOPICAL 0600,2200 bottle 08/29/18 Oxycodone [Oxyir] 10 mg PO Q4H PRN PRN 3 Days #30 tab 08/29/18 Polyethylene Glycol 3350 [Miralax] 17 gm PO DAILY PRN packet 08/29/18 Senna/Docusate Sodium [Senokot-S] 1 tablet PO BID PRN tablet 08/29/18 Timolol 0.5% [Timoptic] 1 drop LEFT EYE 0800,2000 opth.btl 08/29/18 Following Prescrptions Were Given to Patient: Oxycodone [Oxyir] 10 mg PO Q4H PRN PRN 3 Days #30 tab PRN Reason: Moderate Pain (4-5/10) Primary Care Physician: Stephane Palomino MD [Primary Care Provider] - Please follow up with your Primary Care Physician in: 1 week. Please Follow Up With: Don Bejarano DO When: 2 weeks. Please Follow Up With: Ann Aguilar DPM When: 2 weeks. Disposition: Asstd Living/Non-Skill [place] Minutes spent on discharge:: 30 Patient Condition:: Stable Medical Necessity - Tobacco Use Smoking Status: Former smoker Tobacco Use: Non-smoker Meaningful Use Info Meaningful Use Diagnoses (Choose all that apply): None applicable
--- NOTE | 2018-08-29 21:26 | DS.PCM_ITS ---
Discharge Date and Diagnosis - Problem List Patient Problems: Active and Suspected Problems Closed left ankle fracture (Acute) Date of Admission: 08/08/18 Date of Discharge: 09/01/18 - Primary Discharge Diagnosis Active and Suspected Problems Closed left ankle fracture (Acute) - Secondary Discharge Diagnosis Chronic Problems Left hemiparesis (Chronic) Dysarthria (Chronic) Hypertension (Chronic) Hypothyroidism (Chronic) GERD (gastroesophageal reflux disease) (Chronic) Overactive bladder (Chronic) Depression (Chronic) Left-sided weakness (Chronic) recent CVA February 2016 Ramos esophagus (Chronic) Glaucoma (Chronic) Rheumatoid arthritis (Chronic) Lupus (Chronic) Mitral valve disorder (Chronic) Normal pressure hydrocephalus (Chronic) Bipolar disorder (Chronic) Hemiparesis affecting left side as late effect of stroke (Chronic) Alcoholic dementia (Chronic) Stroke (Chronic) Benign essential hypertension (Chronic) Hospital Course and Treatment Imaging Results: 08/21/18 17:33 Diet: Regular Diet Is pt able to select menu?: Yes Diet Comments: no added salt Clinical Impression(s) from Imaging Studies Abdomen X-Ray 08/22/18 15:00 IMPRESSION: There is no evidence of ileus, obstruction, or free intraperitoneal air. There are degenerative changes of the visualized thoracic and lumbar spine spine. A CFD ENGINEER shunt is noted with tip terminating in the right pelvis. Electronically Signed: Luis Mascorro MD at 19:10 EST , Service support , KUB X-Ray 08/27/18 17:01 IMPRESSION: No obstruction. Electronically Signed: Kevin Elizabeth MD at 22:30 EST , Service support , Microbiology 08/27/18 20:44 Urine Catheter - Catheter Urine Culture - Preliminary Gram positive joanne Operations: None Procedures: None Summary of Care Provided: The patient is a 73 year old Female with below past medical history hospitalized for left ankle fracture, admitted to TCU with debility, here for rehabilitation, strengthening, prior to ORIF left ankle per Dr. Aguilar next week, then dispositi on determination. 08/21/2018 Dr. Aguilar L lateral malleolus ORIF with transyndesmotic screw fixation. [facility]charge to the [facility], under intermediate level of care. Patient Problems: Active and Suspected Problems Closed left ankle fracture (Acute) - Physical Exam Vital Signs Temp Pulse Resp BP Pulse Ox 97.3 F L 66 20 H 111/71 97 08/29/18 16:00 08/29/18 16:00 08/29/18 16:00 08/29/18 16:00 08/29/18 16:00 Oxygen Delivery Method Room Air Weight: 70.42 kg Body Mass Index (BMI) 24.7 Finger Stick Blood Glucose 88 Intake and Output for Last 24 Hours 08/27/18 08/28/18 08/29/18 23:59 23:59 23:59 Intake Total 360 / 360 480 / 480 720 / 720 Balance 360 / 360 480 / 480 720 / 720 Microbiology Past 72 Hours 08/27/18 20:44 Urine Culture - Preliminary Urine Catheter - Catheter Gram positive joanne Discharge Diet: No Restrictions Weight Bearing Status: No weight bearing Call your doctor if you observe: Fever of 101 or Higher, Inability to urinate, Inability to have a bowel movement, Shortness of breath, Chest pain, Uncontrolled pain Home Medications: Medications to take at Discharge Atorvastatin Calcium 20 mg PO QHS 10/28/17 Calcitriol [Rocaltrol] 0.25 mcg PO DAILY 10/28/17 Cholecalciferol (Vitamin D3) [Vitamin D3] 5,000 unit PO DAILY 10/28/17 Donepezil HCl 10 mg PO DAILY 10/28/17 Esomeprazole Magnesium 40 mg PO DAILY 10/28/17 Levothyroxine [Synthroid] 50 mcg PO DAILY 10/28/17 Sertraline HCl [Zoloft] 50 mg PO QHS 10/28/17 Solifenacin Succinate [Vesicare] 5 mg PO DAILY 10/28/17 Bimatoprost [Lumigan] 1 drop LEFT EYE QHS 05/09/18 Clopidogrel Bisulfate [Plavix] 75 mg PO DAILY 05/09/18 Lisinopril [Prinivil] 10 mg PO DAILY 05/09/18 Vitamin B Complex 1 tab PO DAILY 05/09/18 Brimonidine Tartrate/Timolol [Combigan Eye Drops] 1 drop LEFT EYE BID 08/06/18 Calcium Carbonate/Vitamin D3 [Calcium 600-Vit D3 500 Softgel] 2 each PO DAILY 08/06/18 Dorzolamide 2% [Trusopt] 1 drop LEFT EYE BID 08/06/18 Metoprolol Succinate 25 mg PO DAILY 08/06/18 Quetiapine Fumarate [Seroquel] 50 mg PO QHS 08/06/18 Acetaminophen [Tylenol] 1,000 mg PO Q6H PRN PRN tablet 08/29/18 Brimonidine Tartrate 0.2% [Brimonidine 0.2% 5Ml Bottle] 1 drop LEFT EYE 0800,2000 bottle 08/29/18 Menthol/Lanolin/Calamine/Znox [Calmoseptine Ointment] 1 applic TOPICAL 0600,2200 tube 08/29/18 Nystatin Powder [Mycostatin Powder] 1 applic TOPICAL 0600,2200 bottle 08/29/18 Oxycodone [Oxyir] 10 mg PO Q4H PRN PRN 3 Days #30 tab 08/29/18 Polyethylene Glycol 3350 [Miralax] 17 gm PO DAILY PRN packet 08/29/18 Senna/Docusate Sodium [Senokot-S] 1 tablet PO BID PRN tablet 08/29/18 Timolol 0.5% [Timoptic] 1 drop LEFT EYE 0800,2000 opth.btl 08/29/18 Following Prescrptions Were Given to Patient: Oxycodone [Oxyir] 10 mg PO Q4H PRN PRN 3 Days #30 tab PRN Reason: Moderate Pain (4-5/10) Primary Care Physician: Stephane Palomino MD [Primary Care Provider] - Please follow up with your Primary Care Physician in: 1 week. Please Follow Up With: Don Bejarano DO When: 2 weeks. Please Follow Up With: Ann Aguilar DPM When: 2 weeks. Disposition: Asstd Living/Non-Skill [place] Minutes spent on discharge:: 30 Patient Condition:: Stable Medical Necessity - Tobacco Use Smoking Status: Former smoker Tobacco Use: Non-smoker Meaningful Use Info Meaningful Use Diagnoses (Choose all that apply): None applicable
[2018-08-29] MEDS: Sertraline 50 MG Tablet PO (21:42)
[2018-08-29] MEDS: Atorvastatin Calcium 20 MG Tablet PO (21:42)
[2018-08-29] MEDS: QUEtiapine 25 MG Tablet 50 MG PO (21:42)
[2018-08-29] MEDS: Latanoprost 0.005% 1 Bottle 1 DRP EACH EYE (21:44)
[2018-08-30 05:27] VITALS: BP 103/53; PULSE 60
[2018-08-30] MEDS: Metoprolol(XL)Succ 25 MG Tablet PO (05:27)
[2018-08-30] MEDS: Enoxaparin 30 MG/0.3 ML Syringe SC (05:27)
[2018-08-30] MEDS: Clopidogrel Bisulfate 75 MG Tablet PO (05:28)
[2018-08-30] MEDS: Tolterodine Tartrate 2 MG CAP.SA PO (05:28)
[2018-08-30] MEDS: Pantoprazole Sodium 40 MG Tablet PO (05:28)
[2018-08-30] MEDS: Lisinopril 10 MG Tablet PO (05:29)
[2018-08-30] MEDS: Donepezil HCl 10 MG Tablet PO (05:29)
[2018-08-30] MEDS: Levothyroxine 50 MCG Tablet PO (05:29)
[2018-08-30] MEDS: Menthol/Lanolin/Calamine/Znox 113 GM Tube 1 APPLIC TOPICAL ×2 (05:33→20:55)
[2018-08-30] MEDS: Nystatin Powder 15gm Bottle 1 APPLIC TOPICAL ×2 (05:34→20:55)
[2018-08-30 05:45] LABS: Absolute Neutrophil Count 4.1 X10^3/uL (2.0-7.7); Basophil# 0.01 X10^3/uL; Basophil% 0.1 % (0-1); Eosinophil# 0.23 X10^3/uL; Eosinophils% 3.4 % (0-5); Hematocrit 33.6 % (37-47); Hemoglobin 10.4 g/dl (12.0-15.0); Lymphocyte % 29.5 % (19-41); Mean Corpuscular Hgb 26.7 pg (27.0-32.0); Mean Corpuscular Volume 86.2 fL (81-99); Monocyte# 0.47 X10^3/uL; Monocyte% 6.9 % (0-10); Neutrophil # 4.05 X10^3/uL (2.7-7.7); Platelet Count 252 K/mm3 (150-450); RBC Distribution Width CV 14.5 % (11.6-14.6); RBC Distribution Width SD 45.7 fl (35.1-43.9); White Blood Count 6.8 K/mm3 (4.4-11.0)
[2018-08-30 05:47] LABS: POSITIVE COUNT NO; POSITIVE DIFFERENTIAL NO; POSITIVE MORPHOLOGY NO
[2018-08-30 06:15] LABS: Anion Gap 9 (5-15); BUN 32 mg/dL (7-18); BUN/Creat Ratio 25.4 RATIO (10-20); Calcium,Total 8.5 mg/dL (8.5-10.1); Chloride 109 mmol/L (98-107); Creatinine, Serum 1.26 mg/dL (0.55-1.02); EST Glomerular Filtration Rate 44 mL/min (>60); Est Glom Filt Rate - Afr Amer 54 mL/min (>60); Estimated Creatinine Clearance 37.78 ml/min; Glucose 83 mg/dL (74-106); Potassium 3.9 mmol/L (3.5-5.1); Sodium Level 146 mmol/L (136-145)
[2018-08-30] MEDS: Dorzolamide 2% 10ml Bottle 1 DRP LEFT EYE ×2 (08:13→20:52)
[2018-08-30] MEDS: Timolol 0.5% 5ML OPTH.BTL 1 DRP LEFT EYE ×2 (08:22→20:52)
[2018-08-30] MEDS: Calcium Carb/Vitamin D 1 TABLET Tablet 2 TABLET PO (08:22)
[2018-08-30] MEDS: Calcitriol 0.25 MCG Capsule PO (08:23)
[2018-08-30] MEDS: BRIMONIDINE 0.2% 5ML BOTTLE 1 DRP LEFT EYE ×2 (08:27→20:52)
--- NOTE | 2018-08-30 13:14 | RAD_ITS ---
STUDY: X-RAY - LEFT ANKLE REASON FOR EXAM: Female, 73 years old. Pain, no new injury. Surgery 2 weeks ago. TECHNIQUE: 3 view(s) of the ankle. COMPARISON: 3 views of the left ankle August 21, 2018. FINDINGS: Again seen is fixation of a distal fibular fracture bilateral metal sideplate with screws. The third screw from the bottom passes through the fibula across the distal tibial metaphysis. Healing fracture fragments are in anatomic alignment. Stable minor cortical undulation/spurring along the medial margin of the medial malleolus. Normal tibiotalar articulation and ankle mortise. Normal visualized talus and calcaneus. The visualized subtalar, talonavicular, calcaneocuboid and tarsal articulations are normal. There is borderline improved superficial soft tissue swelling. Gas noted in the anterior soft tissues of the distal lower leg and ankle on prior study have cleared. RAD/Ankle min 3 Views IMPRESSION: 1. Healing fracture of the distal fibula status post ORIF with metal hardware again noted in anatomic alignment. 2. Borderline to superficial soft tissue swelling. Soft tissue gas lucencies seen on prior study have cleared. Electronically Signed: Bandar Morris MD at 17:56 EST , Service support ,
--- NOTE | 2018-08-30 13:21 | PN.ORTHO_ITS ---
Patient Problems: Active and Suspected Problems Closed left ankle fracture (Acute) Subjective: Pt was evaluated at bedside with present. States she is feeling well. Had minor increase in pain last night in her left lateral ankle. States she has not needed much pain medication and is elevating in bedside and in the reclining chair in the room. working with PT. Denies f/c/n/cp/sob. no other complaints. States she is going to be transferred to another facility this weekend and is concerned she is not strong enough to remain nonweightbearing to the LLE at all times. Is concerned she may not be ready or steady enough and may fall. States insurance is the primary reason for transfer and her is actively appealing decision. Objective: Vasc: cap refill < 3 seconds to digits, warm to warm with no pain on compression of calf, edema much improved Neuro: light touch sensation diminished Ms: deferred 2/ surgery Derm: sutures intact to the left lateral ankle, skin edges well approximated, no drainage, no SOI, mild resolving ecchymosis noted diffusely across ankle and foot. - Physical Exam General: Alert, Cooperative Vital Signs Temp Pulse Resp BP Pulse Ox 97.3 F L 60 20 H 103/53 L 97 08/29/18 16:00 08/30/18 05:27 08/29/18 16:00 08/30/18 05:27 08/29/18 16:00 Oxygen Delivery Method Room Air Weight: 155 lb 4 oz Body Mass Index (BMI) 24.7 Finger Stick Blood Glucose 88 Intake and Output for Last 24 Hours 08/28/18 08/29/18 08/30/18 23:59 23:59 23:59 Intake Total 480 / 480 720 / 720 240 / 240 Balance 480 / 480 720 / 720 240 / 240 Microbiology Past 72 Hours 08/27/18 20:44 Urine Culture - Preliminary Urine Catheter - Catheter Gram negative joanne Laboratory Tests Past 24 Hrs 08/30/18 08/30/18 05:17 05:17 WBC 6.8 RBC 3.90 L Hgb 10.4 L Hct 33.6 L MCV 86.2 MCH 26.7 L MCHC 31.0 L RDW 14.5 RDW Differential 45.7 H Plt Count 252 MPV 10.0 Immature Gran % (Auto) 0.100 Neut % (Auto) 60.0 Lymph % (Auto) 29.5 [place] % (Auto) 6.9 Eos % (Auto) 3.4 Baso % (Auto) 0.1 Absolute Neuts (auto) 4.1 Absolute Lymphs (auto) 2.00 Total Counted Not Reportable Sodium 146 H Potassium 3.9 Chloride 109 H Carbon Dioxide 28.0 Anion Gap 9 BUN 32 H Creatinine 1.26 H Estim Creat Clear Calc 37.78 Est GFR (MDRD) Af Amer 54 L Est GFR (MDRD) Non-Af 44 L BUN/Creatinine Ratio 25.4 H Glucose 83 Calcium 8.5 Medical Necessity - Tobacco Use Smoking Status: Former smoker Tobacco Use: Non-smoker Assessment/Plan All Active Problems Fall (Acute) Closed left ankle fracture (Acute) medical management (Acute) Metabolic encephalopathy (Acute) Altered mental status (Acute) Aphasia (Acute) 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 (Acute) 73 yo F s/p L ORIF w/ transyndesmotic screw fixation POD# 9 -Pt evaluated at bedside -labs, studies and notes reviewed-appreciate recs -Continue strict NWB LLE during acute post operative bone healing, any fall or misstep could lead to bone or soft tissue issues/complications, not limited to malunion, nonunion, delayed union, suture rupture, infection of the soft tissue and bone, need for further surgery -Elevate LLE when in bed or recliner -Recommend continued placement at appropriate level of care given her significant co-morbidities and balance issues which led to fall that caused fracture and led to surgical intervention. -Will repeat post operative films given new onset pain yesterday. These have been ordered. -Will re-evaluate in 10-14 days unless needed sooner. If transferred from TCu please have post operative outpatient appointment arranged at [facility] [place] for the week of Sep 10. I am in office Monday, Monday afternoon, Monday. If she is still in TCU I will see her here. -Please call with questions or concerns.
--- NOTE | 2018-08-30 13:54 | CASEMGMT ---
Social Work Telephone call from [facility]. [facility] reporting to be able to accept resident on 09/01/18. Since resident has a managed care plan for Medicaid [facility] will obtain Level of Care. This psychologist social to complete a PASRR. Will fax discharge information when obtained along with PASRR. [facility] aware that appeal is still pending at this time. Spoke with resident and resident family. This psychologist social communicating above information. All agreeable to resident transition to the [facility] if appeal is lost. Support given. PASRR completed in [facility], will fax with discharge information, if appeal is lost. Proposed discharge date: 09/01/18 pending appeal. PLAN: Discharge to the [facility] pending appeal - intermediate level of care. TWIN DonW, INTERNAL MEDICINE PHYSICIAN
--- NOTE | 2018-08-30 14:28 | NURSING ---
Dr. Aguilar in to see patient today, dressing changed. NO for ankle xray.
--- NOTE | 2018-08-30 14:29 | MDS.RN ---
Pain interview for rachele 09/01/18 completed.
[2018-08-30 16:00] VITALS: BP 110/64; PULSE 70; RESP 18; TEMP 36.5; O2SAT 93
[2018-08-30] MEDS: QUEtiapine 25 MG Tablet 50 MG PO (20:53)
[2018-08-30] MEDS: Atorvastatin Calcium 20 MG Tablet PO (20:53)
[2018-08-30] MEDS: Sertraline 50 MG Tablet PO (20:53)
[2018-08-30] MEDS: Latanoprost 0.005% 1 Bottle 1 DRP EACH EYE (20:55)
[2018-08-31] MEDS: Menthol/Lanolin/Calamine/Znox 113 GM Tube 1 APPLIC TOPICAL ×2 (06:19→20:41)
[2018-08-31] MEDS: Nystatin Powder 15gm Bottle 1 APPLIC TOPICAL ×2 (06:19→20:41)
[2018-08-31 06:20] VITALS: BP 123/64; PULSE 71
[2018-08-31] MEDS: Pantoprazole Sodium 40 MG Tablet PO (06:20)
[2018-08-31] MEDS: Metoprolol(XL)Succ 25 MG Tablet PO (06:20)
[2018-08-31] MEDS: Lisinopril 10 MG Tablet PO (06:20)
[2018-08-31] MEDS: Clopidogrel Bisulfate 75 MG Tablet PO (06:20)
[2018-08-31] MEDS: Tolterodine Tartrate 2 MG CAP.SA PO (06:21)
[2018-08-31] MEDS: Donepezil HCl 10 MG Tablet PO (06:21)
[2018-08-31] MEDS: Levothyroxine 50 MCG Tablet PO (06:21)
[2018-08-31] MEDS: Enoxaparin 30 MG/0.3 ML Syringe SC (06:21)
--- NOTE | 2018-08-31 09:42 | CASEMGMT ---
Addendum entered by Rupali Gates 08/31/18 10:47: Reviewed and approved social work student MDS documentation. KRISTEN Don, INSURANCE CLAIM REPRESENTATIVE Original Note: Brief interview for mental status (BIMS) and mood (PHQ-9) completed on this day. BIMS score /15. PHQ-9 score 04/11. Akua Null social work student
[2018-08-31] MEDS: Timolol 0.5% 5ML OPTH.BTL 1 DRP LEFT EYE ×2 (10:43→20:36)
[2018-08-31] MEDS: Calcium Carb/Vitamin D 1 TABLET Tablet 2 TABLET PO (10:44)
[2018-08-31] MEDS: Calcitriol 0.25 MCG Capsule PO (10:44)
[2018-08-31] MEDS: Dorzolamide 2% 10ml Bottle 1 DRP LEFT EYE ×2 (10:48→20:36)
[2018-08-31] MEDS: BRIMONIDINE 0.2% 5ML BOTTLE 1 DRP LEFT EYE ×2 (10:52→20:36)
--- NOTE | 2018-08-31 11:40 | CASEMGMT ---
Social Work Resident continues to be pending response from appeal. Spoke with resident and resident spouse in room. Resident and resident spouse are agreeable to having transportation set up in the event that appeal is lost. Resident reporting to need a wheelchair van. Support given. Telephone call to [facility]. This social service technician setting up transportation for 09/01/18 @ 1:30. Transportation form completed and placed with resident discharge information. Proposed discharge date: 09/01/18 pending appeal. PLAN: Discharge to the [facility] - intermediate level of care pending appeal outcome. Rupali Gates, INTERNET NETWORK SPECIALIST, DRYWALL INSTALLER
[2018-08-31] MEDS: Acetaminophen 500 MG Tablet 1000 MG PO (11:54)
[2018-08-31 16:00] VITALS: BP 90/55; PULSE 65; RESP 18; TEMP 35.9; O2SAT 97
[2018-08-31] MEDS: Latanoprost 0.005% 1 Bottle 1 DRP EACH EYE (20:36)
[2018-08-31] MEDS: Atorvastatin Calcium 20 MG Tablet PO (20:36)
[2018-08-31] MEDS: QUEtiapine 25 MG Tablet 50 MG PO (20:36)
[2018-08-31] MEDS: Sertraline 50 MG Tablet PO (20:36)
[2018-09-01] MEDS: Tolterodine Tartrate 2 MG CAP.SA PO (05:40)
[2018-09-01] MEDS: Levothyroxine 50 MCG Tablet PO (05:40)
[2018-09-01] MEDS: Pantoprazole Sodium 40 MG Tablet PO (05:40)
[2018-09-01] MEDS: Lisinopril 10 MG Tablet PO (05:40)
[2018-09-01] MEDS: Enoxaparin 30 MG/0.3 ML Syringe SC (05:40)
[2018-09-01] MEDS: Donepezil HCl 10 MG Tablet PO (05:40)
[2018-09-01] MEDS: Clopidogrel Bisulfate 75 MG Tablet PO (05:40)
[2018-09-01] MEDS: Nystatin Powder 15gm Bottle 1 APPLIC TOPICAL (05:41)
[2018-09-01] MEDS: Menthol/Lanolin/Calamine/Znox 113 GM Tube 1 APPLIC TOPICAL (05:41)
[2018-09-01 05:42] VITALS: BP 121/74; PULSE 62
[2018-09-01] MEDS: Metoprolol(XL)Succ 25 MG Tablet PO (05:42)
[2018-09-01] MEDS: Calcium Carb/Vitamin D 1 TABLET Tablet 2 TABLET PO (08:37)
[2018-09-01] MEDS: Calcitriol 0.25 MCG Capsule PO (08:37)
[2018-09-01] MEDS: Dorzolamide 2% 10ml Bottle 1 DRP LEFT EYE ×2 (08:37→08:38)
[2018-09-01] MEDS: Timolol 0.5% 5ML OPTH.BTL 1 DRP LEFT EYE (08:38)
[2018-09-01] MEDS: BRIMONIDINE 0.2% 5ML BOTTLE 1 DRP LEFT EYE (08:38)
[2018-09-01 10:00] VITALS: RESP 16; O2SAT 98
[2018-09-01 10:02] VITALS: BP 89/48; PULSE 70; RESP 18; TEMP 36.8; O2SAT 97
[2018-09-01 11:12] VITALS: BP 93/56
--- NOTE | 2018-09-01 12:59 | CASEMGMT ---
Social Work Telephone call from [facility]. Resident lost appeal. Last cover day continues to be 08/31/18 with resident to discharge or financial responsibility to begin on 09/01/18. Spoke with resident and resident family in room. This geriatric social work professor confirming that resident/resident family are aware of above information, resident spouse reporting to have received a phone call from [employer] and to be aware of outcome. Resident choosing to discharge on this date at 1:30pm via wheelchair van to [facility]. Support given. Proposed discharge date: 09/01/18 PLAN: Discharge to the [facility] [facility]. KRISTEN Don, SPECIMEN PREPARATION ASSISTANT
--- NOTE | 2018-09-01 13:10 | NURSING ---
Addendum entered by Suzanne Marrufo 09/01/18 13:20: Brie called for report, given. Original Note: Tried calling report to [facility] and was placed on hold x2. Left number with special programs director and she will have them call me.
--- NOTE | 2018-09-01 13:48 | NURSING ---
[facility] HERE TO TRANSPORT PT VIA WC [facility].
--- NOTE | 2018-09-03 13:49 | CASEMGMT ---
Insurance Notified insurance of resident discharge on 09/01/[address] [facility]. Auth#[id number] KRISTEN Don, BATCH TRUCKER
== END 2018-09-01 13:30 | disposition intermediate care facility (04) | DRG 560 ==
PROVIDERS: Admitting Provider Family Medicine Geriatric Medicine; Family Provider Family Medicine; PCP Family Medicine; Referring Provider Family Medicine Geriatric Medicine; Visit Provider Family Medicine Geriatric Medicine
DX: S82.892D Other fracture of left lower leg, subsequent encounter for closed fracture with routine healing (principal); G91.2 (Idiopathic) normal pressure hydrocephalus; I69.354 Hemiplegia and hemiparesis following cerebral infarction affecting left non-dominant side; R47.01 Aphasia; W06.XXXD Fall from bed, subsequent encounter; E78.5 Hyperlipidemia, unspecified; N32.81 Overactive bladder; F31.9 Bipolar disorder, unspecified; E03.9 Hypothyroidism, unspecified; K21.9 Gastro-esophageal reflux disease without esophagitis; F10.97 Alcohol use, unspecified with alcohol-induced persisting dementia; I10 Essential (primary) hypertension; Z87.891 Personal history of nicotine dependence; M06.9 Rheumatoid arthritis, unspecified; M32.9 Systemic lupus erythematosus, unspecified; R47.1 Dysarthria and anarthria; E55.9 Vitamin D deficiency, unspecified
CPT/HCPCS: 36415; 73610; 74018; 74019; 80048; 81001; 85025; 87077; 87086; 87088; 87186; 92507; 92523; 97110; 97163; 97166; 97530; 97535; 97802; A4216

== ENCOUNTER 2018-08-21 10:35 | Day surgery (SDC) | payer MEDICARE, MEDICAID, SELFPAY ==
[2018-08-21 10:43] VITALS: BP 109/65; PULSE 58; RESP 16; TEMP 36.3; O2SAT 100; BMI 24.8
--- NOTE | 2018-08-21 11:45 | RAD_ITS ---
STUDY: X-RAY - LEFT ANKLE REASON FOR EXAM: Female, 73 years old. ORIF TECHNIQUE: 3 view(s) of the ankle. COMPARISON: Prior study 08/06/2018 FINDINGS: There is demonstrated internal fixation of previously noted distal fibular fracture with plate and multiple screws. Fracture fragments appear in excellent alignment. RAD/Ankle 2 Views IMPRESSION: Internal fixation with plate and multiple screws of previously noted distal fibular fracture. Fracture fragments appear in excellent alignment. Electronically Signed: Luis Mascorro MD at 19:11 EST , Service support ,
[2018-08-21 14:30] VITALS: BP 109/65; BP 133/54; PULSE 93; RESP 16; TEMP 37.1; O2SAT 94
--- NOTE | 2018-08-21 14:33 | PCM.IMDPSTOP ---
Immediate Post-Op Note Date of Procedure: 08/21/18 Primary Surgeon/Physician: Ann Aguilar DPM life science technical officer: Williams Martinez Pre-Operative Diagnosis: L comminuted oblique lateral malleolus fracture, L syndesmotic disruption Post-Operative Diagnosis: same Surgery/Procedure Performed:: L lateral malleolus ORIF with transyndesmotic screw fixation Description of Surgical Findings:: see dictation Estimated Blood Loss: 20mL Specimen's removed: none Drains: none Type of Anesthesia:: General/Regional - Admit VTE Documentation VTE Present on Admission: No VTE Mechan Device Prophylaxis: SCD's, Knee High MARGRET Hose VTE Pharm Prophylaxis ordered?: Yes
--- NOTE | 2018-08-21 14:36 | OP.PN_ITS ---
Immediate Post-Op Note Date of Procedure: 08/21/18 Primary Surgeon/Physician: Ann Aguilar DPM package dye stand loader: Williams Martinez Pre-Operative Diagnosis: L comminuted oblique lateral malleolus fracture, L syndesmotic disruption Post-Operative Diagnosis: same Surgery/Procedure Performed:: L lateral malleolus ORIF with transyndesmotic screw fixation Description of Surgical Findings:: see dictation Estimated Blood Loss: 20mL Specimen's removed: none Drains: none Type of Anesthesia:: General/Regional - Admit VTE Documentation VTE Present on Admission: No VTE Mechan Device Prophylaxis: SCD's, Knee High MARGRET Hose VTE Pharm Prophylaxis ordered?: Yes
--- NOTE | 2018-08-21 14:41 | RAD_ITS ---
STUDY: X-RAY - LEFT ANKLE REASON FOR EXAM: Female, 73 years old. Postop TECHNIQUE: 3 view(s) of the ankle. COMPARISON: None. FINDINGS: There is demonstrated in internal fixation plate and multiple screws along the lateral aspect of the distal fibula, which stabilizes a nondisplaced right lateral malleolar fracture. The fracture is in excellent alignment. There is mild tilting of the tibiotalar articulation which may represent evidence of ligamentous injury. RAD/Ankle min 3 Views IMPRESSION: Internal fixation of oblique fracture of the lateral malleolus, appearing in excellent position. There is minimal tilting of the tibiotalar articulation which may represent evidence of ligamentous injury. Electronically Signed: Luis Mascorro MD at 19:12 EST , Service support ,
[2018-08-21 14:45] VITALS: BP 109/65; BP 99/84; PULSE 89; RESP 16; O2SAT 100
--- NOTE | 2018-08-21 14:46 | DCINST_ITS ---
Discharge Activity: May Not Drive, May not drive while taking narcotic pain medications., May Not Shower, Use Walker Ice area for (Minutes): 20 - apply behind left knee for 20 minutes of each hour while awake Weight Bearing Status: No weight bearing Keep extremity elevated above heart level: Operative Extremity Call your doctor if your incision/area has: Sudden Increased Bleeding, Increased Pain/ Swelling, Foul Smelling Discharge Call your doctor if you observe: Fever of 101 or Higher, Coldness, Increased Pain, Numbness or Tingling, Change in Color, Chest pain, Calf discomfort, Uncontrolled pain Cleanse incision/area with: Do not get Incision Wet, Keep Dressing Clean & Dry Additional Instructions: resume lovenox 08/22/2018 in the morning Allergies/Adverse Reactions: Allergies ciprofloxacin Allergy (Verified 08/20/18 11:57) Unknown Penicillins Allergy (Verified 08/20/18 11:57) Unknown Sulfa (Sulfonamide Antibiotics) Allergy (Verified 08/20/18 11:57) Unknown thimerosal [From Merthiolate] Allergy (Verified 08/20/18 11:57) Rash Medications to take at Discharge Atorvastatin Calcium 20 mg PO QHS 10/28/17 Calcitriol [Rocaltrol] 0.25 mcg PO DAILY 10/28/17 Cholecalciferol (Vitamin D3) [Vitamin D3] 5,000 unit PO DAILY 10/28/17 Donepezil HCl 10 mg PO DAILY 10/28/17 Esomeprazole Magnesium 40 mg PO DAILY 10/28/17 Levothyroxine [Synthroid] 50 mcg PO DAILY 10/28/17 Sertraline HCl [Zoloft] 50 mg PO QHS 10/28/17 Solifenacin Succinate [Vesicare] 5 mg PO DAILY 10/28/17 Bimatoprost [Lumigan] 1 drop LEFT EYE QHS 05/09/18 Clopidogrel Bisulfate [Plavix] 75 mg PO DAILY 05/09/18 Lisinopril [Prinivil] 10 mg PO DAILY 05/09/18 Vitamin B Complex 1 tab PO DAILY 05/09/18 Brimonidine Tartrate/Timolol [Combigan Eye Drops] 1 drop LEFT EYE BID 08/06/18 Calcium Carbonate/Vitamin D3 [Calcium 600-Vit D3 500 Softgel] 2 each PO DAILY 08/06/18 Dorzolamide 2% [Trusopt] 1 drop LEFT EYE BID 08/06/18 Metoprolol Succinate 25 mg PO DAILY 08/06/18 Quetiapine Fumarate [Seroquel] 50 mg PO QHS 08/06/18 Acetaminophen [Tylenol Tablet] 650 mg PO Q6H PRN PRN tablet 08/08/18 Pantoprazole Sodium [Protonix] 40 mg PO DAILY 08/21/18 Primary Care Physician: Stephane Palomino MD [Primary Care Provider] - Test Results: Test results from this visit will be discussed in further detail at your follow- up appointment, if applicable. Please Follow Up With: Ann Aguilar DPM - if transferred from TCU pt should be seen in my office one week from day of surgery, otherwise, if still in TCU i can see patient there When: one week from day of surgery
[2018-08-21 15:00] VITALS: BP 103/65; BP 109/65; PULSE 83; RESP 16; TEMP 36.3; O2SAT 97
--- NOTE | 2018-08-21 15:16 | PCM.OPRPT ---
Report of Operation Date of Procedure: 08/21/18 Pre-Operative Diagnosis: L comminuted oblique lateral malleolus fracture, L syndesmotic disruption Post-Operative Diagnosis: same Surgery/Procedure Performed:: L lateral malleolus ORIF with transyndesmotic screw fixation Description of Surgical Findings:: see dictation internal consultant: Williams Martinez Type of Anesthesia:: General/Regional Specimen's removed: none Drains: none Estimated Blood Loss (mL): 20mL Description of Procedure: Indications: Pt is a 73 yo F who sustained a L ankle fracture after falling at home on August 052017. PT was seen in the [facility] ER and admitted as a fall risk with an unstable ankle fracture. PT has a complex medical hx including stroke with residual weakness. She and her are concerned about her abilities to remain NWB LLE at home. We discussed ORIF vs external fixation and they felt strongly about not pursing external fixation. She was transferred from [facility] inpatient to the the TCU. All risks, alternatives and complications were discussed with the patient and her . An informed consent was signed. No guarantees were given. Procedure: on August 21, 2018 Lea Diop was verbally and visually identified in the pre-operative holding area. The consent form was again reviewed and patient agreed to proceed with the proposed surgery. The left ankle was marked as the correct operative extremity. The patient was given a preoperative Left lower sciatica block by anesthesia. The patient was brought the operating room and placed on the operating room table in a lazy lateral position. At this time anesthesia performed a time out and all present were in agreement. A thigh tourniquet was placed. The compressive dressing and posterior splint were removed and edema had improved with skin lines visualized. The left lower extremity was prepped and draped in the normal sterile fashion. The left leg was then elevated and the thigh tourniquet was inflated to 300mmHg. At this time attention was turned to the left lateral ankle, A curvilinear incision was made over the distal fibula using a #15 blade. The incision was bluntly carried deeply through the subcutaneous tissues with careful attention paid to all bleeders which were tied or bovied as needed. All vital neurovascular structures and tendons were retracted. The fracture line of the fibula was identified. The fracture hematoma was debrided. Fracture reduction was obtained with sharp to sharp bone clamps and lobster claws. A temporary k wire was thrown across the fracture fragments. This was confirmed with direct visualization as well as on intra operative fluoroscopy. At this time a [place] variax plate was placed. Intraoperative fluoroscopy confirmed the appropriate length and placement of the plate and bb tacks were placed, one distally and one proximally. The fracture was noted to be comminuted and oblique. An interfragmentary screw was not placed as this would have been directly in the site of the anticipated syndesmotic screw placement. Given the instability of her tibiofibular joint and increased medial clear space, I felt she needed transsyndesmotic fixation more so than an interfragmentary screw of the this fracture. I proceeded to place the lateral plate using bi cortical non locking screw proximally and locking screws distally. After this was secured and fracture reduction was maintained and confirmed on intra operative fluoroscopy, I used a bone hook test to evaluate the tibiofibular joint, syndesmosis and the medial clear space, deltoid ligaments. Significant increase of the tibiofibular joint and medial clear space was noted on intra operative fluoroscopy. A malleolar reduction clamp was placed. A quadracortical screw was then placed across the tibiofibular joint, lateral to medial, and the through the plate. The Screw was parallel to the tibiotalar joint. The malleolar reduction clamp was removed and the bone hook test was repeated with significant improvement as the medial clear space and tibiotalar joint remained within normal limits as confirmed by intra operative fluoroscopy. At this time the incision was flushed with copious amounts of normal sterile saline. Closure was initiated with 2.0 vicryl for deep structures over the plate and screws, 3.0 vicryl for subcutaneous closure and 3.0 prolene for skin. The incision was dressed with adaptic and DSD. A multilayer compressive stout dressing was placed with a posterior splint. Total tourniquet time was 60 minutes with immediate capillary refill noted to all digits upon deflation. The patient tolerated the procedure and anesthesia well. The patient was transferred to the PACU by myself and a member of the anesthesia team with all vitals signs stable and left lower extremity neurovascular status equal to pre operative levels. All needle, sponge and instrument counts were found to be correct at the end of the case. Pt will return to the TCU where she will be nonweightbearing to the left lower extremity with limited toe touch if needed for balance. I will see her in one week to check her incision and will likely transfer her to her pneumatic cam walker. She will need to remain NWB LLE for at least 4 weeks and may require extended time in the TCU given her stroke hx w/ residual weakness. Grafts/Implants Used: [place] Variax plate and screws - Complications none - Admit VTE Documentation VTE Present on Admission: No VTE Mechan Device Prophylaxis: SCD's, Knee High MARGRET Hose VTE Pharm Prophylaxis ordered?: Yes
[2018-08-21 15:23] VITALS: BP 109/65
--- NOTE | 2018-08-21 15:49 | OP.PCM_ITS ---
Report of Operation Date of Procedure: 08/21/18 Pre-Operative Diagnosis: L comminuted oblique lateral malleolus fracture, L syndesmotic disruption Post-Operative Diagnosis: same Surgery/Procedure Performed:: L lateral malleolus ORIF with transyndesmotic screw fixation Description of Surgical Findings:: see dictation nuclear powerplant mechanic: Williams Martinez Type of Anesthesia:: General/Regional Specimen's removed: none Drains: none Estimated Blood Loss (mL): 20mL Description of Procedure: Indications: Pt is a 73 yo F who sustained a L ankle fracture after falling at home on August 052017. PT was seen in the [facility] ER and admitted as a fall risk with an unstable ankle fracture. PT has a complex medical hx including stroke with residual weakness. She and her are concerned about her abilities to remain NWB LLE at home. We discussed ORIF vs external fixation and they felt strongly about not pursing external fixation. She was transferred from [facility] inpatient to the the TCU. All risks, alternatives and complications were discussed with the patient and her . An informed consent was signed. No guarantees were given. Procedure: on August 21, 2018 Lea Diop was verbally and visually identified in the pre-operative holding area. The consent form was again reviewed and patient agreed to proceed with the proposed surgery. The left ankle was marked as the correct operative extremity. The patient was given a preoperative Left lower sciatica block by anesthesia. The patient was brought the operating room and placed on the operating room table in a lazy lateral position. At this time anesthesia performed a time out and all present were in agreement. A thigh tourniquet was placed. The compressive dressing and posterior splint were removed and edema had improved with skin lines visualized. The left lower extremity was prepped and draped in the normal sterile fashion. The left leg was then elevated and the thigh tourniquet was inflated to 300mmHg. At this time attention was turned to the left lateral ankle, A curvilinear incision was made over the distal fibula using a #15 blade. The incision was bluntly carried deeply through the subcutaneous tissues with careful attention paid to all bleeders which were tied or bovied as needed. All vital neurovascular structures and tendons were retracted. The fracture line of the fibula was identified. The fracture hematoma was debrided. Fracture reduction was obtained with sharp to sharp bone clamps and lobster claws. A temporary k wire was thrown across the fracture fragments. This was confirmed with direct visualization as well as on intra operative fluoroscopy. At this time a [place] variax plate was placed. Intraoperative fluoroscopy confirmed the appropriate length and placement of the plate and bb tacks were placed, one distally and one proximally. The fracture was noted to be comminuted and oblique. An interfragmentary screw was not placed as this would have been directly in the site of the anticipated syndesmotic screw placement. Given the instability of her tibiofibular joint and increased medial clear space, I felt she needed transsyndesmotic fixation more so than an interfragmentary screw of the this fracture. I proceeded to place the lateral plate using bi cortical non locking screw proximally and locking screws distally. After this was secured and fracture reduction was maintained and confirmed on intra operative fluoroscopy, I used a bone hook test to evaluate the tibiofibular joint, syndesmosis and the medial clear space, deltoid ligaments. Significant increase of the tibiofibular joint and medial clear space was noted on intra operative fluoroscopy. A malleolar reduction clamp was placed. A quadracortical screw was then placed across the tibiofibular joint, lateral to medial, and the through the plate. The Screw was parallel to the tibiotalar joint. The malleolar reduction clamp was removed and the bone hook test was repeated with significant improvement as the medial clear space and tibiotalar joint remained within normal limits as confirmed by intra operative fluoroscopy. At this time the incision was flushed with copious amounts of normal sterile saline. Closure was initiated with 2.0 vicryl for deep structures over the plate and screws, 3.0 vicryl for subcutaneo us closure and 3.0 prolene for skin. The incision was dressed with adaptic and DSD. A multilayer compressive stout dressing was placed with a posterior splint. Total tourniquet time was 60 minutes with immediate capillary refill noted to all digits upon deflation. The patient tolerated the procedure and anesthesia well. The patient was transferred to the PACU by myself and a member of the anesthesia team with all vitals signs stable and left lower extremity neurovascular status equal to pre operative levels. All needle, sponge and instrument counts were found to be correct at the end of the case. Pt will return to the TCU where she will be nonweightbearing to the left lower extremity with limited toe touch if needed for balance. I will see her in one week to check her incision and will likely transfer her to her pneumatic cam walker. She will need to remain NWB LLE for at least 4 weeks and may require extended time in the TCU given her stroke hx w/ residual weakness. Grafts/Implants Used: [place] Variax plate and screws - Complications none - Admit VTE Documentation VTE Present on Admission: No VTE Mechan Device Prophylaxis: SCD's, Knee High MARGRET Hose VTE Pharm Prophylaxis ordered?: Yes
== END 2018-08-21 15:23 | disposition skilled nursing facility (03) ==
LOC: SDC 10:37 → AC 10:38
PROVIDERS: Family Provider Family Medicine; PCP Family Medicine; Referring Provider Podiatrist Foot & Ankle Surgery; Visit Provider Podiatrist Foot & Ankle Surgery
PROC: (CPT 27792; principal; 2018-08-21 11:25)
DX: S82.65XA Nondisplaced fracture of lateral malleolus of left fibula, initial encounter for closed fracture (principal); I63.9 Cerebral infarction, unspecified; I69.354 Hemiplegia and hemiparesis following cerebral infarction affecting left non-dominant side; E03.9 Hypothyroidism, unspecified; K21.9 Gastro-esophageal reflux disease without esophagitis; F32.9 Major depressive disorder, single episode, unspecified; M06.9 Rheumatoid arthritis, unspecified; I12.9 Hypertensive chronic kidney disease with stage 1 through stage 4 chronic kidney disease, or unspecified chronic kidney disease; N18.2 Chronic kidney disease, stage 2 (mild); Z95.0 Presence of cardiac pacemaker; F10.97 Alcohol use, unspecified with alcohol-induced persisting dementia; Z79.02 Long term (current) use of antithrombotics/antiplatelets; Z79.899 Other long term (current) drug therapy; Z87.891 Personal history of nicotine dependence; W06.XXXA Fall from bed, initial encounter; Y93.84 Activity, sleeping; Y92.003 Bedroom of unspecified non-institutional (private) residence as the place of occurrence of the external cause; Y99.8 Other external cause status
CPT/HCPCS: 01480; 27792; 73600; 73610; 76000; C1713; J7120; J2405

== ENCOUNTER → 2018-09-05 05:00 | Outpatient (REF) | payer MEDICARE, MEDICAID, SELFPAY ==
[2018-09-05 09:24] LABS: Hemoglobin 10.9 g/dl (12.0-15.0); Mean Corp Hgb Conc 31.1 g/gl (32-36); Mean Corpuscular Hgb 26.7 pg (27.0-32.0); Mean Corpuscular Volume 85.8 fL (81-99); Mean Platelet Vol. 11.1 fl (6.2-12.0); Platelet Count 222 K/mm3 (150-450); RBC Distribution Width CV 14.5 % (11.6-14.6); Red Blood Count 4.08 M/mm3 (4.2-5.4); White Blood Count 6.9 K/mm3 (4.4-11.0)
[2018-09-05 09:28] LABS: Scan Indicated on CBC? Y/N NO
[2018-09-05 09:30] LABS: ALB/GLOB Ratio 0.7 RATIO (0.9-2.4); AST(SGOT) 9 U/L (15-37); Alanine Aminotransfer ALT/SGPT 17 U/L (13-56); Albumin, Serum 3.1 g/dL (3.2-5.0); Alkaline Phosphatase 82 U/L (45-117); Anion Gap 10 (5-15); BUN 28 mg/dL (7-18); BUN/Creat Ratio 21.7 RATIO (10-20); Calcium,Total 8.6 mg/dL (8.5-10.1); Chloride 109 mmol/L (98-107); Creatinine, Serum 1.29 mg/dL (0.55-1.02); EST Glomerular Filtration Rate 43 mL/min (>60); Est Glom Filt Rate - Afr Amer 52 mL/min (>60); Globulin 4.3 g/dL (2.2-4.2); Glucose 86 mg/dL (74-106); Potassium 3.9 mmol/L (3.5-5.1); Protein, Total 7.4 g/dL (6.4-8.2); Sodium Level 146 mmol/L (136-145)
== END ==
LOC: OLS.AVED 05:00
PROVIDERS: Visit Provider Family Medicine
DX: I10 Essential (primary) hypertension (principal); M32.9 Systemic lupus erythematosus, unspecified
CPT/HCPCS: 36415; 80053; 85027

== ENCOUNTER → 2018-10-03 06:55 | Outpatient (REF) | payer MEDICARE, MEDICAID, SELFPAY ==
[2018-10-03 09:18] LABS: Hematocrit 33.5 % (37-47); Hemoglobin 10.5 g/dl (12.0-15.0); Mean Corp Hgb Conc 31.3 g/gl (32-36); Mean Corpuscular Hgb 26.9 pg (27.0-32.0); Mean Corpuscular Volume 85.9 fL (81-99); Mean Platelet Vol. 11.3 fl (6.2-12.0); Platelet Count 199 K/mm3 (150-450); RBC Distribution Width CV 15.4 % (11.6-14.6); RBC Distribution Width SD 47.3 fl (35.1-43.9); White Blood Count 6.9 K/mm3 (4.4-11.0)
[2018-10-03 09:25] LABS: Anion Gap 8 (5-15); BUN 18 mg/dL (7-18); BUN/Creat Ratio 17.6 RATIO (10-20); Calcium,Total 8.2 mg/dL (8.5-10.1); Chloride 110 mmol/L (98-107); Creatinine, Serum 1.02 mg/dL (0.55-1.02); EST Glomerular Filtration Rate 57 mL/min (>60); Est Glom Filt Rate - Afr Amer 68 mL/min (>60); Glucose 79 mg/dL (74-106); Potassium 3.7 mmol/L (3.5-5.1); Sodium Level 146 mmol/L (136-145)
[2018-10-03 09:29] LABS: Scan Indicated on CBC? Y/N NO
--- OUTSIDE RECORDS SUMMARY | 2019-01-04 10:07 | XMS RPT_ITS ---
:1945 Author Organization OHIP Support Name Relationship Address Phone Jonah Anna Unavailable [address] + [address] [place] [address] R Unavailable Unavailable Unavailable Yumiko Migdalia Unavailable [address] + [place] [address] Jonah Anna Unavailable [address] + [address] [place] [address] R Unavailable Unavailable Unavailable Yumiko Migdalia Unavailable [address] + [place] [address] JONAH ANNA Unavailable [address] + [address] [place] [address] R Unavailable Unavailable Unavailable YUMIKO MIGDALIA Unavailable [address] + [place] [address] JONAH ANNA Unavailable [address] + [address] [place] [address] R Unavailable Unavailable Unavailable YUMIKO MIGDALIA Unavailable [address] + [place] [address] JONAH ANNA Unavailable [address] + [address] [place] [address] R Unavailable Unavailable Unavailable YUMIKO MIGDALIA Unavailable [address] + [place] [address] JONAH ANNA Unavailable [address] + [address] [place] [address] R Unavailable Unavailable Unavailable YUMIKO MIGDALIA Unavailable [address] + [place] [address] JONAH ANNA Unavailable [address] + [address] [place] [address] R Unavailable Unavailable Unavailable MIGDALIA CALDERON Unavailable [address] + [place] [address] JONAH ANNA Unavailable [address] + [address] [place] [address] R Unavailable Unavailable Unavailable MIGDALIA CALDERON Unavailable [address] + [place] [address] JONAH ANNA Unavailable [address] + [address] [place] [address] R Unavailable Unavailable Unavailable MIGDALIA CALDERON Unavailable [address] + [place] [address] JONAH ANNA Unavailable [address] + [address] [place] [address] R Unavailable Unavailable Unavailable MIGDALIA CALDERON Unavailable [address] + [place] [address] Jonah Anna Unavailable [address] + [address] [place] [address] R Unavailable Unavailable Unavailable Migdalia Calderon Unavailable [address] + [place] [address] JONAH ANNA Unavailable [address] + [address] [place] [address] R Unavailable Unavailable Unavailable MIGDALIA CALDERON Unavailable [address] + [place] [address] JONAH ANNA Unavailable [address] + [address] [place] [address] R Unavailable Unavailable Unavailable MIGDALIA CALDERON Unavailable [address] + [place] [address] Care Team Providers Name Role Phone Germain Field Attending Unavailable Myriam Gonzalez Attending Unavailable Stephane Ford Referring Unavailable Myriam Gonzalez Attending Unavailable Stephane Ford Referring Unavailable Myriam Gonzalez Attending Unavailable Stephane Ford Referring Unavailable Stephane Ford Primary Care Unavailable Candelario Stephane Primary Care Unavailable Cam Negrete Attending Unavailable Stephane Ford Primary Care Unavailable Tiffany, Taina Chantell Admitting Unavailable Don Bejarano Consulting Unavailable Artemio Marks Attending Unavailable Tiffany, Taina Chantell Admitting Unavailable Tiffany, Taina Chantell Attending Unavailable Stephane Ford Primary Care Unavailable Don Bejarano Consulting Unavailable Donisam, Taina Chantell Consulting Unavailable Koram, Taina Chantell Admitting Unavailable Artemio Marks Attending Unavailable Stephane Ford Primary Care Unavailable RayaicDon Consulting Unavailable Kendrick, Artemio Consulting Unavailable Koram, Taina Chantell Admitting Unavailable Kendrick, Artemio Attending Unavailable Stephane Ford Primary Care Unavailable Don Bejarano Consulting Unavailable Kendrick, Artemio Consulting Unavailable Troy, Keenan Chi Admitting Unavailable [place], Keenan Chi Attending Unavailable [place], Keenan Chi Referring Unavailable Stephane Ford Primary Care Unavailable Ann Aguilar Consulting Unavailable Ann Aguilar Attending Unavailable Ann Aguilar Referring Unavailable Stephane Ford Primary Care Unavailable Germain Constantino Attending Unavailable Koram, Taina Chantell Referring Unavailable Germain Field Attending Unavailable DARSHAN HAGAN Referring Unavailable DARSHAN HAGAN Referring Unavailable ACTABRIDGETTE Tariq Referring Unavailable KHAYYAT, DAVION F Admitting Unavailable KHAYYAT, DAVION F Attending Unavailable LIZY STROUD Consulting Unavailable KHAYYAT, DAVION F Admitting Unavailable KHAYYAT, DAVION F Attending Unavailable KHAYYAT, DAVION F Referring Unavailable LIZY STROUD Consulting Unavailable KHAYYAT, DAVION F Referring Unavailable KHAYYAT, DAVION F Referring Unavailable DERIC MASON Attending Unavailable DERIC MASON Referring Unavailable BRIDGETTE FORD Attending Unavailable EISDERIC CASTRO Attending Unavailable JARETT DAVIS Attending Unavailable DERIC MASON Attending Unavailable Stephane Ford Referring Unavailable Stephane Ford Primary Care Unavailable Khayyat, Davion F. Admitting Unavailable Khayyat, Davion F. Attending Unavailable Stephane Ford Primary Care Unavailable Bushra STROUD Consulting Unavailable Khayyat, Davion F. Admitting Unavailable Khayyat, Davion F. Attending Unavailable Stephane Ford Primary Care Unavailable Khayyat, Davion F. Referring Unavailable Bushra STROUD Consulting Unavailable Khayyat, Davion F. Referring Unavailable Stephane Ford Primary Care Unavailable Khayyat, Davion F. Referring Unavailable Stephane Ford Primary Care Unavailable PROBLEMS PROBLEMS DATE TYPE CONDITION / CODE ATTENDING STATUS SOURCE Unknown R53.83 - Other fatigue Germain Field Active [place] / R53.83(ICD-10) [facility] Hospital Repository Unknown I10 - Essential Germain Field Active [place] 9 (primary) hypertension [facility] / I10(ICD-10) Hospital Repository Unknown S82.892D - Other Troy, Keenan Chi Active [place] 8 fracture of left lower Community leg, subsequent Hospital encounter for closed Repository fracture with routine healing / S82.892D(ICD-10) Unknown R41.841 - Cognitive Troy, Keenan Chi Active [place] 8 communication deficit [facility] / R41.841(ICD-10) Hospital Repository Unknown S82.892A - Other [place], Keenan Chi Active [place] 8 fracture of left lower [facility] leg, initial encounter Hospital for closed fracture / Repository S82.892A(ICD-10) Unknown R94.31 - Abnormal [place], Active [place] 8 electrocardiogram [facility] [ECG] [EKG] / Hospital R94.31(ICD-10) Repository Active (Idiopathic) normal KHAYYAT, Active [place] 8 pressure hydrocephalus [facility] Other / G91.2(ICD-10) [place] Repository Admitting Unknown / UNK(Unknown) Khayyat, Active [facility] 8 diagnosis [facility] Repository Active Cerebral infarction, NA Active [place] 7 unspecified / Clinic Other I63.9(ICD-10) [place] Repository Active Hemiplegia, NA Active [place] 7 unspecified affecting Clinic Other right dominant side / [place] G81.91(ICD-10) Repository Active Unspecified NA Active [place] 5 abnormalities of gait Clinic Other and mobility / [place] R26.9(ICD-10) Repository Active Aphasia / NA Active [place] 7 R47.01(ICD-10) Clinic Other [place] Repository PROCEDURES PROCEDURES No Procedure Records FoundRESULTS RESULTS CNPN Observed: 10/31/2018 Status: COMPLETED Source: [place] 12:00 AM [facility] REPOSITORY Telephone (FAM[facility]) MONICA ANNA ([id number]) 1945 F Date Time Provider Department 10/31/18 BRIDGETTE FORD During your visit today, we recorded the following information about you: Laurakayli Allison Psr 10/31/2018 4:10 PM Signed [facility] [employer] is calling Bridgette Ford MD today to request office notes documenting the need for the Wheelchair Please fax the office notes to Patient has been identified by name and birthdate. Duration of symptoms: N/A Person calling: [facility] Call patient at: [phone] Please advise. Thank you, Closing statement: Results or non-symptom based questions: Thank you for calling [facility], your call will be returned within the next business day. Laura Allison Psr Donna Mesa Ma 10/31/2018 5:14 PM Signed [place] 04/26/18 Donna Ford MD 11/01/2018 10:32 AM Signed She has had an ankle fracture since her last visit. She has not been seen since that hospitalization. Can they accept the ER visit as documentation for the need for the wheelchair? MD Donna Hilton Ma 11/01/2018 11:32 AM Signed Spoke to [facility]. ER documentation will not work. Needs office visit from you Donna Carrasco Psr 11/01/2018 3:49 PM Signed Spoke with Jami at [employer] Will need office visit w/patient and documentation For wheelcheer need before this can be put through Reid Gutiérrez RN 11/01/2018 3:57 PM Signed Advised patient needs to come in to be seen before the patient will be able to get a w/c did not want to schedule at this time. SARAHI Ford MD 11/01/2018 4:03 PM Signed Can they schecule in [place]? Bridgette Ford MD Allergies As of Date: 10/31/2018 Noted Allergy Reaction TOPAMAX (TOPIRAMATE) 01/30/2006 5 - Intolerance CIPRO (CIPROFLOXACIN) 06/08/2005 8 - GI Upset DESYREL (TRAZODONE HCL) 06/08/2005 1 - Mental Status Change MERCURY (MERCURY (BULK)) 06/08/2005 2 - Rash PENICILLINS 06/08/2005 2 - Rash SULFA (SULFONAMIDE ANTIBIOTICS) 06/08/2005 2 - Rash THIMEROSAL 05/12/2017 16 - Unknown Date Reviewed: 07/25/2018 Reviewed by: Deric Mason - Fully Assessed Reason for Visit: office notes [Other] Prescriptions as of 10/31/2018 Sig: CALCITRIOL 0.25 MCG CAPSULE Take 2 capsules by mouth once* QUETIAPINE 50 MG TABLET Take 1 tablet by mouth daily * METOPROLOL SUCCINATE ER 25 MG* Take 1 tablet by mouth once d* LISINOPRIL 10 MG TABLET TAKE ONE TABLET BY MOUTH EVER* CLOPIDOGREL 75 MG TABLET Take 1 tablet by mouth once d* SERTRALINE 50 MG TABLET Take 1 tablet by mouth once d* ESOMEPRAZOLE MAGNESIUM 40 MG * Take 1 capsule by mouth once * LEVOTHYROXINE 75 MCG TABLET Take 1 tablet by mouth once d* CLOPIDOGREL 75 MG TABLET Take 75 mg by mouth once victor manuel* DOCUSATE SODIUM 100 MG CAPSULE Take 1 capsule by mouth twice* DORZOLAMIDE 2 % EYE DROPS Use 1 Drop in the left eye ev* VITAMIN B COMPLEX ER TABLET,E* Take 1 tablet by mouth once d* COMBIGAN 0.2 %-0.5 % EYE DROPS Use 1 Drop in the left eye tw* SOLIFENACIN 5 MG TABLET Take 1 tablet by mouth once d* COMPOUNDED PRESCRIPTION Toilet handles/bars. DX abnor* DIAPER,BRIEF,ADULT,DISPOSABLE Diaper change 3 times a day a* ATORVASTATIN 20 MG TABLET Take 1 tablet by mouth daily * LUMIGAN 0.01 % EYE DROPS Use 1 Drop in the left eye da* CALCIUM 600 + D(3) ORAL Take by mouth. 1200 mg of Ca* COMPOUNDED PRESCRIPTION Washable chucks:urinary incon* MIRABEGRON ER 50 MG TABLET,EX* Take 50 mg by mouth once victor manuel* TYLENOL ORAL Take 1,000 mg by mouth every * Problem List As Of Date 10/31/2018 Noted Resolved MITRAL VALVE DISORDER [I05.9] MYALGIA AND MYOSITIS NOS [[id number]] ACQUIRED HYPOTHYROID NEC [E03.8] CHRONIC DEPRESSIVE PERSON [F34.1] Mixed hyperlipidemia [E78.2] More... Nondependent Alcohol Abuse [305.0] 09/30/2009 GLAUCOMA NOS [H40.9] Other Specified Gastritis [535.4] 09/30/2009 UNSPEC CONSTIPATION [K59.00] Irritable Bowel Syndrome [K58.9] 09/30/2009 More... 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] INVALID FOR* Gastrointestinal Malfunction Arising from Menta*INVALID FOR* Unspecified Chest Pain [R07.9] INVALID FOR* Abdominal Pain, Epigastric [R10.13] INVALID FOR* Esophageal Reflux [K21.9] INVALID FOR* Lupus [M32.9] INVALID FOR* Rheumatoid arthritis (HCC) [M06.9] INVALID FOR* 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] INVALID FOR* Diverticulosis of colon (without mention of hem*INVALID FOR* Special screening for malignant neoplasms, colo*INVALID FOR* Eczematous dermatitis [L30.9] INVALID FOR* Acne vulgaris [L70.0] INVALID FOR* Folliculitis [L73.9] INVALID FOR* Pruritus [L29.9] INVALID FOR* Excoriation [T14.8XXA] INVALID FOR* Pyoderma, unspecified [L08.0] INVALID FOR* Rash and other nonspecific skin eruption [R21] INVALID FOR* Xerosis cutis [L85.3] INVALID FOR* Solar Lentigines [L81.4] INVALID FOR* Actinic skin damage [L57.8] INVALID FOR* Viral warts: R lower chin, face [B07.9] INVALID FOR* Prurigo nodularis [L28.1] INVALID FOR* Neurodermatitis [L28.0] INVALID FOR* Multiple excoriations [T07.XXXA] INVALID FOR* Other seborrheic keratosis [L82.1] INVALID FOR* Irritated//Inflamed Seborrheic Keratosis [L82.0]INVALID FOR* Postinflammatory skin changes [R23.4] INVALID FOR* Dysuria [R30.0] INVALID FOR* Hematuria [R31.9] INVALID FOR* Urgency of urination [R39.15] INVALID FOR* Frequency of urination [R35.0] INVALID FOR* Rheumatoid arthritis, adult ([facility]) [M06.9] INVALID FOR*04/27/2018 Abnormality of gait [R26.9] INVALID FOR* Abnormal gait [R26.9] INVALID FOR* Encephalopathy [G93.40] INVALID FOR* Acute cystitis [N30.00] INVALID FOR* Syncope [R55] INVALID FOR* Stenosis of right carotid artery [I65.21] INVALID FOR* More... Stroke (cerebrum) ([facility]) [I63.9] INVALID FOR* More... Urinary retention [R33.9] INVALID FOR* Sinus pause [I45.5] INVALID FOR* Aphasia, late effect of cerebrovascular disease*INVALID FOR* Functional gait abnormality [R26.89] INVALID FOR* Bradycardia [R00.1] More... 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 Right hemiparesis ([facility]) [G81.91] INVALID FOR* More... Nuclear sclerosis, right [H25.11] INVALID FOR* More... Other hyperlipidemia [E78.49] Hypothyroidism [E03.9] Hypertension [I10] Expressive aphasia [R47.01] CVA (cerebral vascular accident) ([facility]) [I63.9] More... Idiopathic normal pressure hydrocephalus (INPH)*INVALID FOR* More... 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] INVALID FOR* NPH (normal pressure hydrocephalus) [G91.2] INVALID FOR*01/27/2018 Primary open-angle glaucoma, bilateral, severe *INVALID FOR* Nuclear senile cataract of left eye [H25.12] INVALID FOR* Epiretinal membrane (ERM) of both eyes [H35.373]INVALID FOR* Encounter Status:Closed by REID GUTIÉRREZ RN on 11/01/18 BASIC METABOLIC Collected: 10/03/2018 Status: F Source: [place] PROFILE (BMP) 6:55 AM [facility] REPOSITORY TYPE CODE TESTS RESULT OUT OF RANGE REFERENCE UNITS LAB L501.0100 74-106 mg/dL Normal GLU 79 Result Comment: Please note revised GLUCOSE reference range effective 2017. LAB L501.1000 7-18 mg/dL Normal BUN 18 LAB L501.1100 0.55-1.02 mg/dL Normal CREAT,SERUM 1.02 Result Comment: The validity of the calculated GFR AND GFRAA in patients over 70 years has not been determined. Clinical correlation is essential. LAB L501.1110 >60 mL/min Low EST GFR 57 Result Comment: Non- GFR Calc LAB L501.1115 >60 mL/min Normal EST GFR - AA 68 Result Comment: GFR Calc LAB L501.1300 10-20 RATIO Normal BUN/CRE 17.6 LAB L501.2200 8.5-10.1 mg/dL Low CA 8.2 LAB L501.5300 136-145 mmol/L High NA 146 LAB L501.5600 3.5-5.1 mmol/L K Normal 3.7 LAB L501.5900 98-107 mmol/L High CL 110 LAB L501.6100 21.0-32.0 mmol/L Normal CO2 28.0 LAB L501.6200 5-15 Normal GAP 8 Performed By: #### L500.2500 #### [facility] [place], [place], [id number] CBC-COMPLETE BLOOD CNT Collected: 10/03/2018 Status: F Source: [place] NO DIFF 6:55 AM [facility] REPOSITORY TYPE CODE TESTS RESULT OUT OF RANGE REFERENCE UNITS LAB L100.1000 4.4-11.0 K/mm3 Normal WBC 6.9 LAB L100.1200 4.2-5.4 M/mm3 Low RBC 3.90 LAB L100.1300 12.0-15.0 g/dl Low HGB 10.5 LAB L100.1400 37-47 % Low HCT 33.5 LAB L100.1500 81-99 fL Normal MCV 85.9 LAB L100.1600 27.0-32.0 pg Low MCH 26.9 LAB L100.1700 32-36 g/gl Low MCHC 31.3 LAB L100.1810 11.6-14.6 % High RDW CV 15.4 LAB L100.1820 35.1-43.9 fl High RDW SD 47.3 LAB L100.1900 150-450 K/mm3 Normal PLT 199 LAB L100.2000 6.2-12.0 fl Normal MPV 11.3 Performed By: #### L100.0500 #### [facility] [address] [place], [address] CBC-COMPLETE BLOOD CNT Collected: 09/05/2018 Status: F Source: [place] NO DIFF 6:25 AM [facility] REPOSITORY Order Comment: 144 TYPE CODE TESTS RESULT OUT OF RANGE REFERENCE UNITS LAB L100.1000 4.4-11.0 K/mm3 Normal WBC 6.9 LAB L100.1200 4.2-5.4 M/mm3 Low RBC 4.08 LAB L100.1300 12.0-15.0 g/dl Low HGB 10.9 LAB L100.1400 37-47 % Low HCT 35.0 LAB L100.1500 81-99 fL Normal MCV 85.8 LAB L100.1600 27.0-32.0 pg Low MCH 26.7 LAB L100.1700 32-36 g/gl Low MCHC 31.1 LAB L100.1810 11.6-14.6 % Normal RDW CV 14.5 LAB L100.1820 35.1-43.9 fl High RDW SD 44.0 LAB L100.1900 150-450 K/mm3 Normal PLT 222 LAB L100.2000 6.2-12.0 fl Normal MPV 11.1 Performed By: #### L100.0500 #### [facility] [address] [facility] [place], [address] COMPREHENSIVE METABOLIC Collected: 09/05/2018 Status: F Source: [place] GONZALEZ 6:25 AM [facility] REPOSITORY Order Comment: 144 TYPE CODE TESTS RESULT OUT OF RANGE REFERENCE UNITS LAB L501.0100 74-106 mg/dL Normal GLU 86 Result Comment: Please note revised GLUCOSE reference range effective 2017. LAB L501.1000 7-18 mg/dL High BUN 28 LAB L501.1100 0.55-1.02 mg/dL High CREAT,SERUM 1.29 Result Comment: The validity of the calculated GFR AND GFRAA in patients over 70 years has not been determined. Clinical correlation is essential. LAB L501.1110 >60 mL/min Low EST GFR 43 Result Comment: Non- GFR Calc LAB L501.1115 >60 mL/min Low EST GFR - AA 52 Result Comment: GFR Calc LAB L501.1300 10-20 RATIO High BUN/CRE 21.7 LAB L501.1500 6.4-8.2 g/dL T Normal PROT 7.4 LAB L501.1800 3.2-5.0 g/dL Low ALB 3.1 LAB L501.1950 2.2-4.2 g/dL High GLOB 4.3 LAB L501.2000 0.9-2.4 RATIO Low A/G 0.7 LAB L501.2200 8.5-10.1 mg/dL CA Normal 8.6 LAB L501.4100 15-37 U/L Low AST 9 LAB L501.4305 45-117 U/L Normal ALK P 82 LAB L501.4405 13-56 U/L Normal ALT 17 LAB L501.4600 0.20-1.00 mg/dL T Normal BILI 0.20 LAB L501.5300 136-145 mmol/L High NA 146 LAB L501.5600 3.5-5.1 mmol/L K Normal 3.9 LAB L501.5900 98-107 mmol/L High CL 109 LAB L501.6100 21.0-32.0 mmol/L Normal CO2 27.0 LAB L501.6200 5-15 Normal GAP 10 Performed By: #### L500.4050 #### [facility] [address] [place], [address] ANKLE MIN 3 VIEWS Observed: 08/30/2018 Status: F Source: [place] 1:15 PM [facility] REPOSITORY [facility] Imaging Services [address] [place] [address] Ankle min 3 Views MR#: [id number] Acct: [id number] Name: MONICA ANNA Rep #: [id number] : 1945 F 73 From: Yan Morris MD PCP: Stephane Ford MD Status: ADM IN Study: Ankle min 3 Views Date of Exam: 08/30/18 Exam# [id number] Ordering Dr: Ann Aguilar DPM STUDY: X-RAY - LEFT ANKLE REASON FOR EXAM: Female, 73 years old. Pain, no new injury. Surgery 2 weeks ago. TECHNIQUE: 3 view(s) of the ankle. COMPARISON: 3 views of the left ankle August 21, 2018. FINDINGS: Again seen is fixation of a distal fibular fracture bilateral metal sideplate with screws. The third screw from the bottom passes through the fibula across the distal tibial metaphysis. Healing fracture fragments are in anatomic alignment. Stable minor cortical undulation/spurring along the medial margin of the medial malleolus. Normal tibiotalar articulation and ankle mortise. Normal visualized talus and calcaneus. The visualized subtalar, talonavicular, calcaneocuboid and tarsal articulations are normal. There is borderline improved superficial soft tissue swelling. Gas noted in the anterior soft tissues of the distal lower leg and ankle on prior study have cleared. RAD/Ankle min 3 Views IMPRESSION: 1. Healing fracture of the distal fibula status post ORIF with metal hardware again noted in anatomic alignment. 2. Borderline to superficial soft tissue swelling. Soft tissue gas lucencies seen on prior study have cleared. Electronically Signed: Bandar Morris MD at 17:56 EST , Service support , CC: JUAN Aguilar; Stephane Ford MD Landscaping Crew Leader: Signed CBC W/DIFF, AUTOMATED Collected: 08/30/2018 Status: F Source: [place] 5:17 AM [facility] REPOSITORY TYPE CODE TESTS RESULT OUT OF RANGE REFERENCE UNITS LAB L100.1000 4.4-11.0 K/mm3 Normal WBC 6.8 LAB L100.1200 4.2-5.4 M/mm3 Low RBC 3.90 LAB L100.1300 12.0-15.0 g/dl Low HGB 10.4 LAB L100.1400 37-47 % Low HCT 33.6 LAB L100.1500 81-99 fL Normal MCV 86.2 LAB L100.1600 27.0-32.0 pg Low MCH 26.7 LAB L100.1700 32-36 g/gl Low MCHC 31.0 LAB L100.1810 11.6-14.6 % Normal RDW CV 14.5 LAB L100.1820 35.1-43.9 fl High RDW SD 45.7 LAB L100.1900 150-450 K/mm3 Normal PLT 252 LAB L100.2000 6.2-12.0 fl Normal MPV 10.0 LAB L100.2100 47-70 % Normal NEUT% 60.0 LAB L100.2200 19-41 % Normal LY% 29.5 LAB L100.2300 0-10 % Normal MONO% 6.9 LAB L100.2400 0-5 % Normal EO% 3.4 LAB L100.2500 0-1 % Normal BASO% 0.1 LAB L100.2550 0.0-0.9 % Normal IM GRAN % 0.100 Result Comment: IG% - Immature Granulocytes (promyelocytes, myelocytes and metamyelocytes) > 1% indicates that a LEFT SHIFT is Present. LAB L100.2620 2.0-7.7 X10 3/uL Normal Absolute Neut 4.1 LAB L100.2720 0.83-4.51 X10 3/ul Normal Absolute Lymph 2.00 Performed By: #### L100.0100 #### [facility] [place], [place], [id number] BASIC METABOLIC Collected: 08/30/2018 Status: F Source: [place] PROFILE (BMP) 5:17 AM [facility] REPOSITORY TYPE CODE TESTS RESULT OUT OF RANGE REFERENCE UNITS LAB L501.0100 74-106 mg/dL Normal GLU 83 Result Comment: Please note revised GLUCOSE reference range effective 2017. LAB L501.1000 7-18 mg/dL High BUN 32 LAB L501.1100 0.55-1.02 mg/dL High CREAT,SERUM 1.26 Result Comment: The validity of the calculated GFR AND GFRAA in patients over 70 years has not been determined. Clinical correlation is essential. LAB L501.1110 >60 mL/min Low EST GFR 44 Result Comment: Non- GFR Calc LAB L501.1115 >60 mL/min Low EST GFR - AA 54 Result Comment: GFR Calc LAB L501.1255 ml/min Normal Estimated CRCL 37.78 LAB L501.1300 10-20 RATIO High BUN/CRE 25.4 LAB L501.2200 8.5-10 mg/dL Normal .1 CA 8.5 LAB L501.5300 136-14 mmol/L High 5 NA 146 LAB L501.5600 3.5-5. mmol/L Normal 1 K 3.9 LAB L501.5900 98-107 mmol/L High CL 109 LAB L501.6100 21.0-3 mmol/L Normal 2.0 CO2 28.0 LAB L501.6200 5-15 Normal GAP 9 Performed By: #### L500.2500 #### [facility] [address] [facility] [place], [address] DISCHARGE SUMMARY Observed: 08/29/2018 Status: F Source: [place] 9:26 PM [facility] REPOSITORY [facility] Medical Records Department [address] [place] [address] Discharge Summary 08/29/182122 MR#: [id number] Acct: [id number] Name: MONICA ANNA Rep #: [id number] : 1945 73 From: Keenan Simmons MD PCP: Stephane Ford MD Status: ADM IN Y Location: [place] [address] Discharge Date and Diagnosis - Problem List Patient Problems: Active and Suspected Problems Closed left ankle fracture (Acute) Date of Admission: 08/08/18 Date of Discharge: 09/01/18 - Primary Discharge Diagnosis Active and Suspected Problems Closed left ankle fracture (Acute) - Secondary Discharge Diagnosis Chronic Problems Left hemiparesis (Chronic) Dysarthria (Chronic) Hypertension (Chronic) Hypothyroidism (Chronic) GERD (gastroesophageal reflux disease) (Chronic) Overactive bladder (Chronic) Depression (Chronic) Left-sided weakness (Chronic) recent CVA February 2016 Ramos esophagus (Chronic) Glaucoma (Chronic) Rheumatoid arthritis (Chronic) Lupus (Chronic) Mitral valve disorder (Chronic) Normal pressure hydrocephalus (Chronic) Bipolar disorder (Chronic) Hemiparesis affecting left side as late effect of stroke (Chronic) Alcoholic dementia (Chronic) Stroke (Chronic) Benign essential hypertension (Chronic) Hospital Course and Treatment Imaging Results: 08/21/18 17:33 Diet: Regular Diet Is pt able to select menu?: Yes Diet Comments: no added salt Clinical Impression(s) from Imaging Studies Abdomen X-Ray 08/22/18 15:00 IMPRESSION: There is no evidence of ileus, obstruction, or free intraperitoneal air. There are degenerative changes of the visualized thoracic and lumbar spine spine. A COMMUNITY CENTER COORDINATOR shunt is noted with tip terminating in the right pelvis. Electronically Signed: Luis Mascorro MD at 19:10 EST , Service support , KUB X-Ray 08/27/18 17:01 IMPRESSION: No obstruction. Electronically Signed: Kevin Elizabeth MD at 22:30 EST , Service support , Microbiology 08/27/18 20:44 Urine Catheter - Catheter Urine Culture - Preliminary Gram positive joanne Operations: None Procedures: None Summary of Care Provided: The patient is a 73 year old Female with below past medical history hospitalized for left ankle fracture, admitted to TCU with debility, here for rehabilitation, strengthening, prior to ORIF left ankle per Dr. Aguilar next week, then disposition determination. 08/21/2018 Dr. Aguilar L lateral malleolus ORIF with transyndesmotic screw fixation. Discharge to the [facility], under intermediate level of care. Patient Problems: Active and Suspected Problems Closed left ankle fracture (Acute) - Physical Exam Vital Signs Temp Pulse Resp BP Pulse Ox 97.3 F L 66 20 H 111/71 97 08/29/18 16:00 08/29/18 16:00 08/29/18 16:00 08/29/18 16:00 08/29/18 16:00 Oxygen Delivery Method Room Air Weight: 70.42 kg Body Mass Index (BMI) 24.7 Finger Stick Blood Glucose 88 Intake and Output for Last 24 Hours Intake Total 360 / 360 480 / 480 720 / 720 Balance 360 / 360 480 / 480 720 / 720 Microbiology Past 72 Hours 08/27/18 20:44 Urine Culture - Preliminary Urine Catheter - Catheter Gram positive joanne Discharge Diet: No Restrictions Weight Bearing Status: No weight bearing Call your doctor if you observe: Fever of 101 or Higher, Inability to urinate, Inability to have a bowel movement, Shortness of breath, Chest pain, Uncontrolled pain Home Medications: Medications to take at Discharge Atorvastatin Calcium 20 mg PO QHS 10/28/17 Calcitriol [Rocaltrol] 0.25 mcg PO DAILY 10/28/17 Cholecalciferol (Vitamin D3) [Vitamin D3] 5,000 unit PO DAILY 10/28/17 Donepezil HCl 10 mg PO DAILY 10/28/17 Esomeprazole Magnesium 40 mg PO DAILY 10/28/17 Levothyroxine [Synthroid] 50 mcg PO DAILY 10/28/17 Sertraline HCl [Zoloft] 50 mg PO QHS 10/28/17 Solifenacin Succinate [Vesicare] 5 mg PO DAILY 10/28/17 Bimatoprost [Lumigan] 1 drop LEFT EYE QHS 05/09/18 Clopidogrel Bisulfate [Plavix] 75 mg PO DAILY 05/09/18 Lisinopril [Prinivil] 10 mg PO DAILY 05/09/18 Vitamin B Complex 1 tab PO DAILY 05/09/18 Brimonidine Tartrate/Timolol [Combigan Eye Drops] 1 drop LEFT EYE BID 08/06/18 Calcium Carbonate/Vitamin D3 [Calcium 600-Vit D3 500 Softgel] 2 each PO DAILY 08/06/18 Dorzolamide 2% [Trusopt] 1 drop LEFT EYE BID 08/06/18 Metoprolol Succinate 25 mg PO DAILY 08/06/18 Quetiapine Fumarate [Seroquel] 50 mg PO QHS 08/06/18 Acetaminophen [Tylenol] 1,000 mg PO Q6H PRN PRN tablet 08/29/18 Brimonidine Tartrate 0.2% [Brimonidine 0.2% 5Ml Bottle] 1 drop LEFT EYE 0800,2000 bottle 08/29/18 Menthol/Lanolin/Calamine/Znox [Calmoseptine Ointment] 1 applic TOPICAL 0600,2200 tube 08/29/18 Nystatin Powder [Mycostatin Powder] 1 applic TOPICAL 0600,2200 bottle 08/29/18 Oxycodone [Oxyir] 10 mg PO Q4H PRN PRN 3 Days #30 tab 08/29/18 Polyethylene Glycol 3350 [Miralax] 17 gm PO DAILY PRN packet 08/29/18 Senna/Docusate Sodium [Senokot-S] 1 tablet PO BID PRN tablet 08/29/18 Timolol 0.5% [Timoptic] 1 drop LEFT EYE 0800,2000 opth.btl 08/29/18 Following Prescrptions Were Given to Patient: Oxycodone [Oxyir] 10 mg PO Q4H PRN PRN 3 Days #30 tab PRN Reason: Moderate Pain (4-5/10) Primary Care Physician: Stephane Ford MD [Primary Care Provider] - Please follow up with your Primary Care Physician in: 1 week. Please Follow Up With: Don Bejarano DO When: 2 weeks. Please Follow Up With: Ann Aguilar DPM When: 2 weeks. Disposition: Asstd Living/Non-Skill NH Minutes spent on discharge:: 30 Patient Condition:: Stable Medical Necessity - Tobacco Use Smoking Status: Former smoker Tobacco Use: Non-smoker Meaningful Use Info Meaningful Use Diagnoses (Choose all that apply): None applicable 08/29/182125 <Electronically signed by Keenan Simmons MD> Date Keenan Simmons MD Cosigner Signature (if applicable): Date CC: Stephane Ford MD; Keenan Simmons MD Signed TRANSFER TO [facility] Observed: 08/29/2018 Status: F Source: [facility] 9:23 PM [facility] REPOSITORY [facility] Medical Records Department [address] [place] [address] Transfer to Extended Care MR#: [id number] Acct: [id number] Name: MONICA ANNA Rep #: [id number] : 1945 73 From: Keenan Simmons MD PCP: Stephane Ford MD Status: ADM IN MONICA ANNA [id number] (Patient) (Health Ins. Claim No.) (Day of Discharge to Facility) Certification of patient admission REQUIRED AT TIME OF ADMISSION. I CERTIFY THAT POST-HOSPITAL ECF SERVICES ARE REQUIRED TO BE GIVEN ON AN IN-PATIENT BASIS BECAUSE OF THE ABOVE NAMED PATIENT'S NEED FOR LONG TERM CARE ON A CONTINUING BASIS FOR THE CONDITION(S) FOR WHICH HE/SHE WAS RECEIVING IN-PATIENT HOSPITAL SERVICES PRIOR TO HIS/HER TRANSFER TO THE ECF. 08/29/182122 <Electronically signed by Keenan Simmons MD> Date Keenan Simmons MD - Diet 08/21/18 17:33 Diet: Regular Diet Is pt able to select menu?: Yes Diet Comments: no added salt - Routine Orders/Code Status Suppository Type: Dulcolax 10mg Suppository Frequency: Daily PRN Code Status: DNRCC-A - Wound(s) Lt ankle Wound Type: Surgical Incision - Therapies Weight Bearing: Non weight bearing - Problem/Diagnosis (1) Closed left ankle fracture Status: Acute Current Visit: Yes (2) Left hemiparesis Status: Chronic Current Visit: Yes (3) Dysarthria Status: Chronic Current Visit: Yes (4) Hypertension Status: Chronic Current Visit: Yes (5) Hypothyroidism Status: Chronic Current Visit: Yes (6) GERD (gastroesophageal reflux disease) Status: Chronic Current Visit: Yes (7) Overactive bladder Status: Chronic Current Visit: Yes (8) Depression Status: Chronic Current Visit: Yes (9) Ramos esophagus Status: Chronic Current Visit: No (10) Glaucoma Status: Chronic Current Visit: No (11) Rheumatoid arthritis Status: Chronic Current Visit: No (12) Lupus Status: Chronic Current Visit: No (13) Normal pressure hydrocephalus Status: Chronic Current Visit: No (14) Bipolar disorder Status: Chronic Current Visit: No (15) Alcoholic dementia Status: Chronic Current Visit: No (16) Stroke Status: Chronic Current Visit: No - Allergies/Procedures Done in Hospital Allergies/Adverse Reactions: Allergies ciprofloxacin Allergy (Verified 08/20/18 11:57) Unknown Penicillins Allergy (Verified 08/20/18 11:57) Unknown Sulfa (Sulfonamide Antibiotics) Allergy (Verified 08/20/18 11:57) Unknown thimerosal [From Merthiolate] Allergy (Verified 08/20/18 11:57) Rash - Type of Care/Length of Stay Estimated LOS: More Than 30 Days Type of Care Needed: Intermediate Rehab Potential: Fair Prognosis: Fair - Additional Orders/Day of Discharge Day of Discharge: 09/01/18 - Dietary and Speech Recommendations Dietitian Recommendations/Changes: Rec diet change to regular, no added salt to maximize PO intake prior to surgery next week. Continue Ensure w/ medpass. - Follow Up Care Primary Care Physician: Stephane Ford MD [Primary Care Provider] - Please follow up with your Primary Care Physician in: 1 week. Please Follow Up With: Don Bejarano DO When: 2 weeks. Please Follow Up With: Ann Aguilar DPM When: 2 weeks. 08/29/182122 <Electronically signed by Keenan Simmons MD> Date Keenan Simmons MD CC: JUAN Aguilar; Stephane Ford MD Signed URINALYSIS, COMPLETE Collected: 08/27/2018 Status: F Source: [place] 8:44 PM [facility] REPOSITORY Order Comment: How was Urine Obtained? BLADDER TAP TYPE CODE TESTS RESULT OUT OF RANGE REFERENCE UNITS LAB L400.3000 Yellow COLOR Normal Yellow LAB L400.3050 Clear Normal CLARITY Sl. Cloudy LAB L400.3200 Normal mg/dl Normal GLUCOSE, UR Normal LAB L400.3300 Negative mg/dL Normal BILIRUBIN URINE Negative LAB L400.3400 Negative mg/dl Normal KETONE UR Negative LAB L400.3465 1.002-1.030 Normal SP.GR. DIPSTX 1.020 LAB L400.3550 5.0 - 8.0 pH UR Normal 6.0 LAB L400.3600 Negative mg/dl High PROT 30 DIPSTX LAB L400.3700 Normal mg/dl Normal UROBILI Normal LAB L400.3750 Negative Normal NITRITE UR Negative LAB L400.3780 Negative /ul High 10 OCCULT BLOOD-UR LAB L400.3800 Negative /ul High LEUK ESTERASE 500 LAB L400.4050 0-5 /hpf WBC Normal 50-100 SEEN LAB L400.4100 0-5 /hpf Normal RBC-UA 0-5 SEEN LAB L400.4150 5-10 /hpf SQUAM 0 Normal EPI SEEN LAB L400.4300 None Seen /hpf 0 Normal BACTERIA SEEN LAB L400.4350 <or=2+ /hpf 0 Normal MUCUS, URINE SEEN Performed By: #### L400.0001 #### [facility] [address] [place], [place], [id number] Observed: 08/27/2018 Status: F Source: [place] CULTURE, URINE 8:44 PM [facility] REPOSITORY Order Date: 08/27/18 Urine Culture [place] Count = 3300 cfu/mL ORGANISM 1: Pseudomonas aeroginosa [place] Count 1000-10,000 Pseudomonas aeroginosa: REACTION Cefepime $ <=1 S Ceftazidime *NF <=1 S Ciprofloxacin $ 1 S Gentamicin $ <=1 S Imipenem *NF >=16 R Levofloxacin $ >=8 R Piperacillin/Tazobactam $$ <=4 S Tobramycin $ <=1 S (NF) indicates non-formulary drug at [facility]. Approval by Infectious Disease Specialist required before non-formulary drugs may be ordered and/or dispensed. Performed By: #### M100.0650 #### [facility] [address] [place], [place], [id number] ABDOMEN SINGLE VIEW Observed: 08/27/2018 Status: F Source: [place] (PORTABLE) 4:52 PM [facility] REPOSITORY [facility] [place] [address] Abdomen Single View (Portable) MR#: [id number] Acct: [id number] Name: MONICA ANNA Rep #: [id number] : 1945 F 73 From: Kevin Elizabeth MD PCP: Stephane Ford MD Status: ADM IN Study: Abdomen Single View (Portable) Date of Exam: 08/27/18 Exam# [id number] Ordering Dr: Keenan Simmons MD STUDY: X-RAY - ABDOMEN/PELVIS REASON FOR EXAM: Female, 73 years old. Abdominal pain TECHNIQUE: Single AP view of the abdomen / pelvis. COMPARISON: August 22, 2018. FINDINGS: Normal visualized lung bases. Shunt catheter extends to the pelvis. There is an unremarkable bowel gas pattern. There is no demonstrated free abdominal air. The visualized liver, spleen and kidneys are grossly normal in size and morphology. There are vascular calcifications. There is levoscoliosis with degenerative change of the spine. RAD/Abdomen Single View (Portable) IMPRESSION: No obstruction. Electronically Signed: Kevin Elizabeth MD at 22:30 EST , Service support , CC: Stephane Ford MD; Keenan Simmons MD Landscaping Crew Leader: Signed BASIC METABOLIC Collected: 08/23/2018 Status: F Source: [place] PROFILE (BMP) 5:20 AM [facility] REPOSITORY TYPE CODE TESTS RESULT OUT OF RANGE REFERENCE UNITS LAB L501.0100 74-106 mg/dL Normal GLU 99 Result Comment: Please note revised GLUCOSE reference range effective 2017. LAB L501.1000 7-18 mg/dL High BUN 22 LAB L501.1100 0.55-1.02 mg/dL High CREAT,SERUM 1.35 Result Comment: The validity of the calculated GFR AND GFRAA in patients over 70 years has not been determined. Clinical correlation is essential. LAB L501.1110 >60 mL/min Low EST GFR 41 Result Comment: Non- GFR Calc LAB L501.1115 >60 mL/min Low EST GFR - AA 50 Result Comment: GFR Calc LAB L501.1255 ml/min Normal Estimated CRCL 35.26 LAB L501.1300 10-20 RATIO Normal BUN/CRE 16.3 LAB L501.2200 8.5-10 mg/dL Normal .1 CA 8.8 LAB L501.5300 136-14 mmol/L Normal 5 NA 140 LAB L501.5600 3.5-5. mmol/L Normal 1 K 4.0 LAB L501.5900 98-107 mmol/L Normal CL 103 LAB L501.6100 21.0-3 mmol/L Normal 2.0 CO2 29.0 LAB L501.6200 5-15 Normal GAP 8 Performed By: #### L500.2500 #### [facility] [address] [place], [address] CBC W/DIFF, AUTOMATED Collected: 08/23/2018 Status: F Source: [place] 5:20 AM [facility] REPOSITORY TYPE CODE TESTS RESULT OUT OF RANGE REFERENCE UNITS LAB L100.1000 4.4-11.0 K/mm3 Normal WBC 9.3 LAB L100.1200 4.2-5.4 M/mm3 Low RBC 4.13 LAB L100.1300 12.0-15.0 g/dl Low HGB 11.2 LAB L100.1400 37-47 % Low HCT 35.1 LAB L100.1500 81-99 fL Normal MCV 85.0 LAB L100.1600 27.0-32.0 pg Normal MCH 27.1 LAB L100.1700 32-36 g/gl Low MCHC 31.9 LAB L100.1810 11.6-14.6 % Normal RDW CV 14.2 LAB L100.1820 35.1-43.9 fl Normal RDW SD 43.0 LAB L100.1900 150-450 K/mm3 Normal PLT 276 LAB L100.2000 6.2-12.0 fl Normal MPV 10.3 LAB L100.2100 47-70 % High NEUT% 71.2 LAB L100.2200 19-41 % Low LY% 18.2 LAB L100.2300 0-10 % Normal MONO% 8.4 LAB L100.2400 0-5 % Normal EO% 1.8 LAB L100.2500 0-1 % Normal BASO% 0.1 LAB L100.2550 0.0-0.9 % Normal IM GRAN % 0.300 Result Comment: IG% - Immature Granulocytes (promyelocytes, myelocytes and metamyelocytes) > 1% indicates that a LEFT SHIFT is Present. LAB L100.2620 2.0-7.7 X10 3/uL Normal Absolute Neut 6.6 LAB L100.2720 0.83-4.51 X10 3/ul Normal Absolute Lymph 1.68 Performed By: #### L100.0100 #### [facility] [place], [address] [facility] Observed: 08/23/2018 Status: COMPLETED Source: [place] 12:00 AM [facility] REPOSITORY Telephone (Metabiota[employer]) MONICA ANNA ([id number]) 1945 F Date Time Provider Department 08/23/18 [facility] During your visit today, we recorded the following information about you: Donna Mesa Ma 08/23/2018 12:09 PM Signed Received xray of abdomen/pelvis [facility] 08/22/18. Will scan in once reviewed. Donna Mesa Ma 08/29/2018 8:20 AM Signed Received xray of abdomen/pelvis 08/27/18 Donna Mesa Ma Allergies As of Date: 08/23/2018 Noted Allergy Reaction TOPAMAX (TOPIRAMATE) 01/30/2006 5 - Intolerance CIPRO (CIPROFLOXACIN) 06/08/2005 8 - GI Upset DESYREL (TRAZODONE HCL) 06/08/2005 1 - Mental Status Change MERCURY (MERCURY (BULK)) 06/08/2005 2 - Rash PENICILLINS 06/08/2005 2 - Rash SULFA (SULFONAMIDE ANTIBIOTICS) 06/08/2005 2 - Rash THIMEROSAL 05/12/2017 16 - Unknown Date Reviewed: 07/25/2018 Reviewed by: Deric Mason - Fully Assessed Reason for Visit: [facility] 08/22/18 [Other] Cmt: xray [facility] 08/27/18 [Other] Cmt: xray Reason For Visit History Recorded Prescriptions as of 08/23/2018 Sig: CALCITRIOL 0.25 MCG CAPSULE Take 2 capsules by mouth once* QUETIAPINE 50 MG TABLET Take 1 tablet by mouth daily * METOPROLOL SUCCINATE ER 25 MG* Take 1 tablet by mouth once d* LISINOPRIL 10 MG TABLET TAKE ONE TABLET BY MOUTH EVER* CLOPIDOGREL 75 MG TABLET Take 1 tablet by mouth once d* SERTRALINE 50 MG TABLET Take 1 tablet by mouth once d* ESOMEPRAZOLE MAGNESIUM 40 MG * Take 1 capsule by mouth once * DONEPEZIL 10 MG TABLET Take 1 tablet by mouth daily * LEVOTHYROXINE 75 MCG TABLET Take 1 tablet by mouth once d* CLOPIDOGREL 75 MG TABLET Take 75 mg by mouth once victor manuel* DOCUSATE SODIUM 100 MG CAPSULE Take 1 capsule by mouth twice* DORZOLAMIDE 2 % EYE DROPS Use 1 Drop in the left eye ev* VITAMIN B COMPLEX ER TABLET,E* Take 1 tablet by mouth once d* COMBIGAN 0.2 %-0.5 % EYE DROPS Use 1 Drop in the left eye tw* SOLIFENACIN 5 MG TABLET Take 1 tablet by mouth once d* COMPOUNDED PRESCRIPTION Toilet handles/bars. DX abnor* DIAPER,BRIEF,ADULT,DISPOSABLE Diaper change 3 times a day a* ATORVASTATIN 20 MG TABLET Take 1 tablet by mouth daily * LUMIGAN 0.01 % EYE DROPS Use 1 Drop in the left eye da* CALCIUM 600 + D(3) ORAL Take by mouth. 1200 mg of Ca* COMPOUNDED PRESCRIPTION Washable chucks:urinary incon* MIRABEGRON ER 50 MG TABLET,EX* Take 50 mg by mouth once victor manuel* TYLENOL ORAL Take 1,000 mg by mouth every * Problem List As Of Date 08/23/2018 Noted Resolved MITRAL VALVE DISORDER [I05.9] MYALGIA AND MYOSITIS NOS [KSD4014] ACQUIRED HYPOTHYROID NEC [E03.8] CHRONIC DEPRESSIVE PERSON [F34.1] Mixed hyperlipidemia [E78.2] More... Nondependent Alcohol Abuse [305.0] 09/30/2009 GLAUCOMA NOS [H40.9] Other Specified Gastritis [535.4] 09/30/2009 UNSPEC CONSTIPATION [K59.00] Irritable Bowel Syndrome [K58.9] 09/30/2009 More... 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] INVALID FOR* Gastrointestinal Malfunction Arising from Menta*INVALID FOR* Unspecified Chest Pain [R07.9] INVALID FOR* Abdominal Pain, Epigastric [R10.13] INVALID FOR* Esophageal Reflux [K21.9] INVALID FOR* Lupus [L93.0] INVALID FOR* Rheumatoid arthritis (HCC) [M06.9] INVALID FOR* 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] INVALID FOR* Diverticulosis of colon (without mention of hem*INVALID FOR* Special screening for malignant neoplasms, colo*INVALID FOR* Eczematous dermatitis [L30.9] INVALID FOR* Acne vulgaris [L70.0] INVALID FOR* Folliculitis [L73.9] INVALID FOR* Pruritus [L29.9] INVALID FOR* Excoriation [T14.8XXA] INVALID FOR* Pyoderma, unspecified [L08.0] INVALID FOR* Rash and other nonspecific skin eruption [R21] INVALID FOR* Xerosis cutis [L85.3] INVALID FOR* Solar Lentigines [L81.4] INVALID FOR* Actinic skin damage [L57.8] INVALID FOR* Viral warts: R lower chin, face [B07.9] INVALID FOR* Prurigo nodularis [L28.1] INVALID FOR* Neurodermatitis [L28.0] INVALID FOR* Multiple excoriations [T07.XXXA] INVALID FOR* Other seborrheic keratosis [L82.1] INVALID FOR* Irritated//Inflamed Seborrheic Keratosis [L82.0]INVALID FOR* Postinflammatory skin changes [R23.4] INVALID FOR* Dysuria [R30.0] INVALID FOR* Hematuria [R31.9] INVALID FOR* Urgency of urination [R39.15] INVALID FOR* Frequency of urination [R35.0] INVALID FOR* Rheumatoid arthritis, adult ([facility]) [M06.9] INVALID FOR*04/27/2018 Abnormality of gait [R26.9] INVALID FOR* Abnormal gait [R26.9] INVALID FOR* Encephalopathy [G93.40] INVALID FOR* Acute cystitis [N30.00] INVALID FOR* Syncope [R55] INVALID FOR* Stenosis of right carotid artery [I65.21] INVALID FOR* More... Stroke (cerebrum) ([facility]) [I63.9] INVALID FOR* More... Urinary retention [R33.9] INVALID FOR* Sinus pause [I45.5] INVALID FOR* Aphasia, late effect of cerebrovascular disease*INVALID FOR* Functional gait abnormality [R26.89] INVALID FOR* Bradycardia [R00.1] More... 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 Right hemiparesis ([facility]) [G81.91] INVALID FOR* More... Nuclear sclerosis, right [H25.11] INVALID FOR* More... Other hyperlipidemia [E78.49] Hypothyroidism [E03.9] Hypertension [I10] Expressive aphasia [R47.01] CVA (cerebral vascular accident) ([facility]) [I63.9] More... Idiopathic normal pressure hydrocephalus (INPH)*INVALID FOR* More... 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] INVALID FOR* NPH (normal pressure hydrocephalus) [G91.2] INVALID FOR*01/27/2018 Primary open-angle glaucoma, bilateral, severe *INVALID FOR* Nuclear senile cataract of left eye [H25.12] INVALID FOR* Epiretinal membrane (ERM) of both eyes [H35.373]INVALID FOR* Encounter Status:Closed by JENNIFER MESA MASSICA on 08/23/18 ABD INC DECUB Observed: 08/22/2018 Status: F Source: [place] AND/OR ERECT 2:23 PM [facility] REPOSITORY [facility] Imaging Services [address] [place] [address] Abd Inc Decub and/or Erect MR#: [id number] Acct: [id number] Name: MONICA ANNA Rep #: [id number] : 1945 F 73 From: Luis Mascorro MD PCP: Stephane Ford MD Status: ADM IN Study: Abd Inc Decub and/or Erect Date of Exam: 08/22/18 Exam# [id number] Ordering Dr: Keenan Simmons MD STUDY: X-RAY - ABDOMEN/PELVIS REASON FOR EXAM: Female, 73 years old. Abdominal pain TECHNIQUE: AP supine and decubitus views of the abdomen and pelvis. COMPARISON: None. FINDINGS: Normal visualized lung bases. There is an unremarkable bowel gas pattern. There is no demonstrated free abdominal air. The visualized liver, spleen and kidneys are grossly normal in size and morphology. Normal soft tissue structures. There are degenerative changes of the visualized thoracic and lumbar spine. A COMMUNITY CENTER COORDINATOR shunt is noted. RAD/Abd Inc Decub and/or Erect IMPRESSION: There is no evidence of ileus, obstruction, or free intraperitoneal air. There are degenerative changes of the visualized thoracic and lumbar spine spine. A COMMUNITY CENTER COORDINATOR shunt is noted with tip terminating in the right pelvis. Electronically Signed: Luis Mascorro MD at 19:10 EST , Service support , CC: Stephane Ford MD; Keenan Simmons MD Landscaping Crew Leader: Signed OPERATIVE REPORT Observed: 08/21/2018 Status: F Source: [place] 3:50 PM [facility] REPOSITORY [facility] Medical Records Department [address] [place] [address] Operative Report 08/21/18 1516 MR#: [id number] Acct: [id number] Name: MONICA ANNA Rep #: [id number] : 1945 73 From: Ann Aguilar DPM PCP: Stephane Ford MD Status: REG [facility] Y Location: [place] [address] Report of Operation Date of Procedure: 08/21/18 Pre-Operative Diagnosis: L comminuted oblique lateral malleolus fracture, L syndesmotic disruption Post-Operative Diagnosis: same Surgery/Procedure Performed:: L lateral malleolus ORIF with transyndesmotic screw fixation Description of Surgical Findings:: see dictation assurance services manager health care: Williams Martinez Type of Anesthesia:: General/Regional Specimen's removed: none Drains: none Estimated Blood Loss (mL): 20mL Description of Procedure: Indications: Pt is a 73 yo F who sustained a L ankle fracture after falling at home on August 052017. PT was seen in the [facility] ER and admitted as a fall risk with an unstable ankle fracture. PT has a complex medical hx including stroke with residual weakness. She and her are concerned about her abilities to remain NWB LLE at home. We discussed ORIF vs external fixation and they felt strongly about not pursing external fixation. She was transferred from [facility] inpatient to the the TCU. All risks, alternatives and complications were discussed with the patient and her . An informed consent was signed. No guarantees were given. Procedure: on August 21, 2018 Monica Anna was verbally and visually identified in the pre-operative holding area. The consent form was again reviewed and patient agreed to proceed with the proposed surgery. The left ankle was marked as the correct operative extremity. The patient was given a preoperative Left lower sciatica block by anesthesia. The patient was brought the operating room and placed on the operating room table in a lazy lateral position. At this time anesthesia performed a time out and all present were in agreement. A thigh tourniquet was placed. The compressive dressing and posterior splint were removed and edema had improved with skin lines visualized. The left lower extremity was prepped and draped in the normal sterile fashion. The left leg was then elevated and the thigh tourniquet was inflated to 300mmHg. At this time attention was turned to the left lateral ankle, A curvilinear incision was made over the distal fibula using a #15 blade. The incision was bluntly carried deeply through the subcutaneous tissues with careful attention paid to all bleeders which were tied or bovied as needed. All vital neurovascular structures and tendons were retracted. The fracture line of the fibula was identified. The fracture hematoma was debrided. Fracture reduction was obtained with sharp to sharp bone clamps and lobster claws. A temporary k wire was thrown across the fracture fragments. This was confirmed with direct visualization as well as on intra operative fluoroscopy. At this time a [place] variax plate was placed. Intraoperative fluoroscopy confirmed the appropriate length and placement of the plate and bb tacks were placed, one distally and one proximally. The fracture was noted to be comminuted and oblique. An interfragmentary screw was not placed as this would have been directly in the site of the anticipated syndesmotic screw placement. Given the instability of her tibiofibular joint and increased medial clear space, I felt she needed transsyndesmotic fixation more so than an interfragmentary screw of the this fracture. I proceeded to place the lateral plate using bi cortical non locking screw proximally and locking screws distally. After this was secured and fracture reduction was maintained and confirmed on intra operative fluoroscopy, I used a bone hook test to evaluate the tibiofibular joint, syndesmosis and the medial clear space, deltoid ligaments. Significant increase of the tibiofibular joint and medial clear space was noted on intra operative fluoroscopy. A malleolar reduction clamp was placed. A quadracortical screw was then placed across the tibiofibular joint, lateral to medial, and the through the plate. The Screw was parallel to the tibiotalar joint. The malleolar reduction clamp was removed and the bone hook test was repeated with significant improvement as the medial clear space and tibiotalar joint remained within normal limits as confirmed by intra operative fluoroscopy. At this time the incision was flushed with copious amounts of normal sterile saline. Closure was initiated with 2.0 vicryl for deep structures over the plate and screws, 3.0 vicryl for subcutaneous closure and 3.0 prolene for skin. The incision was dressed with adaptic and DSD. A multilayer compressive stout dressing was placed with a posterior splint. Total tourniquet time was 60 minutes with immediate capillary refill noted to all digits upon deflation. The patient tolerated the procedure and anesthesia well. The patient was transferred to the PACU by myself and a member of the anesthesia team with all vitals signs stable and left lower extremity neurovascular status equal to pre operative levels. All needle, sponge and instrument counts were found to be correct at the end of the case. Pt will return to the TCU where she will be nonweightbearing to the left lower extremity with limited toe touch if needed for balance. I will see her in one week to check her incision and will likely transfer her to her pneumatic cam walker. She will need to remain NWB LLE for at least 4 weeks and may require extended time in the TCU given her stroke hx w/ residual weakness. Grafts/Implants Used: Libia Variax plate and screws - Complications none - Admit VTE Documentation VTE Present on Admission: No VTE Mechan Device Prophylaxis: SCD's, Knee High MARGRET Hose VTE Pharm Prophylaxis ordered?: Yes 08/21/18 1550 <Electronically signed by Ann Aguilar DPM> Date Ann Aguilar DPM CC: JUAN Aguilar; Stephane Ford MD Signed DISCHARGE INSTRUCTION Observed: 08/21/2018 Status: F Source: [place]FF[place] 2:46 PM [facility] Medical Records Department [address] [place] [address] Instructions for Home/Discharge Instructions 08/21/18 1442 MR#: [id number] Acct: [id number] Name: MONICA ANNA Rep #: [id number] : 1945 73 From: Ann Aguilar DPM PCP: Stephane Ford MD Status: REG [facility] [place] Discharge Activity: May Not Drive, May not drive while taking narcotic pain medications., May Not Shower, Use Walker Ice area for (Minutes): 20 - apply behind left knee for 20 minutes of each hour while awake Weight Bearing Status: No weight bearing Keep extremity elevated above heart level: Operative Extremity Call your doctor if your incision/area has: Sudden Increased Bleeding, Increased Pain/ Swelling, Foul Smelling Discharge Call your doctor if you observe: Fever of 101 or Higher, Coldness, Increased Pain, Numbness or Tingling, Change in Color, Chest pain, Calf discomfort, Uncontrolled pain Cleanse incision/area with: Do not get Incision Wet, Keep Dressing Clean AND Dry Additional Instructions: resume lovenox 08/22/2018 in the morning Allergies/Adverse Reactions: Allergies ciprofloxacin Allergy (Verified 08/20/18 11:57) Unknown Penicillins Allergy (Verified 08/20/18 11:57) Unknown Sulfa (Sulfonamide Antibiotics) Allergy (Verified 08/20/18 11:57) Unknown thimerosal [From Merthiolate] Allergy (Verified 08/20/18 11:57) Rash Medications to take at Discharge Atorvastatin Calcium 20 mg PO QHS 10/28/17 Calcitriol [Rocaltrol] 0.25 mcg PO DAILY 10/28/17 Cholecalciferol (Vitamin D3) [Vitamin D3] 5,000 unit PO DAILY 10/28/17 Donepezil HCl 10 mg PO DAILY 10/28/17 Esomeprazole Magnesium 40 mg PO DAILY 10/28/17 Levothyroxine [Synthroid] 50 mcg PO DAILY 10/28/17 Sertraline HCl [Zoloft] 50 mg PO QHS 10/28/17 Solifenacin Succinate [Vesicare] 5 mg PO DAILY 10/28/17 Bimatoprost [Lumigan] 1 drop LEFT EYE QHS 05/09/18 Clopidogrel Bisulfate [Plavix] 75 mg PO DAILY 05/09/18 Lisinopril [Prinivil] 10 mg PO DAILY 05/09/18 Vitamin B Complex 1 tab PO DAILY 05/09/18 Brimonidine Tartrate/Timolol [Combigan Eye Drops] 1 drop LEFT EYE BID 08/06/18 Calcium Carbonate/Vitamin D3 [Calcium 600-Vit D3 500 Softgel] 2 each PO DAILY 08/06/18 Dorzolamide 2% [Trusopt] 1 drop LEFT EYE BID 08/06/18 Metoprolol Succinate 25 mg PO DAILY 08/06/18 Quetiapine Fumarate [Seroquel] 50 mg PO QHS 08/06/18 Acetaminophen [Tylenol Tablet] 650 mg PO Q6H PRN PRN tablet 08/08/18 Pantoprazole Sodium [Protonix] 40 mg PO DAILY 08/21/18 Primary Care Physician: Stephane Ford MD [Primary Care Provider] - Test Results: Test results from this visit will be discussed in further detail at your follow-up appointment, if applicable. Please Follow Up With: Ann Aguilar DPM - if transferred from [facility] pt should be seen in my office one week from day of surgery, otherwise, if still in [facility] i can see patient there When: one week from day of surgery 08/21/18 1446 <Electronically signed by Ann Aguilar DPM> Date Ann Aguilar DPM CC: Stephane Ford MD ANKLE MIN 3 VIEWS Observed: 08/21/2018 Status: F Source: [place] 2:42 PM [facility] Imaging Services [address] [place] [address] Ankle min 3 Views MR#: [id number] Acct: [id number] Name: MONICA ANNA Rep #: [id number] : 1945 F 73 From: Luis Mascorro MD PCP: Stephane Ford MD Status: REG [facility] [place] Study: Ankle min 3 Views Date of Exam: 08/21/18 Exam# [id number] Ordering Dr: Ann Aguilar DPM STUDY: X-RAY - LEFT ANKLE REASON FOR EXAM: Female, 73 years old. Postop TECHNIQUE: 3 view(s) of the ankle. COMPARISON: None. FINDINGS: There is demonstrated in internal fixation plate and multiple screws along the lateral aspect of the distal fibula, which stabilizes a nondisplaced right lateral malleolar fracture. The fracture is in excellent alignment. There is mild tilting of the tibiotalar articulation which may represent evidence of ligamentous injury. RAD/Ankle min 3 Views IMPRESSION: Internal fixation of oblique fracture of the lateral malleolus, appearing in excellent position. There is minimal tilting of the tibiotalar articulation which may represent evidence of ligamentous injury. Electronically Signed: Luis Mascorro MD at 19:12 EST , Service support , CC: JUAN Aguilar; Stephane Ford MD Landscaping Crew Leader: Signed ANKLE 2 VIEWS Observed: 08/21/2018 Status: F Source: GUFF[place] 4:00 AM [facility] Imaging Services [address] [place] [address] Ankle 2 Views MR#: [id number] Acct: [id number] Name: MONICA ANNA Rep #: [id number] : 1945 F 73 From: Luis Mascorro MD PCP: Stephane Ford MD Status: REG [facility] [place] Study: Ankle 2 Views Date of Exam: 08/21/18 Exam# [id number] Ordering Dr: Ann Aguilar DPM STUDY: X-RAY - LEFT ANKLE REASON FOR EXAM: Female, 73 years old. ORIF TECHNIQUE: 3 view(s) of the ankle. COMPARISON: Prior study 08/06/2018 FINDINGS: There is demonstrated internal fixation of previously noted distal fibular fracture with plate and multiple screws. Fracture fragments appear in excellent alignment. RAD/Ankle 2 Views IMPRESSION: Internal fixation with plate and multiple screws of previously noted distal fibular fracture. Fracture fragments appear in excellent alignment. Electronically Signed: Luis Mascorro MD at 19:11 EST , Service support , CC: JUAN Aguilar; Stephane Ford MD Landscaping Crew Leader: Signed 12 LEAD ELECTROCARDIOGRAM Observed: 08/16/2018 Status: F Source: [place] 4:16 PM [facility] Cardiovascular Services [address] [place] [address] 12 Lead EKG 08/06/182055 MR#: [id number] Acct: [id number] Name: MONICA ANNA Rep #: [id number] : 1945 73 From: Germain Constantino MD Attending Dr: Artemio Marks MD Status: DIS KOMAL Ordering Dr: Taina Duncan MD Date: 08/06/18 Location: [facility] [place] Sex: F C Admitted: 08/06/18 Test Reason : FALL Blood Pressure : / mmHG Vent. Rate : 077 BPM Atrial Rate : 077 BPM P-R Int : 158 ms QRS Dur : 076 ms QT Int : 400 ms P-R-T Axes : 054 022 050 degrees QTc Int : 452 ms Normal sinus rhythm Low voltage QRS Nonspecific T wave abnormality Abnormal ECG Confirmed by FLORENTINO PETER, GERMAIN ([id number]), digital editor CORTNEY STROUD ([id number]) on 08/16/2018 4:16:16 PM Referred By: DR DUNCAN Confirmed By:GERMAIN CONSTANTINO MD 08/16/18 1616 Date Germain Constantino MD CC: Stephane Ford MD; Taina Duncan MD; Artemio Marks MD Signed BASIC METABOLIC Collected: 08/16/2018 Status: F Source: CHARLENE PROFILE (BMP) 5:35 AM [facility]POS[facility] TYPE CODE TESTS RESULT OUT OF RANGE REFERENCE UNITS LAB L501.0100 74-106 mg/dL Normal GLU 86 Result Comment: Please note revised GLUCOSE reference range effective 2017. LAB L501.1000 7-18 mg/dL High BUN 31 LAB L501.1100 0.55-1.02 mg/dL High CREAT,SERUM 1.23 Result Comment: The validity of the calculated GFR AND GFRAA in patients over 70 years has not been determined. Clinical correlation is essential. LAB L501.1110 >60 mL/min Low EST GFR 46 Result Comment: Non- GFR Calc LAB L501.1115 >60 mL/min Low EST GFR - AA 55 Result Comment: GFR Calc LAB L501.1255 ml/min Normal Estimated CRCL 38.70 LAB L501.1300 10-20 RATIO High BUN/CRE 25.2 LAB L501.2200 8.5-10 mg/dL Normal .1 CA 8.7 LAB L501.5300 136-14 mmol/L Normal 5 NA 142 LAB L501.5600 3.5-5. mmol/L Normal 1 K 4.0 LAB L501.5900 98-107 mmol/L Normal CL 107 LAB L501.6100 21.0-3 mmol/L Normal 2.0 CO2 26.0 LAB L501.6200 5-15 Normal GAP 9 Performed By: #### L500.2500 #### [facility] [address] [place], [address] CBC W/DIFF, AUTOMATED Collected: 08/16/2018 Status: F Source: [place] 5:35 AM [facility] TYPE CODE TESTS RESULT OUT OF RANGE REFERENCE UNITS LAB L100.1000 4.4-11.0 K/mm3 Normal WBC 7.2 LAB L100.1200 4.2-5.4 M/mm3 Low RBC 4.17 LAB L100.1300 12.0-15.0 g/dl Low HGB 11.2 LAB L100.1400 37-47 % Low HCT 35.2 LAB L100.1500 81-99 fL Normal MCV 84.4 LAB L100.1600 27.0-32.0 pg Low MCH 26.9 LAB L100.1700 32-36 g/gl Low MCHC 31.8 LAB L100.1810 11.6-14.6 % Normal RDW CV 14.0 LAB L100.1820 35.1-43.9 fl Normal RDW SD 43.3 LAB L100.1900 150-450 K/mm3 Normal PLT 238 LAB L100.2000 6.2-12.0 fl Normal MPV 10.1 LAB L100.2100 47-70 % Normal NEUT% 63.2 LAB L100.2200 19-41 % Normal LY% 25.5 LAB L100.2300 0-10 % Normal MONO% 6.8 LAB L100.2400 0-5 % Normal EO% 4.3 LAB L100.2500 0-1 % Normal BASO% 0.1 LAB L100.2550 0.0-0.9 % Normal IM GRAN % 0.100 Result Comment: IG% - Immature Granulocytes (promyelocytes, myelocytes and metamyelocytes) > 1% indicates that a LEFT SHIFT is Present. LAB L100.2620 2.0-7.7 X10 3/uL Normal Absolute Neut 4.5 LAB L100.2720 0.83-4.51 X10 3/ul Normal Absolute Lymph 1.83 Performed By: #### L100.0100 #### [facility] [address] [facility] [place], [address] CONSULTATION Observed: 08/15/2018 Status: F Source: [place] 8:11 PM [facility] Medical Records Department [address] [place] [address] Consultation 08/15/181953 MR#: [id number] Acct: [id number] Name: MONICA ANNA Rep #: [id number] : 1945 73 From: Ann Aguilar DPM PCP: Stephane Ford MD Status: ADM IN Location: [place] [address] Reason for Consult Date of Consultation: 08/15/18 Reason for Consultation: L ankle fracture History of Present Illness: The patient is a 73 year old F [] Past Medical History Past Medical History (Chronic Problems): Chronic Problems Left hemiparesis (Chronic) Dysarthria (Chronic) Hypertension (Chronic) Hypothyroidism (Chronic) GERD (gastroesophageal reflux disease) (Chronic) Overactive bladder (Chronic) Depression (Chronic) Left-sided weakness (Chronic) recent CVA February 2016 Ramos esophagus (Chronic) Glaucoma (Chronic) Rheumatoid arthritis (Chronic) Lupus (Chronic) Mitral valve disorder (Chronic) Normal pressure hydrocephalus (Chronic) Bipolar disorder (Chronic) Hemiparesis affecting left side as late effect of stroke (Chronic) Alcoholic dementia (Chronic) Stroke (Chronic) Benign essential hypertension (Chronic) Allergies ciprofloxacin Allergy (Verified 08/06/18 12:44) Unknown Penicillins Allergy (Verified 08/06/18 12:44) Unknown Sulfa (Sulfonamide Antibiotics) Allergy (Verified 08/06/18 12:44) Unknown thimerosal [From Merthiolate] Allergy (Verified 08/06/18 12:44) Rash Home Medications: Ambulatory Orders Medication Instructions Recorded Atorvastatin Calcium 20 mg PO QHS 10/28/17 Surgical History: total knee arthroplasty - Bilateral, - - Right shoulder surgery Parathyroidectomy Psychiatric History: Bipolar - Bipolar disorder has not been verified according to the patient's , Depression SWISS MACHINIST History: No pertinent SWISS MACHINIST history Lives: Spouse/ Significant Other Smoking Status: Former smoker Tobacco Use: Non-smoker Alcohol: None Drugs: None - *Family History Maternal History Items: Heart Disease Paternal History Items: Heart Disease, No pertinent history - in 70s Review of Systems Neurological: Reports: Balance problems Patient Problems: Active and Suspected Problems Closed left ankle fracture (Acute) Subjective: Pt is a 73 yo F w/ L ankle fracture. She was seen in the [facility] ER and than admitted secondary to fracture, hx of stroke and balance issues. I evaluated her last week as an inpatient and surgical intervention was discussed. She was then transferred to the TCU to improve ability to remain NWB LLE and await edema resolution for the L ankle ORIF. She is in a well padded posterior splint to LLE. PT examined at bedside. Her is present. Objective: LLE Exam: Vasc: DP pulse palpable, PT nonpalpable 2/2 edema, CRF < 3 seconds to all digits, warm to warm distal to proximal, Musc: + wiggle toes, other testing deferred 2/2 injury Neuro: light touch sensation diminished Derm: ++ edema and minimal ecchymosis Radiographs 08/06/2018 L ankle 3 views reviewed: oblique, comminuted fracture of the lateral malleolus with displacement laterally and proximally and increased medial clear space - Physical Exam General: Alert Extremities: No Calf Tenderness, Edema Skin: No rashes, No breakdown Vital Signs Temp Pulse Resp BP Pulse Ox 96.6 F L 61 18 104/54 L 91 08/15/18 15:56 08/15/18 15:56 08/15/18 15:56 08/15/18 15:56 08/15/18 15:56 Oxygen Delivery Method Room Air Weight: 153 lb 14.122 oz Body Mass Index (BMI) 24.7 Finger Stick Blood Glucose 88 Intake and Output for Last 24 Hours Intake Total 360 / 360 660 / 660 440 / 440 Balance 360 / 360 660 / 660 440 / 440 Assessment/Plan All Active Problems Fall (Acute) Closed left ankle fracture (Acute) medical management (Acute) Metabolic encephalopathy (Acute) Altered mental status (Acute) Aphasia (Acute) 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 (Acute) 73 yo F with L unstable ankle fracture -pt evaluated at bedside- -labs, studies and notes reviewed -Recommend ORIF for L ankle fracture. Would like to take her MondayAugust 21 pending OR availability. Please make NPO monday @ mdn, pre-op labs to include bmp, cbc, active t AND s along with any labs/studies per medicine and anesthesia. Please risk stratify. will be general anesthesia with a L popliteal-femoral block. PT and agree to procedure. Benefits and risks of non-operative and operative intervention discussed, including both internal and external fixation options. They elect to have ORIF done. Pt understands she will need to be NWB LLE post operatively. Risks include but are not limited to pain, bleeding, infection, delayed/nonhealing, need for further surgery, DVT PE. All questions and concerns were addressed. If OR time does not permit a case on MondayAugust 21 I will request August 23. -Please call with questions or concerns. Will let TCU know when surgery date is definite. -Please keep LLE elevated on 1-2 pillows while in bed. NWB LLE at all times. Pain medication per medicine team. 08/15/182009 <Electronically signed by Ann Aguilar DPM> Date Ann Aguilar DPM Cosigner Signature (if applicable): Date CC: JUAN Aguilar; Stephane Ford MD; Keenan Simmons MD Signed CBC W/DIFF, AUTOMATED Collected: 08/09/2018 Status: F Source: [place] 5:25 AM [facility]POS[facility] TYPE CODE TESTS RESULT OUT OF RANGE REFERENCE UNITS LAB L100.1000 4.4-11.0 K/mm3 Normal WBC 6.2 LAB L100.1200 4.2-5.4 M/mm3 Normal RBC 4.20 LAB L100.1300 12.0-15.0 g/dl Low HGB 11.3 LAB L100.1400 37-47 % Low HCT 35.6 LAB L100.1500 81-99 fL Normal MCV 84.8 LAB L100.1600 27.0-32.0 pg Low MCH 26.9 LAB L100.1700 32-36 g/gl Low MCHC 31.7 LAB L100.1810 11.6-14.6 % Normal RDW CV 14.1 LAB L100.1820 35.1-43.9 fl Normal RDW SD 43.3 LAB L100.1900 150-450 K/mm3 Normal PLT 190 LAB L100.2000 6.2-12.0 fl Normal MPV 10.1 LAB L100.2100 47-70 % Normal NEUT% 62.2 LAB L100.2200 19-41 % Normal LY% 23.6 LAB L100.2300 0-10 % High MONO% 10.3 LAB L100.2400 0-5 % Normal EO% 3.5 LAB L100.2500 0-1 % Normal BASO% 0.2 LAB L100.2550 0.0-0.9 % Normal IM GRAN % 0.200 Result Comment: IG% - Immature Granulocytes (promyelocytes, myelocytes and metamyelocytes) > 1% indicates that a LEFT SHIFT is Present. LAB L100.2620 2.0-7.7 X10 3/uL Normal Absolute Neut 3.9 LAB L100.2720 0.83-4.51 X10 3/ul Normal Absolute Lymph 1.47 Performed By: #### L100.0100 #### [facility] [address] [place], [address] BASIC METABOLIC Collected: 08/09/2018 Status: F Source: [place] PROFILE (BMP) 5:25 AM [facility] REPOS[facility] TYPE CODE TESTS RESULT OUT OF RANGE REFERENCE UNITS LAB L501.0100 74-106 mg/dL Normal GLU 96 Result Comment: Please note revised GLUCOSE reference range effective 2017. LAB L501.1000 7-18 mg/dL High BUN 27 LAB L501.1100 0.55-1.02 mg/dL High CREAT,SERUM 1.39 Result Comment: The validity of the calculated GFR AND GFRAA in patients over 70 years has not been determined. Clinical correlation is essential. LAB L501.1110 >60 mL/min Low EST GFR 40 Result Comment: Non- GFR Calc LAB L501.1115 >60 mL/min Low EST GFR - AA 48 Result Comment: GFR Calc LAB L501.1255 ml/min Normal Estimated CRCL 34.25 LAB L501.1300 10-20 RATIO Normal BUN/CRE 19.4 LAB L501.2200 8.5-10 mg/dL Normal .1 CA 8.7 LAB L501.5300 136-14 mmol/L Normal 5 NA 141 LAB L501.5600 3.5-5. mmol/L Normal 1 K 4.0 LAB L501.5900 98-107 mmol/L Normal CL 105 LAB L501.6100 21.0-3 mmol/L Normal 2.0 CO2 28.0 LAB L501.6200 5-15 Normal GAP 8 Performed By: #### L500.2500 #### [facility] [address] [place], [address] HISTORY AND PHYSICAL Observed: 08/08/2018 Status: F Source: [place]LENE EXAM 10:22 PM [facility] Medical Records Department [address] [place] [address] History and Physical 08/08/182158 MR#: [id number] Acct: [id number] Name: MONICA ANNA Rep #: [id number] : 1945 73 From: Keenan Simmons MD PCP: Stephane Ford MD Status: ADM IN Y Location: [place] [address] Problem List (1) Closed left ankle fracture Status: Acute (2) Left hemiparesis Status: Chronic (3) Dysarthria Status: Chronic (4) Hypertension Status: Chronic (5) Hypothyroidism Status: Chronic (6) GERD (gastroesophageal reflux disease) Status: Chronic (7) Overactive bladder Status: Chronic (8) Depression Status: Chronic (9) Ramos esophagus Status: Chronic (10) Glaucoma Status: Chronic (11) Rheumatoid arthritis Status: Chronic (12) Lupus Status: Chronic (13) Normal pressure hydrocephalus Status: Chronic (14) Bipolar disorder Status: Chronic (15) Alcoholic dementia Status: Chronic (16) Stroke Status: Chronic History of Present Illness Date of Admission: 08/08/18 Chief Complaint: Here for rehabiliation, strengthening, prior to ORIF left ankle per Dr. Aguilar. The patient is a 73 year old Female with below past medical history presented to [facility] Emergency Department 08/06/2018 with left foot, ankle pain. 08/06/2018 X-ray left ankle showed left ankle fracture. 08/06/2018 X-ray left foot showed osteoarthritis. Fell out of bed, hurt left ankle. Unable to ambulate with walker. 08/06/[address] head. Consult Orthopedics for left ankle fracture. 08/06/2018 CT head negative. 08/07/2018 Dr Aguilar recommends ORIF left ankle fracture. PT/OT. Surgery in 1 week when swelling improved. 08/08/2018 Admit to TCU with debility, here for rehabilitation, strengthening, prior to ORIF left ankle per Dr. Aguilar next week. Past Medical History Past Medical History (Chronic Problems): Chronic Problems Left hemiparesis (Chronic) Dysarthria (Chronic) Hypertension (Chronic) Hypothyroidism (Chronic) GERD (gastroesophageal reflux disease) (Chronic) Overactive bladder (Chronic) Depression (Chronic) Left-sided weakness (Chronic) recent CVA February 2016 Ramos esophagus (Chronic) Glaucoma (Chronic) Rheumatoid arthritis (Chronic) Lupus (Chronic) Mitral valve disorder (Chronic) Normal pressure hydrocephalus (Chronic) Bipolar disorder (Chronic) Hemiparesis affecting left side as late effect of stroke (Chronic) Alcoholic dementia (Chronic) Stroke (Chronic) Benign essential hypertension (Chronic) Allergies ciprofloxacin Allergy (Verified 08/06/18 12:44) Unknown Penicillins Allergy (Verified 08/06/18 12:44) Unknown Sulfa (Sulfonamide Antibiotics) Allergy (Verified 08/06/18 12:44) Unknown thimerosal [From Merthiolate] Allergy (Verified 08/06/18 12:44) Rash Home Medications: Ambulatory Orders Medication Instructions Recorded Atorvastatin Calcium 20 mg PO QHS 10/28/17 Surgical History: total knee arthroplasty - Bilateral, - - Right shoulder surgery Parathyroidectomy Psychiatric History: Bipolar - Bipolar disorder has not been verified according to the patient's , Depression SWISS MACHINIST History: No pertinent SWISS MACHINIST history Lives: Spouse/ Significant Other Smoking Status: Former smoker Tobacco Use: Non-smoker Alcohol: None Drugs: None - *Family History Maternal History Items: Heart Disease Paternal History Items: Heart Disease, No pertinent history - in 70s Review of Systems Constitutional: Denies: Chills, Fever, Weight Change HEENT: Denies: Head Aches, Sinus Congestion, Sinus Drainage Cardiovascular: Denies: Chest Pain, Palpitations Respiratory: Denies: Cough, Shortness of breath at rest, Sputum production Gastrointestinal: Denies: Abdominal Pain, Nausea, Vomiting Genitourinary: Denies: Dysuria Musculoskeletal: Denies: Joint Pain, Joint Tenderness Skin: Denies: Rash, Wounds Neurological: Denies: Numbness, Tingling, Focal weakness Psychiatric: Denies: Anxiety, Depression, Homicidal Ideations, Suicidal Ideations Hematologic/ Lymphatic: Denies: Easy Bruising, Easy Bleeding VTE Information - Inpt Only VTE Present on Admission: No VTE Mechan Device Prophylaxis: Knee High MARGRET Hose VTE Pharm Prophylaxis ordered?: Yes Patient Problems: Active and Suspected Problems Closed left ankle fracture (Acute) - Physical Exam General: Alert, Oriented x3, Cooperative HEENT: Atraumatic, PERRLA, EOMI, Normocephalic Neck: Supple, No JVD, Negative Carotid Bruits Lungs: Clear to auscultation, Normal air movement Cardiovascular: Regular rate, No murmurs Abdomen: Bowel Sounds Present, Soft, Non Tender Extremities: No edema, Capillary Refill Less than 3 Seconds, - - Left ankle splinted. Skin: No rashes, No breakdown Musculoskeletal: No Tenderness to Palpation of Joints or Extremities Neurological: Cranial nerves II-XII grossly intact Psych/Mental Status: Normal Affect, Appropriate Vital Signs Temp Pulse Resp BP Pulse Ox 98.1 F 81 20 H 109/69 94 08/08/18 16:17 08/08/18 16:17 08/08/18 16:17 08/08/18 16:17 08/08/18 16:17 Oxygen Delivery Method Room Air Weight: 69.4 kg Body Mass Index (BMI) 24.7 Finger Stick Blood Glucose 88 Intake and Output for Last 24 Hours Intake Total 360 / 360 Balance 360 / 360 Assessment/Plan All Active Problems Fall (Acute) Closed left ankle fracture (Acute) medical management (Acute) Metabolic encephalopathy (Acute) Altered mental status (Acute) Aphasia (Acute) 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 (Acute) 73 year old female with below past medical history hospitalized for left ankle fracture, admitted to TCU with debility, here for rehabilitation, strengthening, prior to ORIF left ankle per Dr. Aguilar next week, then disposition determination. * Debility - PT/OT. * Pain - Tylenol 1000MG Q6H PRN mild pain. * Bowel - Miralax 17GM daily, Senna/colace 1 tablet BID, Dulcolax 10MG PO daily PRN. * Pneumonia vaccination - Administer Prevnar 13 and/or Pneumovax 23 as necessary. * DVT prophylaxis - Lovenox 30MG SC daily. * Hyperlipidemia - Atorvastatin 20MG QHS. * Glaucoma - Brimonidine 1GTT OS BID, Trusopt 1GTT OS BID, Xalatan 1GTT OU BID, Timoptic 1GTT OS BID. * Vitamin D deficiency - Calcitriol 0.25MG daily, D3 5000IU daily. * Calcium deficiency - Os-Geoff 500MG daily. * Stroke - Plavix 75MG daily. * Alcohol dementia - Donepezil 10MG daily. * Nutrition - Ensure Enlive 120ML 4x/day. * Hypothyroidism - Levothyroxine 50MCG daily. * Hypertension - Metoprolol succinate 25MG daily, Lisinopril 10MG daily. * GERD - Pantoprazole 40MG daily. * Bipolar disorder - resident doing well on Seroquel 50MG QHS, termite control representative chronic use, GDR clinically contraindicated. * Depression - resident doing well on Sertraline 50MG QHS, fpc chronic use, GDR clinically contraindicated. * Overactive bladder - Tolterodine 2MG daily. 08/08/182221 <Electronically signed by Keenan Simmons MD> Date Keenan Simmons MD Cosign Signature: Date (if applicable) CC: Stephane Ford MD; Keenan Simmons MD Signed DISCHARGE SUMMARY Observed: 08/08/2018 Status: F Source: [place] 2:19 PM [facility] REPOSITORY [facility] Medical Records Department [address] [place] [address] Discharge Summary 08/08/18912 MR#: [id number] Acct: [id number] Name: MONICA ANNA Rep #: [id number] : 1945 73 From: Artemio Marks MD PCP: Stephane Ford MD Status: ADM KOMAL Y Location: [place] [address] Discharge Date and Diagnosis - Problem List Patient Problems: Active and Suspected Problems Fall (Acute) Date of Admission: 08/06/18 Date of Discharge: 08/08/18 - Primary Discharge Diagnosis Active and Suspected Problems Fall (Acute) - Secondary Discharge Diagnosis Chronic Problems Left-sided weakness (Chronic) recent CVA February 2016 Ramos esophagus (Chronic) Glaucoma (Chronic) Rheumatoid arthritis (Chronic) Lupus (Chronic) Mitral valve disorder (Chronic) Normal pressure hydrocephalus (Chronic) Bipolar disorder (Chronic) Hemiparesis affecting left side as late effect of stroke (Chronic) Alcoholic dementia (Chronic) Stroke (Chronic) Benign essential hypertension (Chronic) Hospital Course and Treatment Operations: None Summary of Care Provided: [] The patient is a 73-year-old female with history of stroke with residual right-sided weakness and facial droop, NPH, dyslipidemia, chronic alcoholic dementia and hypertension was admitted on 08/06/18 after she had a fall on her head on the day of admission. She slumped out of her bed from sitting position and hit her head but no loss of consciousness, dizziness, lightheadedness or chest symptoms. She has recurrent history of frequent fall, previous was on last month. X-ray shows distal left fibula fracture with widening of the medial tibiotalar joint. Left leg is in the cast. Patient was seen by orthopedic surgeon. 1. Mechanical fall complicating into left unstable ankle fracture with distal fibular fracture, both lateral malleolus fracture and increased medial tibotalar joint space complicated with generalized osteopenia. The x-ray of left ankle and foot reviewed. Shows oblique comminuted minimally displaced fracture of distal fibula originating at the tibiotalar articulation. Slight widening of the medial tibiotalar joint. Soft tissue swelling over the lateral malleolus and distal fibula. Fall precaution. PT and OT consult. Patient was seen by orthopedic surgeon and recommended 1 week of cast and conservative management and then operative intervention. CT head is negative of acute change. No arrhythmia noted on the clock mechanic 2. History of stroke, with residual right sided weakness * Statin, Plavix; will continue * PT/OT consulted 3. Chronic dementia, probably alcohol related dementia; exact aetiology unclear * On donepezil 4. Bipolar disorder and depression: On Seroquel and sertraline. 5. Hypothyroidism: Synthroid 6. Vitamin D deficiency. Vitamin D replacement and calcitriol. 7. Hypertension: on lisinopril DVT prophylaxis: Heparin. The patient was seen by PT and OT. Recommended subacute rehab. Patient is being transferred to SNF. Follow-up with orthopedic surgeon, Dr. Bejarano and podiatry Dr. Aguilar for left unstable ankle fracture with distal femoral fracture. Patient will need definitive ORIF surgery after improvement of swelling of leg. Discharge medication and discharge plan was discussed with the patient the presence of her . Discharge follow-up instructions completed. Prescription for Cam walker signed total time spent, exact 35 minutes on discharge meds reconciliation, examination, review of imaging and blood test and discussion with the patient on follow-up instructions. Patient Problems: Active and Suspected Problems Fall (Acute) Objective: General: Alert, Oriented x3, Cooperative HEENT: Atraumatic, PERRLA, EOMI, Normocephalic Neck: Supple, No JVD, Negative Carotid Bruits Lungs: Clear to auscultation, No rhonchi, No wheeze, No rales, air entry improved bilaterally. Cardiovascular: Regular rate, Regular Rhythm, Normal S1, Normal S2, No murmurs Abdomen: Bowel Sounds Present, Soft, Non Tender, Non-Distended Extremities: Capillary Refill Less than 3 Seconds, Edema on the left ankle Skin: No rashes, No breakdown Musculoskeletal: Arthritic Changes, Muscle Wasting, Tenderness, -Left below-knee cast Neurological: - - Chronic right-sided weakness with facial droop from previous stroke Psych/Mental Status: Normal Affect, Appropriate - Physical Exam Vital Signs Temp Pulse Resp BP Pulse Ox 98.3 F 63 16 109/69 100 08/08/18 03:05 08/08/18 04:01 08/08/18 03:05 08/08/18 03:05 08/08/18 03:05 Oxygen Delivery Method Room Air Weight: 155 lb 1.6 oz Body Mass Index (BMI) 25.0 Finger Stick Blood Glucose 88 Intake and Output for Last 24 Hours Intake Total 350 / 350 570 / 570 100 / 100 Balance 350 / 350 570 / 570 100 / 100 Home Medications: Medications to take at Discharge Atorvastatin Calcium 20 mg PO QHS 10/28/17 Calcitriol [Rocaltrol] 0.25 mcg PO DAILY 10/28/17 Cholecalciferol (Vitamin D3) [Vitamin D3] 5,000 unit PO DAILY 10/28/17 Donepezil HCl 10 mg PO DAILY 10/28/17 Esomeprazole Magnesium 40 mg PO DAILY 10/28/17 Levothyroxine [Synthroid] 50 mcg PO DAILY 10/28/17 Sertraline HCl [Zoloft] 50 mg PO QHS 10/28/17 Solifenacin Succinate [Vesicare] 5 mg PO DAILY 10/28/17 Bimatoprost [Lumigan] 1 drop LEFT EYE QHS 05/09/18 Clopidogrel Bisulfate [Plavix] 75 mg PO DAILY 05/09/18 Lisinopril [Prinivil] 10 mg PO DAILY 05/09/18 Vitamin B Complex 1 tab PO DAILY 05/09/18 Brimonidine Tartrate/Timolol [Combigan Eye Drops] 1 drop LEFT EYE BID 08/06/18 Calcium Carbonate/Vitamin D3 [Calcium 600-Vit D3 500 Softgel] 2 each PO DAILY 08/06/18 Dorzolamide 2% [Trusopt] 1 drop LEFT EYE BID 08/06/18 Metoprolol Succinate 25 mg PO DAILY 08/06/18 Quetiapine Fumarate [Seroquel] 50 mg PO QHS 08/06/18 Acetaminophen [Tylenol Tablet] 650 mg PO Q6H PRN PRN tablet 08/08/18 Primary Care Physician: Stephane Ford MD [Primary Care Provider] - Please follow up with your Primary Care Physician in: in 2 weeks Please Follow Up With: Don Bejarano DO When: in 1 week Please Follow Up With: Ann Aguilar DPM When: in 1 weeks Medical Necessity - Tobacco Use Smoking Status: Former smoker Tobacco Use: Cigarettes Meaningful Use Info Meaningful Use Diagnoses (Choose all that apply): None applicable Code Visit Inpatient E AND M: 10902 Disch Hosp 08/08/18 1419 <Electronically signed by Artemio Marks MD> Date Artemio Marks MD Cosigner Signature (if applicable): Date CC: Stephane Ford MD; Artemio Marks MD Signed TRANSFER TO [facility] Observed: 08/08/2018 Status: F Source: [facility] 9:13 AM [facility] RE[facility]IT[facility] Medical Records Department [address] [place] [id number] Transfer to [facility] MR#: [id number] Acct: [id number] Name: SHOSHANAMONICA T Rep #: [id number] : 1945 73 From: Artemio Marks MD PCP: Stephane Ford MD Status: ADM KOMAL SHOSHANAMONICA (Patient) (Health Ins. Claim No.) (Day of Discharge to Facility) Certification of patient admission REQUIRED AT TIME OF ADMISSION. I CERTIFY THAT POST-HOSPITAL ECF SERVICES ARE REQUIRED TO BE GIVEN ON AN IN-PATIENT BASIS BECAUSE OF THE ABOVE NAMED PATIENT'S NEED FOR LONG TERM CARE ON A CONTINUING BASIS FOR THE CONDITION(S) FOR WHICH HE/SHE WAS RECEIVING IN-PATIENT HOSPITAL SERVICES PRIOR TO HIS/HER TRANSFER TO THE F. 08/08/1813 <Electronically signed by Artemio Marks MD> Date Artemio Marks MD - Diet 08/06/18 16:45 Diet: Cardiac/Low Cholesterol Food consistency:: Regular Liquid Consistency:: Regular/Thin - Routine Orders/Code Status Suppository Type: Dulcolax 10mg Suppository Frequency: Daily PRN - Therapies Weight Bearing: Non weight bearing Extremity Affected:: Bilateral Lower Physical Therapy: Eval and Treat Occupational Therapy: Eval and Treat - Allergies/Procedures Done in Hospital Allergies/Adverse Reactions: Allergies ciprofloxacin Allergy (Verified 08/06/18 12:44) Unknown Penicillins Allergy (Verified 08/06/18 12:44) Unknown Sulfa (Sulfonamide Antibiotics) Allergy (Verified 08/06/18 12:44) Unknown thimerosal [From Merthiolate] Allergy (Verified 08/06/18 12:44) Rash - Type of Care/Length of Stay Estimated LOS: Convalescent Care Less Than 30 days Type of Care Needed: Skilled Rehab Potential: Good Prognosis: Good - Additional Orders/Day of Discharge Day of Discharge: 08/08/18 - Follow Up Care Primary Care Physician: Stephane Ford MD [Primary Care Provider] - Please follow up with your Primary Care Physician in: in 2 weeks Please Follow Up With: Don Bejarano DO When: in 1 week Please Follow Up With: Ann Aguilar DPM When: in 1 weeks 08/08/18 0913 <Electronically signed by Artemio Marks MD> Date Artemio Marks MD CC: Stephane Ford MD; Don Bejarano DO Signed CONSULTATION Observed: 08/07/2018 Status: F Source: [place] 11:32 AM [facility] REPOSIT[facility] Medical Records Department [address] [place] [address] Consultation 08/07/18 1120 MR#: [id number] Acct: [id number] Name: MONICA ANNA Kevin Rep #: [id number] : 1945 73 From: Ann Aguilar DPM PCP: Stephane Ford MD Status: ADM KOMAL Y Location: [address] Reason for Consult Date of Consultation: 08/06/18 Reason for Consultation: Left ankle fracture History of Present Illness: The patient is a 73 year old F with a left unstable ankle fracture. She fell two nights ago and presented to the [facility] ER for evaluation. Given her complex medical history she was admitted when she was unable to be NWB LLE. [] Past Medical History Past Medical History (Chronic Problems): Chronic Problems Left-sided weakness (Chronic) recent CVA February 2016 Ramos esophagus (Chronic) Glaucoma (Chronic) Rheumatoid arthritis (Chronic) Lupus (Chronic) Mitral valve disorder (Chronic) Normal pressure hydrocephalus (Chronic) Bipolar disorder (Chronic) Hemiparesis affecting left side as late effect of stroke (Chronic) Alcoholic dementia (Chronic) Stroke (Chronic) Benign essential hypertension (Chronic) Allergies ciprofloxacin Allergy (Verified 08/06/18 12:44) Unknown Penicillins Allergy (Verified 08/06/18 12:44) Unknown Sulfa (Sulfonamide Antibiotics) Allergy (Verified 08/06/18 12:44) Unknown thimerosal [From Merthiolate] Allergy (Verified 08/06/18 12:44) Rash Home Medications: Ambulatory Orders Medication Instructions Recorded Atorvastatin Calcium 20 mg PO QHS 10/28/17 Calcitriol [Rocaltrol] 0.25 mcg PO DAILY 10/28/17 Cholecalciferol (Vitamin D3) 5,000 unit PO DAILY 10/28/17 Surgical History: total knee arthroplasty - Bilateral, - - Right shoulder surgery Parathyroidectomy Psychiatric History: Bipolar - Bipolar disorder has not been verified according to the patient's , Depression SWISS MACHINIST History: No pertinent SWISS MACHINIST history Lives: Spouse/ Significant Other Smoking Status: Former smoker Tobacco Use: Cigarettes Alcohol: None Drugs: None - *Family History Maternal History Items: Heart Disease Paternal History Items: Heart Disease, No pertinent history - in 70s Review of Systems Musculoskeletal: Reports: Joint Pain, Joint swelling Neurological: Reports: Balance problems Patient Problems: Active and Suspected Problems Fall (Acute) Subjective: PT was evaluated at bedside with her present. She states her ankle has less pain. She is concerned with being able to be nonweightbearing to the LLE Objective: Vasc: L digits with brisk cap refill, noted mild edema MS: multilayer compressive dressing in place Neuro: light touch sensation intact Radiographs: 3 views of the left ankle with an oblique comminuted fracture of the lateral malleolus and increased medial clear space noted - Physical Exam Psych/Mental Status: Normal Affect Vital Signs Temp Pulse Resp BP Pulse Ox 98.4 F 78 16 125/79 H 99 08/07/18 09:57 08/07/18 10:05 08/07/18 09:57 08/07/18 10:05 08/07/18 09:57 Oxygen Delivery Method Room Air Weight: 155 lb 1.6 oz Body Mass Index (BMI) 25.0 Finger Stick Blood Glucose 88 Intake and Output for Last 24 Hours Intake Total 350 / 350 100 / 100 Balance 350 / 350 100 / 100 Laboratory Tests Past 24 Hrs WBC 6.2 RBC 4.17 L Hgb 11.3 L Hct 35.7 L MCV 85.6 MCH 27.1 MCHC 31.7 L Assessment/Plan All Active Problems Fall (Acute) medical management (Acute) Metabolic encephalopathy (Acute) Altered mental status (Acute) Aphasia (Acute) 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 (Acute) A/p 73 yo F with unstable left ankle fracture -PT evaluated at bedside -imaging and notes reviewed -discussed the radiographs with pt and her . Her ankle fracture appears to be unstable with both a lateral malleolus fracture and increased medial clear space. I recommended ORIF of the L ankle. Given her complex medical history we will need an intradisciplinary approach for a successful post operative healing period. WE talked about potentially needing placement. Risks and benefits of surgery vs conservative treatment were discussed. PT and her will discuss this and we can schedule surgery next week if they would like to proceed. She will need to be NWB LLE with only limited toe touch for balance either for surgical or conservative care. All questions and concerns were addressed. If patient is still in patient next week I will come see her or if she is d/c then I would like them to follow up with me in clinic next Monday or Monday at [facility]. -Recommend RICE therapy and pt should be in a tall cam walker at all times. PT/PMNR consult for evaluation of NWB LLE and therapy. Please order cam walker. -Please call with questions 08/07/18 3253 <Electronically signed by Ann Mychak DPM> Date Ann Aguilar DPM Cosigner Signature (if applicable): Date CC: Stephane Ford MD; Don Bejarano DO Signed BASIC METABOLIC Collected: 08/07/2018 Status: F Source: [facility] PROFILE ([facility]) 5:15 AM [facility] REPOSITORY TYPE CODE TESTS RESULT OUT OF RANGE REFERENCE UNITS LAB L501.0100 74-106 mg/dL Normal GLU 91 Result Comment: Please note revised GLUCOSE reference range effective 2017. LAB L501.1000 7-18 mg/dL High BUN 20 LAB L501.1100 0.55-1.02 mg/dL High CREAT,SERUM 1.22 Result Comment: The validity of the calculated GFR AND GFRAA in patients over 70 years has not been determined. Clinical correlation is essential. LAB L501.1110 >60 mL/min Low EST GFR 46 Result Comment: Non- GFR Calc LAB L501.1115 >60 mL/min Low EST GFR - AA 56 Result Comment: GFR Calc LAB L501.1255 ml/min Normal Estimated CRCL 39.02 LAB L501.1300 10-20 RATIO Normal BUN/CRE 16.4 LAB L501.2200 8.5-10 mg/dL Normal .1 CA 8.9 LAB L501.5300 136-14 mmol/L Normal 5 NA 142 LAB L501.5600 3.5-5. mmol/L Normal 1 K 3.6 LAB L501.5900 98-107 mmol/L Normal CL 105 LAB L501.6100 21.0-3 mmol/L Normal 2.0 CO2 30.0 LAB L501.6200 5-15 Normal GAP 7 Performed By: #### L500.2500 #### [facility] [address] [place], [address] CBC W/DIFF, AUTOMATED Collected: 08/07/2018 Status: F Source: [place] 5:15 AM [facility] REPOSITORY TYPE CODE TESTS RESULT OUT OF RANGE REFERENCE UNITS LAB L100.1000 4.4-11.0 K/mm3 Normal WBC 6.2 LAB L100.1200 4.2-5.4 M/mm3 Low RBC 4.17 LAB L100.1300 12.0-15.0 g/dl Low HGB 11.3 LAB L100.1400 37-47 % Low HCT 35.7 LAB L100.1500 81-99 fL Normal MCV 85.6 LAB L100.1600 27.0-32.0 pg Normal MCH 27.1 LAB L100.1700 32-36 g/gl Low MCHC 31.7 LAB L100.1810 11.6-14.6 % Normal RDW CV 14.1 LAB L100.1820 35.1-43.9 fl Normal RDW SD 43.5 LAB L100.1900 150-450 K/mm3 Normal PLT 192 LAB L100.2000 6.2-12.0 fl Normal MPV 10.2 LAB L100.2100 47-70 % Normal NEUT% 55.8 LAB L100.2200 19-41 % Normal LY% 31.5 LAB L100.2300 0-10 % Normal MONO% 9.4 LAB L100.2400 0-5 % Normal EO% 2.9 LAB L100.2500 0-1 % Normal BASO% 0.2 LAB L100.2550 0.0-0.9 % Normal IM GRAN % 0.200 Result Comment: IG% - Immature Granulocytes (promyelocytes, myelocytes and metamyelocytes) > 1% indicates that a LEFT SHIFT is Present. LAB L100.2620 2.0-7.7 X10 3/uL Normal Absolute Neut 3.4 LAB L100.2720 0.83-4.51 X10 3/ul Normal Absolute Lymph 1.94 Performed By: #### L100.0100 #### [place] [facility] [address] [place], [address] CNPN Observed: 08/07/2018 Status: COMPLETED Source: [place] 12:00 AM [facility] REPOSITORY Telephone (FPWADS) MONICA ANNA ([id number]) 1945 F Date Time Provider Department 08/07/18 BRIDGETTE FORD During your visit today, we recorded the following information about you: Donna Mesa Ma 08/07/2018 8:43 AM Addendum Received x ray of left foot, ct brain and er report from [facility] 08/06/18. Place on MD's desk for review. Donna Mesa Ma 08/07/2018 4:38 PM Signed Consult from [facility] 08/07/18 for left unstable ankle fracture Donna Mesa Ma 08/09/2018 11:18 AM Signed Received discharge summary from [facility] 08/08/18 Donna Mesa Ma Allergies As of Date: 08/07/2018 Noted Allergy Reaction TOPAMAX (TOPIRAMATE) 01/30/2006 5 - Intolerance CIPRO (CIPROFLOXACIN) 06/08/2005 8 - GI Upset DESYREL (TRAZODONE HCL) 06/08/2005 1 - Mental Status Change MERCURY (MERCURY (BULK)) 06/08/2005 2 - Rash PENICILLINS 06/08/2005 2 - Rash SULFA (SULFONAMIDE ANTIBIOTICS) 06/08/2005 2 - Rash THIMEROSAL 05/12/2017 16 - Unknown Date Reviewed: 07/25/2018 Reviewed by: Deric Mason - Fully Assessed Reason for Visit: [facility] 08/06/18 [Other] Cmt: xray, ct and er report consult [facility] [Other] Cmt: 08/07/18 D/C Summary Events [1514] Cmt: 08/08/18 [facility] Reason For Visit History Recorded Prescriptions as of 08/07/2018 Sig: CALCITRIOL 0.25 MCG CAPSULE Take 2 capsules by mouth once* QUETIAPINE 50 MG TABLET Take 1 tablet by mouth daily * METOPROLOL SUCCINATE ER 25 MG* Take 1 tablet by mouth once d* LISINOPRIL 10 MG TABLET TAKE ONE TABLET BY MOUTH EVER* CLOPIDOGREL 75 MG TABLET Take 1 tablet by mouth once d* SERTRALINE 50 MG TABLET Take 1 tablet by mouth once d* ESOMEPRAZOLE MAGNESIUM 40 MG * Take 1 capsule by mouth once * DONEPEZIL 10 MG TABLET Take 1 tablet by mouth daily * LEVOTHYROXINE 75 MCG TABLET Take 1 tablet by mouth once d* CLOPIDOGREL 75 MG TABLET Take 75 mg by mouth once victor manuel* DOCUSATE SODIUM 100 MG CAPSULE Take 1 capsule by mouth twice* DORZOLAMIDE 2 % EYE DROPS Use 1 Drop in the left eye ev* VITAMIN B COMPLEX ER TABLET,E* Take 1 tablet by mouth once d* COMBIGAN 0.2 %-0.5 % EYE DROPS Use 1 Drop in the left eye tw* SOLIFENACIN 5 MG TABLET Take 1 tablet by mouth once d* COMPOUNDED PRESCRIPTION Toilet handles/bars. DX abnor* DIAPER,BRIEF,ADULT,DISPOSABLE Diaper change 3 times a day a* ATORVASTATIN 20 MG TABLET Take 1 tablet by mouth daily * LUMIGAN 0.01 % EYE DROPS Use 1 Drop in the left eye da* CALCIUM 600 + D(3) ORAL Take by mouth. 1200 mg of Ca* COMPOUNDED PRESCRIPTION Washable chucks:urinary incon* MIRABEGRON ER 50 MG TABLET,EX* Take 50 mg by mouth once victor manuel* TYLENOL ORAL Take 1,000 mg by mouth every * Problem List As Of Date 08/07/2018 Noted Resolved MITRAL VALVE DISORDER [I05.9] MYALGIA AND MYOSITIS NOS [[id number]] ACQUIRED HYPOTHYROID NEC [E03.8] CHRONIC DEPRESSIVE PERSON [F34.1] Mixed hyperlipidemia [E78.2] More... Nondependent Alcohol Abuse [305.0] 09/30/2009 GLAUCOMA NOS [H40.9] Other Specified Gastritis [535.4] 09/30/2009 UNSPEC CONSTIPATION [K59.00] Irritable Bowel Syndrome [K58.9] 09/30/2009 More... 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] INVALID FOR* Gastrointestinal Malfunction Arising from Menta*INVALID FOR* Unspecified Chest Pain [R07.9] INVALID FOR* Abdominal Pain, Epigastric [R10.13] INVALID FOR* Esophageal Reflux [K21.9] INVALID FOR* Lupus [L93.0] INVALID FOR* Rheumatoid arthritis (HCC) [M06.9] INVALID FOR* 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] INVALID FOR* Diverticulosis of colon (without mention of hem*INVALID FOR* Special screening for malignant neoplasms, colo*INVALID FOR* Eczematous dermatitis [L30.9] INVALID FOR* Acne vulgaris [L70.0] INVALID FOR* Folliculitis [L73.9] INVALID FOR* Pruritus [L29.9] INVALID FOR* Excoriation [T14.8XXA] INVALID FOR* Pyoderma, unspecified [L08.0] INVALID FOR* Rash and other nonspecific skin eruption [R21] INVALID FOR* Xerosis cutis [L85.3] INVALID FOR* Solar Lentigines [L81.4] INVALID FOR* Actinic skin damage [L57.8] INVALID FOR* Viral warts: R lower chin, face [B07.9] INVALID FOR* Prurigo nodularis [L28.1] INVALID FOR* Neurodermatitis [L28.0] INVALID FOR* Multiple excoriations [T07.XXXA] INVALID FOR* Other seborrheic keratosis [L82.1] INVALID FOR* Irritated//Inflamed Seborrheic Keratosis [L82.0]INVALID FOR* Postinflammatory skin changes [R23.4] INVALID FOR* Dysuria [R30.0] INVALID FOR* Hematuria [R31.9] INVALID FOR* Urgency of urination [R39.15] INVALID FOR* Frequency of urination [R35.0] INVALID FOR* Rheumatoid arthritis, adult (HCC) [M06.9] INVALID FOR*04/27/2018 Abnormality of gait [R26.9] INVALID FOR* Abnormal gait [R26.9] INVALID FOR* Encephalopathy [G93.40] INVALID FOR* Acute cystitis [N30.00] INVALID FOR* Syncope [R55] INVALID FOR* Stenosis of right carotid artery [I65.21] INVALID FOR* More... Stroke (cerebrum) (HCC) [I63.9] INVALID FOR* More... Urinary retention [R33.9] INVALID FOR* Sinus pause [I45.5] INVALID FOR* Aphasia, late effect of cerebrovascular disease*INVALID FOR* Functional gait abnormality [R26.89] INVALID FOR* Bradycardia [R00.1] More... 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 Right hemiparesis (HCC) [G81.91] INVALID FOR* More... Nuclear sclerosis, right [H25.11] INVALID FOR* More... Other hyperlipidemia [E78.49] Hypothyroidism [E03.9] Hypertension [I10] Expressive aphasia [R47.01] CVA (cerebral vascular accident) (HCC) [I63.9] More... Idiopathic normal pressure hydrocephalus (INPH)*INVALID FOR* More... 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] INVALID FOR* NPH (normal pressure hydrocephalus) [G91.2] INVALID FOR*01/27/2018 Primary open-angle glaucoma, bilateral, severe *INVALID FOR* Nuclear senile cataract of left eye [H25.12] INVALID FOR* Epiretinal membrane (ERM) of both eyes [H35.373]INVALID FOR* Encounter Status:Closed by DONNA MESA MA on 08/07/18 HISTORY AND PHYSICAL Observed: 08/06/2018 Status: F Source: GUFFEY EXAM 8:48 PM [facility] REPOSITORY [facility] Medical Records Department [address] [place] [address] [place] [address] History and Physical 08/06/18 0939 MR#: [id number] Acct: [id number] Name: MONICA ANNA Rep #: [id number] : 1945 73 From: Taina Duncan MD PCP: Stephane Ford MD Status: ADM KOMAL Y Location: [place] [address] Problem List (1) Fall Status: Acute History of Present Illness Date of Admission: 08/06/18 Chief Complaint: Mechanical fall The patient is a 73 year old F with past medical history of stroke with residual right-sided weakness and facial droop, NPH, hyperlipidemia, chronic alcoholic dementia, hype hypertension hypothyroidism. She was admitted via the ED on 08/06/18 with a complaint of a fall from her bed in the early hours of the day of presentation. According to patient and , she was sitting on her bed and then suddenly slumped out of bed and hit her head. She denies any loss of consciousness and denies any antecedent palpitations, dizziness, lightheadedness or loss of balance. According to her he thinks she may have tripped though he says she was sitting on the bed. This is not the first fall she has had in the last fell about a month or so ago. She denied any fever or chills, any burning sensation with urination, any cough or chest pain, any abdominal pain, any diarrhea vomiting. She lives at home with her and is able to ambulate only with his help. Review of systems otherwise negative. In the ED, x-rays done showed distal left fibula fracture. She has been admitted to be managed for the fibula fracture due to mechanical fall. [] Past Medical History Past Medical History (Chronic Problems): Chronic Problems Left-sided weakness (Chronic) recent CVA February 2016 Ramos esophagus (Chronic) Glaucoma (Chronic) Rheumatoid arthritis (Chronic) Lupus (Chronic) Mitral valve disorder (Chronic) Normal pressure hydrocephalus (Chronic) Bipolar disorder (Chronic) Hemiparesis affecting left side as late effect of stroke (Chronic) Alcoholic dementia (Chronic) Stroke (Chronic) Benign essential hypertension (Chronic) Allergies ciprofloxacin Allergy (Verified 08/06/18 12:44) Unknown Penicillins Allergy (Verified 08/06/18 12:44) Unknown Sulfa (Sulfonamide Antibiotics) Allergy (Verified 08/06/18 12:44) Unknown thimerosal [From Merthiolate] Allergy (Verified 08/06/18 12:44) Rash topiramate [From Topamax] Allergy (Verified 08/06/18 12:44) Unknown Home Medications: Ambulatory Orders Medication Instructions Recorded Atorvastatin Calcium 20 mg PO QHS 10/28/17 Calcitriol [Rocaltrol] 0.25 mcg PO DAILY 10/28/17 Cholecalciferol (Vitamin D3) 5,000 unit PO DAILY 10/28/17 Surgical History: total knee arthroplasty - Bilateral, - - Right shoulder surgery Parathyroidectomy Psychiatric History: Bipolar - Bipolar disorder has not been verified according to the patient's , Depression SWISS MACHINIST History: No pertinent SWISS MACHINIST history Lives: Spouse/ Significant Other Smoking Status: Former smoker Alcohol: None Drugs: None - *Family History Maternal History Items: Heart Disease Paternal History Items: Heart Disease, No pertinent history - in 70s Review of Systems Constitutional: Denies: Chills, Fever, Malaise, Weight Change Eyes: Denies: Blurred vision HEENT: Denies: Head Aches, Sinus Congestion, Sinus Drainage Cardiovascular: Denies: Chest Pain, Chest Tightness, Palpitations Respiratory: Denies: Cough, Shortness of breath at rest, Sputum production Gastrointestinal: Denies: Abdominal Pain, Diarrhea, Nausea, Vomiting Genitourinary: Denies: Dysuria Musculoskeletal: Reports: - - LLE pain from fall and fracture Skin: Denies: Rash, Wounds Neurological: Reports: Balance problems - 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 Denies: Focal weakness, Numbness, Tingling Psychiatric: Denies: Anxiety, Depression, Homicidal Ideations, Suicidal Ideations Hematologic/ Lymphatic: Denies: Easy Bruising, Easy Bleeding VTE Information - Inpt Only VTE Present on Admission: No VTE Pharm Prophylaxis ordered?: Yes Patient Problems: Active and Suspected Problems Fall (Acute) - Physical Exam General: Alert, Oriented x3, Cooperative, No apparent distress HEENT: Atraumatic, - - pupillary constriction and ptosis of right eye- chronic, residual from previous stroke Oral: Moist Mucosa Neck: Supple, No JVD, Negative Carotid Bruits Lungs: Clear to auscultation, Normal air movement, No rhonchi, No wheeze, No rales Cardiovascular: Regular rate, Regular Rhythm, Normal S1, Normal S2, No murmurs Abdomen: Bowel Sounds Present, Soft, Non Tender, Non-Distended, No Hepato-splenomegaly Extremities: No clubbing, No cyanosis, No edema, Capillary Refill Less than 3 Seconds Skin: No rashes, No breakdown Musculoskeletal: - - LLE in cast; able to wiggle toes Lymphatic: No Cervical, Supraclavicular, or Inguinal Adenopathy Neurological: Facial Droop - right facial droop, which is chronic; has expressive aphasia; ptosis and slight miosis of right eye, which is chronic, - - gait not checked Psych/Mental Status: Normal Affect, Agitated, Alert and oriented to time, place, person, mood and affect Vital Signs Temp Pulse Resp BP Pulse Ox 98.4 F 68 17 125/63 H 100 08/06/18 12:40 08/06/18 15:07 08/06/18 15:07 08/06/18 15:07 08/06/18 15:07 Oxygen Delivery Method Room Air Weight: 145 lb Body Mass Index (BMI) 23.3 Finger Stick Blood Glucose 88 Assessment/Plan All Active Problems Fall (Acute) medical management (Acute) Metabolic encephalopathy (Acute) Altered mental status (Acute) Aphasia (Acute) 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 1. Mechanical fall * slipped and fell out of her bed; has been having recurrent falls at home, according to her * hit her head and fractured her left fibula * admit to [facility] with telemetry; will get EKG * fall precautions * PT/OT consult * monitor telemetry to ensure she doesnt have arrhythmia which could contribute to her fall * Get CT of the brain to rule out any intracranial bleed. * 2. Distal left fibula fracture due to fall * X-ray showed displaced distal left fibular fracture was a result of the fall. * Orthopedics- Dr Bejarano consulted. Left leg put in splint in the ED. * tylenol for pain * 3. History of stroke, with residual right sided weakness * Statin, Plavix; will continue * PT/OT consulted * 4. Chronic dementia, aetiology unclear * On donepezil * 5. Bipolar disorder and depression: On Seroquel and sertraline. 6. Hypothyroidism: Synthroid 7. Vitamin D deficiency. Vitamin D replacement and calcitriol. 8. Hypertension: on lisinopril DVT prophylaxis: Heparin CODE STATUS: Full code. * Patient has been counseled extensively about different types of CODE STATUS namely DNR CCA, DNR CCA and full code. Patient and elected to be full code. Total rhvq-vi-haah time 18 minutes. Code Visit OBSV TAMMI: 66859 Initial observation care L3 Procedures: 56908 Advncd Care Plan 30 Min 08/06/182047 <Electronically signed by Taina Duncan MD> Date Taina Duncan MD Cosigner Signature: Date (if applicable) CC: Stephane Ford MD; Taina Duncan MD Signed EMERGENCY DEPARTMENT Observed: 08/06/2018 Status: F Source: GUFFEY SUMMARY 4:38 PM [facility] REPOSITORY [facility] Medical Records Department [address] [place] [address] Emergency Department Summary 08/06/18 1304 MR#: [id number] Acct: [id number] Name: MONICA ANNA Rep #: [id number] : 1945 73 From: Mathieu Garza MD PCP: Stephane Ford MD Status: ADM KOMAL - ER Visit Summary Date of Service: 08/06/18 Chief Complaint: Foot and ankle pain History of Present Illness: The patient is a 73 F with a history of stroke, left-sided deficits, speech changes, NPH. She fell out of bed last night and injured her left foot and ankle. She denies any other injuries. She did not hit her head or lose consciousness. She does take Plavix but denies any other thinners. Physical Examination: Afebrile and vital signs unremarkable. Head and neck are atraumatic. Heart regular. Lungs clear. Left foot and ankle are diffusely swollen, primarily over the dorsal surface and lateral surface of her foot as well as around her lateral malleolus. She is tender to palpation to the area. No obvious deformities. Skin intact. Test Results: X-rays pending Emergency Department Course and Treatment: Patient declined pain medicine while awaiting results. Patient has a distal fibula fracture with joint widening. Patient was placed in a posterior and sugar tong splint. She did have some pain with this but otherwise tolerated it well. She is neurovascular intact distally. She continued to declined pain medicine. Patient wanted to go home and follow-up as an outpatient. She was unable to ambulate using a walker. Patient was agreeable to admission. I did speak with Dr. Bejarano and I discussed with the hospitalist for admission. Treatment Plan: As above Disposition: Admission Impression: 1. Distal fibula fracture left 2. Inability to ambulate This note was generated with Wingu dictation software. It may contain incorrect words, spelling, and punctuation that were not noted in review of the chart prior to signing ED Disposition - Plan for ED Patient: Chief Complaint: Fall Referrals: Stephane Ford MD [Primary Care Provider] - What to do if you have Problems For any increased pain, shortness of breath, bleeding, nausea or vomiting, chest pain, or any unexpected problems, contact your Primary Care Provider. Call [employer] [facility] ([phone]) or report to the closest Emergency Room. Call 911 if necessary. 08/06/18 9738 <Electronically signed by Mathieu Garza MD> Date Mathieu Garza MD Cosigner Signature (If Indicated): Date CC: Stephane Ford MD BRAIN/HEAD WITHOUT Observed: 08/06/2018 Status: F Source: CHARLENE CONTRAST 3:35 PM [facility]IT[facility] Imaging Services [address] [place] [address] Brain/Head without Contrast MR#: [id number] Acct: [id number] Name: MONICA ANNA Rep #: [id number] : 1945 F 73 From: Pranay Pacheco MD PCP: Stephane Ford MD Status: ADM KOMAL Study: Brain/Head without Contrast Date of Exam: 08/06/18 Exam# [id number] Ordering Dr: Mathieu Garza MD STUDY: CT BRAIN WITHOUT CONTRAST REASON FOR EXAM: Female, 73 years old. Status post fall RADIATION DOSAGE (If Supplied By Facility): CTDIvol = ( 44.99 ) mGy, DLP = ( 796.11 ) mGycm TECHNIQUE: Transaxial CT imaging of the brain was performed without administration of intravenous contrast material. Individualized dose optimization techniques were used for this CT. COMPARISON: October 28, 2017 FINDINGS: Normal soft tissue structures. Normal calvarium. There is a new right frontal approach ventriculostomy catheter terminating in the frontal horn of the left lateral ventricle. There is intracranial atherosclerosis. Remote lacunar infarcts noted in the basal ganglia bilaterally. There is moderate cerebral atrophy with widening of the extra- axial spaces and ventricular dilatation. There are areas of decreased attenuation within the white matter tracts of the supratentorial brain, consistent with microvascular disease changes. Normal brainstem. Normal cerebellum. There is no intracranial hemorrhage. There are no findings of an acute ischemic infarction. Normal visualized paranasal sinuses. CT/Brain/Head without Contrast IMPRESSION: Chronic involutional changes of the brain. Electronically Signed: Pranay Pacheco MD at 16:11 EDT , Service support , CC: Mathieu Garza MD; Stephane Ford MD Landscaping Crew Leader: Signed FOOT MIN 3 VIEWS Observed: 08/06/2018 Status: F Source: GUFFEY 1:02 PM [facility]POSIT[facility] Imaging Services [address] [place] [address] Foot min 3 Views MR#: [id number] Acct: [id number] Name: MONICA ANNA Rep #: [id number] : 1945 F 73 From: Kody Shea MD PCP: Stephane Ford MD Status: REG ER Study: Foot min 3 Views Date of Exam: 08/06/18 Exam# [id number] Ordering Dr: Mathieu Garza MD STUDY: X-RAY - LEFT FOOT CLINICAL: Female, 73 years old. Fall out of bed. Pain and swelling. TECHNIQUE: 3 view(s) of the foot. COMPARISON: None. FINDINGS: There is generalized osteopenia. Normal talus, calcaneus, and tarsal bones. Normal visualized subtalar, talonavicular, calcaneocuboid, tarsal and tarsometatarsal articulations. Normal metatarsi. There is moderate arthrosis of the metatarsal phalangeal and interphalangeal joints with hammertoe deformities. The soft tissue structures are unremarkable. RAD/Foot min 3 Views IMPRESSION: Osteopenia with osteoarthritic changes. No acute osseous abnormality. Electronically Signed: Kody Shea MD at 14:04 EDT , Service support , CC: Mathieu Garza MD; Stephane Ford MD Landscaping Crew Leader: Signed ANKLE MIN 3 VIEWS Observed: 08/06/2018 Status: F Source: GUFFEY 1:02 PM [facility] Imaging Services [address] [place] [address] Ankle min 3 Views MR#: [id number] Acct: [id number] Name: MONICA ANNA Rep #: [id number] : 1945 F 73 From: Kody Shea MD PCP: Stephane Ford MD Status: REG ER Study: Ankle min 3 Views Date of Exam: 08/06/18 Exam# [id number] Ordering Dr: Mathieu Garza MD STUDY: X-RAY - LEFT ANKLE REASON FOR EXAM: Female, 73 years old. Fall out of bed. Pain. TECHNIQUE: 3 view(s) of the ankle. COMPARISON: None. FINDINGS: There is generalized osteopenia. There is an oblique comminuted minimally displaced fracture of the distal fibula originating at the tibiotalar articulation. There is slight widening of the medial tibiotalar joint Normal visualized talus and calcaneus. The visualized subtalar, talonavicular, calcaneocuboid and tarsal articulations are normal. There is focal soft tissue swelling over the lateral malleolus/distal fibula. RAD/Ankle min 3 Views IMPRESSION: Osteopenia with distal fibular fracture and slight widening of the medial tibiotalar joint as described. Electronically Signed: Kody Shea MD at 14:06 EDT , Service support , CC: Mathieu Garza MD; Stephane Ford MD Landscaping Crew Leader: Signed PROGRESS Observed: 07/25/2018 Status: COMPLETED Source: FENTRESS 1:17 PM [facility] REPOSITORY [facility] ID: [id number] Author: Deric Mason Service: (none) Author Type: Physician Type: Progress Notes Filed: 07/25/2018 1:51 PM Note Text: Tmax: 26, 27; Pachy: 595, 565 (pachy and Tmax from referral letter) Lasers and Surgeries: OD: 08/01/2017 phaco 05/12/2017 Trab Revision for IOP 2 and choroidal hemorrhage 04/28/2017 LSL for IOP 24.5; temporal suture --> 21; nasal suture --> 5.5 03/30/2017 Trab/MMC for IOP=22, difficulty with adherence, VF progression 11/2015 SLT ([place]) 02/2013 SLT ([place]) 02/2006 SLT ([place]) OS: 08/2006 SLT ([place]) Ocular Medication Intol and Non-efficacy: ?? Referred by Jaswinder Sharma in [place] Currently on Lumigan qhs OS, Combigan BID OS, Dorzolamide BID OS (added for IOP 16) Primary open angle glaucoma OU - severe stage -HVF 24-2 11/2017: OS dense sup ns/arcuate extending through central fixation, nonspecific inf-temp depression. Worse than 02/[address] Sharma -Patient unable to perform HVF 03/2018 due to positioning issues -07/2017: IOP OS 16 => changed brimonidine to combigan bid OS => IOP remained high and dorzolamide was added which improved IOP to 13 (03/2018). - IOP OS 21 today. Patient and admits to missing doses of medication because she doesn't like drops. Last dose was yesterday - emphasized compliance with drops. Could consider MP-TSCPC. Reminded her that she wouldn't use drops OD and now has low vision -3 months IOP CVA 02/2016 and 04/2017 ERM OU -Not visually significant, monitor NS cataract OS -recommend to follow - good vision and severe glaucoma I, Deric Mason MD, have edited as necessary and confirmed the relevant ophthalmic history, ROS, and neuro exam findings as obtained by others. I have seen and examined Monica Anna. I also have reviewed, edited as necessary, and agree with the assessment and plan and all of its relevant components as stated above. I have discussed the case and the management of this patient's care with the Resident/Fellow, if applicable. PROGRESS Observed: 06/19/2018 Status: COMPLETED Source: FENTRESS 8:35 AM [facility] REPOSITORY [facility] ID: [id number] Author: Rossy Paniagua Service: (none) Author Type: Single Wire Saw Operator Type: Progress Notes Filed: 06/19/2018 8:36 AM Note Text: I have attempted to contact this patient by phone to return their call, schedule an appointment, discuss lab results, etc. Left message to call back. Rossy Paniagua MA PROGRESS Observed: 06/15/2018 Status: COMPLETED Source: F[place]ESS 1:03 PM [facility] REPOSITORY [facility] ID: [id number] Author: Rossy Paniagua Service: (none) Author Type: Single Wire Saw Operator Type: Progress Notes Filed: 06/19/2018 8:36 AM Note Text: I have attempted to contact this patient by phone to return their call, schedule an appointment, discuss lab results, etc. Left message to call back. PROGRESS Observed: 06/14/2018 Status: COMPLETED Source: FENTRESS 9:00 AM [facility] REPOSITORY [facility] ID: [id number] Author: Rossy Paniagua Service: (none) Author Type: Single Wire Saw Operator Type: Progress Notes Filed: 06/19/2018 8:36 AM Note Text: I have attempted to contact this patient by phone to return their call, schedule an appointment, discuss lab results, etc. Left message to call back. Rossy Paniagua MA PROGRESS Observed: 06/12/2018 Status: COMPLETED Source: FENTRESS 1:34 PM [facility] REPOSITORY [facility] ID: [id number] Author: Bridgette Ford Service: (none) Author Type: Physician Type: Progress Notes Filed: 06/19/2018 8:36 AM Note Text: Patient Outreach on 06/12/18 -KATIE SCREENING -LIPID PANEL BASIC -TSH BLD -COMP METABOLIC PANEL PROGRESS Observed: 06/12/2018 Status: COMPLETED Source: FENTRESS 10:17 AM [facility] REPOSITORY [facility] ID: [id number] Author: Rossy Paniagua Service: (none) Author Type: Single Wire Saw Operator Type: Progress Notes Filed: 06/19/2018 8:36 AM Note Text: PHMA TEAMLET DOCUMENTATION Provider Action/FYI: Patient needs appointment, needs labs ordered, Mammogram PSR Action/FYI: Schedule follow up visit Teamlet has identified patient by name and date of . Team: DR. FORD, Rossy Paniagua MA ? Last Office Visit:Visit date not found ? Next Office Visit: Visit date not found ? Last BP/Labs: Blood Pressure: Last 3 Encounter BP Readings: Date: BP: 04/26/2018 94/63 01/29/2018 115/69 01/17/2018 151/85 Lipids: Cholesterol, Total (mg/dL) Date Value 04/30/2014 218 05/25/2005 264 HDL Cholesterol (mg/dL) Date Value 04/30/2014 66 05/25/2005 86 LDL Cholesterol (mg/dL) Date Value 04/30/2014 117 05/25/2005 153 LDL Chol, Charlene (mg/dL) Date Value 02/06/2012 100 10/23/2010 126 Triglyceride (mg/dL) Date Value 04/30/2014 176 05/25/2005 124 HGB A1C: No results found for: HBA1C TSH: TSH (uU/mL) Date Value 04/08/2016 2.200 2016 4.820 ) Care Gap: HCC Plan: ? Confirm PCP / Status ? Type of appointment needed: Follow up HCC ? Consultation Appointments: No patient outreach needed at this time Labs, HM and Immunization: Labs: CMP Lipids TSH Mammogram Rossy Paniagua MA CNPTOUTREA Observed: 06/12/2018 Status: COMPLETED Source: FENTRESS 12:00 AM [facility] REPOSITORY Patient Outreach (FAMPWS) MONICA ANNA ([id number]) 1945 F Date Time Provider Department 06/12/18 ROSSY PANIAGUA) FAMPWS During your visit today, we recorded the following information about you: Rossy Paniagua MA 06/19/2018 8:36 AM Signed PHMA TEAMLET DOCUMENTATION Provider Action/FYI: Patient needs appointment, needs labs ordered, Mammogram PSR Action/FYI: Schedule follow up visit Teamlet has identified patient by name and date of . Team: Rossy BRAY MA ? Last Office Visit:Visit date not found ? Next Office Visit: Visit date not found ? Last BP/Labs: Blood Pressure: Last 3 Encounter BP Readings: Date: BP: 04/26/2018 94/63 01/29/2018 115/69 01/17/2018 151/85 Lipids: Cholesterol, Total (mg/dL) Date Value 04/30/2014 218 05/25/2005 264 HDL Cholesterol (mg/dL) Date Value 04/30/2014 66 05/25/2005 86 LDL Cholesterol (mg/dL) Date Value 04/30/2014 117 05/25/2005 153 LDL Chol, Charlene (mg/dL) Date Value 02/06/2012 100 10/23/2010 126 Triglyceride (mg/dL) Date Value 04/30/2014 176 05/25/2005 124 HGB A1C: No results found for: HBA1C TSH: TSH (uU/mL) Date Value 04/08/2016 2.200 2016 4.820 ) Care Gap: HCC Plan: ? Confirm PCP / Status ? Type of appointment needed: Follow up HCC ? Consultation Appointments: No patient outreach needed at this time Labs, HM and Immunization: Labs: CMP Lipids TSH Mammogram ROMERO Friend MD 06/19/2018 8:36 AM Signed Patient Outreach on 06/12/18 -KATIE SCREENING -LIPID PANEL BASIC -TSH BLD -COMP METABOLIC PANEL Rossy Paniagua MA 06/19/2018 8:36 AM Signed I have attempted to contact this patient by phone to return their call, schedule an appointment, discuss lab results, etc. Left message to call back. ROMERO Friend MA 06/19/2018 8:36 AM Signed I have attempted to contact this patient by phone to return their call, schedule an appointment, discuss lab results, etc. Left message to call back. Rossy Paniagua MA 06/19/2018 8:36 AM Signed I have attempted to contact this patient by phone to return their call, schedule an appointment, discuss lab results, etc. Left message to call back. Rossy Paniagua MA Allergies As of Date: 06/12/2018 Noted Allergy Reaction TOPAMAX (TOPIRAMATE) 01/30/2006 5 - Intolerance CIPRO (CIPROFLOXACIN) 06/08/2005 8 - GI Upset DESYREL (TRAZODONE HCL) 06/08/2005 1 - Mental Status Change MERCURY (MERCURY (BULK)) 06/08/2005 2 - Rash PENICILLINS 06/08/2005 2 - Rash SULFA (SULFONAMIDE ANTIBIOTICS) 06/08/2005 2 - Rash THIMEROSAL 05/12/2017 16 - Unknown Date Reviewed: 04/26/2018 Reviewed by: Tricia Calles Ma - Fully Assessed Reason for Visit: PHMA/Care Gap Outreach [3605] Primary Visit Diagnosis:Essential hypertension [I10] Other Visit Diagnoses:Acquired hypothyroidism [E03.9] Other hyperlipidemia [E78.4] Encounter for screening mammogram for breast cancer [Z12.31] Order(s):LIPID PANEL BASIC [SQLIPB] Order #: [id number] FUTURE KATIE SCREENING [[id number]] Order #: [id number] FUTURE TSH BLD [SQTSH] Order #: [id number] FUTURE COMP METABOLIC PANEL [SQCMP] Order #: [id number] FUTURE Prescriptions as of 06/12/2018 Sig: LISINOPRIL 10 MG TABLET TAKE ONE TABLET BY MOUTH EVER* CLOPIDOGREL 75 MG TABLET Take 1 tablet by mouth once d* SERTRALINE 50 MG TABLET Take 1 tablet by mouth once d* ESOMEPRAZOLE MAGNESIUM 40 MG * Take 1 capsule by mouth once * DONEPEZIL 10 MG TABLET Take 1 tablet by mouth daily * LEVOTHYROXINE 75 MCG TABLET Take 1 tablet by mouth once d* CLOPIDOGREL 75 MG TABLET Take 75 mg by mouth once victor manuel* DOCUSATE SODIUM 100 MG CAPSULE Take 1 capsule by mouth twice* CALCITRIOL 0.25 MCG CAPSULE Take 2 capsules by mouth once* DORZOLAMIDE 2 % EYE DROPS Use 1 Drop in the left eye ev* VITAMIN B COMPLEX ER TABLET,E* Take 1 tablet by mouth once d* QUETIAPINE 50 MG TABLET Take 1 tablet by mouth daily * COMBIGAN 0.2 %-0.5 % EYE DROPS Use 1 Drop in the left eye tw* SOLIFENACIN 5 MG TABLET Take 1 tablet by mouth once d* METOPROLOL SUCCINATE ER 25 MG* Take 1 tablet by mouth once d* COMPOUNDED PRESCRIPTION Toilet handles/bars. DX abnor* DIAPER,BRIEF,ADULT,DISPOSABLE Diaper change 3 times a day a* ATORVASTATIN 20 MG TABLET Take 1 tablet by mouth daily * LUMIGAN 0.01 % EYE DROPS Use 1 Drop in the left eye da* CALCIUM 600 + D(3) ORAL Take by mouth. 1200 mg of Ca* COMPOUNDED PRESCRIPTION Washable chucks:urinary incon* MIRABEGRON ER 50 MG TABLET,EX* Take 50 mg by mouth once victor manuel* TYLENOL ORAL Take 1,000 mg by mouth every * Problem List As Of Date 06/12/2018 Noted Resolved MITRAL VALVE DISORDER [I05.9] MYALGIA AND MYOSITIS NOS [JQG9193] ACQUIRED HYPOTHYROID NEC [E03.8] CHRONIC DEPRESSIVE PERSON [F34.1] Mixed hyperlipidemia [E78.2] More... Nondependent Alcohol Abuse [305.0] 09/30/2009 GLAUCOMA NOS [H40.9] Other Specified Gastritis [535.4] 09/30/2009 UNSPEC CONSTIPATION [K59.00] Irritable Bowel Syndrome [K58.9] 09/30/2009 More... 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] INVALID FOR* Gastrointestinal Malfunction Arising from Menta*INVALID FOR* Unspecified Chest Pain [R07.9] INVALID FOR* Abdominal Pain, Epigastric [R10.13] INVALID FOR* Esophageal Reflux [K21.9] INVALID FOR* Lupus [L93.0] INVALID FOR* Rheumatoid arthritis (HCC) [M06.9] INVALID FOR* 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] INVALID FOR* Diverticulosis of colon (without mention of hem*INVALID FOR* Special screening for malignant neoplasms, colo*INVALID FOR* Eczematous dermatitis [L30.9] INVALID FOR* Acne vulgaris [L70.0] INVALID FOR* Folliculitis [L73.9] INVALID FOR* Pruritus [L29.9] INVALID FOR* Excoriation [T14.8XXA] INVALID FOR* Pyoderma, unspecified [L08.0] INVALID FOR* Rash and other nonspecific skin eruption [R21] INVALID FOR* Xerosis cutis [L85.3] INVALID FOR* Solar Lentigines [L81.4] INVALID FOR* Actinic skin damage [L57.8] INVALID FOR* Viral warts: R lower chin, face [B07.9] INVALID FOR* Prurigo nodularis [L28.1] INVALID FOR* Neurodermatitis [L28.0] INVALID FOR* Multiple excoriations [T07.XXXA] INVALID FOR* Other seborrheic keratosis [L82.1] INVALID FOR* Irritated//Inflamed Seborrheic Keratosis [L82.0]INVALID FOR* Postinflammatory skin changes [R23.4] INVALID FOR* Dysuria [R30.0] INVALID FOR* Hematuria [R31.9] INVALID FOR* Urgency of urination [R39.15] INVALID FOR* Frequency of urination [R35.0] INVALID FOR* Rheumatoid arthritis, adult ([facility]) [M06.9] INVALID FOR*04/27/2018 Abnormality of gait [R26.9] INVALID FOR* Abnormal gait [R26.9] INVALID FOR* Encephalopathy [G93.40] INVALID FOR* Acute cystitis [N30.00] INVALID FOR* Syncope [R55] INVALID FOR* Stenosis of right carotid artery [I65.21] INVALID FOR* More... Stroke (cerebrum) ([facility]) [I63.9] INVALID FOR* More... Urinary retention [R33.9] INVALID FOR* Sinus pause [I45.5] INVALID FOR* Aphasia, late effect of cerebrovascular disease*INVALID FOR* Functional gait abnormality [R26.89] INVALID FOR* Bradycardia [R00.1] More... 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 Right hemiparesis ([facility]) [G81.91] INVALID FOR* More... Nuclear sclerosis, right [H25.11] INVALID FOR* More... Other hyperlipidemia [E78.4] Hypothyroidism [E03.9] Hypertension [I10] Expressive aphasia [R47.01] CVA (cerebral vascular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 without sensory awareness [N39.42] Incontinence of feces, unspecified fecal incontinence type [R15.9] Cerebrovascular accident (CVA), unspecified mechanism (HCC) [I63.9] Idiopathic normal pressure 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] Expressive aphasia [R47.01] Right hemiparesis (HCC) [G81.91] Order(s):UA CHEMSTRIP ONLY [SQUA] Order #: [id number] FUTURE URINE CULTURE [SQURCUL] Order #: [id number] FUTURE Prescriptions as of 04/26/2018 Sig: ESOMEPRAZOLE MAGNESIUM 40 MG * Take 1 capsule by mouth once * DONEPEZIL 10 MG TABLET Take 1 tablet by mouth daily * LEVOTHYROXINE 75 MCG TABLET Take 1 tablet by mouth once d* CLOPIDOGREL 75 MG TABLET Take 75 mg by mouth once victor manuel* DOCUSATE SODIUM 100 MG CAPSULE Take 1 capsule by mouth twice* CALCITRIOL 0.25 MCG CAPSULE Take 2 capsules by mouth once* DORZOLAMIDE 2 % EYE DROPS Use 1 Drop in the left eye ev* VITAMIN B COMPLEX ER TABLET,E* Take 1 tablet by mouth once d* QUETIAPINE 50 MG TABLET Take 1 tablet by mouth daily * COMBIGAN 0.2 %-0.5 % EYE DROPS Use 1 Drop in the left eye tw* SOLIFENACIN 5 MG TABLET Take 1 tablet by mouth once d* METOPROLOL SUCCINATE ER 25 MG* Take 1 tablet by mouth once d* LISINOPRIL 10 MG TABLET Take 1 tablet by mouth once d* COMPOUNDED PRESCRIPTION Toilet handles/bars. DX abnor* DIAPER,BRIEF,ADULT,DISPOSABLE Diaper change 3 times a day a* ATORVASTATIN 20 MG TABLET Take 1 tablet by mouth daily * LUMIGAN 0.01 % EYE DROPS Use 1 Drop in the left eye da* CALCIUM 600 + D(3) ORAL Take by mouth. 1200 mg of Ca* COMPOUNDED PRESCRIPTION Washable chucks:urinary incon* SERTRALINE 50 MG TABLET Take 1 tablet by mouth once d* MIRABEGRON ER 50 MG TABLET,EX* Take 50 mg by mouth once victor manuel* TYLENOL ORAL Take 1,000 mg by mouth every * Problem List As Of Date 04/26/2018 Noted Resolved MITRAL VALVE DISORDER [I05.9] MYALGIA AND MYOSITIS NOS [[id number]] ACQUIRED HYPOTHYROID NEC [E03.8] CHRONIC DEPRESSIVE PERSON [F34.1] Mixed hyperlipidemia [E78.2] More... Nondependent Alcohol Abuse [305.0] 09/30/2009 GLAUCOMA NOS [H40.9] Other Specified Gastritis [535.4] 09/30/2009 UNSPEC CONSTIPATION [K59.00] Irritable Bowel Syndrome [K58.9] 09/30/2009 More... 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] INVALID FOR* Gastrointestinal Malfunction Arising from Menta*INVALID FOR* Unspecified Chest Pain [R07.9] INVALID FOR* Abdominal Pain, Epigastric [R10.13] INVALID FOR* Esophageal Reflux [K21.9] INVALID FOR* Lupus [L93.0] INVALID FOR* Rheumatoid arthritis (HCC) [M06.9] INVALID FOR* 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] INVALID FOR* Diverticulosis of colon (without mention of hem*INVALID FOR* Special screening for malignant neoplasms, colo*INVALID FOR* Eczematous dermatitis [L30.9] INVALID FOR* Acne vulgaris [L70.0] INVALID FOR* Folliculitis [L73.9] INVALID FOR* Pruritus [L29.9] INVALID FOR* Excoriation [T14.8XXA] INVALID FOR* Pyoderma, unspecified [L08.0] INVALID FOR* Rash and other nonspecific skin eruption [R21] INVALID FOR* Xerosis cutis [L85.3] INVALID FOR* Solar Lentigines [L81.4] INVALID FOR* Actinic skin damage [L57.8] INVALID FOR* Viral warts: R lower chin, face [B07.9] INVALID FOR* Prurigo nodularis [L28.1] INVALID FOR* Neurodermatitis [L28.0] INVALID FOR* Multiple excoriations [T07.XXXA] INVALID FOR* Other seborrheic keratosis [L82.1] INVALID FOR* Irritated//Inflamed Seborrheic Keratosis [L82.0]INVALID FOR* Postinflammatory skin changes [R23.4] INVALID FOR* Dysuria [R30.0] INVALID FOR* Hematuria [R31.9] INVALID FOR* Urgency of urination [R39.15] INVALID FOR* Frequency of urination [R35.0] INVALID FOR* Rheumatoid arthritis, adult (HCC) [M06.9] INVALID FOR* Abnormality of gait [R26.9] INVALID FOR* Abnormal gait [R26.9] INVALID FOR* Encephalopathy [G93.40] INVALID FOR* Acute cystitis [N30.00] INVALID FOR* Syncope [R55] INVALID FOR* Stenosis of right carotid artery [I65.21] INVALID FOR* More... Stroke (cerebrum) (HCC) [I63.9] INVALID FOR* More... Urinary retention [R33.9] INVALID FOR* Sinus pause [I45.5] INVALID FOR* Aphasia, late effect of cerebrovascular disease*INVALID FOR* Functional gait abnormality [R26.89] INVALID FOR* Bradycardia [R00.1] More... 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 Right hemiparesis (HCC) [G81.91] INVALID FOR* More... Nuclear sclerosis, right [H25.11] INVALID FOR* More... Other hyperlipidemia [E78.4] Hypothyroidism [E03.9] Hypertension [I10] Expressive aphasia [R47.01] CVA (cerebral vascular accident) (HCC) [I63.9] More... Idiopathic normal pressure hydrocephalus (INPH)*INVALID FOR* More... 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] INVALID FOR* NPH (normal pressure hydrocephalus) [G91.2] INVALID FOR*01/27/2018 Primary open-angle glaucoma, bilateral, severe *INVALID FOR* Nuclear senile cataract of left eye [H25.12] INVALID FOR* Epiretinal membrane (ERM) of both eyes [H35.373]INVALID FOR* Encounter Status:Closed by STEPHANE FORD MD on 04/27/18 PROGRESS Observed: 04/17/2018 Status: COMPLETED Source: FENTRESS 2:05 PM [facility] REPOSITORY HNO ID: [id number] Author: Rossy Paniagua Service: (none) Author Type: Single Wire Saw Operator Type: Progress Notes Filed: 04/17/2018 2:06 PM Note Text: The patient has been identified by name and date of : YES I have scheduled the patient for an appointment on Visit date 04-26-18 The patient will report to the lab prior to the visit. I have pended the following lab orders: [facility] Documentation 04/17/2018 Opts out of [facility] No Appointments Scheduled Scheduled PCP Appt Rossy Paniagua MA PROGRESS Observed: 04/16/2018 Status: COMPLETED Source: FENTRESS 2:15 PM [facility] REPOSITORY HNO ID: [id number] Author: Rossy Paniagua Service: (none) Author Type: Single Wire Saw Operator Type: Progress Notes Filed: 04/17/2018 2:06 PM Note Text: I have attempted to contact this patient by phone to return their call, schedule an appointment, discuss lab results, etc. Left message to call back. Rossy Paniagua MA PROGRESS Observed: 04/12/2018 Status: COMPLETED Source: FENTRESS 12:59 PM [facility] REPOSITORY HNO ID: [id number] Author: Rossy Paniagua Service: (none) Author Type: Single Wire Saw Operator Type: Progress Notes Filed: 04/17/2018 2:06 PM Note Text: Patient needs a OV to address DX for HCC. MELISSA Observed: 04/12/2018 Status: COMPLETED Source: FENTRESS 12:00 AM [facility] REPOSITORY Patient Outreach ([facility]AMP[facility]) MONICA ANNA ([id number]) 1945 F Date Time Provider Department 04/12/18 ROSSY PANIAGUA) MAGDAWS During your visit today, we recorded the following information about you: Rossy Paniagua MA 04/17/2018 2:06 PM Signed Patient needs a OV to address DX for HCC. Rossy Paniagua MA 04/17/2018 2:06 PM Signed I have attempted to contact this patient by phone to return their call, schedule an appointment, discuss lab results, etc. Left message to call back. ROMERO Friend MA 04/17/2018 2:06 PM Signed The patient has been identified by name and date of : YES I have scheduled the patient for an appointment on Visit date 04-26-18 The patient will report to the lab prior to the visit. I have pended the following lab orders: PHMA Documentation 04/17/2018 Opts out of [facility] No Appointments Scheduled Scheduled PCP Appt Rossy Paniagua MA Allergies As of Date: 04/12/2018 Noted Allergy Reaction TOPAMAX (TOPIRAMATE) 01/30/2006 5 - Intolerance CIPRO (CIPROFLOXACIN) 06/08/2005 8 - GI Upset DESYREL (TRAZODONE HCL) 06/08/2005 1 - Mental Status Change MERCURY (MERCURY (BULK)) 06/08/2005 2 - Rash PENICILLINS 06/08/2005 2 - Rash SULFA (SULFONAMIDE ANTIBIOTICS) 06/08/2005 2 - Rash THIMEROSAL 05/12/2017 16 - Unknown Date Reviewed: 03/28/2018 Reviewed by: Deric Mason - Fully Assessed Reason for Visit: [facility] [[id number]] Prescriptions as of 04/12/2018 Sig: ESOMEPRAZOLE MAGNESIUM 40 MG * Take 1 capsule by mouth once * DONEPEZIL 10 MG TABLET Take 1 tablet by mouth daily * LEVOTHYROXINE 75 MCG TABLET Take 1 tablet by mouth once d* CLOPIDOGREL 75 MG TABLET Take 75 mg by mouth once victor manuel* DOCUSATE SODIUM 100 MG CAPSULE Take 1 capsule by mouth twice* CALCITRIOL 0.25 MCG CAPSULE Take 2 capsules by mouth once* DORZOLAMIDE 2 % EYE DROPS Use 1 Drop in the left eye ev* VITAMIN B COMPLEX ER TABLET,E* Take 1 tablet by mouth once d* QUETIAPINE 50 MG TABLET Take 1 tablet by mouth daily * COMBIGAN 0.2 %-0.5 % EYE DROPS Use 1 Drop in the left eye tw* SOLIFENACIN 5 MG TABLET Take 1 tablet by mouth once d* METOPROLOL SUCCINATE ER 25 MG* Take 1 tablet by mouth once d* LISINOPRIL 10 MG TABLET Take 1 tablet by mouth once d* COMPOUNDED PRESCRIPTION Toilet handles/bars. DX abnor* DIAPER,BRIEF,ADULT,DISPOSABLE Diaper change 3 times a day a* ATORVASTATIN 20 MG TABLET Take 1 tablet by mouth daily * LUMIGAN 0.01 % EYE DROPS Use 1 Drop in the left eye da* CALCIUM 600 + D(3) ORAL Take by mouth. 1200 mg of Ca* COMPOUNDED PRESCRIPTION Washable chucks:urinary incon* SERTRALINE 50 MG TABLET Take 1 tablet by mouth once d* MIRABEGRON ER 50 MG TABLET,EX* Take 50 mg by mouth once victor manuel* TYLENOL ORAL Take 1,000 mg by mouth every * Problem List As Of Date 04/12/2018 Noted Resolved MITRAL VALVE DISORDER [I05.9] MYALGIA AND MYOSITIS NOS [[id number]] ACQUIRED HYPOTHYROID NEC [E03.8] CHRONIC DEPRESSIVE PERSON [F34.1] Mixed hyperlipidemia [E78.2] More... Nondependent Alcohol Abuse [305.0] 09/30/2009 GLAUCOMA NOS [H40.9] Other Specified Gastritis [535.4] 09/30/2009 UNSPEC CONSTIPATION [K59.00] Irritable Bowel Syndrome [K58.9] 09/30/2009 More... 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] INVALID FOR* Gastrointestinal Malfunction Arising from Menta*INVALID FOR* Unspecified Chest Pain [R07.9] INVALID FOR* Abdominal Pain, Epigastric [R10.13] INVALID FOR* Esophageal Reflux [K21.9] INVALID FOR* Lupus [L93.0] INVALID FOR* Rheumatoid arthritis (HCC) [M06.9] INVALID FOR* 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] INVALID FOR* Diverticulosis of colon (without mention of hem*INVALID FOR* Special screening for malignant neoplasms, colo*INVALID FOR* Eczematous dermatitis [L30.9] INVALID FOR* Acne vulgaris [L70.0] INVALID FOR* Folliculitis [L73.9] INVALID FOR* Pruritus [L29.9] INVALID FOR* Excoriation [T14.8XXA] INVALID FOR* Pyoderma, unspecified [L08.0] INVALID FOR* Rash and other nonspecific skin eruption [R21] INVALID FOR* Xerosis cutis [L85.3] INVALID FOR* Solar Lentigines [L81.4] INVALID FOR* Actinic skin damage [L57.8] INVALID FOR* Viral warts: R lower chin, face [B07.9] INVALID FOR* Prurigo nodularis [L28.1] INVALID FOR* Neurodermatitis [L28.0] INVALID FOR* Multiple excoriations [T07.XXXA] INVALID FOR* Other seborrheic keratosis [L82.1] INVALID FOR* Irritated//Inflamed Seborrheic Keratosis [L82.0]INVALID FOR* Postinflammatory skin changes [R23.4] INVALID FOR* Dysuria [R30.0] INVALID FOR* Hematuria [R31.9] INVALID FOR* Urgency of urination [R39.15] INVALID FOR* Frequency of urination [R35.0] INVALID FOR* Rheumatoid arthritis, adult (HCC) [M06.9] INVALID FOR* Abnormality of gait [R26.9] INVALID FOR* Abnormal gait [R26.9] INVALID FOR* Encephalopathy [G93.40] INVALID FOR* Acute cystitis [N30.00] INVALID FOR* Syncope [R55] INVALID FOR* Stenosis of right carotid artery [I65.21] INVALID FOR* More... Stroke (cerebrum) ([facility]) [I63.9] INVALID FOR* More... Urinary retention [R33.9] INVALID FOR* Sinus pause [I45.5] INVALID FOR* Aphasia, late effect of cerebrovascular disease*INVALID FOR* Functional gait abnormality [R26.89] INVALID FOR* Bradycardia [R00.1] More... 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 Right hemiparesis ([facility]) [G81.91] INVALID FOR* More... Nuclear sclerosis, right [H25.11] INVALID FOR* More... Other hyperlipidemia [E78.4] Hypothyroidism [E03.9] Hypertension [I10] Expressive aphasia [R47.01] CVA (cerebral vascular accident) ([facility]) [I63.9] More... Idiopathic normal pressure hydrocephalus (INPH)*INVALID FOR* More... 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] INVALID FOR* NPH (normal pressure hydrocephalus) [G91.2] INVALID FOR*01/27/2018 Primary open-angle glaucoma, bilateral, severe *INVALID FOR* Nuclear senile cataract of left eye [H25.12] INVALID FOR* Epiretinal membrane (ERM) of both eyes [H35.373]INVALID FOR* Encounter Status:Closed by ROSSY PANIAGUA on 04/17/18 KALPESH Observed: 04/09/2018 Status: COMPLETED Source: FENTRESS 12:00 AM [facility] REPOSITORY Telephone ([employer]) MONICA ANNA ([id number]) 1945 F Date Time Provider Department 04/09/18 BRIDGETTE FORD [employer] During your visit today, we recorded the following information about you: Tricia Calles Ma 04/09/2018 10:50 AM Signed Received fax request for order for lift chair from [facility] [employer]. [facility] requires a PT eval. Order pended. Please check that it is the correct order for PT evaluation for lift chair. Paperwork placed on PCP's desk for review. Bridgette Ford MD 04/09/2018 11:15 AM Signed Telephone on 04/09/18 -CONSULT TO PHYSICAL THERAPY they will want to speak with the therapist to be srue they are able to do the lift chair eval. MD Tricia Hilton Ma 04/10/2018 4:51 PM [facility]. Tried 3 times today and no answer. Called main [facility] number and they were unable to find the fax number. Tricia Calles Ma 04/11/2018 10:16 AM Signed Faxed paperwork to [phone]. Transmission successful. Reid Gutiérrez RN 04/16/2018 2:23 PM Signed Spoke to Rere from [facility], she states if PCpPwill look at the paperwork sent to the office that is for a lift chair he can follow option 3, he can evaluate the patient for the lift chair. PCP has to follow the directions. Rere finds from experience they cannot find a lot of PT facilities that want to do the evaluation that is why they allow for the PCP to complete it. Please use the paperwork that the office has to proceed. If there are any questions call Rere at [phone] Allergies As of Date: 04/09/2018 Noted Allergy Reaction TOPAMAX (TOPIRAMATE) 01/30/2006 5 - Intolerance CIPRO (CIPROFLOXACIN) 06/08/2005 8 - GI Upset DESYREL (TRAZODONE HCL) 06/08/2005 1 - Mental Status Change MERCURY (MERCURY (BULK)) 06/08/2005 2 - Rash PENICILLINS 06/08/2005 2 - Rash SULFA (SULFONAMIDE ANTIBIOTICS) 06/08/2005 2 - Rash THIMEROSAL 05/12/2017 16 - Unknown Date Reviewed: 03/28/2018 Reviewed by: Deric Mason - Fully Assessed Reason for Visit: PT eval for lift chair and PT order [Other] Primary Visit Diagnosis:Rheumatoid arthritis, involving unspecified site, unspecified rheumatoid factor presence (HCC) [M06.9] Other Visit Diagnoses:Abnormality of gait [R26.9] Cerebrovascular accident (CVA), unspecified mechanism (HCC) [I63.9] Idiopathic normal pressure 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] Order(s):CONSULT TO PHYSICAL THERAPY [9032] Order #: [id number]: 1 Prescriptions as of 04/09/2018 Sig: ESOMEPRAZOLE MAGNESIUM 40 MG * Take 1 capsule by mouth once * DONEPEZIL 10 MG TABLET Take 1 tablet by mouth daily * LEVOTHYROXINE 75 MCG TABLET Take 1 tablet by mouth once d* CLOPIDOGREL 75 MG TABLET Take 75 mg by mouth once victor manuel* DOCUSATE SODIUM 100 MG CAPSULE Take 1 capsule by mouth twice* CALCITRIOL 0.25 MCG CAPSULE Take 2 capsules by mouth once* DORZOLAMIDE 2 % EYE DROPS Use 1 Drop in the left eye ev* VITAMIN B COMPLEX ER TABLET,E* Take 1 tablet by mouth once d* QUETIAPINE 50 MG TABLET Take 1 tablet by mouth daily * COMBIGAN 0.2 %-0.5 % EYE DROPS Use 1 Drop in the left eye tw* SOLIFENACIN 5 MG TABLET Take 1 tablet by mouth once d* METOPROLOL SUCCINATE ER 25 MG* Take 1 tablet by mouth once d* LISINOPRIL 10 MG TABLET Take 1 tablet by mouth once d* COMPOUNDED PRESCRIPTION Toilet handles/bars. DX abnor* DIAPER,BRIEF,ADULT,DISPOSABLE Diaper change 3 times a day a* ATORVASTATIN 20 MG TABLET Take 1 tablet by mouth daily * LUMIGAN 0.01 % EYE DROPS Use 1 Drop in the left eye da* CALCIUM 600 + D(3) ORAL Take by mouth. 1200 mg of Ca* COMPOUNDED PRESCRIPTION Washable chucks:urinary incon* SERTRALINE 50 MG TABLET Take 1 tablet by mouth once d* MIRABEGRON ER 50 MG TABLET,EX* Take 50 mg by mouth once victor manuel* TYLENOL ORAL Take 1,000 mg by mouth every * Problem List As Of Date 04/09/2018 Noted Resolved MITRAL VALVE DISORDER [I05.9] MYALGIA AND MYOSITIS NOS [[id number]] ACQUIRED HYPOTHYROID NEC [E03.8] CHRONIC DEPRESSIVE PERSON [F34.1] Mixed hyperlipidemia [E78.2] More... Nondependent Alcohol Abuse [305.0] 09/30/2009 GLAUCOMA NOS [H40.9] Other Specified Gastritis [535.4] 09/30/2009 UNSPEC CONSTIPATION [K59.00] Irritable Bowel Syndrome [K58.9] 09/30/2009 More... 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] INVALID FOR* Gastrointestinal Malfunction Arising from Menta*INVALID FOR* Unspecified Chest Pain [R07.9] INVALID FOR* Abdominal Pain, Epigastric [R10.13] INVALID FOR* Esophageal Reflux [K21.9] INVALID FOR* Lupus [L93.0] INVALID FOR* Rheumatoid arthritis ([facility]) [M06.9] INVALID FOR* 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] INVALID FOR* Diverticulosis of colon (without mention of hem*INVALID FOR* Special screening for malignant neoplasms, colo*INVALID FOR* Eczematous dermatitis [L30.9] INVALID FOR* Acne vulgaris [L70.0] INVALID FOR* Folliculitis [L73.9] INVALID FOR* Pruritus [L29.9] INVALID FOR* Excoriation [T14.8XXA] INVALID FOR* Pyoderma, unspecified [L08.0] INVALID FOR* Rash and other nonspecific skin eruption [R21] INVALID FOR* Xerosis cutis [L85.3] INVALID FOR* Solar Lentigines [L81.4] INVALID FOR* Actinic skin damage [L57.8] INVALID FOR* Viral warts: R lower chin, face [B07.9] INVALID FOR* Prurigo nodularis [L28.1] INVALID FOR* Neurodermatitis [L28.0] INVALID FOR* Multiple excoriations [T07.XXXA] INVALID FOR* Other seborrheic keratosis [L82.1] INVALID FOR* Irritated//Inflamed Seborrheic Keratosis [L82.0]INVALID FOR* Postinflammatory skin changes [R23.4] INVALID FOR* Dysuria [R30.0] INVALID FOR* Hematuria [R31.9] INVALID FOR* Urgency of urination [R39.15] INVALID FOR* Frequency of urination [R35.0] INVALID FOR* Rheumatoid arthritis, adult ([facility]) [M06.9] INVALID FOR* Abnormality of gait [R26.9] INVALID FOR* Abnormal gait [R26.9] INVALID FOR* Encephalopathy [G93.40] INVALID FOR* Acute cystitis [N30.00] INVALID FOR* Syncope [R55] INVALID FOR* Stenosis of right carotid artery [I65.21] INVALID FOR* More... Stroke (cerebrum) ([facility] [facility]PITAL) [I63.9] INVALID FOR* More... Urinary retention [R33.9] INVALID FOR* Sinus pause [I45.5] INVALID FOR* Aphasia, late effect of cerebrovascular disease*INVALID FOR* Functional gait abnormality [R26.89] INVALID FOR* Bradycardia [R00.1] More... 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 Right hemiparesis (HCC) [G81.91] INVALID FOR* More... Nuclear sclerosis, right [H25.11] INVALID FOR* More... Other hyperlipidemia [E78.4] Hypothyroidism [E03.9] Hypertension [I10] Expressive aphasia [R47.01] CVA (cerebral vascular accident) (HCC) [I63.9] More... Idiopathic normal pressure hydrocephalus (INPH)*INVALID FOR* More... 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 Bridgette Ford MD PROGRESS Observed: 04/04/2018 Status: COMPLETED Source: [place] 1:08 PM [facility] REPOSITORY HNO ID: [id number] Author: Shayne Ge (Rn) Service: (none) Author Type: Registered Nurse Type: Progress Notes Filed: 04/04/2018 2:50 PM Note Text: PRIMARY CARE COORDINATION CHART REVIEW Patient identified for Care Coordination from: [facility] Last PCP office visit: 05/18/2016 Next OV: Visit date not found CHRONIC DX: HTN, HLD CVA with Expressive Aphasia, Right Hemiparesis Hydrocephalus with Shunt Placement CARE GAPS: None UTILIZATION WITHIN THE LAST 12 MONTHS: HOSPITAL: 01/24/18-02/07/18 Adm [facility] : Normal Pressure Hydrocephalus, Operations : Creation of a programmable Ventriculoperitoneal Shunt PRIMARY CARE COORDINATION OUTREACH PLAN: Spk with Jonah who noted his is doing well after surgery for Shunt, denies CARRERA or unusual symptoms, she continues to see surgeon for adjustment of flow rate, Pt did receive outpt Therapy for a while but did not seem to make a difference. Jonah states she is not using a cane, he assists her with ambulation and ADL's, Marine Machinist discussed Passport or other services, he declined noting he is managing her care, will call Marine Machinist if anything changes and they need assistance. Luma Bella RN April 04, 2018 2:47 PM MELISSA Observed: 04/04/2018 Status: COMPLETED Source: [place] 12:00 AM [facility] REPOSITORY Patient Outreach (FAMPWS) MONICA ANNA ([id number]) 1945 F Date Time Provider Department 04/04/18 SHAYNE GE (RN) JOSÉ MIGUELPWS During your visit today, we recorded the following information about you: Luma Bella RN 04/04/2018 2:50 PM Signed PRIMARY CARE COORDINATION CHART REVIEW Patient identified for Care Coordination from: [facility] Last PCP office visit: 05/18/2016 Next OV: Visit date not found CHRONIC DX: HTN, HLD CVA with Expressive Aphasia, Right Hemiparesis Hydrocephalus with Shunt Placement CARE GAPS: None UTILIZATION WITHIN THE LAST 12 MONTHS: HOSPITAL: 01/24/18-02/07/18 Adm [facility] : Normal Pressure Hydrocephalus, Operations : Creation of a programmable Ventriculoperitoneal Shunt PRIMARY CARE COORDINATION OUTREACH PLAN: Spk with Jonah who noted his is doing well after surgery for Shunt, denies CARRERA or unusual symptoms, she continues to see surgeon for adjustment of flow rate, Pt did receive outpt Therapy for a while but did not seem to make a difference. Jonah states she is not using a cane, he assists her with ambulation and ADL's, Marine Machinist discussed Passport or other services, he declined noting he is managing her care, will call Marine Machinist if anything changes and they need assistance. Luma Bella RN April 04, 2018 2:47 PM Bridgette Ford MD 04/06/2018 8:00 AM Signed Noted. 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: Moisture Tester Chronic Care [3619] Cmt: [facility] Prescriptions as of 04/04/2018 Sig: ESOMEPRAZOLE MAGNESIUM 40 MG * Take 1 capsule by mouth once * DONEPEZIL 10 MG TABLET Take 1 tablet by mouth daily * LEVOTHYROXINE 75 MCG TABLET Take 1 tablet by mouth once d* CLOPIDOGREL 75 MG TABLET Take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 questionable NPH Neuro: aphasic MRI brain Radio isotope cisternogram Plan discussed with Dr. Morocho Resolved Problems: * No resolved hospital problems. * SIGNATURE: Niyah Boo APRN.TREMAYNE PATIENT NAME: Monica Anan DATE: January 08, 2018 TIME: 4:00 PM PAGER/CONTACT #: [phone] Attending Note : Pt. With concern for possible NPH that previously was evaluated at the [facility] [place] 2 years ago because of symptoms of dementia and gait difficulty. According to the there was no consensus about whether it was NPH so we are restudying the problem with a DORA cisternogram to determine if she would benefit from a shunt procedure. Davion Morocho MD OFFICE VISIT REPORT Observed: 12/08/2017 Status: F Source: [facility] 8:13 AM [facility] [place], [place] Services [place] [id number] OFFICE VISIT Date of Service: 11/23/17 MR#: [id number] Acct: [id number] Patient: MONICA ANNA Rep #: [id number] : 1945 Provider: Myriam Gonzalez Age/Sex: 72/F [place] [facility] [place] Signed Comments Summary Comments: Remote Implantable Loop Recorder Evaluation: Remote interrogation shows no patient activated symptoms, 3 tachy, no pauses, no ulises and no AT/AF episodes since 06/28/17. Stored e-grams for tachy episodes show artifact and true tachy episodes noted. Presenting rhythm shows Sinus bradycardia @ 52 bpm. 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 Cardiac arrest I46.9 2. 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 3. Stroke I63.9 4. Other specified cardiac device in situ Z95.818 12/06/17 190 <Electronically signed by Myriam Gonzalez > Date Myriam Gonzalez 12/08/17 0813<Electronically signed by Germain Constantino MD> Cosigner Signature: Date (if applicable) Germain Constantino MD CC: PROGRESS Observed: 12/07/2017 Status: COMPLETED Source: [facility] 10:24 AM CLINIC OTHER CAMPUS REPOSITORY HNO ID: [id number] Author: Tammi (Wound Specialist) Kwame Sanchez CCC/COMMERCIAL LINES MANAGER Service: (none) Author Type: Speech Language Pathologist Type: Progress Notes Filed: 12/07/2017 10:27 AM Note Text: [facility] SPEECH DISCONTINUANCE OF CARE Plan2 of Care Period: Last Visit Date: 09/08/2017 Therapy Program: The following is a summary of the interventions provided for this episode of care; attention was being focused on the use of a non-speech generating augmentative and alternative communication device. Assessment: The following is the goal status: Goals for Episode of Care Updated: 08/29/2017 Goals for Episode of Care: created on 05/30/2017 through 08/28/2017. meterman objective(s): Pt will effectively communicate ADL medical and social wants/needs given their functional setting with 100% accuracy ?? Short term objective(s): Pt will... 1.) ?Pt will improve her verbal expression skills to effectively communicate basic ADL information regarding herself ?? B.) ?Be able to produce [employer] 100% of the time without prompting (baseline = able to count and state days of week with initial word prompting) Current Level of Function: PARTIALLY MET - Goal to be discontinued at this time. ? ?? C.) ?Be able to complete sentences with good intelligibility with 90% accuracy (baseline = 7/10 trials - 70% accuracy) Current Level of Function: ? PARTIALLY MET - Goal to be discontinued at this time ? ?? D.) ?Be able to complete confrontational naming tasks with 90% accuracy (baseline = 9/15 trials = 60% accuracy) Current Level of Function: PARTIALLY MET - Goal to be discontinued at this time ? 2.) ?Pt will improve functional writing skills to effectively communicate basic ADL information regarding herself ?? B.) ?Be able to write 1 syllable words from dictation (baseline = 3/7 trials = 43% accuracy) Current Level of Function: PARTIALLY MET - Goal to be discontinued at this time ? 3.) ?Pt will improve auditory comprehension skills to effectively answer questions regarding herself A.) ?Be able to answer verbally presented Yes/No questions with 90% accuracy (baseline = 07/30 trials = 67% accuracy) Current Level of Function: PARTIALLY MET ?- Goal to be discontinued at this time ?? NEW GOAL ADDED 07/24/2017 B.) Be able to answer basic 'WH' questions with single word response with 90% accuracy (baseline = 3/10 trials) Current Level of Function: PARTIALLY MET - variable answers requiring extended time. Goal to be discontinued at this time. ? NEW GOALS ADDED 08/29/2017 Pt will: 1.) Be able to demonstrate ability to convey basic needs/ make requests to caregivers by locating targeted words in word based AAC independently with 100% accuracy. ? 2.) Initiate information, ask questions, express feelings and opinions through spelling or use of words within word based AAC device during a 1:1 situation independently with 100% accuracy Based on most recent progress report, patient was progressing slower than expected toward functional goals based on level of difficulty and reduced desire to utilize speech-generating device. Reason for Discontinuation of Care: -Patient has not returned to therapy or scheduled additional follow-up appointments. -The speech-language pathology department remains available for further consultation as deemed necessary and/or appropriate by the referring physician. Tammi Sanchez CCC-COMMERCIAL LINES MANAGER PROGRESS Observed: 11/30/2017 Status: COMPLETED Source: [facility] 12:59 PM [facility] OTHER [facility]AMP[facility] REPOSITORY HNO ID: [id number] Author: Leslye Go (Pt) Dlugoss Service: (none) Author Type: Physical Therapist Type: Progress Notes Filed: 11/30/2017 1:00 PM Note Text: [facility] PHYSICAL THERAPY DISCONTINUANCE OF CARE Plan of Care Period: Start of Care Date: 05/25/17 Last Visit Date: 09/28/2017 Therapy Program: The following is a summary of the interventions provided for this Therapeutic exercise;Neuromuscular re-education;Therapeutic activities;Self-fdc management;Gait Training;Patient/Family/Caregiver Education;Functional training;General Conditioning episode of care; Assessment: The following is the goal status: See note below Based on the most recent progress report, patient was progressing as expected toward functional goals based on see note below Reason for Discontinuation of Care: Patient has not returned to therapy or scheduled additional follow-up appointments. Leslye Kim, PT PROGRESS Observed: 11/27/2017 Status: COMPLETED Source: [facility] 2:27 PM CLINIC OTHER CAMPUS REPOSITORY HNO ID: [id number] Author: Madan Izquierdo (Wound Specialist) FELICE Fajardo/COMMERCIAL LINES MANAGER Service: (none) Author Type: Speech Language Pathologist Type: Progress Notes Filed: 11/27/2017 4:58 PM Note Text: Episode Visit Count: 1 Therapist That Will Oversee The Plan Of Care: Madan Fajardo Start of Care Date: 11/27/17 Onset Date: 05/30/17 Plan of Care Certification Date: 05/30/17 Patient Identified by Name and Date of : Yes [facility] SPEECH THERAPY CLINICAL SWALLOW EVALUATION PLAN OF CARE: Assessment: Monica Anna presents with the diagnosis of dysphagia. She presents with impairments of oral phase of swallow characterized by oral holding with liquids (several seconds) and reported cough 20-30 minutes following meals. Patient has had two strokes, the most recent of which was last year. She presents with aphasia. All communication modalities are affected, although auditory comprehension is a relative strength. Verbal expression is halting, telegraphic, with few full sentences. Right side facial weakness, tongue deviation to the left noted during oral motor exam. Speech is clear and intelligible. Prognosis: Good Good: current objective clinical presentation A modified barium swallowing exam (fluoroscopic study) is recommended to thoroughly evaluate the oral and pharyngeal phase of the swallow, which cannot be substantiated through a clinical swallowing evaluation only. Through further diagnostic testing a definitive diagnosis / identification of the patient's current swallowing function and recommended treatment plan can be established. Goals for Episode of Care: created on 11/27/2017 through 11/27/17 Patient and family education regarding recommendations to facilitate functional swallowing (naturally thick liquids and lemon ice before sips/bites) -Achieved today RECOMMENDATION: Swallowing Precautions Recommendations: Lemon ice to maximize pharyngeal clearance (naturally thick liquids) Instrumental Swallow Assessment Recommendations: Modified Barium Swallow Study (MBSS) SUGGESTED TREATMENT OBJECTIVES: Patient will participate in Modified Barium Swallowing Exam to directly view the pharyngeal phase of the swallowing system and determine airway safety. Patient demonstrates good understanding of results, recommendations, goals and plan of care. Patient and agreed with plan. G Code Functional Limitations: Swallowing G Code Functional Limitations: Swallowing Swallow Current Status (G8996): At least 1 percent but less than 20 percent impaired, limited or restricted Swallow Goal Status (G8997): At least 1 percent but less than 20 percent impaired, limited or restricted Swallow Discharge Status (G8998): At least 1 percent but less than 20 percent impaired, limited or restricted Assessment per ALEX Functional Communication Measure and treatment recommendations: Swallowing Level: LEVEL 6: Swallowing is safe, and the individual eats and drinks independently and may rarely require minimal cueing. The individual usually self-cues when difficulty occurs. May need to avoid specific food items (e.g. popcorn and nuts), or require additional time (due to dysphagia). SUBJECTIVE: Monica Anna is a 72 year old female seen today for clinical swallowing assessment. She comes to session with her who provides additional information regarding Patient's medical history. Patient /Caregiver Goals: Eat/Drink Without Restrictions Previous Swallow Study: Clinical Swallow;MBS Relevant medical history/ comorbidities: Patient has had two strokes. She presents with aphasia. All communication modalities are affected, although auditory comprehension is a relative strength. Verbal expression is halting, telegraphic, with few full sentences. Right side facial weakness, tongue deviation to the left noted during oral motor exam. Speech is clear and intelligible. OBJECTIVE MEASURES WITH LEVEL OF FUNCTION: Patient drank about 3 oz of water one sip at a time with observed oral holding with each sip of up to thirty seconds before swallow. No cough or throat clearing noted during any liquid trials. Vocal quality remained at baseline during thin liquid trials. Clinician offered but patient refused solid food trials. Clinical Swallow Assessment Oral Pharyngeal Swallow Assessment: Within Functional Limits Except Preparatory / Oral Phase: Within Functional Limits Except A-P Transit: Moderately Impaired Pharyngeal Phase: Within Functional Limits Except Reflexive Throat Clear and Cough after Swallowing: No Multiple Swallows: No Education Learning Preferences: Demonstration;Explanation;Performance;Printed Materials Barriers: Communication Deficit Learning/Educational Needs: Compensatory Strategies;Family Education/Training;Plan of Care Education Provided: Yes, see treatment interventions for education provided Education Provided To: Patient;Caregiver Education Mode/Type: Demonstration;Explanation/Discussion;Literature/Printed Materials;Performance Response to Education/Teach Back: States/Identifies;Return Demonstration TREATMENT: Evaluation: Swallow Eval Func (17654) Evaluation: Swallow Eval Func (09750) Swallow / Dysphagia (21849): Skilled Intervention: Provided education related to a typical swallowing mechanism in a compare and contrast manner compared to this patient's current skill set. , Instructed patient / caregiver on recommended compensatory strategies to maximize safety with oral intake while maintaining nutrition, hydration and medication stability. Billing: Clinical Swallow Evaluation (03629): 1:1 time: 25 minutes (1 unit untimed) and Treatment of Swallow Dysfunction (36724): 1:1 time: 20 minutes (1 unit untimed) Total time: 45 minutes Madan Fajardo CCC COMMERCIAL LINES MANAGER CNTHERAPY Observed: 11/27/2017 Status: COMPLETED Source: [facility] 12:30 PM CLINIC OTHER CAMPUS REPOSITORY OT/PT/Speech Visit ([facility]) MONICA ANNA ([id number]) 1945 F Date Time Provider Department 11/27/17 12:30 PM MADAN FAJARDO (COMMERCIAL LINES MANAGER) [facility] Date Time Provider Department Christmas 11/27/2017 12:30 PM [id number]-ZMXTMADAN FAJARDO*[facility] [place] [place] Reason for Visit: Speech Evaluation [1647] Speech Discharge [3488] Reason For Visit History Recorded Primary Visit Diagnosis:Oral phase dysphagia [R13.11] Allergies As of Date: 11/27/2017 Noted Allergy Reaction TOPAMAX (TOPIRAMATE) 01/30/2006 5 - Intolerance CIPRO (CIPROFLOXACIN) 06/08/2005 8 - GI Upset DESYREL (TRAZODONE HCL) 06/08/2005 1 - Mental Status Change MERCURY (MERCURY (BULK)) 06/08/2005 2 - Rash PENICILLINS 06/08/2005 2 - Rash SULFA (SULFONAMIDE ANTIBIOTICS) 06/08/2005 2 - Rash THIMEROSAL 05/12/2017 16 - Unknown Date Reviewed: 11/21/2017 Reviewed by: Deric Mason - Fully Assessed Prescriptions as of 11/27/2017 Sig: DORZOLAMIDE 2 % EYE DROPS Use 1 Drop in the left eye ev* X ESOMEPRAZOLE MAGNESIUM 40 MG * TAKE ONE CAPSULE BY MOUTH JOSTIN* VITAMIN B COMPLEX ER TABLET,E* Take 1 tablet by mouth once d* X QUETIAPINE 50 MG TABLET Take 1 tablet by mouth daily * X QUETIAPINE 50 MG TABLET Take 1 tablet by mouth daily * COMBIGAN 0.2 %-0.5 % EYE DROPS Use 1 Drop in the left eye tw* SOLIFENACIN 5 MG TABLET Take 1 tablet by mouth once d* X CALCITRIOL 0.25 MCG CAPSULE Take 2 capsules by mouth once* X NITROFURANTOIN MACROCRYSTAL 1* Take 1 capsule by mouth twice* X CLOPIDOGREL 75 MG TABLET Take 1 tablet by mouth once d* X METOPROLOL SUCCINATE ER 25 MG* Take 1 tablet by mouth once d* X LISINOPRIL 10 MG TABLET Take 1 tablet by mouth once d* COMPOUNDED PRESCRIPTION Toilet handles/bars. DX abnor* DIAPER,BRIEF,ADULT,DISPOSABLE Diaper change 3 times a day a* X QUETIAPINE 50 MG TABLET Take 0.5 tablets by mouth ramiro* ATORVASTATIN 20 MG TABLET Take 1 tablet by mouth daily * X LEVOTHYROXINE 75 MCG TABLET Take 75 mcg by mouth once ramiro* LUMIGAN 0.01 % EYE DROPS Use 1 Drop in the left eye da* CALCIUM 600 + D(3) ORAL Take by mouth. 1200 mg of Ca* X DONEPEZIL 10 MG TABLET Take 10 mg by mouth daily at * COMPOUNDED PRESCRIPTION Washable chucks:urinary incon* X LEVOTHYROXINE 50 MCG TABLET TAKE ONE TABLET DAILY AND 1.5* X SERTRALINE 50 MG TABLET Take 1 tablet by mouth once d* MIRABEGRON ER 50 MG TABLET,EX* Take 50 mg by mouth once victor manuel* TYLENOL ORAL Take 1,000 mg by mouth every * Progress Notes: Madan Fajardo, [facility] COMMERCIAL LINES MANAGER, CCC/COMMERCIAL LINES MANAGER 11/27/2017 4:58 PM Signed Episode Visit Count: 1 Therapist That Will Oversee The Plan Of Care: Madan Fajardo Start of Care Date: 11/27/17 Onset Date: 05/30/17 Plan of Care Certification Date: 05/30/17 Patient Identified by Name and Date of : Yes [facility] SPEECH THERAPY CLINICAL SWALLOW EVALUATION PLAN OF CARE: Assessment: Monica Anna presents with the diagnosis of dysphagia. She presents with impairments of oral phase of swallow characterized by oral holding with liquids (several seconds) and reported cough 20-30 minutes following meals. Patient has had two strokes, the most recent of which was last year. She presents with aphasia. All communication modalities are affected, although auditory comprehension is a relative strength. Verbal expression is halting, telegraphic, with few full sentences. Right side facial weakness, tongue deviation to the left noted during oral motor exam. Speech is clear and intelligible. Prognosis: Good Good: current objective clinical presentation A modified barium swallowing exam (fluoroscopic study) is recommended to thoroughly evaluate the oral and pharyngeal phase of the swallow, which cannot be substantiated through a clinical swallowing evaluation only. Through further diagnostic testing a definitive diagnosis / identification of the patient's current swallowing function and recommended treatment plan can be established. Goals for Episode of Care: created on 11/27/2017 through 11/27/17 Patient and family education regarding recommendations to facilitate functional swallowing (naturally thick liquids and lemon ice before sips/bites) -Achieved today RECOMMENDATION: Swallowing Precautions Recommendations: Lemon ice to maximize pharyngeal clearance (naturally thick liquids) Instrumental Swallow Assessment Recommendations: Modified Barium Swallow Study (MBSS) SUGGESTED TREATMENT OBJECTIVES: Patient will participate in Modified Barium Swallowing Exam to directly view the pharyngeal phase of the swallowing system and determine airway safety. Patient demonstrates good understanding of results, recommendations, goals and plan of care. Patient and agreed with plan. G Code Functional Limitations: Swallowing G Code Functional Limitations: Swallowing Swallow Current Status (G8996): At least 1 percent but less than 20 percent impaired, limited or restricted Swallow Goal Status (G8997): At least 1 percent but less than 20 percent impaired, limited or restricted Swallow Discharge Status (G8998): At least 1 percent but less than 20 percent impaired, limited or restricted Assessment per ALEX Functional Communication Measure and treatment recommendations: Swallowing Level: LEVEL 6: Swallowing is safe, and the individual eats and drinks independently and may rarely require minimal cueing. The individual usually self-cues when difficulty occurs. May need to avoid specific food items (e.g. popcorn and nuts), or require additional time (due to dysphagia). SUBJECTIVE: Monica Anna is a 72 year old female seen today for clinical swallowing assessment. She comes to session with her who provides additional information regarding Patient's medical history. Patient /Caregiver Goals: Eat/Drink Without Restrictions Previous Swallow Study: Clinical Swallow;MBS Relevant medical history/ comorbidities: Patient has had two strokes. She presents with aphasia. All communication modalities are affected, although auditory comprehension is a relative strength. Verbal expression is halting, telegraphic, with few full sentences. Right side facial weakness, tongue deviation to the left noted during oral motor exam. Speech is clear and intelligible. OBJECTIVE MEASURES WITH LEVEL OF FUNCTION: Patient drank about 3 oz of water one sip at a time with observed oral holding with each sip of up to thirty seconds before swallow. No cough or throat clearing noted during any liquid trials. Vocal quality remained at baseline during thin liquid trials. Clinician offered but patient refused solid food trials. Clinical Swallow Assessment Oral Pharyngeal Swallow Assessment: Within Functional Limits Except Preparatory / Oral Phase: Within Functional Limits Except A-P Transit: Moderately Impaired Pharyngeal Phase: Within Functional Limits Except Reflexive Throat Clear and Cough after Swallowing: No Multiple Swallows: No Education Learning Preferences: Demonstration;Explanation;Performance;Printed Materials Barriers: Communication Deficit Learning/Educational Needs: Compensatory Strategies;Family Education/Training;Plan of Care Education Provided: Yes, see treatment interventions for education provided Education Provided To: Patient;Caregiver Education Mode/Type: Demonstration;Explanation/Discussion;Literature/Printed Materials;Performance Response to Education/Teach Back: States/Identifies;Return Demonstration TREATMENT: Evaluation: Swallow Eval Func (03962) Evaluation: Swallow Eval Func (27072) Swallow / Dysphagia (26672): Skilled Intervention: Provided education related to a typical swallowing mechanism in a compare and contrast manner compared to this patient's current skill set. , Instructed patient / caregiver on recommended compensatory strategies to maximize safety with oral intake while maintaining nutrition, hydration and medication stability. Billing: Clinical Swallow Evaluation (72058): 1:1 time: 25 minutes (1 unit untimed) and Treatment of Swallow Dysfunction (84046): 1:1 time: 20 minutes (1 unit untimed) Total time: 45 minutes Madan Fajardo CCC COMMERCIAL LINES MANAGER Letter Text PROGRESS Observed: 11/21/2017 Status: COMPLETED Source: [facility] 11:40 AM [facility] REPOSITORY O ID: [id number] Author: Deric Mason Service: (none) Author Type: Physician Type: Progress Notes Filed: 11/21/2017 12:14 PM Note Text: Tmax: 26, 27; Pachy: 595, 565 (pachy and Tmax from referral letter) Lasers and Surgeries: OD: 08/01/2017 phaco 05/12/2017 Trab 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 Referred by Jaswinder Sharma in [place] Currently on Lumigan qhs OS, Combigan BID OS POM#4 phaco OD -healing well, vision not great (preop CF; today 20/200 with new glasses) -Note: she was 20/80 OD prior to trab -Pt got new glasses 2 weeks ago in [place]; not happy with [facility] OD -She deferred refraction today -She does have significant PEE; suggest starting AT OD Primary open angle glaucoma OU - severe stage -HVF 24-2 today 11/2017: OS dense sup ns/arcuate extending through central fixation, nonspecific inf-temp depression -worse than 02/[address] Sharma -07/2017: IOP OS 16 => changed brimonidine to combigan bid OS => IOP remains high today at 21 mmHg -HVF OS today appears worse from 2014; IOP probably not ideal at 16mmHg -try adding dorzolamide bid OS. -given her health issues and history of surgical complications, I wouldn't recommend surgery for IOP=16 even if the dorzolamde doesn't help -will need close follow-up of her VF -see Dr. Sharma in about 6-8 weeks -see me in 4 months for HVF OS CVA 02/2016 and 04/2017 ERM OU -Not visually significant, monitor I, Deric Mason MD, have edited as necessary and confirmed the relevant ophthalmic history, ROS, and neuro exam findings as obtained by others. I have seen and examined Monica Anna. I also have reviewed, edited as necessary, and agree with the assessment and plan and all of its relevant components as stated above. I have discussed the case and the management of this patient's care with the Resident/Fellow, if applicable. PROGRESS Observed: 09/28/2017 Status: COMPLETED Source: [facility] 5:47 PM [facility] OTHER [facility] REPOSITORY HNO ID: [id number] Author: Leslye Go (Pt) Dlugoss Service: (none) Author Type: Physical Therapist Type: Progress Notes Filed: 09/28/2017 5:58 PM Note Text: Episode Visit Count: 14 Therapist That Will Oversee The Plan Of Care: Vanessa Fountain Start of Care Date: 05/25/17 Onset Date: 02/14/16 Plan of Care Certification Date: 09/09/17 Patient Identified by Name and Date of : Yes REHABILITATION AND SPORTS THERAPY PHYSICAL THERAPY PROGRESS REPORT PLAN OF CARE UPDATE: Assessment: Monica Anna exhibits difficulty with right LE weakness and compliance with home exercise program and use of walker. Pt's functional mobility and ambulation has declined since last progress note and pt refuses to use the walker. Therapist educated pt and pt's about performing home exercise program daily without exceptions and using walker for balance. Pt gets frustrated and needs re-direction to perform tasks throughout session. Demonstrates significant poor safety awareness and requires constant verbal cues for safety when approaching sitting surface and negotiation around gym. She continues to be limited with rising from a chair, standing, walking in the house, walking in the community and stair negotiation. She is progressing slower than expected towards her therapy goals as demonstrated by: home exercise program compliance and documented objective information regarding gait. She will benefit from continued skilled therapy requiring intensive PT per MD's orders (from last appointment) in order to improve her functional mobility and gait. Goals Patient will increase strength of R UE to grossly 5/5 to allow patient to perform ADLs --not met Patient will increase strength of B LE to grossly 5/5 to allow patient to normalized gait mechanics--not met Patient will increase flexibility of B heel cords and hamstring to WNL to restore normal mechanics for gait--continue to assess Patient / caregiver will perform sit to stand transfers with modified independence and improved stability AND safety--not met Patient will ambulate 150 feet with least restrictive device with supervision and improved mobiltiy.--not met Patient will demonstrate current home exercise program independently. --ongoing Patient will improve his/her AM-PAC T-scale score by 4 points to indicate a Minimal Clinical Important Difference --continue to assess -- Raw Score: 35 ? -- Scale Score: 52.39 ? -- Modifier: CK ? -- MDC: 56.39 ? -- MDC Severity Modifier: CJ Planned Interventions, Frequency, and Duration: 2x/week, 6 weeks (until the end of october) Total Number of Visits Planned: (TBD) Patient to be seen for Therapeutic exercise;Neuromuscular re-education;Therapeutic activities;Self-fdc management;Gait Training;Patient/Family/Caregiver Education;Functional training;General Conditioning PLAN FOR NEXT VISIT: progress as able Prognosis: Fair Fair due to: chronic nature of impairments;decreased motivation;limited compliance with previous therapy SUBJECTIVE: . Pt reports that her walker Is no good when asked why she does not use it. Pt does not know her home exercise program. Pt arrives to session with her . OBJECTIVE MEASURES WITH LEVEL OF FUNCTION: sit<> stand: decreased WB on right LE with right knee extended, cues for equal WB and pt is unable to perform without mod assist and use of mat/chair support for balance once standing. Ambulation: demonstrates decreased right arm swing, decreased step length, posterior displaced COG without WW. Stair negotiation: ascends and descends 2 practice stairs with BHR and reciprocal forced pattern from therapist, does not demonstrate safety when turning at top of the steps and needs verbal cues for performing steps correctly. Timed Up and Go (sec): 32 sec without AD, CGA from therapsit TREATMENT: Therapeutic Exercise: 1: high kneeing with ww for 70 feet with mod assist without walker and CGA with walker 2: standing marching with BLENDING MACHINE OPERATOR on chair, right LE, 2 seconds up and 2 seconds down x 20 reps with cues for regrouping when fatigued and cues for landing on toes instead of heels Skilled Intervention: Patient was educated in proper exercise technique and purpose for exercises. Skilled judgment was provided in selection of appropriate interventions. Provided written instruction for home exercise program to facilitate proper performance and compliance. Correct performance of therapeutic exercises was facilitated with verbal, visual, tactile and education to about compliance cuing. Therapeutic Activity: 1: sit <> stand with cues for safety, making sure than she squars up to the chair, equal WB, and correct hand placement x 8 reps throughout session 2: POC education with discussion about progression with pt and 3: education about daily PT exercises for progression and strengthening Skilled Intervention: Proper patient guarding to prevent falls/increase patient safety with minimal assistance, contact guard assistance, stand by assist to assist patient while performing all mobility tasks today Educated on proper/safe technique for activities performed today. Gait Trainin: ambulation through gym from station to station with cues to increased right arm swing, increase step length on right, avoid dragging right LE (no shoes today) 2: stair negotation 2 practice steps x 3 reps with BHR and reciprical gait pattern, when turning, cues to picking supervisor right foot Skilled Intervention: Patient was provided minimal assistance, contact guard assistance during pre-gait/gait training to prevent falls and insure safety. Facilitated proper gait cycle with the use of verbal cues for correction of gait deviations identified in the objective section above. Gait belt utilized during session for safety. Skilled judgment used to assess selection of assistive device. Education provided to patient regarding the proper sequence for stair negotiation. Billing: [place]: Therapeutic Exercise (78840): 1:1 time: 15 minutes (1 unit: 8-22 mins) Therapeutic Activity (68840): 1:1 time: 30 minutes (2 units: 23-37 mins) Gait Training (63592): 1:1 time: 10 minutes (1 unit: 8-22 mins) Total time: 55 minutes Leslye Kim PT CNTHERAPY Observed: 09/28/2017 Status: COMPLETED Source: [facility] 4:45 PM [facility] OTHER [facility] REPOSITORY OT/PT/Speech Visit (PTMDRG) MONICA ANNA ([id number]) 1945 F Date Time Provider Department 09/28/17 4:45 PM ELSLYE KIM (PT) PTMDRG Date Time Provider Department Center 09/28/2017 4:45 PM [id number]-HHEKOFMLESLYE KIM*PTMDRG [facility] Reason for Visit: PT Progress Note [1596] PT Discharge [752] Reason For Visit History Recorded Primary Visit Diagnosis:Cerebrovascular accident (CVA), unspecified mechanism ([facility]) [I63.9] Other Visit Diagnoses:Right hemiparesis ([facility]) [G81.91] Abnormality of gait [R26.9] Allergies As of Date: 09/28/2017 Noted Allergy Reaction TOPAMAX (TOPIRAMATE) 01/30/2006 5 - Intolerance CIPRO (CIPROFLOXACIN) 06/08/2005 8 - GI Upset DESYREL (TRAZODONE HCL) 06/08/2005 1 - Mental Status Change MERCURY (MERCURY (BULK)) 06/08/2005 2 - Rash PENICILLINS 06/08/2005 2 - Rash SULFA (SULFONAMIDE ANTIBIOTICS) 06/08/2005 2 - Rash THIMEROSAL 05/12/2017 16 - Unknown Date Reviewed: 09/20/2017 Reviewed by: Francesca Castillo Ma - Fully Assessed Prescriptions as of 09/28/2017 Sig: QUETIAPINE 50 MG TABLET Take 1 tablet by mouth daily * COMBIGAN 0.2 %-0.5 % EYE DROPS Use 1 Drop in the left eye tw* SOLIFENACIN 5 MG TABLET Take 1 tablet by mouth once d* CALCITRIOL 0.25 MCG CAPSULE Take 2 capsules by mouth once* NITROFURANTOIN MACROCRYSTAL 1* Take 1 capsule by mouth twice* CLOPIDOGREL 75 MG TABLET Take 1 tablet by mouth once d* METOPROLOL SUCCINATE ER 25 MG* Take 1 tablet by mouth once d* LISINOPRIL 10 MG TABLET Take 1 tablet by mouth once d* COMPOUNDED PRESCRIPTION Toilet handles/bars. DX abnor* QUETIAPINE 50 MG TABLET Take 0.5 tablets by mouth ramiro* DIAPER,BRIEF,ADULT,DISPOSABLE Diaper change 3 times a day a* X ESOMEPRAZOLE MAGNESIUM 40 MG * Take 40 mg by mouth DAILY (6 * ATORVASTATIN 20 MG TABLET Take 1 tablet by mouth daily * LEVOTHYROXINE 75 MCG TABLET Take 75 mcg by mouth once ramiro* LUMIGAN 0.01 % EYE DROPS Use 1 Drop in the left eye da* DONEPEZIL 10 MG TABLET Take 10 mg by mouth daily at * CALCIUM 600 + D(3) ORAL Take by mouth. 1200 mg of Ca* COMPOUNDED PRESCRIPTION Washable chucks:urinary incon* LEVOTHYROXINE 50 MCG TABLET TAKE ONE TABLET DAILY AND 1.5* SERTRALINE 50 MG TABLET Take 1 tablet by mouth once d* MIRABEGRON ER 50 MG TABLET,EX* Take 50 mg by mouth once victor manuel* TYLENOL ORAL Take 1,000 mg by mouth every * Progress Notes: Leslye Kim, PT 09/28/2017 5:58 PM Signed Episode Visit Count: 14 Therapist That Will Oversee The Plan Of Care: Vanessa Fountain Start of Care Date: 05/25/17 Onset Date: 02/14/16 Plan of Care Certification Date: 09/09/17 Patient Identified by Name and Date of : Yes REHABILITATION AND SPORTS THERAPY PHYSICAL THERAPY PROGRESS REPORT PLAN OF CARE UPDATE: Assessment: Monica Anna exhibits difficulty with right LE weakness and compliance with home exercise program and use of walker. Pt's functional mobility and ambulation has declined since last progress note and pt refuses to use the walker. Therapist educated pt and pt's about performing home exercise program daily without exceptions and using walker for balance. Pt gets frustrated and needs re-direction to perform tasks throughout session. Demonstrates significant poor safety awareness and requires constant verbal cues for safety when approaching sitting surface and negotiation around gym. She continues to be limited with rising from a chair, standing, walking in the house, walking in the community and stair negotiation. She is progressing slower than expected towards her therapy goals as demonstrated by: home exercise program compliance and documented objective information regarding gait. She will benefit from continued skilled therapy requiring intensive PT per MD's orders (from last appointment) in order to improve her functional mobility and gait. Goals Patient will increase strength of R UE to grossly 5/5 to allow patient to perform ADLs --not met Patient will increase strength of B LE to grossly 5/5 to allow patient to normalized gait mechanics--not met Patient will increase flexibility of B heel cords and hamstring to WNL to restore normal mechanics for gait--continue to assess Patient / caregiver will perform sit to stand transfers with modified independence and improved stability AND safety--not met Patient will ambulate 150 feet with least restrictive device with supervision and improved mobiltiy.--not met Patient will demonstrate current home exercise program independently. --ongoing Patient will improve his/her AM-PAC T-scale score by 4 points to indicate a Minimal Clinical Important Difference --continue to assess -- Raw Score: 35 ? -- Scale Score: 52.39 ? -- Modifier: CK ? -- MDC: 56.39 ? -- MDC Severity Modifier: CJ Planned Interventions, Frequency, and Duration: 2x/week, 6 weeks (until the end of october) Total Number of Visits Planned: (TBD) Patient to be seen for Therapeutic exercise;Neuromuscular re-education;Therapeutic activities;Self-fdc management;Gait Training;Patient/Family/Caregiver Education;Functional training;General Conditioning PLAN FOR NEXT VISIT: progress as able Prognosis: Fair Fair due to: chronic nature of impairments;decreased motivation;limited compliance with previous therapy SUBJECTIVE: . Pt reports that her walker Is no good when asked why she does not use it. Pt does not know her home exercise program. Pt arrives to session with her . OBJECTIVE MEASURES WITH LEVEL OF FUNCTION: sit<> stand: decreased WB on right LE with right knee extended, cues for equal WB and pt is unable to perform without mod assist and use of mat/chair support for balance once standing. Ambulation: demonstrates decreased right arm swing, decreased step length, posterior displaced COG without WW. Stair negotiation: ascends and descends 2 practice stairs with BHR and reciprocal forced pattern from therapist, does not demonstrate safety when turning at top of the steps and needs verbal cues for performing steps correctly. Timed Up and Go (sec): 32 sec without AD, CGA from therapsit TREATMENT: Therapeutic Exercise: 1: high kneeing with ww for 70 feet with mod assist without walker and CGA with walker 2: standing marching with BLENDING MACHINE OPERATOR on chair, right LE, 2 seconds up and 2 seconds down x 20 reps with cues for regrouping when fatigued and cues for landing on toes instead of heels Skilled Intervention: Patient was educated in proper exercise technique and purpose for exercises. Skilled judgment was provided in selection of appropriate interventions. Provided written instruction for home exercise program to facilitate proper performance and compliance. Correct performance of therapeutic exercises was facilitated with verbal, visual, tactile and education to about compliance cuing. Therapeutic Activity: 1: sit <> stand with cues for safety, making sure than she squars up to the chair, equal WB, and correct hand placement x 8 reps throughout session 2: POC education with discussion about progression with pt and 3: education about daily PT exercises for progression and strengthening Skilled Intervention: Proper patient guarding to prevent falls/increase patient safety with minimal assistance, contact guard assistance, stand by assist to assist patient while performing all mobility tasks today Educated on proper/safe technique for activities performed today. Gait Trainin: ambulation through gym from station to station with cues to increased right arm swing, increase step length on right, avoid dragging right LE (no shoes today) 2: stair negotation 2 practice steps x 3 reps with BHR and reciprical gait pattern, when turning, cues to picking supervisor right foot Skilled Intervention: Patient was provided minimal assistance, contact guard assistance during pre-gait/gait training to prevent falls and insure safety. Facilitated proper gait cycle with the use of verbal cues for correction of gait deviations identified in the objective section above. Gait belt utilized during session for safety. Skilled judgment used to assess selection of assistive device. Education provided to patient regarding the proper sequence for stair negotiation. Billing: [place]: Therapeutic Exercise (80456): 1:1 time: 15 minutes (1 unit: 8-22 mins) Therapeutic Activity (76347): 1:1 time: 30 minutes (2 units: 23-37 mins) Gait Training (50130): 1:1 time: 10 minutes (1 unit: 8-22 mins) Total time: 55 minutes MELVIN Avila PT 11/30/2017 1:00 PM Signed [facility] REHABILITATION AND SPORTS THERAPY PHYSICAL THERAPY DISCONTINUANCE OF CARE Plan of Care Period: Start of Care Date: 05/25/17 Last Visit Date: 09/28/2017 Therapy Program: The following is a summary of the interventions provided for this Therapeutic exercise;Neuromuscular re-education;Therapeutic activities;Self-fdc management;Gait Training;Patient/Family/Caregiver Education;Functional training;General Conditioning episode of care; Assessment: The following is the goal status: See note below Based on the most recent progress report, patient was progressing as expected toward functional goals based on see note below Reason for Discontinuation of Care: Patient has not returned to therapy or scheduled additional follow-up appointments. Leslye Kim PT Letter Text PROGRESS Observed: 09/08/2017 Status: COMPLETED Source: [facility] 1:34 PM CLINIC OTHER CAMPUS REPOSITORY HNO ID: [id number] Author: Tammi (Wound Specialist) Kwame Sanchez [facility]/COMMERCIAL LINES MANAGER Service: (none) Author Type: Speech Language Pathologist Type: Progress Notes Filed: 09/08/2017 3:46 PM Note Text: [facility] REHABILITATION AND SPORTS THERAPY SPEECH THERAPY TREATMENT NOTE ASSESSMENT: Monica Anna tolerated today's treatment visit well. She demonstrated difficulty with expressive communication skills. The patient will continue to benefit from continued skilled speech therapy. Tolerance To Treatment Session: Tolerated Full Session PLAN: Planned Interventions, Frequency, and Duration: Current Frequency: 2x/week Duration: 8 weeks Plan for next visit: enahanboo use of augmentative tools to support verbalization SUBJECTIVE: Patient is reporting that she is 'getting better'. Patient is accompanied to therapy by her (Gaurav) Home Exercise Program: admits that she is looking at the AAC book to learn the words that are available and attempting to read the words out loud OBJECTIVE: MEASURES WITH LEVEL OF FUNCTION: Professional training and skilled instructions were provided as follows: Expressive language skills Alternative-augmentative communications skills TREATMENT: Speech/Language Therapy (13786): Skilled Intervention: - practiced with the patient on the utilization of a odr-fbusab-gulskqfzqd augmentative and alternative communication device. Discussed techniques on how to utilize the book to supplement her verbal attempts and how to connect words to express greater thoughts and /or answer questions -pt continues to require assistance in locating ramos words; increased familiarity of the book will be beneficial; Discussed how completing the home exercises would increase her familiarity and comfort with the AAC book -explored and practiced use of multi-modality communication skills that would assist her in overall communication. Defined need for use of verbal skills, written skills, gestural skills and use of the AAC in a combined effort to efficiently communicate basic thoughts / needs. Demonstrated the various tools in an effective technique to communicate a variety of thoughts and provided these examples for home work exercises. Reinforced the need for the patient to practice these skills in a formal setting that will increase her comfort levels to utilize in 'real life' situations. (Gaurav) agreed to assist the patient in the home exercises. 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 [I69.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] Other Visit Diagnosis:Expressive aphasia [R47.01] Allergies As of Date: 09/08/2017 Noted Allergy Reaction TOPAMAX (TOPIRAMATE) 01/30/2006 5 - Intolerance CIPRO (CIPROFLOXACIN) 06/08/2005 8 - GI Upset DESYREL (TRAZODONE HCL) 06/08/2005 1 - Mental Status Change MERCURY (MERCURY (BULK)) 06/08/2005 2 - Rash PENICILLINS 06/08/2005 2 - Rash SULFA (SULFONAMIDE ANTIBIOTICS) 06/08/2005 2 - Rash THIMEROSAL 05/12/2017 16 - Unknown Date Reviewed: 09/05/2017 Reviewed by: Deric Mason - Fully Assessed Prescriptions as of 09/08/2017 Sig: QUETIAPINE 50 MG TABLET Take 1 tablet by mouth daily * COMBIGAN 0.2 %-0.5 % EYE DROPS Use 1 Drop in the left eye tw* SOLIFENACIN 5 MG TABLET Take 1 tablet by mouth once d* CALCITRIOL 0.25 MCG CAPSULE Take 2 capsules by mouth once* NITROFURANTOIN MACROCRYSTAL 1* Take 1 capsule by mouth twice* CLOPIDOGREL 75 MG TABLET Take 1 tablet by mouth once d* METOPROLOL SUCCINATE ER 25 MG* Take 1 tablet by mouth once d* LISINOPRIL 10 MG TABLET Take 1 tablet by mouth once d* COMPOUNDED PRESCRIPTION Toilet handles/bars. DX abnor* QUETIAPINE 50 MG TABLET Take 0.5 tablets by mouth ramiro* DIAPER,BRIEF,ADULT,DISPOSABLE Diaper change 3 times a day a* X ESOMEPRAZOLE MAGNESIUM 40 MG * Take 40 mg by mouth DAILY (6 * ATORVASTATIN 20 MG TABLET Take 1 tablet by mouth daily * LEVOTHYROXINE 75 MCG TABLET Take 75 mcg by mouth once ramiro* LUMIGAN 0.01 % EYE DROPS Use 1 Drop in the left eye da* DONEPEZIL 10 MG TABLET Take 10 mg by mouth daily at * CALCIUM 600 + D(3) ORAL Take by mouth. 1200 mg of Ca* COMPOUNDED PRESCRIPTION Washable chucks:urinary incon* LEVOTHYROXINE 50 MCG TABLET TAKE ONE TABLET DAILY AND 1.5* SERTRALINE 50 MG TABLET Take 1 tablet by mouth once d* MIRABEGRON ER 50 MG TABLET,EX* Take 50 mg by mouth once victor manuel* TYLENOL ORAL Take 1,000 mg by mouth every * Progress Notes: Tammi Sanchez, CCC-COMMERCIAL LINES MANAGER, CCC/COMMERCIAL LINES MANAGER 09/08/2017 3:46 PM Signed [facility] SPEECH THERAPY TREATMENT NOTE ASSESSMENT: Monica Anna tolerated today's treatment visit well. She demonstrated difficulty with expressive communication skills. The patient will continue to benefit from continued skilled speech therapy. Tolerance To Treatment Session: Tolerated Full Session PLAN: Planned Interventions, Frequency, and Duration: Current Frequency: 2x/week Duration: 8 weeks Plan for next visit: enahance use of augmentative tools to support verbalization SUBJECTIVE: Patient is reporting that she is 'getting better'. Patient is accompanied to therapy by her (Gaurav) Home Exercise Program: admits that she is looking at the AAC book to learn the words that are available and attempting to read the words out loud OBJECTIVE: MEASURES WITH LEVEL OF FUNCTION: Professional training and skilled instructions were provided as follows: Expressive language skills Alternative-augmentative communications skills TREATMENT: Speech/Language Therapy (70452): Skilled Intervention: - practiced with the patient on the utilization of a mhs-xgdaut-vnhklctiwg augmentative and alternative communication device. Discussed techniques on how to utilize the book to supplement her verbal attempts and how to connect words to express greater thoughts and /or answer questions -pt continues to require assistance in locating ramos words; increased familiarity of the book will be beneficial; Discussed how completing the home exercises would increase her familiarity and comfort with the AAC book -explored and practiced use of multi-modality communication skills that would assist her in overall communication. Defined need for use of verbal skills, written skills, gestural skills and use of the AAC in a combined effort to efficiently communicate basic thoughts / needs. Demonstrated the various tools in an effective technique to communicate a variety of thoughts and provided these examples for home work exercises. Reinforced the need for the patient to practice these skills in a formal setting that will increase her comfort levels to utilize in 'real life' situations. (Gaurav) agreed to assist the patient in the home exercises. Billing: Speech Treatment Adult ([id number]) Total time: 60 minutes Tammi Sanchez, CCC-COMMERCIAL LINES MANAGER Tammi Sanchez CCC-COMMERCIAL LINES MANAGER, CCC/COMMERCIAL LINES MANAGER 12/07/2017 10:27 AM Signed [facility] SPEECH DISCONTINUANCE OF CARE Plan2 of Care Period: Last Visit Date: 09/08/2017 Therapy Program: The following is a summary of the interventions provided for this episode of care; attention was being focused on the use of a non-speech generating augmentative and alternative communication device. Assessment: The following is the goal status: Goals for Episode of Care Updated: 08/29/2017 Goals for Episode of Care: created on 05/30/2017 through 08/28/2017. meterman objective(s): Pt will effectively communicate ADL medical and social wants/needs given their functional setting with 100% accuracy ?? Short term objective(s): Pt will... 1.) ?Pt will improve her verbal expression skills to effectively communicate basic ADL information regarding herself ?? B.) ?Be able to produce [employer] 100% of the time without prompting (baseline = able to count and state days of week with initial word prompting) Current Level of Function: PARTIALLY MET - Goal to be discontinued at this time. ?? C.) ?Be able to complete sentences with good intelligibility with 90% accuracy (baseline = 7/10 trials - 70% accuracy) Current Level of Function: ? PARTIALLY MET - Goal to be discontinued at this time ? ?? D.) ?Be able to complete confrontational naming tasks with 90% accuracy (baseline = 9/15 trials = 60% accuracy) Current Level of Function: PARTIALLY MET - Goal to be discontinued at this time ?? 2.) ?Pt will improve functional writing skills to effectively communicate basic ADL information regarding herself ?? B.) ?Be able to write 1 syllable words from dictation (baseline = 3/7 trials = 43% accuracy) Current Level of Function: PARTIALLY MET - Goal to be discontinued at this time ? 3.) ?Pt will improve auditory comprehension skills to effectively answer questions regarding herself A.) ?Be able to answer verbally presented Yes/No questions with 90% accuracy (baseline = 15 trials = 67% accuracy) Current Level of Function: PARTIALLY MET ?- Goal to be discontinued at this time ?? NEW GOAL ADDED 07/24/2017 B.) Be able to answer basic 'WH' questions with single word response with 90% accuracy (baseline = 3/10 trials) Current Level of Function: PARTIALLY MET - variable answers requiring extended time. Goal to be discontinued at this time. ? NEW GOALS ADDED 08/29/2017 Pt will: 1.) Be able to demonstrate ability to convey basic needs/ make requests to caregivers by locating targeted words in word based AAC independently with 100% accuracy. ? 2.) Initiate information, ask questions, express feelings and opinions through spelling or use of words within word based AAC device during a 1:1 situation independently with 100% accuracy Based on most recent progress report, patient was progressing slower than expected toward functional goals based on level of difficulty and reduced desire to utilize speech-generating device. Reason for Discontinuation of Care: -Patient has not returned to therapy or scheduled additional follow-up appointments. -The speech-language pathology department remains available for further consultation as deemed necessary and/or appropriate by the referring physician. 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 ALLERGIES ALLERGIES DATE TYPE / NAME / CODE REACTION SEVERITY SOURCE CODE 08/20/2018 Drug Penicillins/[id number] Unknown Unknown [place] Allergy/41 476(RXNORM) Community [id number]([facility]) Repository 08/20/2018 Drug Sulfa (Sulfonamide Unknown Unknown Rogers Allergy/41 Antibiotics)/G24621 Community [id number]( 0491(RXNORM) [facility]) Repository 08/20/2018 Drug ciprofloxacin/F0060 Unknown Unknown Charlene Allergy/41 10405(RXNORM) Community 8623464([facility]) Repository 08/20/2018 Drug thimerosal/[id number] Rash Unknown Charlene Allergy/41 25(RXNORM) Community 0820104([facility]) Repository 05/09/2018 Drug topiramate/[id number] Unknown Unknown Charlene Allergy/41 53(RXNORM) Community 7307468([facility]) Repository 05/12/2017 DRUG THIMEROSAL UNKNOWN [facility]/41 [facility] Other 3004276([facility]) Repository 01/30/2006 DRUG TOPIRAMATE INTOLERANCE Med [facility]41 [facility] Other 7946803([facility]) Repository 06/08/2005 DRUG CIPROFLOXACIN GI UPSET [facility]41 [facility] Other 7926419([facility]) Repository 06/08/2005 DRUG TRAZODONE HCL Mental Chg [facility]41 [facility] Other 9855726([facility]) Repository 06/08/2005 DRUG/08580 MERCURY (BULK) RASH [place] 1003([facility] Other D CT) [place] Repository 06/08/2005 Drug PENICILLINS RASH [place] Class/4195 Clinic Other 83822([facility] ED [facility]) Repository 06/08/2005 Drug SULFA (SULFONAMIDE RASH [place] Class/4195 ANTIBIOTICS) Clinic Other 92661([facility] ED [facility]) Repository NG/7263649 TOPIRAMATE [facility] Rep[facility] NG/2233287 CIPROFLOXACIN [facility] 06([facility] Repository NG/2950835 TRAZODONE HCL [facility] 06([facility] Repository NG/9405050 MERCURY (BULK) [facility] 06([facility]OMED [facility]) Repository NG/3890528 PENICILLINS [facility] 06([facility]) Repository NG/6192869 SULFA (SULFONAMIDE [facility] 06(SNOMED ANTIBIOTICS) [facility]) Repository NG/4149606 THIMEROSAL [facility] 06([facility]) Repository ENCOUNTERS ENCOUNTERS ADMIT/DISCHARGE ACCOUNT NUMBER ADMITTING ENCOUNTER LOCATION SOURCE CLASS 10/03/2018 [id number] Ambulatory [facility] ding:OLS.AVE Repository D 09/05/2018 [id number] Ambulatory [facility] ding:OLS.AVE Repository D 08/21/2018/08/21/20 [id number] Ambulatory [address] ding:SDCRoom Repository : AC10 08/08/2018/09/01/20 [id number] [facility] Inpatient [address] ding:TCURoom Repository : QZY79Vhe: 1 08/06/2018/08/08/20 [id number] [facility] Ambulatory [address] ding:SL3Jrmb Repository : GO480Vve: 1 08/06/2018 [id number] Taina Duncan Ambulatory BMSBuilding: Charlene Chantell BMS.[facility] Repository 08/06/2018 [id number] Taina Duncan Ambulatory BMSBuilding: [place] BMS.[facility] Repository 08/06/2018 [id number] Taina Duncan Ambulatory BMSBuilding: [place] BMS.[facility] Repository 08/06/2018 [id number] Ambulatory BMSBuilding: Charlene [facility] Repository 07/25/2018/07/25/20 [id number] Ambulatory [address] Repository 05/09/2018/05/09/20 [id number] Emergency [address] ding:ED Repository 04/26/2018/04/30/20 [id number] Ambulatory [address] Repository 03/28/2018/03/28/20 [id number] Ambulatory [address] Repository 03/22/2018/03/22/20 [id number] Ambulatory [address] Repository 03/22/2018/03/22/20 [id number] Ambulatory [place] [address] MEDICAL Repository CENTERBuildi ng:AKCT 03/21/2018/03/21/20 [id number] Ambulatory BMSBuilding: Charlene 18 BMS.[facility] Repository 02/15/2018/02/16/20 [id number] Ambulatory [address] Repository 02/15/2018/02/16/20 [id number] Ambulatory [place] [address] MEDICAL Repository CENTERBuildi ng:AKCT 01/30/2018/01/31/20 [id number] Ambulatory BMSBuilding: Rogers 18 BMS.[facility] Repository 01/29/2018/01/30/20 [id number] Ambulatory [address] Repository 01/24/2018/01/28/20 [id number] [facility], Inpatient [address] Encounter [facility] Repository 01/24/2018/01/28/20 [id number] ayyat, Inpatient [place] [address] Encounter [facility] MEDICAL Repository BURGOONBuildi nRoom: 9111Bed: 01/08/2018/01/13/20 [id number] [facility], Inpatient [address] Encounter [facility] Repository 01/08/2018/01/13/20 [id number] [facility] [place] [address] Encounter [facility] MEDICAL Repository BURGOONBuildi nRoom: 9105Bed: 11/27/2017/11/27/19 [id number] Ambulatory [address] Repository 11/27/2017/11/27/19 [id number] Ambulatory [place] [address] MEDICAL Repository CENTERBuildi ng:AKSTWP 11/23/2017/11/23/19 [id number] Ambulatory BMSBuilding: Charlene 18 [facility] Repository 11/21/2017/11/27/19 [id number] Ambulatory [address] Repository 09/28/2017/09/28/20 [id number] Ambulatory [address] Other [place] Repository 09/08/2017/09/08/20 [id number] Ambulatory [address] Repository PAYERS PAYERS ENCOUNTER GUARANTOR PAYER SUBSCRIBER SOURCE 10/03/2018 MONICA T Primary MONICA T Charlene [id number] [place] Insurance:TIFFANIE ANNADOB: Community LNAPT 1DGUFFEY, MEDICARE SENIOR [id number] [place] [address]Lsz: ADVANTAPolicy Number: Repository [id number] (HP) Date:4558-65-17BS [address] [place] [address] 20086JW: 10/03/2018 Secondary MONICA T Rogers Insurance:[facility] [id number] Hospital Number: Repository [id number] Date:4256-38-85KV [address] [place] [address] 24909QI: 10/03/2018 Tertiary NOT GIVENUNK Charlene Insurance:SELF PAY [facility] Hospital Number: Effective Repository Date:2018-10-03 09/05/2018 JONAH Naomie Primary MONICA T Rogers [id number] [place] Insurance:TIFFANIE VUADELAB: Community LNAPT 1DGUFFEY, MEDICARE SENIOR [id number] [place] [address]Idc: ADVANTAPolicy Number: Repository [id number] (HP) Date:3154-79-95TB [address] [place] [address] 30400DN: 09/05/2018 Secondary MONICA T Rogers Insurance:[facility]: [facility] [id number] Hospital Number: Repository [id number] Date:3927-99-33GN [address] [address]TX: 09/05/2018 Tertiary NOT GIVENUNK Rogers Insurance:SELF PAY [facility] Hospital Number: Effective Repository Date:2018-09-05 08/21/2018 JONAH Akbar Primary MONICA T Charlene [id number] [place] Insurance:ANTHEM FIFERDOB: Community LANEAPT MEDICARE SENIOR [id number] ADVANTAPolicy Number: Repository [id number]: (330) [id number] [phone] () Date:0610-20-97LF [address] [address]NH: 08/21/2018 Secondary MONICA T Rogers Insurance:[facility] [id number] Hospital Number: Repository [id number] Date:0182-69-46ZV [address] [address]FP: 08/21/2018 Tertiary NOT GIVENUNK Charlene Insurance:SELF PAY [facility] Hospital Number: Effective Repository Date:2018-08-16 08/08/2018 JONAH Akbar Primary MONICA T Rogers [id number] [place] Insurance:ANTHEM FIFERDOB: Community LANEAPT MEDICARE SENIOR [id number] ADVANTAPolicy Number: Repository [id number]: (330) [id number] [phone] () Date:6774-45-61RD [address] [address]ME: 08/08/2018 Secondary MONICA T Charlene Insurance:[facility]: [facility] [id number] Hospital Number: Repository [id number] Date:7707-94-69EP [address] [address]RZ: 08/08/2018 Tertiary NOT GIVENUNK Rogers Insurance:SELF PAY [facility] Hospital Number: Effective Repository Date:2018-08-08 08/06/2018 JONAH Akbar Primary MONICA T Rogers [id number] [place] Insurance:ANTHEM FIFERDOB: Community LANEAPT MEDICARE SENIOR [id number] ADVANTAPolicy Number: Repository [id number]: (330 [id number] [phone] (HP) Date:4517-16-41JU [id number] [place] [address]FA: 08/06/2018 Secondary MONICA T Rogers Insurance:[facility]: [facility] [id number] Hospital Number: Repository [id number] Date:1960-90-45PH [address] [address]QE: 08/06/2018 Tertiary NOT GIVENUNK Rogers Insurance:SELF PAY [facility] Hospital Number: Effective Repository Date:2018-08-06 08/06/2018 JONAH Akbar Primary MONICA T Rogers [id number] [place] Insurance:ANTHEM FIFERDOB: Community LANEAPT MEDICARE SENIOR [id number] ADVANTAPolicy Number: Repository [id number]: 330 [id number] [phone] (HP) Date:9379-61-66NV [address] [place] [address] 42587KS: 08/06/2018 Secondary MONICA T Rogers Insurance:[facility]: [facility] [id number] Hospital Number: Repository [id number] Date:2246-08-83UO [address] [address]TQ: 08/06/2018 Tertiary NOT GIVENUNK Rogers Insurance:SELF PAY [facility] Hospital Number: Effective Repository Date:2018-08-06 08/06/2018 JONAH Akbar Primary MONICA T Charlene [id number] [place] Insurance:ANTHKELLEE VUERDOB: Community LANEAPT MEDICARE SENIOR [id number] ADVANTAPolicy Number: Repository [id number]: (330 [id number] [phone] (HP) Date:4615-16-45EB [address]VMFPJBL [place] [address]NP: 08/06/2018 Secondary MONICA T Rogers Insurance:[facility]: [facility] [id number] Hospital Number: Repository [id number] Date:3545-36-06YA [address] [address]RL: 08/06/2018 Tertiary NOT GIVENUNK Charlene Insurance:SELF PAY [facility] Number: Effective Repository Date:2018-08-06 08/06/2018 JONAH Akbar Primary MONICA T Rogers [id number] [place] Insurance:TIFFANIE LASSITERB: Community LANEAPT MEDICARE SENIOR [id number] ADVANTAPolicy Number: Repository [id number]: 330 [id number] [phone] () Date:5687-38-54MD [address] [address]QE: 08/06/2018 Secondary MONICA T Rogers Insurance:[facility]: [facility] [id number] Hospital Number: Repository [id number] Date:9770-76-21GD [address] [address]OF: 08/06/2018 Tertiary NOT GIVENUNK Rogers Insurance:SELF PAY [facility] Number: Effective Repository Date:2018-08-06 08/06/2018 JONAH Akbar Primary MONICA T Charlene [id number] [place] Insurance:TIFFANIE LASSITERB: Community LANEAPT MEDICARE SENIOR [id number] ADVANTAPolicy Number: Repository [id number]: (330 [id number] [phone] (HP) Date:6156-89-31XM [address] [address]FM: 08/06/2018 Secondary MONICA T Charlene Insurance:[facility] [id number] Hospital Number: Repository [id number] Date:3721-64-93PR [address] [address]AZ: 08/06/2018 Tertiary NOT GIVENUNK Rogers Insurance:SELF PAY [facility] Number: Effective Repository Date:2018-08-06 05/09/2018 JONAH Akbar Primary MONICA T Rogers [id number] [place] Insurance:[facility] FIFERDOB: Community LANEAPT *IN [facility] [id number] Number: Repository [address]Bhq: (215) [id number] [phone] () Date:5524-65-23OY [address] [place] [address]ZX: 05/09/2018 Secondary MONICA T Charlene Insurance:ANTHEMPolic FIFERDOB: Community y Number: [id number] Hospital [id number] Repository Date:3622-99-47NK [address], [place] [address]SQ: 05/09/2018 Tertiary NOT GIVENUNK Charlene Insurance:SELF PAY [facility] Number: Effective Repository Date:2018-05-09 03/22/2018 MONICA T Primary MONICA T [facility] FIFERDOB: Insurance:ANTHEM FIFERDOB: [facility] MEDIBLUE DUAL [id number] Repository [place] [address] [place] MEDICAREPolicy [address]Fvu: (932) Number: [phone] () [id number] Date: 03/22/2018 Secondary MONICA T [facility] Insurance:[facility] FIFERDOB: Health System MEDICAID [facility] [id number] Repository Number: [id number] Date: 03/21/2018 JONAH Akbar Primary MONICA T Charlene [id number] [place] Insurance:ANTHEMPolic FIFERDOB: Community LNAPT [facility] y Number: [id number] [facility] [address]Qxh: [id number] Repository Date:6113-82-58QH BOX (QG) [place]1619[place], [place] [address]ZQ: 03/21/2018 Secondary MONICA T Charlene Insurance:[facility] FIFERDOB: Community *IN [facility] [id number] Hospital Number: Repository [id number] Date:5712-32-72IE[address] [address]TP: 03/21/2018 Tertiary NOT GIVENUNK Charlene Insurance:SELF PAY [facility] Number: Effective Repository Date:2018-04-03 02/15/2018 MONICA T Primary MONICA T [facility] FIFERDOB: Insurance:ANTHEM FIFERDOB: [facility] MEDIBLUE DUAL [id number] [facility] [place] MEDICAREPolicy [address]Lws: 330) Number: [phone] () [id number] Date: 02/15/2018 Secondary MONICA T [facility] Insurance[facility] FIFERDOB: Health System MEDICAID [facility] [id number] Repository Number: [id number] Date: 01/30/2018 JONAH Akbar Primary MONICA T Charlene [id number] [place] Insurance:[facility] FIFERDOB: Community LANEAPT *IN [facility] [id number] Number: Repository [address]Hcj: 330 [id number] [phone] () Date:2546-54-39YX[address] [address]KX: 01/30/2018 Secondary MONICA T Rogers Insurance:ANTHEMPolic FIFERDOB: Community y Number: [id number] Hospital [id number] Repository Date:1975-18-12SR[address] [address]GJ: 01/30/2018 Tertiary NOT GIVENUNK Charlene Insurance:SELF PAY [facility] Number: Effective Repository Date:2018-01-30 01/24/2018 MONICA T Primary MONICA T [facility] General FIFERDOB: Insurance:ANTHEM FIFERDOB: [facility] MEDIBLUE DUAL [id number] Repository [address] [place] MEDICAREPolic [id number]: (330) Number: [phone] () [id number] Date: 01/24/2018 Secondary MONICA T [place] General [facility] MEDICAID ONLYOss Healthy [id number] Repository Number: [id number] Date: 01/08/2018 MONICA T Primary MONICA T [place] General FIFERDOB: Insurance[facility]: [facility] DUAL [id number] Repository [address] [place] MEDICAREPolicy 19110Rqu: (330) Number: [phone] () [id number] Date: 01/08/2018 Secondary MONICA T [place] General Insurance[facility] [id number] Repository Number: [id number] Date: 11/27/2017 MONICA T Primary MONICA T [place] General FIFERDOB: Insurance[facility] MEDICAREPolicy [id number] Repository [address] Number: [place], [place] [id number]: (330) Date: [phone] () 11/27/2017 Secondary MONICA T [place] General Insurance[facility] MEDICAIDPolicy [id number] Repository Number: [id number] Date: 11/23/2017 JONAH Naomie Primary MONICA T [place] [id number] [address] Insurance[facility] Community [address]ANEAPT *IN [facility] [id number] Number: Repository [id number]: [phone]) [id number] [phone] () Date:[id number] [place] [address]GN: 11/23/2017 Secondary MONICA T Charlene Insurance:ANTHEMPolic FIFERDOB: Community y Number: [id number] [id number] Repository Date:[id number], [place] [address]CE: 11/23/2017 Tertiary NOT GIVENUNK [place] Insurance:SELF PAY [facility] Number: Effective Repository Date:2017-11-23
== END ==
LOC: OLS.AVED 06:55
PROVIDERS: Visit Provider Family Medicine
DX: I10 Essential (primary) hypertension (principal); R53.83 Other fatigue
CPT/HCPCS: 36415; 80048; 85027

== ENCOUNTER 2019-08-11 21:30 | Emergency (ER) | payer MEDICARE, MEDICAID, SELFPAY ==
[2019-08-11 21:31] VITALS: BP 156/82; PULSE 55; RESP 15; TEMP 36.4; O2SAT 98; BMI 25.6
--- NOTE | 2019-08-11 21:49 | CT_ITS ---
STUDY: CT ABDOMEN AND PELVIS WITH CONTRAST REASON FOR EXAM: Female, 74 years old. PERIUMBILICAL PAIN. Hx of shunt and CVA 2016. Prior appendectomy. HTN, RA and hypothyroid RADIATION DOSAGE (If Supplied By Facility): CTDIvol = ( 23.09 ) mGy, DLP = ( 1150.16 ) mGycm TECHNIQUE: Transaxial images were obtained from the dome of the diaphragm to the symphysis pubis without oral contrast. 100ml ml of Isovue 370 contrast was administered. Sagittal and coronal images were reconstructed. Individualized dose optimization techniques were used for this CT. COMPARISON: None. FINDINGS: A circumscribed 3.91 cm ovoid nodule is present in the midline and posterior aspect of the left breast that should be further evaluated with diagnostic mammogram and ultrasound. 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 Mild edema is seen in the bilateral lung bases. Normal liver. Normal gallbladder and extrahepatic biliary system. Normal spleen. Normal pancreas. Normal bilateral adrenal glands. Mild cortical atrophy is seen in both kidneys. No hydronephrosis or renal masses. A small cyst is seen in the upper pole of the left kidney. Normal visualized stomach. Normal small intestine. Normal colon. No bowel dilatation or obstruction. No free air or free fluid. There is non-visualization of the appendix. There is diffuse atherosclerotic calcification of the abdominal aorta with elongation and tortuosity, but without a demonstrated aneurysm. Normal inferior vena cava. Normal retroperitoneum. Normal urinary bladder. There is a small umbilical hernia containing fat. Normal osseous structures. CT/Abdomen/Pelvis W IV Cont ONLY IMPRESSION: 1. No bowel dilatation or obstruction. No free air or free fluid. 2. A circumscribed 3.91 cm ovoid nodule is present in the midline and posterior aspect of the left breast that should be further evaluated with diagnostic mammogram and ultrasound. 3. There is a small umbilical hernia containing fat. Electronically Signed: Oliverio Cartwright MD at 23:24 EDT , Service support ,
--- NOTE | 2019-08-11 21:52 | ED.VISSUMM ---
- ER Visit Summary Date of Service: 08/11/19 Chief Complaint: Periumbilical abdominal pain for months History of Present Illness: The patient is a 74 F history of prior stroke with speech difficulty and right-sided weakness. Also history of anemia. Prior appendectomy and hysterectomy. Reportedly up for the patient and her she has had periumbilical and lower abdominal pain for 2 to 3 months. It is worsened over the last week. Associated nausea and vomiting x1 today. No fever no chills. No dysuria. At times she is had some diarrhea at other times she is had constipation. She has had a bowel movement last 48 hours. No melena. No hematuria. No abdominal trauma. She has not had any work-up on this in the last several months. Physical Examination: Elderly female accompanied by her . No acute distress. Vital signs are stable afebrile. H EENT exam unremarkable neck nontender. No lymphadenopathy. Lungs clear to auscultation bilaterally. Heart regular rhythm no murmur. Abdomen soft. Nondistended. Normal bowel sounds. No hernias or masses. No pulsatile mass. Minimally tender in the periumbilical region. Right upper right lower quadrants are unremarkable. There is no peritoneal signs. Patient is moving all 4 extremities. No edema. Neurologically she is awake. She is alert. Her speech is slow and deliberate from her prior stroke. She is weaker on the right side than the left again from her prior stroke. Test Results: CBC White count is 7. Hemoglobin 12. No bands. Chemistries unremarkable normal BUN and creatinine and gap. Liver enzymes normal. Lipase normal. UA consistent with infection with grade 100 white cells 4+ bacteria and positive nitrates. A culture was also ordered. CAT scan of the abdomen pelvis with IV contrast shows no acute abnormality. 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 Emergency Department Course and Treatment: Older female with 2 to 3 months of abdominal pain is gotten worse in the last week. Relatively benign exam. CAT scan labs are being obtained. She will be treated with a liter of fluid and Zofran. Repeat exam the patient is doing well. I discussed all test results of both her and her . She will be started on Keflex for her UTI. Again a urine culture sent. And she can follow-up with primary care physician Dr. Andrew Andino from the pain clinic. Treatment Plan: Keflex 500 4 times daily for 10 days for UTI. Follow-up with her primary care physician. Disposition: Discharge Impression: Acute abdominal pain Acute UTI Hx of Prior CVA This note was generated with [employer] dictation software. It may contain incorrect words, spelling, and punctuation that were not noted in review of the chart prior to signing ED Disposition - Plan for ED Patient: Referrals: Andrew Andino MD [Primary Care Provider] -
[2019-08-11 22:06] LABS: Hematocrit 39.4 % (37-47); Hemoglobin 12.4 g/dL (12.0-15.0); Red Blood Count 4.65 M/mm3 (4.2-5.4); White Blood Count 7.4 K/mm3 (4.4-11.0)
[2019-08-11 22:07] LABS: Absolute Lymphocyte Count 1.53 X10^3/uL (0.83-4.51); Basophil# 0.04 X10^3/uL; Basophil% 0.5 % (0-1); Eosinophil# 0.24 X10^3/uL; Eosinophils% 3.2 % (0-5); Lymphocyte # 1.53 X10^3/ul (4.0); Lymphocyte % 20.6 % (19-41); Mean Corp Hgb Conc 31.5 g/dL (32-36); Mean Corpuscular Hgb 26.7 pg (27.0-32.0); Mean Corpuscular Volume 84.7 fL (81-99); Mean Platelet Vol. 10.5 fl (6.2-12.0); Monocyte# 0.61 X10^3/uL; Monocyte% 8.2 % (0-10); NRBC Flagged by Analyzer 0 % (0-5); Neutrophil # 4.97 X10^3/uL (2.7-7.7); Neutrophil % 67.1 % (47-70); Platelet Count 242 K/mm3 (150-450); RBC Distribution Width CV 13.9 % (11.6-14.6); RBC Distribution Width SD 42.8 fl (35.1-43.9)
[2019-08-11] MEDS: Ondansetron 4 MG/2 ML Vial IV (22:17)
[2019-08-11] MEDS: 0.9% Normal Saline 1,000 ML 1000 ML IV (22:17)
[2019-08-11 22:21] LABS: AST(SGOT) 15 U/L (15-37); Alanine Aminotransfer ALT/SGPT 19 U/L (13-56); Albumin, Serum 3.6 g/dL (3.2-5.0); Alkaline Phosphatase 72 U/L (45-117); Anion Gap 5 (5-15); BUN 19 mg/dL (7-18); BUN/Creat Ratio 15.8 RATIO (10-20); Bilirubin, Direct 0.08 mg/dL (0.00-0.30); Calcium,Total 8.6 mg/dL (8.5-10.1); Chloride 106 mmol/L (98-107); EST Glomerular Filtration Rate 47 mL/min (>60); Est Glom Filt Rate - Afr Amer 57 mL/min (>60); Estimated Creatinine Clearance 37.57 ml/min; Globulin 3.9 g/dL (2.2-4.2); Glucose 98 mg/dL (74-106); Lipase 287 U/L (73-393); Potassium 3.8 mmol/L (3.5-5.1); Protein, Total 7.5 g/dL (6.4-8.2); Sodium Level 141 mmol/L (136-145)
[2019-08-11 22:35] LABS: Mucous, Urine 0 SEEN /hpf (<or=2+); Red Blood Cells-Urine 0 SEEN /hpf (0-5)
[2019-08-11 22:47] LABS: Color, Urine Yellow (Yellow); Glucose, Dipstick Normal (Normal); Ketone-Dipstick 5 mg/dl (Negative); Leukocyte Esterase-Dipstick 500 /ul (Negative); Nitrite-Dipstick Positive (Negative); Occult Blood-Urine 25 /ul (Negative); Protein-Dipstick 15 mg/dl (Negative); Urine Bilirubin Dipstick Negative (Negative); Urine Clarity Cloudy (Clear); Urine Urobilinogen Normal (Normal)
[2019-08-11 22:57] LABS: White Blood Cells >100 SEEN /hpf (0-5)
[2019-08-11 22:59] LABS: Bacteria 4+ /hpf (None Seen); Squamous Epithelial Cells - UA 0-5 SEEN /hpf (5-10); Transitional Epithelial - Ur 0-5 SEEN /hpf (0-5)
--- NOTE | 2019-08-11 23:14 | ED.DEP ---
ED Disposition - Plan for ED Patient: Disposition: Home or Assisted Living Instructions: Bladder Infection, Female (Adult) Prescriptions: Cephalexin [Keflex] 500 mg PO Q6 #40 cap Prescription Printed Referrals: Andrew Andino MD [Primary Care Provider] - 3-5 Days Additional Instructions: Plenty of fluids and rest. You have a bladder infection which we will treat with antibiotic Keflex. 1 pill 4 times a day for 10 days. A urine culture was sent. Follow-up with your primary care physician Dr. Andrew Andino this week he can recheck you to see how you are doing and check the urine culture to make sure that we started you on the correct antibiotic to treat the infection. Return to the ER if you are feeling a lot worse.
[2019-08-11] MEDS: Cephalexin 250 MG Capsule 500 MG PO (23:36)
[2019-08-11] MEDS: MethylPREDNISolone 125 MG/2 ML Vial IV (23:39)
[2019-08-11 23:40] VITALS: BP 147/76; PULSE 63; RESP 15
== END 2019-08-12 00:21 | disposition home or self-care (01) ==
PROVIDERS: Emergency Provider Emergency Medicine; Family Provider Internal Medicine; PCP Internal Medicine
DX: R10.33 Periumbilical pain (principal); N39.0 Urinary tract infection, site not specified; N63.20 Unspecified lump in the left breast, unspecified quadrant; I63.9 Cerebral infarction, unspecified; I69.328 Other speech and language deficits following cerebral infarction; I69.351 Hemiplegia and hemiparesis following cerebral infarction affecting right dominant side
CPT/HCPCS: 74177; 80048; 80076; 81001; 83690; 85025; 87077; 87086; 87088; 87186; 96361; 96374; 96375; 99284; J7030; P9612; Q9967; A4216; J2405

== ENCOUNTER 2019-12-18 21:39 | Emergency (ER) | payer MEDICARE, MEDICAID, SELFPAY ==
[2019-10-07 14:53] VITALS: BMI 25.6
[2019-12-18 21:42] VITALS: BP 99/65; PULSE 76; RESP 13; TEMP 36.7; O2SAT 98; BMI 29.0
--- NOTE | 2019-12-18 22:24 | CT_ITS ---
STUDY: CT BRAIN WITHOUT CONTRAST REASON FOR EXAM: Female, 74 years old. Near syncope. Right-sided weakness. Trouble expressing herself. History of normal pressure hydrocephalus with SALESPERSON PETS AND PET SUPPLIES shunt catheter. History of 2 prior strokes. RADIATION DOSAGE (If Supplied By Facility): CTDIvol = ( 44.99 ) mGy, DLP = ( 796.11 ) mGycm TECHNIQUE: Transaxial CT imaging of the brain was performed without administration of intravenous contrast material. Individualized dose optimization techniques were used for this CT. COMPARISON: August 06, 2018. FINDINGS: There is a right frontal SALESPERSON PETS AND PET SUPPLIES shunt catheter entering through a concepcion hole in the skull. The catheter lies along soft tissues of the right skull. Otherwise normal calvarium. There is mild dilatation of the ventricles greater than expected for the degree of cortical atrophy. There are areas of decreased attenuation within the white matter tracts of the supratentorial brain, consistent with microvascular disease changes. There is a small lacunar infarct in the left llanes radiata. Normal basal ganglia and thalami. Normal brainstem. Normal cerebellum. There is no intracranial hemorrhage. There are no findings of an acute ischemic infarction. Normal visualized paranasal sinuses. CT/Brain/Head without Contrast IMPRESSION: SALESPERSON PETS AND PET SUPPLIES shunt catheter with stable mild dilatation of ventricles. There is no acute intracranial abnormality or interval change. Electronically Signed: Zack Bonilla DO at 23:12 EST Tel [phone], Service support ,
--- NOTE | 2019-12-18 22:24 | EKG12_ITS ---
Test Reason : SYNCOPE Blood Pressure : / mmHG Vent. Rate : 069 BPM Atrial Rate : 069 BPM P-R Int : 166 ms QRS Dur : 078 ms QT Int : 448 ms P-R-T Axes : 045 027 070 degrees QTc Int : 480 ms Normal sinus rhythm Nonspecific T wave abnormality Prolonged QT Abnormal ECG Confirmed by SHYANN PETER, LETITIA ([id number]), editor school photograph ZUNILDA MILLER ([id number]) on 12/20/2019 8:10:15 AM Referred By: SARAH Confirmed By:ANTONY BOOTHE MD
--- NOTE | 2019-12-18 22:25 | CT_ITS ---
STUDY: CT ABDOMEN AND PELVIS WITHOUT CONTRAST REASON FOR EXAM: Female, 74 years old. Abdominal pain for months. Vomiting. RADIATION DOSAGE (If Supplied By Facility): CTDIvol = ( 20.08 ) mGy, DLP = ( 1003.10 ) mGycm TECHNIQUE: Transaxial images were obtained from the dome of the diaphragm to the symphysis pubis without oral contrast, and without intravenous contrast. Sagittal and coronal images were reconstructed. Individualized dose optimization techniques were used for this CT. COMPARISON: CT of the pelvis, August 11, 2019. FINDINGS: The visualized lung bases are unremarkable. The visualized portions of the heart are within normal limits. There is a nodular density in the lower aspect of the left breast unchanged from the prior study. Normal liver. Normal gallbladder and extrahepatic biliary system. Normal spleen. Normal pancreas. Normal bilateral adrenal glands. Normal right kidney. Normal left kidney. Normal visualized stomach. Normal small intestine. Colon is redundant but otherwise unremarkable. There is non-visualization of the appendix. There is diffuse atherosclerotic calcification of the abdominal aorta, without a demonstrated aneurysm. Normal inferior vena cava. Normal retroperitoneum. Normal urinary bladder. Normal vaginal cuff. There are phleboliths in pelvis. No free air or free fluid is seen within the peritoneal cavity. A HYDROELECTRIC PLANT MECHANICAL ENGINEER shunt catheter is seen entering the abdomen in the right lower quadrant with its tip in the right pelvis. The HYDROELECTRIC PLANT MECHANICAL ENGINEER shunt catheter in the abdominal wall. There is a small umbilical hernia of omental fat. There are diffuse degenerative changes of the visualized lumbar spine. CT/Abdomen/Pelvis without Cont IMPRESSION: No major interval change when compared to prior study. There is no evidence of acute intra-abdominal process. Electronically Signed: Zack Bonilla DO at 23:17 EST Tel [phone], Service support ,
[2019-12-18] MEDS: 0.9% Normal Saline 1,000 ML 1000 ML IV (22:30)
[2019-12-18] MEDS: Ondansetron 4 MG/2 ML Vial IV (22:32)
[2019-12-18 22:39] LABS: Absolute Lymphocyte Count 1.63 X10^3/uL (0.83-4.51); Absolute Neutrophil Count 5.5 X10^3/uL (2.0-7.7); Basophil# 0.03 X10^3/uL; Basophil% 0.4 % (0-1); Eosinophils% 1.3 % (0-5); Hematocrit 43.2 % (37-47); Hemoglobin 13.8 g/dL (12.0-15.0); Lymphocyte # 1.63 X10^3/ul (4.0); Lymphocyte % 21.1 % (19-41); Mean Corp Hgb Conc 31.9 g/dL (32-36); Mean Corpuscular Hgb 27.4 pg (27.0-32.0); Mean Corpuscular Volume 85.7 fL (81-99); Mean Platelet Vol. 10.4 fl (6.2-12.0); Monocyte# 0.46 X10^3/uL; NRBC Flagged by Analyzer 0 % (0-5); Neutrophil # 5.48 X10^3/uL (2.7-7.7); Neutrophil % 70.9 % (47-70); Platelet Count 263 K/mm3 (150-450); RBC Distribution Width CV 13.9 % (11.6-14.6); RBC Distribution Width SD 43.2 fl (35.1-43.9); Red Blood Count 5.04 M/mm3 (4.2-5.4); White Blood Count 7.7 K/mm3 (4.4-11.0)
[2019-12-18 22:48] LABS: ALB/GLOB Ratio 0.9 RATIO (0.9-2.4); AST(SGOT) 17 U/L (15-37); Alanine Aminotransfer ALT/SGPT 24 U/L (13-56); Albumin, Serum 3.8 g/dL (3.2-5.0); Alkaline Phosphatase 76 U/L (45-117); Anion Gap 8 (5-15); BUN 20 mg/dL (7-18); BUN/Creat Ratio 12.8 RATIO (10-20); Calcium,Total 8.7 mg/dL (8.5-10.1); Chloride 106 mmol/L (98-107); Creatinine, Serum 1.56 mg/dL (0.55-1.02); EST Glomerular Filtration Rate 35 mL/min (>60); Est Glom Filt Rate - Afr Amer 42 mL/min (>60); Estimated Creatinine Clearance 30.07 ml/min; Globulin 4.1 g/dL (2.2-4.2); Glucose 163 mg/dL (74-106); Potassium 3.2 mmol/L (3.5-5.1); Protein, Total 7.9 g/dL (6.4-8.2); Sodium Level 141 mmol/L (136-145)
--- NOTE | 2019-12-18 22:54 | ED.DCSUM_ITS ---
- ER Visit Summary Date of Service: 12/18/19 Chief Complaint: Syncope History of Present Illness: The patient is a [address] Andino. She has a history of a stroke in the past is lost her with an expressive aphasia that makes it difficult to obtain history from her. Per they were walking out of a restaurant as a block approximately 20 to 30 feet when she complained of the abrupt onset of a headache. States that she then went limp and had a decreased level of consciousness for 10 minutes. She never completely lost consciousness. She did not fall. There was no seizure activity. Patient reports that she is nauseated and has vomited once. She reports that she sort of has abdominal pain. She denies any fever or chills. No chest pain or shortness of breath. No palpitations. She does complain of a headache that is 3-10 in severity. Physical Examination: Vitals: Stable. Afebrile. General: Well-nourished and well-developed. Head: Normocephalic atraumatic. Neck: Supple, no lymphadenopathy. No JVD. Nontender. Cardiovascular: Regular rate and rhythm. No murmurs. Respiratory: No respiratory distress. Clear to auscultation bilaterally. Abdominal: Soft, nontender, nondistended, normal bowel sounds. No guarding, rebound, or peritoneal signs. Back: Nontender. Extremities: Nontender, no edema. Skin: Normal color, no rash. Neurologic: Alert and oriented ?3. Obvious expressive aphasia. Psych: Normal affect. Test Results: EKG is sinus at [address] changes. She does have flattened T waves. However this is unchanged from July 2018. UA is normal if these are normal Chem-7 shows potassium 3.2 glucose 163, BUN 20, creatinine 1.56. Her last creatinine was in 2019 and at that time it was 1.2. CBC shows segmented neutrophils of 71. Clinical Impression(s) from Imaging Studies Brain CT 12/18/19 22:24 IMPRESSION: ARMATURE WINDER REPAIR shunt catheter with stable mild dilatation of ventricles. There is no acute intracranial abnormality or interval change. Electronically Signed: Zack Bonilla DO at 23:12 EST Tel [phone], Service support , Abdomen/Pelvis CT 12/18/19 22:25 IMPRESSION: No major interval change when compared to prior study. There is no evidence of acute intra-abdominal process. Electronically Signed: Zack Bonilla DO at 23:17 EST Tel [phone], Service support , Emergency Department Course and Treatment: Orthostatic vital signs were strongly positive. In fact the patient could not even stand up initially. She was given a liter of normal saline and feels much better she is walked around with a walker. I did discuss this with them. She has a very difficult time swallowing liquids. She understands that she is supposed to use nectar thickened liquids. However, she cannot stand this. I suspect that the symptoms tonight are from her being dehydrated. Treatment Plan: Patient feels well and would like to go home. She will be discharged with instructions to increase her fluid intake. We did discuss the possibility of a PEG tube which she is very opposed to. Follow-up with her primary care physician 1 to 2 days if not improving. Return to the emergency department for any worsening symptoms. Disposition: To home in improved and stable condition. Impression: 1. Near syncope. 2. Dehydration. This note was generated with [employer] dictation software. It may contain incorrect words, spelling, and punctuation that were not noted in review of the chart prior to signing ED Disposition - Plan for ED Patient: Disposition: Home or Assisted Living Instructions: HYPOTENSION, Orthostatic Prescriptions: proMETHazine tablet [Phenergan] 25 mg PO Q6H PRN PRN #10 tab PRN Reason: Nausea Prescription Printed Ondansetron [Zofran Odt] 4 mg PO Q8H PRN PRN #10 tab PRN Reason: Nausea Prescription Printed Referrals: Andrew Andino MD [Primary Care Provider] - 1-2 Days if not improving
[2019-12-18 23:13] LABS: Bacteria 0 SEEN /hpf (None Seen); Mucous, Urine 0 SEEN /hpf (<or=2+)
[2019-12-18 23:20] VITALS: BP 123/74; PULSE 68; RESP 19; O2SAT 98
[2019-12-18 23:20] LABS: Color, Urine Yellow (Yellow); Glucose, Dipstick Normal (Normal); Ketone-Dipstick Negative (Negative); Leukocyte Esterase-Dipstick Negative /ul (Negative); Nitrite-Dipstick Negative (Negative); Occult Blood-Urine Negative /ul (Negative); Protein-Dipstick 30 mg/dl (Negative); Urine Bilirubin Dipstick Negative (Negative); Urine Clarity Clear (Clear); Urine Urobilinogen Normal (Normal)
[2019-12-18] MEDS: proMETHazine 25 MG/ML Syringe 6.25 MG IV (23:21)
[2019-12-18 23:27] LABS: Red Blood Cells-Urine 0-5 SEEN /hpf (0-5); Squamous Epithelial Cells - UA 0-5 SEEN /hpf (5-10); White Blood Cells 0-5 SEEN /hpf (0-5)
[2019-12-19 00:13] VITALS: BP 124/70; PULSE 72; RESP 16; TEMP 36.4; O2SAT 100
--- NOTE | 2019-12-19 00:13 | ED.RN ---
Walked PT with walker with minimal assistance. PT was able to transition from 30% head raised to sitting to standing without nausea or dizziness. PT and want to go home. Spouse states she uses a walker or has a wheelchair at home.
== END 2019-12-19 00:32 | disposition home or self-care (01) ==
LOC: ED 22:28
PROVIDERS: Emergency Provider Emergency Medicine; PCP Internal Medicine
DX: R55 Syncope and collapse (principal); E86.0 Dehydration; I63.9 Cerebral infarction, unspecified; I69.320 Aphasia following cerebral infarction; I10 Essential (primary) hypertension; E78.00 Pure hypercholesterolemia, unspecified; Z79.02 Long term (current) use of antithrombotics/antiplatelets; Z79.899 Other long term (current) drug therapy
CPT/HCPCS: 70450; 74176; 80053; 81001; 85025; 93005; 96361; 96374; 96375; 99285; J7030; A4216; J2405

== ENCOUNTER 2020-03-17 06:42 | Day surgery (SDC) | payer MEDICARE, MEDICAID, SELFPAY ==
[2019-12-30 13:16] VITALS: BMI 29.0
--- NOTE | 2020-03-17 07:06 | HP.PCM_ITS ---
Problem List (1) Abdominal pain Status: Acute Qualifiers: Abdominal location: epigastric History and Physical Date of Admission: 03/17/20 Intake Chief Complaint: abdominal pain Allergies ciprofloxacin Allergy (Verified 12/30/19 13:15) Unknown Penicillins Allergy (Verified 12/30/19 13:15) Unknown Sulfa (Sulfonamide Antibiotics) Allergy (Verified 12/30/19 13:15) Unknown thimerosal [From Merthiolate] Allergy (Verified 12/30/19 13:15) Rash Medications Calcitriol [Rocaltrol] 0.25 mcg PO DAILY 10/28/17 [History Confirmed 12/30/19] Cholecalciferol (Vitamin D3) [Vitamin D3] 5,000 unit PO DAILY 10/28/17 [History Confirmed 12/30/19] Donepezil HCl 10 mg PO DAILY 10/28/17 [History Confirmed 12/30/19] Esomeprazole Magnesium 40 mg PO DAILY 10/28/17 [History Confirmed 12/30/19] Levothyroxine [Synthroid] 50 mcg PO DAILY 10/28/17 [History Confirmed 12/30/19] Sertraline HCl [Zoloft] 50 mg PO QHS 10/28/17 [History Confirmed 12/30/19] Solifenacin Succinate [Vesicare] 5 mg PO DAILY 10/28/17 [History Confirmed 12/30/19] Clopidogrel Bisulfate [Plavix] 75 mg PO DAILY 05/09/18 [History Confirmed 12/30/19] Quetiapine Fumarate [Seroquel] 50 mg PO QHS 08/06/18 [History Confirmed 12/30/19 ] Acetaminophen [Tylenol] 1,000 mg PO Q6H PRN PRN tab 08/29/18 [Rx Confirmed 12/30/19] Polyethylene Glycol 3350 [Miralax] 17 gm PO DAILY PRN packet 08/29/18 [Rx Confirmed 12/30/19] Senna/Docusate Sodium [Senokot-S] 1 tab PO BID PRN tab 08/29/18 [Rx Confirmed 12/30/19] Rosuvastatin Calcium [Crestor] 5 mg PO QHS 08/11/19 [History Confirmed 12/30/19] atorvastatin 20 mg tablet 20 mg PO DAILY 10/07/19 [History Confirmed 12/30/19] brimonidine 0.2 %-timolol 0.5 % eye drops 1 drp OPHTHALMIC BID 10/07/19 [History Confirmed 12/30/19] calcium carbonate 400 mg calcium (1,000 mg) chewable tablet 1,200 mg PO DAILY tab 10/07/19 [History Confirmed 12/30/19] vitamin B complex 1 tab PO DAILY 10/07/19 [History Confirmed 12/30/19] Ondansetron [Zofran Odt] 4 mg PO Q8H PRN PRN #10 tab 12/19/19 [Rx Confirmed 12/30/19] proMETHazine tablet [Phenergan] 25 mg PO Q6H PRN PRN #10 tab 12/19/19 [Rx Confirmed 12/30/19] Assessment & Plan Problems 1. Epigastric pain R10.13 Plan - IGNACIA Ahn Dr. will plan to perform an upper scope with possible biopsies. Patient was also offered a colonoscopy at which time the patient and the have declined. Patient will continue her Plavix as instructed by Dr. Taylor at her last office visit. Procedure details, risks and benefits have been reviewed. Patient and her have had the opportunity to ask and have questions answered. Patient verbally understands and agrees with the plan. 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 Required: No Accompanied by: Is patient in pain?: No Allergies ciprofloxacin Allergy (Verified 12/30/19 13:15) Unknown Penicillins Allergy (Verified 12/30/19 13:15) Unknown Sulfa (Sulfonamide Antibiotics) Allergy (Verified 12/30/19 13:15) Unknown thimerosal [From Merthiolate] Allergy (Verified 12/30/19 13:15) Rash Medications Calcitriol [Rocaltrol] 0.25 mcg PO DAILY 10/28/17 [History Confirmed 12/30/19] Cholecalciferol (Vitamin D3) [Vitamin D3] 5,000 unit PO DAILY 10/28/17 [History Confirmed 12/30/19] Donepezil HCl 10 mg PO DAILY 10/28/17 [History Confirmed 12/30/19] Esomeprazole Magnesium 40 mg PO DAILY 10/28/17 [History Confirmed 12/30/19] Levothyroxine [Synthroid] 50 mcg PO DAILY 10/28/17 [History Confirmed 12/30/19] Sertraline HCl [Zoloft] 50 mg PO QHS 10/28/17 [History Confirmed 12/30/19] Solifenacin Succinate [Vesicare] 5 mg PO DAILY 10/28/17 [History Confirmed 12/30/19] Clopidogrel Bisulfate [Plavix] 75 mg PO DAILY 05/09/18 [History Confirmed 12/30/19] Quetiapine Fumarate [Seroquel] 50 mg PO QHS 08/06/18 [History Confirmed 12/30/19] Acetaminophen [Tylenol] 1,000 mg PO Q6H PRN PRN tab 08/29/18 [Rx Confirmed 12/30/19] Polyethylene Glycol 3350 [Miralax] 17 gm PO DAILY PRN packet 08/29/18 [Rx Confirmed 12/30/19] Senna/Docusate Sodium [Senokot-S] 1 tab PO BID PRN tab 08/29/18 [Rx Confirmed 12/30/19] Rosuvastatin Calcium [Crestor] 5 mg PO QHS 08/11/19 [History Confirmed 12/30/19] atorvastatin 20 mg tablet 20 mg PO DAILY 10/07/19 [History Confirmed 12/30/19] brimonidine 0.2 %-timolol 0.5 % eye drops 1 drp OPHTHALMIC BID 10/07/19 [History Confirmed 12/30/19] calcium carbonate 400 mg calcium (1,000 mg) chewable tablet 1,200 mg PO DAILY tab 10/07/19 [History Confirmed 12/30/19] vitamin B complex 1 tab PO DAILY 10/07/19 [History Confirmed 12/30/19] Ondansetron [Zofran Odt] 4 mg PO Q8H PRN PRN #10 tab 12/19/19 [Rx Confirmed 12/30/19] proMETHazine tablet [Phenergan] 25 mg PO Q6H PRN PRN #10 tab 12/19/19 [Rx Confirmed 12/30/19] PFSH Medical History Abdominal pain (Acute) Status post placement of implantable loop recorder (Acute) Fall (Acute) Closed left ankle fracture (Acute) Left hemiparesis (Chronic) Dysarthria (Chronic) Hypertension (Chronic) Hypothyroidism (Chronic) GERD (gastroesophageal reflux disease) (Chronic) Overactive bladder (Chronic) Depression (Chronic) Orthostatic hypotension (Suspected) Cardiac arrest (Suspected) Left-sided weakness (Chronic) Ramos esophagus (Chronic) Glaucoma (Chronic) Rheumatoid arthritis (Chronic) medical management (Acute) Lupus (Chronic) Mitral valve disorder (Chronic) Normal pressure hydrocephalus (Chronic) Bipolar disorder (Chronic) Hemiparesis affecting left side as late effect of stroke (Chronic) Alcoholic dementia (Chronic) Stroke (Chronic) Metabolic encephalopathy (Acute) Altered mental status (Acute) Aphasia (Acute) 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 (Acute) Benign essential hypertension (Chronic) NPH (normal pressure hydrocephalus) (Acute) Surgical History History of eye surgery (Acute) History of knee surgery (Acute) history of MANAGER PERSONNEL SELECTION shunt (Acute) Family History Mother Cancer lung cancer Heart disease Father Heart disease Hypertension Social History (Updated 12/31/19 @ 13:21 by María Modi PA-C) Smoking Status: Former smoker alcohol intake: current substance use type: does not use HPI HPI HPI: MONICA ANNA, is a 74 F who presents to the office today for HPI HPI Surgical H&P: Yes HPI: MONICA ANNA, is a 74 F who presents to the office today for an update history and physical for an upcoming EGD. She notes a recent hospitalization in the ED on 12/17 due to syncope and dehydration. Patient denies recent changes in medications. She denies abdominal pain currently. Patient's previous history per Dr. Taylor: MONICA ANNA, is a 74 F who presents to the office today for surgical consultation regarding chronic abdominal pain. The patient is referred by Elaine Gorman and a written copy of my surgical consult will be returned to her as well as forwarded on to Dr. Andrew Andino. The patient's had chronic ongoing epigastric pain. She was seen at the [facility] emergency room August 11, 2019. CT imaging showed an incidental left breast finding. The patient's states that this is been evaluated already and that they have been told she is fine. She was treated with Keflex for her urinary tract infection. Her abdominal pain is more of an ongoing issue. She had previously had a upper endoscopy March 02, [address] Dean Romo. There is felt to be long segment Ramos's. Normal stomach normal normal duodenum. Findings were negative for intestinal metaplasia or dysplasia. Her previous colonoscopy was April [address] Gunner Redmond. Hemorrhoids diverticulosis and a tortuous colon identified. Follow-up exam in 10 years recommended. The patient occasionally has some constipation occasionally some diarrhea. There is been no history currently of bright red blood per rectum or melena. She is highly medically complicated with a number of medical comorbidities as are listed ROS General General: Yes fatigue; no weight change, appetite, colon cancer, breast cancer or weakness HEENT HEENT: Yes eye surgery; no difficulty swallowing, eye injury, swollen glands or hoarseness Endo Endocrine: Yes thyroid disease; no diabetes mellitus, thyroid cancer, Hair loss, heat intolerance or cold intolerance Skin Skin: No rash or changing moles Breast Breast: No left breast lump, right breast lump, nipple discharge, breast pain, abnormal mammogram, abnormal US or breast enlargement Musc Musculoskeletal: Yes back problems, arthritis and rheumatoid arthritis; no gout or joint pain Cardio Cardiovascular: Yes high blood pressure; no murmur, pacemaker, heart disease, atrial fibrillation, heart attack, heart stent, palpitations, shortness of breat with exertion or chest pain Psych Psychiatric: Yes depression; no anxiety or hearing voices Resp Respiratory: Yes shortness of breath, No sleep apnea, Yes cough, No COPD, No asthma, No emphysema, No wheezing Gastro Gastrointestinal: Yes abdominal pain, No nausea or vomiting, Yes diarrhea, Yes constipation, No blood in stool, Yes acid reflux, No hemorrhoids, No ulcers, No gallbladder problem, No black,tarry stools Joaquin Hematologic: Yes blood thinners, No blood disorders, No bleeding, No anemia, No blood clots Neuro Neurologic: No weakness Exam Const General: cooperative, healthy appearing, comfortable, no acute distress [facility] Head: normal to inspection Eyes General: appearance normal, both eyes and all related structures Neck Neck: normal visual inspection Neck mass: No Chest Breast Palpation: No nipple discharge Resp Effort & Inspection: normal respiratory effort Auscultation: clear to auscultation bilaterally Cardio Rate: regular rate Rhythm: regular rhythm Heart Sounds: no murmurs GI Inspection: normal to inspection Palpation: soft Auscultation: normal bowel sounds Skin General: no rashes or lesions noted Neuro Speech: expressive aphasia Extrem General: normal to inspection Psych Appearance: grossly normal Affect: normal affect Assessment & Plan Problems 1. Epigastric pain R10.[address] Taylor will plan to perform an upper scope with possible biopsies. Patient was also offered a colonoscopy at which time the patient and the have declined. Patient will continue her Plavix as instructed by Dr. Taylor at her last office visit. Procedure details, risks and benefits have been reviewed. Patient and her have had the opportunity to ask and have questions answered. Patient verbally understands and agrees with the plan. The patient takes Nexium. The patient continues to complain of a very nondescript epigastric pain. She denies bright red blood per rectum or melena. We will proceed with the esophagogastroduodenoscopy with anticipated biopsies because of the patient's history of Ramos's. If no particular findings are identified then she will either need ongoing primary care follow-up for further consideration Cc: Dr. Andrew Taylor M.D., F.A.C.S. Procedure Criteria Procedure Type: Elective COVID Risk Discussion: The surgeon/proceduralist and patient have discussed in detail the risk of exposure to and/or potential harm posed by the COVID-19 virus with having a surgery/procedure at this time versus the risk of delaying the surgery/procedure. It is not possible to know either the risk of delaying the surgery or procedure or chance of getting an infection with perfect accuracy, but a joint decision was made between the patient and the surgeon/proceduralist to proceed at this time with the scheduled surgery/procedure as indicated on the consent form.
[2020-03-17 07:07] VITALS: BP 130/74; PULSE 64; RESP 16; TEMP 37.6; O2SAT 97; BMI 25.9
[2020-03-17] MEDS: Lactated Ringers 1,000 ML 100 ML IV (07:12)
--- NOTE | 2020-03-17 07:45 | EGD_PTH ---
PATIENT: MONICA ANNA LOC: EN U#:[id number] AGE/SX: 75/F ROOM: RE03/17/[address]: Dr. Benoit Taylor MD : 1945 BED: DIS: 03/17/2020 SPEC #: [id number] RECD: 03/17/20 12:33 STATUS: MICKI HERRERA #: [id number] TARSHA: 03/17/20 07:[address]: Benoit Taylor DEPT: SURGICAL PATHOLOGY RECD BY: Storm Mckeon ENTERED: 03/18/20 08:57 SP TYPE: EGD BIOPSY OT DR: Dr. Andrew Andino MD Tissues: A - Duodenum, NOS B - Gastric mucous membrane C - Gastric mucous membrane D - Gastric mucous membrane E - Esophagus, NOS Procedures: Special Stain Group II Surgery Specimen Level IV Alcian Blue/PAS (control) HEADER OPERATION: EGD ([facility] [place]) PRE-OP DIAGNOSIS: History Ramos's TISSUE SUBMITTED: A - Duodenum biopsy, B - Antrum biopsy for histo and H. pylori, C - Gastric polyp, body of stomach, D - Polyp at EG junction biopsy, E - Distal esophagus biopsy MICROSCOPIC DIAGNOSIS A. Duodenum, biopsy: Gastric metaplasia. Mild nonspecific chronic inflammation. B. Gastric antrum, biopsy: Chronic gastritis. See comment. C. Gastric polyp, biopsy: Polypoid fragments of benign gastric mucosa. Mild chronic gastritis. D. Gastric polyp at GE junction, biopsy: Focal minimal hyperplastic change. E. Distal esophagus, biopsy: Focal changes of reflux. Gastroesophageal junction mucosa with mild chronic inflammation. No evidence of goblet cell metaplasia. See comment. AM:pho[place] 03/19/20 COMMENT B. The results of immunohistochemistry for Helicobacter pylori will be reported separately ([id number]). E. Alcian blue/PAS stain with matched control supports the above diagnosis. MICROSCOPIC DESCRIPTION Slides are reviewed. GROSS DESCRIPTION A - Received in fixative is one container labeled with the patient's name and designated duodenum biopsy. The specimen consists of one irregular fragment of light barnhatr soft tissue that measures 0.3 x 0.2 x 0.1 cm. The specimen is totally submitted in one cassette. B - Received in fixative is one container labeled with the patient's name and designated antrum biopsy. The specimen consists of multiple irregular fragments of light barnhart soft tissue that in aggregate measure 0.6 x 0.6 x 0.1 cm. The specimen is totally submitted in one cassette. C - Received in fixative is one container labeled with the patient's name and designated gastric polyp. The specimen consists of multiple irregular fragments of light barnhart soft tissue that in aggregate measure 0.5 x 3 x 0.1 cm. The specimen is totally submitted in one cassette. D - Received in fixative is one container labeled with the patient's name and designated polyp at EG junction. The specimen consists of multiple irregular fragments of light barnhart soft tissue that in aggregate measure 1 x 0.5 x 0.1 cm. The specimen is totally submitted in one cassette. E - Received in fixative is one container labeled with the patient's name and designated distal esophagus biopsy. The specimen consists of multiple irregular fragments of light barnhart soft tissue that in aggregate measure 1 x 1 x 0.1 cm. The specimen is totally submitted in one cassette. / AM:phoenix 03/18/20 TC:3 CPT: 19122 x5, 61044
--- NOTE | 2020-03-17 07:45 | IMM_PTH ---
PATIENT: MONICA ANNA LOC: EN U#:[id number] AGE/SX: 75/F ROOM: RE03/17/[address]: Dr. Benoit Taylor MD : 1945 BED: DIS: 03/17/2020 SPEC #: [id number] RECD: 03/18/20 09:28 STATUS: MICKI HERRERA #: [id number] TARSHA: 03/17/20 07:[address]: Benoit Taylor DEPT: IMMUNOHISTOCHEMISTRY RECD BY: Tamiko Eaton ENTERED: 03/18/20 09:28 SP TYPE: IMMUNO OTHR DR: Dr. Andrew Andino MD Tissues: B - Stomach, NOS Procedures: H Pylori (initial) PHYSICIAN & INSTITUTION [place] [address] SPECIMEN INFORMATION: Tissue Source: B - Antrum biopsy Clinical Info: History Ramos's Specimen Number: [id number] CPT code: 81243 METHODOLOGY: Deparaffinized sections of prefer/formalin-fixed tissue or PAP/DQ stained slides are incubated with monoclonal/polyclonal antibodies/oligonucleotide probes. Localization is made via biotin free immunoperoxidase method. Appropriate controls are performed and reacted as expected. Results on target cell population are indicated in the following table: RESULTS: ANTIBODY / CLONE RESULT Block B H Pylori (polyclonal) negative These tests were developed and their performance characteristics determined by [facility]. They may not have been cleared or approved by the U.S. Food and Drug Administration. The FDA has determined that such clearance or approval is not necessary. INTERPRETATION: B. Antrum biopsy: Negative for Helicobacter pylori organisms. AM:phoenix 03/19/20
[2020-03-17 08:36] VITALS: BP 124/66; BP 130/74; PULSE 62; RESP 16; TEMP 35.8; O2SAT 97
[2020-03-17 08:41] VITALS: BP 126/73; BP 130/74; PULSE 59; RESP 16; O2SAT 98
--- NOTE | 2020-03-17 08:42 | OP.CCLET_ITS ---
03/17/2020 Andrew Andino [address] [place] [address] Re : Upper GI endoscopy procedure for Lea Diop Dear Dr. Andino This procedure was performed on Tuesday, March 17, 2020. My impressions and recommendations are as follows: Impressions : - LA Grade A reflux esophagitis. Biopsied. 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 Biopsied. - Medium-sized hiatal hernia. - Erythematous mucosa in the antrum. Biopsied. - Multiple gastric polyps. Resected and retrieved. - A single gastroesophageal junction polyp. Resected and retrieved. - Erythematous duodenopathy. Biopsied. Recommendations : - Discharge patient to home. - Resume previous diet. - Continue present medications. - Telephone my office for pathology results in 1 week. My findings are described in the full procedure note, which is enclosed. If I can be of further assistance, please feel free to contact me at Doctor phone number(s): Work: . Sincerely, Benoit Taylor MD 03/17/2020 8:42:03 AM This report has been signed electronically.
--- NOTE | 2020-03-17 08:42 | OP.EGD_ITS ---
Patient Name: Lea Diop Procedure Date: 03/17/2020 8:12 AM Date of : 1945 Age: 75 Procedure: Upper GI endoscopy Indications: Epigastric abdominal pain Providers: Benoit Taylor MD Referring MD: Andrew Andino Medicines: See the Anesthesia note for documentation of the administered medications Complications: No immediate complications. Procedure: Pre-Anesthesia Assessment: - Prior to the procedure, a History and Physical was performed, and patient medications and allergies were reviewed. The patient's tolerance of previous anesthesia was also reviewed. The risks and benefits of the procedure and the sedation options and risks were discussed with the patient. All questions were answered, and informed consent was obtained. Prior Anticoagulants: The patient has taken no previous anticoagulant or antiplatelet agents. ASA Grade Assessment: III - A patient with severe systemic disease. After reviewing the risks and benefits, the patient was deemed in satisfactory condition to undergo the procedure. After obtaining informed consent, the endoscope was passed under direct vision. Throughout the procedure, the patient's blood pressure, pulse, and oxygen saturations were monitored continuously. The gastroscope was introduced through the mouth, and advanced to the second part of duodenum. The upper GI endoscopy was accomplished without difficulty. The patient tolerated the procedure well. Scope In: 8:20:37 AM Scope Out: 8:31:03 AM Total Procedure Duration Time 0 hours 10 minutes 26 seconds Findings: LA Grade A (one or more mucosal breaks less than 5 mm, not extending between tops of 2 mucosal folds) esophagitis with no bleeding was found 35 cm from the incisors. Biopsies were taken with a cold forceps for histology. There were esophageal mucosal changes suggestive of Ramos's esophagus present at the gastroesophageal junction. The maximum longitudinal extent of these mucosal changes was 1 cm in length. Mucosa was biopsied with a cold forceps for histology at the gastroesophageal junction. A medium-sized hiatal hernia was present. Diffuse mildly erythematous mucosa without bleeding was found in the gastric antrum. Biopsies were taken with a cold forceps for histology. Multiple sessile polyps with no stigmata of recent bleeding were found in the gastric body. The polyp was removed with a cold biopsy forceps. Resection and retrieval were complete. A single 8 mm sessile polyp with no stigmata of recent bleeding was found at the gastroesophageal junction. The polyp was removed with a cold biopsy forceps. Resection and retrieval were complete. Diffuse mildly erythematous mucosa without active bleeding and with no stigmata of bleeding was found in the duodenal bulb. Biopsies were taken with a cold forceps for histology. Impression: - LA Grade A reflux esophagitis. Biopsied. 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 Biopsied. - Medium-sized hiatal hernia. - Erythematous mucosa in the antrum. Biopsied. - Multiple gastric polyps. Resected and retrieved. - A single gastroesophageal junction polyp. Resected and retrieved. - Erythematous duodenopathy. Biopsied. Recommendation: - Discharge patient to home. - Resume previous diet. - Continue present medications. - Telephone my office for pathology results in 1 week. Procedure Code(s): --- Professional --- 99010, Esophagogastroduodenoscopy, flexible, transoral; with biopsy, single or multiple Diagnosis Code(s): --- Professional --- K21.0, Gastro-esophageal reflux disease with esophagitis K22.8, Other specified diseases of esophagus K44.9, Diaphragmatic hernia without obstruction or gangrene K31.89, Other diseases of stomach and duodenum K31.7, Polyp of stomach and duodenum R10.13, Epigastric pain CPT copyright 2017 [employer]. All rights reserved. The codes documented in this report are preliminary and upon director process improvement review may be revised to meet current compliance requirements. Benoit Taylor MD 03/17/2020 8:42:03 AM This report has been signed electronically. Number of Addenda: 0 Note Initiated On: 03/17/2020 8:12 AM
[2020-03-17 08:46] VITALS: BP 125/66; BP 130/74; PULSE 67
[2020-03-17 08:51] VITALS: BP 119/71; BP 130/74; PULSE 59; RESP 16; TEMP 36.2; O2SAT 98
[2020-03-17 09:21] VITALS: BP 130/74
== END 2020-03-17 09:21 | disposition home or self-care (01) ==
LOC: EN 06:51 → AC 06:51
PROVIDERS: Physician Assistant; PCP Internal Medicine; Referring Provider Internal Medicine; Visit Provider Surgery
PROC: 0DJ08ZZ Inspection of Upper Intestinal Tract, Via Natural or Artificial Opening Endoscopic (ICD-10-PCS; CPT 43235; principal; 2020-03-17 07:40)
DX: K29.50 Unspecified chronic gastritis without bleeding (principal); K21.0 Gastro-esophageal reflux disease with esophagitis; K31.7 Polyp of stomach and duodenum; K44.9 Diaphragmatic hernia without obstruction or gangrene; E78.00 Pure hypercholesterolemia, unspecified; N18.2 Chronic kidney disease, stage 2 (mild); T45.1X5A Adverse effect of antineoplastic and immunosuppressive drugs, initial encounter; F41.9 Anxiety disorder, unspecified; F32.9 Major depressive disorder, single episode, unspecified; E06.9 Thyroiditis, unspecified; M06.9 Rheumatoid arthritis, unspecified; I10 Essential (primary) hypertension; Z87.891 Personal history of nicotine dependence; Z79.02 Long term (current) use of antithrombotics/antiplatelets; Z79.899 Other long term (current) drug therapy; Z86.73 Personal history of transient ischemic attack (TIA), and cerebral infarction without residual deficits; Z11.59 Encounter for screening for other viral diseases
CPT/HCPCS: 43239; 87635; 88305; 88313; 88342; G2023; J7120; J2405; U0003

== ENCOUNTER 2020-12-26 11:59 | Emergency (ER) | payer MEDICARE, MEDICAID, SELFPAY ==
[2020-12-26] VITALS (8 sets, daily range): BP systolic 109–131; BP diastolic 60–85; PULSE 60–69; RESP 14–20; TEMP 36.1–36.7; O2SAT 97–100; BMI 29.0
--- NOTE | 2020-12-26 12:10 | NURSING ---
STROKE ALERT CALLED
--- NOTE | 2020-12-26 12:11 | EKG12_ITS ---
Test Reason : STROKE Blood Pressure : / mmHG Vent. Rate : 057 BPM Atrial Rate : 057 BPM P-R Int : 166 ms QRS Dur : 086 ms QT Int : 520 ms P-R-T Axes : 045 025 073 degrees QTc Int : 506 ms Sinus bradycardia Nonspecific T wave abnormality Prolonged QT Abnormal ECG Confirmed by SHYANN PETER, LETITIA ([id number]), editor managing newspaper ZUNILDA MILLER ([id number]) on 12/28/2020 10:37:16 A M Referred By: ISAI Confirmed By:ANTONY BOOTHE MD
--- NOTE | 2020-12-26 12:11 | CT_ITS ---
STUDY: CT HEAD STROKE PROTOCOL W/O CONTRAST INJECTION REASON FOR EXAM: Female, 75 years old. Neuro deficit, acute, stroke suspected RADIATION DOSAGE (If Supplied By Facility): CTDIvol = ( ) mGy, DLP = ( ) mGycm TECHNIQUE: Transaxial CT imaging of the brain was performed without administration of intravenous contrast material. Individualized dose optimization techniques were used for this CT. COMPARISON: 12/18/2019 FINDINGS: Normal soft tissue structures. Normal calvarium. There is mild cerebral atrophy with widening of the extra-axial spaces and ventricular dilatation. There are areas of decreased attenuation within the white matter tracts of the supratentorial brain, consistent with microvascular disease changes. Right frontal ventriculoperitoneal shunt with no change in the mild hydrocephalus. Normal basal ganglia and thalami. Normal brainstem. Normal cerebellum. There is no intracranial hemorrhage. There are no findings of an acute ischemic infarction. Normal visualized paranasal sinuses. ASPECT score: CT/STROKE Brain/Head without Cont IMPRESSION: No change from 12/18/2019. N.B. : The above information has been verbally conveyed by Santos Gorman MD to Akin Rivero on 12/26/2020 12:30:01 (ET). Electronically Signed: Santos Gorman MD at 12:31 EST Tel , Service support ,
--- NOTE | 2020-12-26 12:11 | RAD_ITS ---
STUDY: X-RAY CHEST REASON FOR EXAM: Female, 75 years old. Neuro deficit, acute, stroke suspected TECHNIQUE: Single AP portable view of the chest. COMPARISON: 04/17/2017 FINDINGS: Right-sided partially visualized intraperitoneal shunt new since previous exam. No focal infiltrate is seen. There is no demonstrated pleural abnormality. There is borderline cardiomegaly. Normal mediastinum and rere. Normal visualized pulmonary arteries. There is atherosclerotic calcification of the aortic arch with tortuosity. Stable osseous structures. There is no demonstrated abnormality of the visualized soft tissue structures of the upper abdomen. RAD/Chest 1 View IMPRESSION: No active pulmonary disease. Electronically Signed: Song Schaeffer MD at 14:29 EST Tel , Service support ,
--- NOTE | 2020-12-26 12:13 | ED.VIS.STROK ---
History of Present Illness Chief Complaint: Confusion Narrative: 75-year-old female with history of stroke x2 with right-sided residual deficits in her right arm and right leg presenting with right facial droop and difficulty forming words. Last known well was 10 AM this morning. Patient states she was sitting on the couch and had to go to the restroom and her did not want to get up and helped so she tried to get up on her own and became diaphoretic and nearly fainted he tried to hold her up and slowly work sat her down. Patient denies any new numbness or tingling. She denies any new visual complaints but states she has glaucoma. 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 Past Medical History - Allergies and Home Meds Allergies/Adverse Reactions: Allergies ciprofloxacin Allergy (Verified 12/26/20 12:00) Unknown Penicillins Allergy (Verified 12/26/20 12:00) Unknown Sulfa (Sulfonamide Antibiotics) Allergy (Verified 12/26/20 12:00) Unknown thimerosal [From Merthiolate] Allergy (Verified 12/26/20 12:00) Rash Primary Care Physician: Andrew Andino MD [Primary Care Provider] - Prior records reviewed: Yes Past Medical History: - - Bipolar disorder, lupus, RA, CVA x2, glaucoma, cardiac arrest, orthostatic hypotension, GERD, hypertension, dysarthria, metabolic encephalopathy Surgical History: total knee arthroplasty - Bilateral, - - Right shoulder surgery Parathyroidectomy Lives: Spouse/ Significant Other Smoking Status: Former smoker Alcohol: None Drugs: None - Family History Maternal Family History: Family History (Last Reviewed 12/30/19 @ 13:13 by Katie Jordan) Mother Cancer Heart disease Father Heart disease Hypertension Family History: Reports: Heart Disease Paternal Family History: Family History (Last Reviewed 12/30/19 @ 13:13 by Katie Jordan) Mother Cancer Heart disease Father Heart disease Hypertension Family History: Reports: Heart Disease, No pertinent history Review of Systems General: Denies: Chills, Fever, Sweats Eyes: Denies: Visual changes - bilaterally, Diplopia ENT: Denies: Rhinorrhea, Sore throat Cardiovascular: Denies: Chest pain, Palpitations Respiratory: Denies: Dyspnea, Cough, Dyspnea on exertion Gastrointestinal: Denies: Abdominal pain, Nausea Genitourinary: Reports: Dysuria. Denies: Hematuria, Frequency Musculoskeletal: Denies: Back pain, Extremity Pain Skin: Denies: Rash, Wounds Neurological: Reports: Weakness, - - Aphasia. Denies: Parasthesia, Numbness Psych: Denies: Depression, Anxiety, Suicidal thoughts, Suicidal ideations STROKE General: Well nourished, Obese, - - No acute distress Head: Normocephalic, Atraumatic Eyes: Perrl, EOMI ENT: Moist mucous membranes, No rhinorrhea Cardiovascular: Regular rate, Regular rhythm Abdomen: Soft, Nontender, Nondistended Extremities: Nontender, No edema Skin: Normal color, No rash. Negative for: Cyanosis, Diaphoresis Neurological: Alert, Oriented x3, - - NIH is 3 Psychological: Normal Mood, - - Slow to respond to questioning Diagnostic/Tx/Re-eval Clinical Impression(s) from Imaging Studies Brain CT 12/26/20 12:11 IMPRESSION: No change from 12/18/2019. N.B. : The above information has been verbally conveyed by Santos Gorman MD to Akin Rivero on 12/26/2020 12:30:01 (ET). Electronically Signed: Santos Gorman MD at 12:31 EST Tel , Service support , ADDENDUM: 12/26/20 1238 IMPRESSION: No change from 12/18/2019. N.B. : The above information has been verbally conveyed by Santos Gorman MD to Akin Rivero on 12/26/2020 12:30:01 (ET). Electronically Signed: Santos Gorman MD at 12:31 EST Tel , Service support , Laboratory Data 12/26/20 12/26/20 12/26/20 12:10 12:10 12:10 WBC 9.3 RBC 4.86 Hgb 13.1 Hct 42.2 MCV 86.8 MCH 27.0 MCHC 31.0 L RDW Std Deviation 43.8 RDW Coeff of Favian 13.8 Plt Count 249 MPV 11.0 Immature Gran % (Auto) 0.200 Neut % (Auto) 75.0 H Lymph % (Auto) 17.5 L [place] % (Auto) 4.7 Eos % (Auto) 2.2 Baso % (Auto) 0.4 Absolute Neuts (auto) 7.0 Absolute Lymphs (auto) 1.62 Nucleated RBC % 0 PT 12.8 INR 1.0 APTT 22.6 L Sodium 140 Potassium 3.4 L Chloride 104 Carbon Dioxide 29.0 Anion Gap 7 BUN 18 Creatinine 1.28 H Est GFR (MDRD) Af Amer 52 L Est GFR (MDRD) Non-Af 43 L BUN/Creatinine Ratio 14.1 Glucose 135 H Calcium 8.1 L Troponin I < 0.015 - Medical Decision Making Stroke Team Activated: Yes Reviewed Inclusion/Exclusion criteria: Yes Was Patient considered for Endovascular Intervention?: Yes IV Alteplase (t-PA) Administered: No No contraindications for IV Alteplase (t-PA) administration.: Yes - COMMERCIAL PORTFOLIO MANAGER Shunt Alteplase (t-PA) risks, benefits, alternative discussed: Yes Not given: Patient refusal: No 75-year-old female with history of CVA presenting with right-sided facial droop which the patient's is unsure if it is worse or not. She also complaining of difficulty finding words. She does have some aphasia. She did answer her age wrong as well. NIH score of 3. Patient also complained of generally feeling weak and she had a near syncopal episode. EKG performed on arrival shows a sinus bradycardia at 57 bpm with nonspecific T wave changes as well as prolonged QT at 520 as interpreted by myself. CBC shows white blood cell count 9.3, hemoglobin 13.1, platelets 243. INR 1.0, PTT 22.6. BMP shows creatinine 1.28 which is actually improved. Potassium is 3.4 but will hold replacement for now. Glucose 133. Troponin is negative. CT brain showed no new acute abnormality. [facility] neurology did the man and did agree with NIH stroke scale score of 3. They recommended given her dysarthria to give TPA. It was then found that she had a COMMERCIAL PORTFOLIO MANAGER shunt. Neurology does feel that it is possible that if she had something wrong with her shunt she could have the symptoms and recommended to hold TPA. Given patient is still within the window for TPA they recommended transferring to [facility] so they can have an neurosurgeon evaluate her as well as her shunt. She remains in the window she will be a candidate for TPA. In order to keep the patient within the window for TPA is necessary to fly her by [facility]. Patient was consented for this. was updated as well. Patient will be transported in stable condition. Impression: 1. CVA versus COMMERCIAL PORTFOLIO MANAGER shunt problem 2. Near syncope Critical care time (excluding procedures): 30-74 minutes - Discussing with patient and , discussing with consultants, arranging for transfer ED Disposition - Plan for ED Patient: Referrals: Andrew Andino MD [Primary Care Provider] -
[2020-12-26 12:30] LABS: Absolute Lymphocyte Count 1.62 X10^3/uL (0.83-4.51); Basophil# 0.04 X10^3/uL; Basophil% 0.4 % (0-1); Eosinophils% 2.2 % (0-5); Hematocrit 42.2 % (37-47); Hemoglobin 13.1 g/dL (12.0-15.0); Lymphocyte # 1.62 X10^3/ul (4.0); Lymphocyte % 17.5 % (19-41); Mean Corpuscular Volume 86.8 fL (81-99); Monocyte# 0.44 X10^3/uL; Monocyte% 4.7 % (0-10); NRBC Flagged by Analyzer 0 % (0-5); Neutrophil # 6.95 X10^3/uL (2.7-7.7); Platelet Count 249 K/mm3 (150-450); RBC Distribution Width CV 13.8 % (11.6-14.6); RBC Distribution Width SD 43.8 fl (35.1-43.9); Red Blood Count 4.86 M/mm3 (4.2-5.4); White Blood Count 9.3 K/mm3 (4.4-11.0)
[2020-12-26 12:34] LABS: Anion Gap 7 (5-15); BUN 18 mg/dL (7-18); BUN/Creat Ratio 14.1 RATIO (10-20); Calcium,Total 8.1 mg/dL (8.5-10.1); Chloride 104 mmol/L (98-107); Creatinine, Serum 1.28 mg/dL (0.55-1.02); EST Glomerular Filtration Rate 43 mL/min (>60); Est Glom Filt Rate - Afr Amer 52 mL/min (>60); Glucose 135 mg/dL (74-106); Potassium 3.4 mmol/L (3.5-5.1); Sodium Level 140 mmol/L (136-145)
[2020-12-26 12:35] LABS: Partial Thromboplast Time 22.6 Seconds (24.1-36.2); Prothrombin Time (Protime)PT. 12.8 SECONDS (11.7-14.9)
[2020-12-26] MEDS: 0.9% Normal Saline 1,000 ML 100 ML IV (13:34)
[2020-12-26 13:35] LABS: Squamous Epithelial Cells - UA 0 SEEN /hpf (5-10); White Blood Cells 0 SEEN /hpf (0-5)
[2020-12-26 13:38] LABS: Color, Urine Yellow (Yellow); Glucose, Dipstick Normal (Normal); Ketone-Dipstick 5 mg/dl (Negative); Leukocyte Esterase-Dipstick 25 /ul (Negative); Nitrite-Dipstick Negative (Negative); Occult Blood-Urine Negative /ul (Negative); Protein-Dipstick 15 mg/dl (Negative); Urine Bilirubin Dipstick Negative (Negative); Urine Clarity Sl. Cloudy (Clear); Urine Urobilinogen Normal (Normal)
[2020-12-26 13:44] LABS: Bacteria RARE /hpf (None Seen); Hyaline Cast 0-5 SEEN /lpf (0-5); Mucous, Urine RARE /hpf (<or=2+); Red Blood Cells-Urine 0-5 SEEN /hpf (0-5)
== END 2020-12-26 13:42 | disposition short-term general hospital (02) ==
PROVIDERS: Emergency Provider Student in an Organized Health Care Education/Training Program; PCP Internal Medicine
DX: R55 Syncope and collapse (principal); I63.9 Cerebral infarction, unspecified; I69.398 Other sequelae of cerebral infarction; F31.9 Bipolar disorder, unspecified; I10 Essential (primary) hypertension; K21.9 Gastro-esophageal reflux disease without esophagitis; E66.9 Obesity, unspecified; Z79.02 Long term (current) use of antithrombotics/antiplatelets; Z79.899 Other long term (current) drug therapy; Z87.891 Personal history of nicotine dependence
CPT/HCPCS: 51702; 70450; 71045; 80048; 81001; 84484; 85025; 85610; 85730; 93005; 99285; J2997; J7030; A4216

== ENCOUNTER 2021-02-22 19:37 | Emergency (ER) | payer MEDICARE, MEDICAID, SELFPAY ==
[2020-12-26 12:01] VITALS: BMI 29.0
[2021-02-22 19:38] VITALS: BP 113/71; PULSE 67; RESP 15; TEMP 36; O2SAT 95; BMI 25.0
--- NOTE | 2021-02-22 19:43 | ED.RN ---
RN CALLED FOR EKG, PULLED OLD EKGS FOR
--- NOTE | 2021-02-22 19:57 | EKG12_ITS ---
Test Reason : CP Blood Pressure : / mmHG Vent. Rate : 062 BPM Atrial Rate : 062 BPM P-R Int : 160 ms QRS Dur : 082 ms QT Int : 452 ms P-R-T Axes : 040 026 058 degrees QTc Int : 458 ms Normal sinus rhythm Low voltage QRS Borderline ECG Confirmed by FLORENTINO PETER, JM ([id number]), clinical editor ZUNILDA MILLER ([id number]) on 02/24/2021 8:27:06 AM Referred By: LANEY Confirmed By:JM GOOD MD
[2021-02-22 20:00] VITALS: O2SAT 100
[2021-02-22 20:02] LABS: Absolute Lymphocyte Count 1.36 X10^3/uL (0.83-4.51); Basophil# 0.03 X10^3/uL; Basophil% 0.5 % (0-1); Eosinophil# 0.18 X10^3/uL; Eosinophils% 2.9 % (0-5); Hematocrit 41.3 % (37-47); Hemoglobin 13.2 g/dL (12.0-15.0); Lymphocyte # 1.36 X10^3/ul (0.83-4.51); Lymphocyte % 22.2 % (19-41); Mean Corpuscular Volume 84.5 fL (81-99); Mean Platelet Vol. 10.8 fl (6.2-12.0); Monocyte# 0.54 X10^3/uL; Monocyte% 8.8 % (0-10); NRBC Flagged by Analyzer 0 % (0-5); Neutrophil % 65.3 % (47-70); Platelet Count 233 K/mm3 (150-450); RBC Distribution Width CV 13.7 % (11.6-14.6); RBC Distribution Width SD 42.4 fl (35.1-43.9); Red Blood Count 4.89 M/mm3 (4.2-5.4); White Blood Count 6.1 K/mm3 (4.4-11.0)
--- NOTE | 2021-02-22 20:08 | EDS_ITS ---
HPI History of Present Illness Chief Complaint: Chest Pain [facility] Medical History (Updated 02/22/21 @ 21:[address] 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 Left hemiparesis Left-sided weakness Lupus medical management Metabolic encephalopathy Mitral valve disorder Normal pressure hydrocephalus NPH (normal pressure hydrocephalus) Orthostatic hypotension Overactive bladder Rheumatoid arthritis Status post placement of implantable loop recorder Stroke Home Medications cholecalciferol (vitamin D3) 5,000 unit PO DAILY 10/28/17 [History Last Taken 08/05/18] donepezil 10 mg PO DAILY 10/28/17 [History Last Taken 08/05/18] esomeprazole magnesium 40 mg PO DAILY 10/28/17 [History Last Taken 08/05/18] sertraline 50 mg PO QHS 10/28/17 [History Last Taken 08/05/18] solifenacin 5 mg PO DAILY 10/28/17 [History Last Taken 08/05/18] clopidogrel 75 mg PO DAILY 05/09/18 [History Last Taken 08/05/18] quetiapine 50 mg PO QHS 08/06/18 [History Last Taken 08/05/18] rosuvastatin 5 mg PO QHS 08/11/19 [History Last Taken Unknown] brimonidine-timolol 1 drp LEFT EYE BID 12/26/20 [History Last Taken Unknown] hydrochlorothiazide 12.5 mg PO DAILY 02/22/21 [History Last Taken Unknown] latanoprostene bunod [Vyzulta] 1 drp OPHTHALMIC (EYE) DAILY 02/22/21 [History Last Taken Unknown] levothyroxine 50 mcg PO DAILY 02/22/21 [History Last Taken Unknown] Allergy/AdvReac Type Severity Reaction Status Date / Time ciprofloxacin Allergy Unknown Verified 02/22/21 19:40 Penicillins Allergy Unknown Verified 02/22/21 19:40 Sulfa (Sulfonamide Allergy Unknown Verified 02/22/21 19:40 Antibiotics) thimerosal [From Merthiolate] Allergy Rash Verified 02/22/21 19:40 Family History Mother Cancer lung cancer Heart disease Father Heart disease Hypertension Surgical History History of eye surgery History of knee surgery history of SEMICONDUCTOR TECHNICIAN shunt Social History Smoking Status: Former smoker alcohol intake: current substance use type: does not use ROS ROS ED ROS Narrative Patient denies any recent illness. Nothing particular makes the chest pain better or worse except for trying to eat. Review of Systems ROS Unobtainable: Denies due to encephalopathy Constitutional Constitutional ED: Denies chills or fever(s) Eyes Eyes: Denies none ENT ENT ED: Denies sore throat Cardiovascular Cardiovascular: Reports chest pain; Denies palpitations Respiratory/Chest Respiratory/Chest: Denies cough or dyspnea Gastrointestinal Gastrointestinal: Denies abdominal pain, diarrhea, nausea or vomiting Genitourinary Genitourinary ED: Denies dysuria or hematuria Musculoskeletal Musculoskeletal: Denies arthralgias or myalgias Integumentary Denies abscess or rash Neurologic Neurologic: Denies headache(s) Psychiatric Psychiatric: Denies depression Endocrine Endocrinology: Denies polyuria Hematologic/Lymphatic Hematologic/Lymphatic: Denies easy bruising Allergic/Immunologic Allergic/Immunologic ED: Denies urticaria EXAM Physical Exam Narrative Exam Narrative: Older female accompanied by her complaint of chest pain. States currently she is pain-free. Vital signs are stable afebrile pulse ox 100% on room air no signs of hypoxia. Const Vital Signs: 02/22/21 19:38 02/22/21 19:48 02/22/21 20:00 Temperature 96.8 F L Temperature Source Temporal Pulse Rate 67 Respiratory Rate 15 Respiratory Effort Normal Blood Pressure 113/71 Blood Pressure Mean 85 Pulse Ox 95 100 Oxygen Delivery Method Room Air Room Air 02/22/21 20:38 02/22/21 21:00 Temperature Temperature Source Pulse Rate 631 H 61 Respiratory Rate 15 18 Respiratory Effort Blood Pressure 110/67 110/67 Blood Pressure Mean 81 81 Pulse Ox 95 97 Oxygen Delivery Method Room Air Room Air Positive well nourished and well developed General Appearance ED: well developed HEENT normocephalic and atraumatic Eyes PERRL and EOMs intact bilaterally Neck no lymphadenopathy, supple and no JVD Chest Wall inspection of chest normal and palpation of chest normal Chest: Negative for tenderness Resp normal respiratory effort and clear to auscultation bilaterally Effort and Inspection: Negative for respiratory distress Cardio regular rate and regular rhythm GI no masses Back/Spine no CVA tenderness Extremity normal to inspection Neuro oriented x3 Neuro Narrative: Right-sided weakness from prior stroke. Difficulty speaking due to prior stroke. Sensorium / Orientation: awake, alert, oriented to person, oriented to place and oriented to time Psych mental status grossly normal Skin no rashes or lesions noted MDM MDM MDM Narrative Medical decision making narrative: Or a female significant past medical history strokes. No prior cardiac history. Complaining of chest pain. Is not reproducible. I gave her a glass of water she was able to swallow it does not appear to be esophageal impaction. Repeat exam at 9:50 PM patient is doing well. She and her went over all of her test results. They understand there is no acute signs of AZ or ischemia at this time that could not be ruled out. I discussed with them overnight admission for recurrent blood work, EKGs and possible provocative cardiac testing she defers at this time. She thinks this is her reflux and does not want any further evaluation nor does she want admission. I discussed this again with both her and her and they are refusing admission. Lab Data Attestation: I reviewed the patient's lab results. Lab results narrative: CBC unremarkable white count of 6. Hemoglobin 13. Chemistries unremarkable. Creatinine is 1.47 she is a history of renal insufficiency. Troponin is normal. Portable chest x-ray 1 view interpreted by myself and the radiologist shows no acute abnormality. Normal cardiac silhouette. She does have a prior loop recorder. Initial and repeat EKGs were unremarkable and unchanged from prior and from each other. No acute signs of AZ or ischemia. Labs: Laboratory Results - last 24 hr 02/22/21 02/22/21 19:55 19:55 WBC 6.1 RBC 4.89 Hgb 13.2 Hct 41.3 MCV 84.5 MCH 27.0 MCHC 32.0 RDW Std Deviation 42.4 RDW Coeff of Favian 13.7 Plt Count 233 MPV 10.8 Immature Gran % (Auto) 0.300 Neut % (Auto) 65.3 Lymph % (Auto) 22.2 [place] % (Auto) 8.8 Eos % (Auto) 2.9 Baso % (Auto) 0.5 Absolute Neuts (auto) 4.0 Absolute Lymphs (auto) 1.36 Nucleated RBC % 0 Sodium 141 Potassium 4.0 Chloride 107 Carbon Dioxide 29.0 Anion Gap 5 BUN 25 H Creatinine 1.47 H Estim Creat Clear Calc 29.75 Est GFR (MDRD) Af Amer 45 L Est GFR (MDRD) Non-Af 37 L BUN/Creatinine Ratio 17.0 Glucose 93 Calcium 8.6 Troponin I < 0.015 Radiography Chest X-Ray - ED: 1 View, Read by Radiologist, Unchanged, Normal, Heart, Lungs, Mediastinum, Bony Structures, No Acute Disease and Chronic Changes Diagnostic Testing: Radiology Impression Chest X-Ray 02/22/21 20:08 IMPRESSION: No acute radiographic abnormalities. Electronically Signed: Mario Yuan MD at 21:18 EDT Tel , Service support , EKG Initial EKG: Attestation: I personally reviewed and interpreted this EKG as follows: Interpretation: Sinus Rhythm Comments: Normal sinus rhythm rate of 62 with no acute signs of AZ or ischemia. Unchanged from prior EKG from December of this year. Prior EKG tracings: available for review Prior: Unchanged Follow-up EKG: Attestation: I personally reviewed and interpreted this EKG as follows: Interpretation: Sinus Rhythm, No Acute Injury Pattern and Sinus Bradycardia Prior EKG tracings: available for review Prior: Unchanged Treatment and Re-Evaluation Comments:: Second EKG shows sinus bradycardia rate of 58 with no acute signs of AZ or ischemia. No change from the first or prior. Discharge Plan Triage Chief Complaint: Chest Pain ED Provider: Williams Robles Dx/Rx/DC Orders Clinical Impression: Chest pain of uncertain etiology Instructions: ED Chest Pain, Uncertain Cause Prescriptions: No Action donepezil 10 MG tablet 10 mg PO DAILY RF: 0 esomeprazole magnesium 40 MG capsule,delayed release(DR/EC) 40 mg PO DAILY RF: 0 sertraline 50 MG tablet 50 mg PO QHS RF: 0 solifenacin 10 MG tablet 5 mg PO DAILY RF: 0 cholecalciferol (vitamin D3) 5,000 UNIT tablet,disintegrating 5,000 unit PO DAILY RF: 0 clopidogrel 75 MG tablet 75 mg PO DAILY RF: 0 quetiapine 50 MG tablet 50 mg PO QHS RF: 0 rosuvastatin 5 MG tablet 5 mg PO QHS RF: 0 brimonidine-timolol 10 ML drops 1 drp LEFT EYE BID RF: 0 hydrochlorothiazide 12.5 mg Capsule 12.5 mg PO DAILY RF: 0 levothyroxine 50 mcg Capsule 50 mcg PO DAILY RF: 0 Vyzulta 0.024 % Drops 1 drp OPHTHALMIC (EYE) DAILY RF: 0 Primary Care Provider: Andrew Andino Referrals: Andrew Andino MD [Primary Care Provider] - 1-2 Days if not improving Activity Restrictions/Additional Instructions: Follow-up with your doctor if not feeling better. Return emergency problems or feeling worse. Your test tonight were unremarkable but that does not rule out this being a cardiac cause of chest pain. Disposition Disposition: Home, self care
--- NOTE | 2021-02-22 20:08 | RAD_ITS ---
INDICATION: chest pain EXAMINATION/TECHNIQUE: X-RAY - XR Chest 1 View COMPARISON: 12/26/2020. FINDINGS: The lungs are clear. Tortuous and calcified thoracic aorta. The heart is not enlarged. No pleural effusion or pneumothorax. No acute osseous abnormalities. Degenerative changes of the bilateral shoulders and thoracic spine. CASE COORDINATOR shunt catheter partially visualized. RAD/Chest 1 View (Portable) IMPRESSION: No acute radiographic abnormalities. Electronically Signed: Mario Yuan MD at 21:18 EDT Tel , Service support ,
[2021-02-22] MEDS: Aspirin 81 MG TAB.CHEW 324 MG PO (20:12)
[2021-02-22 20:30] LABS: Anion Gap 5 (5-15); BUN 25 mg/dL (7-18); Calcium,Total 8.6 mg/dL (8.5-10.1); Chloride 107 mmol/L (98-107); Creatinine, Serum 1.47 mg/dL (0.55-1.02); EST Glomerular Filtration Rate 37 mL/min (>60); Est Glom Filt Rate - Afr Amer 45 mL/min (>60); Estimated Creatinine Clearance 29.75 ml/min; Glucose 93 mg/dL (74-106); Sodium Level 141 mmol/L (136-145)
[2021-02-22 20:38] VITALS: BP 110/67; PULSE 631; RESP 15; O2SAT 95
[2021-02-22 21:00] VITALS: BP 110/67; PULSE 61; RESP 18; O2SAT 97
--- NOTE | 2021-02-22 21:10 | EKG12_ITS ---
Test Reason : REPEAT Blood Pressure : / mmHG Vent. Rate : 058 BPM Atrial Rate : 058 BPM P-R Int : 170 ms QRS Dur : 080 ms QT Int : 472 ms P-R-T Axes : 053 025 038 degrees QTc Int : 463 ms Sinus bradycardia Low voltage QRS Borderline ECG Confirmed by FLORENTINO PETER, JM ([id number]), associate entertainment editor ZUNILDA MILLER ([id number]) on 02/24/2021 8:27:28 AM Referred By: LANEY Confirmed By:JM GOOD MD
[2021-02-22 21:59] VITALS: BP 97/68; PULSE 78; RESP 18; O2SAT 95
== END 2021-02-22 22:04 | disposition home or self-care (01) ==
PROVIDERS: Emergency Provider Emergency Medicine; PCP Internal Medicine
DX: R07.9 Chest pain, unspecified (principal); I10 Essential (primary) hypertension; F31.9 Bipolar disorder, unspecified; K21.9 Gastro-esophageal reflux disease without esophagitis; M06.9 Rheumatoid arthritis, unspecified; E03.9 Hypothyroidism, unspecified; I63.9 Cerebral infarction, unspecified; I69.328 Other speech and language deficits following cerebral infarction; Z79.899 Other long term (current) drug therapy; Z87.891 Personal history of nicotine dependence
CPT/HCPCS: 71045; 80048; 84484; 85025; 93005; 99285; A4216

== ENCOUNTER → 2021-03-09 12:58 | Outpatient (CLI) | payer MEDICARE, MEDICAID, SELFPAY ==
[2021-02-22 19:38] VITALS: BMI 25.0
--- NOTE | 2021-03-09 13:31 | US_ITS ---
STUDY: ULTRASOUND OF THE FEMALE PELVIS - COMPLETE REASON FOR EXAM: Female, 76 years old. PELVIC PERINEAL PAIN -- -- S/P HYSTERECTOMY LMP: Patient is status post hysterectomy. TECHNIQUE: Transvaginal TECHNICAL QUALITY: Adequate. COMPARISON: None. FINDINGS: The patient is status post hysterectomy. The right ovary is non-visualized. The left ovary is non-visualized. There is no fluid in the cul-de-sac. US/Transvaginal Non- IMPRESSION: Status post hysterectomy. The ovaries were not visualized. Electronically Signed: Adam Sanchez MD at 14:13 EDT , Service support ,
== END ==
PROVIDERS: PCP Internal Medicine; Referring Provider Orthopaedic Surgery; Visit Provider Orthopaedic Surgery
DX: R10.2 Pelvic and perineal pain (principal)
CPT/HCPCS: 76830

== ENCOUNTER 2021-04-27 17:11 | Emergency (ER) | payer MEDICARE, MEDICAID, SELFPAY ==
[2021-04-27 17:13] VITALS: BP 150/87; PULSE 58; RESP 18; TEMP 37.1; O2SAT 98; BMI 24.8
--- NOTE | 2021-04-27 17:57 | CT_ITS ---
STUDY: CT BRAIN WITHOUT CONTRAST REASON FOR EXAM: Female, 76 years old. head injury RADIATION DOSAGE (If Supplied By Facility): CTDIvol = ( 38.43 ) mGy, DLP = ( 741.51 ) mGycm TECHNIQUE: Transaxial CT imaging of the brain was performed without administration of intravenous contrast material. Individualized dose optimization techniques were used for this CT. COMPARISON: No relevant priors. FINDINGS: Normal soft tissue structures. There is a ventriculoperitoneal shunt catheter entering the brain through concepcion hole in the right frontal bone with tip in the frontal horn of left lateral ventricle Calcification of cavernous carotids Mild atrophy and moderate periventricular white matter ischemic changes.. Tiny old bilateral lacunar infarcts in the basal ganglia.. Normal brainstem. Normal cerebellum. There is no intracranial hemorrhage. There are no findings of an acute ischemic infarction. Postsurgical changes of right orbit Normal visualized paranasal sinuses. CT/Brain/Head without Contrast IMPRESSION: Moderate periventricular white matter ischemic changes and tiny old lacunar infarcts. No evidence for obstructive hydrocephalus status post ventricular shunting. No evidence for acute intracranial bleed. Electronically Signed: Stephane Castellanso MD at 18:53 EDT , Service support ,
--- NOTE | 2021-04-27 17:58 | EKG12_ITS ---
Test Reason : CONFUSION Blood Pressure : / mmHG Vent. Rate : 055 BPM Atrial Rate : 055 BPM P-R Int : 166 ms QRS Dur : 084 ms QT Int : 504 ms P-R-T Axes : 046 002 047 degrees QTc Int : 482 ms Sinus bradycardia Otherwise normal ECG Confirmed by LUIS PETER, EMILEE ([id number]), editor house organ ZUNILDA MILLER ([id number]) on 04/28/2021 11:56:20 AM Referred By: LEILA Confirmed By:EMILEE SMITH MD
--- NOTE | 2021-04-27 18:00 | EDS_ITS ---
HPI History of Present Illness Chief Complaint: Confusion Informant: patient and spouse/S.O. Onset/Context/Timing Onset: Days Context: Gradual Onset Timing: Continuous Current Severity: Mild Maximum Severity: Mild Narrative Narrative: 76-year-old female history of 2 prior strokes with some mild aphasia from it. states she fell about a week ago hit her right forehead. They went to an urgent care who recommended a CAT scan but they did not want to get it at that time. She is on Plavix for her strokes. He states she has had decreased fluid intake which is normal for her anything she is just generally weak. They deny any nausea, vomiting or diarrhea. Prior similar symptoms: No Recent Illness/Hospitalization: No PFSH [facility] Medical History (Updated 04/27/21 @ 20:[address] 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 Left hemiparesis Left-sided weakness Lupus medical management Metabolic encephalopathy Mitral valve disorder Normal pressure hydrocephalus NPH (normal pressure hydrocephalus) Orthostatic hypotension Overactive bladder Rheumatoid arthritis Status post placement of implantable loop recorder Stroke Home Medications cholecalciferol (vitamin D3) 5,000 unit PO DAILY 10/28/17 [History Last Taken 08/05/18] donepezil 10 mg PO DAILY 10/28/17 [History Last Taken 08/05/18] esomeprazole magnesium 40 mg PO DAILY 10/28/17 [History Last Taken 08/05/18] sertraline 50 mg PO QHS 10/28/17 [History Last Taken 08/05/18] solifenacin 5 mg PO DAILY 10/28/17 [History Last Taken 08/05/18] clopidogrel 75 mg PO DAILY 05/09/18 [History Last Taken 08/05/18] quetiapine 50 mg PO QHS 08/06/18 [History Last Taken 08/05/18] rosuvastatin 5 mg PO QHS 08/11/19 [History Last Taken Unknown] brimonidine-timolol 1 drp LEFT EYE BID 12/26/20 [History Last Taken Unknown] hydrochlorothiazide 12.5 mg PO DAILY 02/22/21 [History Last Taken Unknown] latanoprostene bunod [Vyzulta] 1 drp OPHTHALMIC (EYE) DAILY 02/22/21 [History Last Taken Unknown] levothyroxine 50 mcg PO DAILY 02/22/21 [History Last Taken Unknown] Allergy/AdvReac Type Severity Reaction Status Date / Time ciprofloxacin Allergy Unknown Verified 04/27/21 17:15 Penicillins Allergy Unknown Verified 04/27/21 17:15 Sulfa (Sulfonamide Allergy Unknown Verified 04/27/21 17:15 Antibiotics) thimerosal [From Merthiolate] Allergy Rash Verified 04/27/21 17:15 Family History Mother Cancer lung cancer Heart disease Father Heart disease Hypertension Surgical History History of eye surgery History of knee surgery history of [employer]ER shunt Social History Smoking Status: Former smoker alcohol intake: current substance use type: does not use ROS ROS ED ROS Narrative Denies any recent illness. Review of Systems ROS Unobtainable: Denies due to encephalopathy Constitutional Constitutional ED: Denies chills or fever(s) Eyes Eyes: Denies change in vision ENT ENT ED: Denies ear pain or sore throat Cardiovascular Cardiovascular: Denies chest pain Respiratory/Chest Respiratory/Chest: Denies cough or dyspnea Gastrointestinal Gastrointestinal: Denies abdominal pain, diarrhea, nausea or vomiting Genitourinary Genitourinary ED: Reports urinary frequency; Denies dysuria or hematuria Musculoskeletal Musculoskeletal: Denies arthralgias or myalgias Integumentary Denies rash Neurologic Neurologic: Denies headache(s) Psychiatric Psychiatric: Denies depression Endocrine Endocrinology: Denies polyuria Allergic/Immunologic Allergic/Immunologic ED: Denies urticaria EXAM Physical Exam Narrative Exam Narrative: Elderly female no acute distress. Vital signs stable afebrile. HEENT exam unremarkable. No signs of trauma at this time. Neck nontender. Lungs clear to auscultation. Heart regular rhythm no murmur rate about 60. Abdomen soft nontender. Moving all 4 extremities. She does have swelling to her left ankle which according to her is chronic from a prior ankle fracture and surgery. Neurologically she is awake and alert. She does have a mild expressive aphasia but she knows day of the week, month and year. She knows where she is at. She is following commands. Const Vital Signs: 04/27/21 17:13 04/27/21 19:11 04/27/21 19:21 Temperature 98.7 F 97.7 F L Temperature Source Temporal Temporal Pulse Rate 58 L 78 Respiratory Rate 18 16 Blood Pressure 150/87 H 157/82 H Blood Pressure Mean 108 107 Pulse Ox 98 96 Oxygen Delivery Method Room Air Positive well nourished and well developed General Appearance ED: well developed and NAD HEENT Reports moist mucous membranes Negative for trauma or tenderness Eyes PERRL and EOMs intact bilaterally Neck no lymphadenopathy, supple and no JVD General: Negative for tenderness Chest Wall inspection of chest normal and palpation of chest normal Resp normal respiratory effort and clear to auscultation bilaterally Cardio regular rate, regular rhythm, S1 normal heart sound, S2 normal heart sound and no murmurs GI normal to inspection, nondistended, normoactive bowel sounds, non-tender, non- distended and no masses Auscultation: normoactive bowel sounds Palpation: soft; Negative for tender, guarding or rebound tenderness present Back/Spine no CVA tenderness General Back: Negative for CVA tenderness Cervical Spine: Negative for cervical spine tenderness Thoracic Spine / Upper Back: Negative for thoracic spinal tenderness or paraspinal muscle tenderness Extremity normal to inspection Extremity Narrative: Left lower ankle edema which states is chronic from a prior fracture and surgical repair years ago. General Extremety ED: Yes edema; Negative for tenderness General Extremity: edema Neuro oriented x3 and CN's II-XII intact bilaterally Neuro Narrative: Patient has expressive aphasia from prior strokes. She is moving all 4 extremities. 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 Sensorium / Orientation: alert; Negative for orientation impaired, lethargic or stuporous Motor Exam: strength 5/5 throughout Psych mental status grossly normal Skin no rashes or lesions noted and no wounds MDM MDM MDM Narrative Medical decision making narrative: Older female with complicated past medical history. Recent fall and head injury on Plavix she will undergo a CAT scan. Screening labs for change in mental status. Nothing specific on exam. Repeat exams at 830 and 854 patient doing well. I went over all test results with patient and her . Her requested I also obtain a pelvis x- ray to evaluate her hips there is arthritis but there is no acute fracture. She also has lower lumbar spine arthritis. Patient has no test results or exam findings that would need admission to the hospital. Nurses were able to ambulate her with a walker and she did well. is comfortable taking her home. Lab Data Attestation: I reviewed the patient's lab results. Lab results narrative: CBC unremarkable white count of 6. Hemoglobin 13. Electrolytes unremarkable gap 4. Creatinine of 1. Liver enzymes normal. UA no signs of infection. Labs: Laboratory Results - last 24 hr 04/27/21 04/27/21 04/27/21 18:10 18:10 19:05 WBC 6.9 RBC 4.83 Hgb 13.0 Hct 41.1 MCV 85.1 MCH 26.9 L MCHC 31.6 L RDW Std Deviation 42.2 RDW Coeff of Favian 13.5 Plt Count 235 MPV 10.3 Immature Gran % (Auto) 0.300 Neut % (Auto) 73.1 H Lymph % (Auto) 16.0 L Bartholomew % (Auto) 7.7 Eos % (Auto) 2.6 Baso % (Auto) 0.3 Absolute Neuts (auto) 5.0 Absolute Lymphs (auto) 1.10 Nucleated RBC % 0 Sodium 138 Potassium 4.2 Chloride 105 Carbon Dioxide 29.0 Anion Gap 4 L BUN 16 Creatinine 1.07 H Estim Creat Clear Calc 42.53 Est GFR (MDRD) Af Amer 64 Est GFR (MDRD) Non-Af 53 L BUN/Creatinine Ratio 15.0 Glucose 84 Calcium 8.0 L Total Bilirubin 0.50 AST 22 ALT 29 Alkaline Phosphatase 77 Total Protein 7.6 Albumin 3.7 Globulin 3.9 Albumin/Globulin Ratio 0.9 Urine Color Yellow Urine Clarity Clear Urine pH 6.5 Ur Specific Pool 1.010 Urine Protein Negative Urine Glucose (UA) Normal Urine Ketones Negative Urine Occult Blood Negative Urine Nitrite Negative Urine Bilirubin Negative Urine Urobilinogen Normal Ur Leukocyte Esterase Negative Urine RBC 0 SEEN Urine WBC 0 SEEN Ur Squamous Epith Cells 0 SEEN Urine Bacteria 0 SEEN Urine Mucus 0 SEEN Radiography Chest X-Ray - ED: 1 View, Read by ED Physician, Read by Radiologist, Heart, Lungs, Mediastinum, Bony Structures, No Acute Disease and Chronic Changes Diagnostic Testing: Radiology Impression Brain CT 04/27/21 17:57 IMPRESSION: Moderate periventricular white matter ischemic changes and tiny old lacunar infarcts. No evidence for obstructive hydrocephalus status post ventricular shunting. No evidence for acute intracranial bleed. Electronically Signed: Stephane Castellanos MD at 18:53 EDT , Service support , Chest X-Ray 04/27/21 18:12 IMPRESSION: Mild right lower lobe atelectasis or infiltrate Electronically Signed: Stephane Castellanos MD at 18:30 EDT , Service support , I reviewed both the chest x-ray and the CT of the patient's had I agree with the readings. I also interpreted a chest x-ray I do not feel it is an infiltrate I think is atelectasis. Patient also had a pelvis x-ray showing lower lumbar arthritis and arthritis of both hips but no acute fracture. 1 view interpreted by myself. EKG Initial EKG: Attestation: I personally reviewed and interpreted this EKG as follows: Interpretation: Sinus Rhythm, No Acute Injury Pattern and Sinus Bradycardia Comments: Sinus bradycardia rate of 55 no acute signs of MT or ischemia. No significant change from February of this year. Prior: Unchanged Discharge Plan Triage Chief Complaint: Confusion ED Provider: Williams Robles Dx/Rx/DC Orders Clinical Impression: Falls, Head injury, Generalized weakness Instructions: ED Weakness (Uncertain Cause) Prescriptions: No Action donepezil 10 MG tablet 10 mg PO DAILY RF: 0 esomeprazole magnesium 40 MG capsule,delayed release(DR/EC) 40 mg PO DAILY RF: 0 sertraline 50 MG tablet 50 mg PO QHS RF: 0 solifenacin 10 MG tablet 5 mg PO DAILY RF: 0 cholecalciferol (vitamin D3) 5,000 UNIT tablet,disintegrating 5,000 unit PO DAILY RF: 0 clopidogrel 75 MG tablet 75 mg PO DAILY RF: 0 quetiapine 50 MG tablet 50 mg PO QHS RF: 0 rosuvastatin 5 MG tablet 5 mg PO QHS RF: 0 brimonidine-timolol 10 ML drops 1 drp LEFT EYE BID RF: 0 hydrochlorothiazide 12.5 mg Capsule 12.5 mg PO DAILY RF: 0 levothyroxine 50 mcg Capsule 50 mcg PO DAILY RF: 0 Vyzulta 0.024 % Drops 1 drp OPHTHALMIC (EYE) DAILY RF: 0 Primary Care Provider: Andrew Andino Referrals: Andrew Andino MD [Primary Care Provider] - 1 Week if not improving Activity Restrictions/Additional Instructions: Your labs and x-ray tonight were unremarkable. There is no signs of infection. Plenty of fluids and rest. Follow-up with your doctor if not improving. Return if feeling worse. Disposition Disposition: Home, Self Care
[2021-04-27] MEDS: 0.9% Normal Saline 1,000 ML 1000 ML IV (18:12)
--- NOTE | 2021-04-27 18:12 | RAD_ITS ---
STUDY: X-RAY CHEST REASON FOR EXAM: Female, 76 years old. MS change TECHNIQUE: AP portable COMPARISON: 02/22/2021 FINDINGS: Mild right lower lobe atelectasis or infiltrate. Left lung is clear. There is no demonstrated pleural abnormality. Heart is enlarged.. Normal mediastinum and rere. Normal visualized pulmonary arteries. Mildly calcified aortic arch and descending thoracic aorta. Dorsal spine demonstrates mild degenerative change. Normal visualized ribs, clavicles, and shoulders. Ventriculoperitoneal shunt noted projecting over the right hemithorax There is no demonstrated abnormality of the visualized soft tissue structures of the upper abdomen. RAD/Chest 1 View (Portable) IMPRESSION: Mild right lower lobe atelectasis or infiltrate Electronically Signed: Stephane Castellanos MD at 18:30 EDT , Service support ,
[2021-04-27 18:21] LABS: Basophil# 0.02 X10^3/uL; Basophil% 0.3 % (0-1); Eosinophil# 0.18 X10^3/uL; Eosinophils% 2.6 % (0-5); Hematocrit 41.1 % (37-47); Mean Corp Hgb Conc 31.6 g/dL (32-36); Mean Corpuscular Hgb 26.9 pg (27.0-32.0); Mean Corpuscular Volume 85.1 fL (81-99); Mean Platelet Vol. 10.3 fl (6.2-12.0); Monocyte# 0.53 X10^3/uL; Monocyte% 7.7 % (0-10); NRBC Flagged by Analyzer 0 % (0-5); Neutrophil # 5.03 X10^3/uL (2.7-7.7); Neutrophil % 73.1 % (47-70); Platelet Count 235 K/mm3 (150-450); RBC Distribution Width CV 13.5 % (11.6-14.6); RBC Distribution Width SD 42.2 fl (35.1-43.9); Red Blood Count 4.83 M/mm3 (4.2-5.4); White Blood Count 6.9 K/mm3 (4.4-11.0)
[2021-04-27 18:33] LABS: ALB/GLOB Ratio 0.9 RATIO (0.9-2.4); AST(SGOT) 22 U/L (15-37); Alanine Aminotransfer ALT/SGPT 29 U/L (13-56); Albumin, Serum 3.7 g/dL (3.2-5.0); Alkaline Phosphatase 77 U/L (45-117); Anion Gap 4 (5-15); BUN 16 mg/dL (7-18); Chloride 105 mmol/L (98-107); Creatinine, Serum 1.07 mg/dL (0.55-1.02); EST Glomerular Filtration Rate 53 mL/min (>60); Est Glom Filt Rate - Afr Amer 64 mL/min (>60); Estimated Creatinine Clearance 42.53 ml/min; Globulin 3.9 g/dL (2.2-4.2); Glucose 84 mg/dL (74-106); Potassium 4.2 mmol/L (3.5-5.1); Protein, Total 7.6 g/dL (6.4-8.2); Sodium Level 138 mmol/L (136-145)
--- NOTE | 2021-04-27 18:54 | ED.RN ---
shuffles with walker. needs much direction to use walker. has walker at home but does not use per .
[2021-04-27 19:11] VITALS: RESP 16; TEMP 36.5; O2SAT 96
[2021-04-27 19:13] LABS: Bacteria 0 SEEN /hpf (None Seen); Color, Urine Yellow (Yellow); Glucose, Dipstick Normal (Normal); Ketone-Dipstick Negative (Negative); Leukocyte Esterase-Dipstick Negative /ul (Negative); Mucous, Urine 0 SEEN /hpf (<or=2+); Nitrite-Dipstick Negative (Negative); Occult Blood-Urine Negative /ul (Negative); Protein-Dipstick Negative (Negative); Red Blood Cells-Urine 0 SEEN /hpf (0-5); Squamous Epithelial Cells - UA 0 SEEN /hpf (5-10); Urine Bilirubin Dipstick Negative (Negative); Urine Clarity Clear (Clear); Urine Urobilinogen Normal (Normal); Urine pH 6.5 (5.0 - 8.0); White Blood Cells 0 SEEN /hpf (0-5)
[2021-04-27 19:21] VITALS: BP 157/82; PULSE 78
--- NOTE | 2021-04-27 20:40 | RAD_ITS ---
STUDY: X-RAY - PELVIS REASON FOR EXAM: Female, 76 years old. pain TECHNIQUE: One view of the pelvis was obtained. COMPARISON: None. FINDINGS: There is a non-specific bowel gas pattern. Surgically implanted generator box located in the right iliac fossa with electrode extending to the left Normal bilateral iliac wings, sacroiliac joints and visualized sacrum. Normal visualized bilateral superior and inferior pubic rami. Normal pubic symphysis. Normal ischial tuberosities. Normal visualized right femoral head. Mildly narrowed joint space with acetabular spur. Normal visualized left femoral head. Mildly narrowed joint space with acetabular spur.. RAD/Pelvis 1 or 2 Views IMPRESSION: Mild arthritic changes of both hips. No evidence for acute hip or pelvic fracture Electronically Signed: Stephane Castellanos MD at 21:07 EDT , Service support ,
[2021-04-27 21:05] VITALS: BP 117/94; PULSE 58; RESP 118; O2SAT 99
== END 2021-04-27 21:05 | disposition home or self-care (01) ==
PROVIDERS: Emergency Provider Emergency Medicine; PCP Internal Medicine
DX: S09.90XA Unspecified injury of head, initial encounter (principal); R53.1 Weakness; I63.9 Cerebral infarction, unspecified; I69.320 Aphasia following cerebral infarction; I69.354 Hemiplegia and hemiparesis following cerebral infarction affecting left non-dominant side; I10 Essential (primary) hypertension; F31.9 Bipolar disorder, unspecified; K21.9 Gastro-esophageal reflux disease without esophagitis; E03.9 Hypothyroidism, unspecified; M06.9 Rheumatoid arthritis, unspecified; Z87.891 Personal history of nicotine dependence; Z79.899 Other long term (current) drug therapy; W18.30XA Fall on same level, unspecified, initial encounter; Y93.89 Activity, other specified; Y92.009 Unspecified place in unspecified non-institutional (private) residence as the place of occurrence of the external cause; Y99.8 Other external cause status
CPT/HCPCS: 70450; 71045; 72170; 80053; 81001; 85025; 93005; 96360; 99284; J7030; A4216

== ENCOUNTER 2021-08-24 15:05 | Emergency (ER) | payer MEDICARE, MEDICAID, SELFPAY ==
[2021-08-24 15:06] VITALS: BP 99/57; PULSE 51; RESP 16; TEMP 36.8; O2SAT 96; BMI 25.9
[2021-08-24 15:17] VITALS: BP 101/61; PULSE 51; RESP 17; O2SAT 94
--- NOTE | 2021-08-24 15:26 | EKG12_ITS ---
Test Reason : SYNCOPE Blood Pressure : / mmHG Vent. Rate : 054 BPM Atrial Rate : 054 BPM P-R Int : 164 ms QRS Dur : 084 ms QT Int : 538 ms P-R-T Axes : 048 019 065 degrees QTc Int : 510 ms Sinus bradycardia Prolonged QT Abnormal ECG Confirmed by FLORENTINO PETER, JM ([id number]), publications editor ZUNILDA MILLER ([id number]) on 08/26/2021 8:48:35 AM Referred By: SHERYL/JOSELIN Confirmed By:JM GOOD MD
--- NOTE | 2021-08-24 15:27 | EDS_ITS ---
HPI History of Present Illness Chief Complaint: Syncope Narrative Narrative: 76-year-old female sent in for evaluation [facility] as she was found passed out in a chair. Patient states that she felt otherwise well prior to this event. History is somewhat limited due to patient's dementia as well as history of stroke and dysarthria. Patient states that her biggest complaint is that she was upset with the techs at [facility] and wanted to talk to the nurse. She stated she also had some suprapubic abdominal pain which resolved. She states she is typically incontinent of urine but this is not new however she does have recurrent UTIs. Patient did not reportedly fall or hit her head. She does not complain of any pain. She does state that she has not been eating or drinking very well at the [facility]. [facility] Medical History Abdominal pain Alcoholic dementia Altered mental status Aphasia Ramos esophagus Benign essential hypertension Bipolar disorder Cardiac arrest Closed left ankle fracture Depression Dysarthria Fall GERD (gastroesophageal reflux disease) Glaucoma Hemiparesis affecting left side as late effect of stroke Hypertension Hypothyroidism 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 Left hemiparesis Left-sided weakness Lupus medical management Metabolic encephalopathy Mitral valve disorder Normal pressure hydrocephalus NPH (normal pressure hydrocephalus) Orthostatic hypotension Overactive bladder Rheumatoid arthritis Status post placement of implantable loop recorder Stroke Home Medications cholecalciferol (vitamin D3) 5,000 unit PO DAILY 10/28/17 [History Last Taken 08/05/18] donepezil 10 mg PO DAILY 10/28/17 [History Last Taken 08/05/18] esomeprazole magnesium 40 mg PO DAILY 10/28/17 [History Last Taken 08/05/18] sertraline 50 mg PO QHS 10/28/17 [History Last Taken 08/05/18] solifenacin 5 mg PO DAILY 10/28/17 [History Last Taken 08/05/18] clopidogrel 75 mg PO DAILY 05/09/18 [History Last Taken 08/05/18] quetiapine 50 mg PO QHS 08/06/18 [History Last Taken 08/05/18] rosuvastatin 5 mg PO QHS 08/11/19 [History Last Taken Unknown] brimonidine-timolol 1 drp LEFT EYE BID 12/26/20 [History Last Taken Unknown] hydrochlorothiazide 12.5 mg PO DAILY 02/22/21 [History Last Taken Unknown] latanoprostene bunod [Vyzulta] 1 drp OPHTHALMIC (EYE) DAILY 02/22/21 [History Last Taken Unknown] levothyroxine 50 mcg PO DAILY 02/22/21 [History Last Taken Unknown] Allergy/AdvReac Type Severity Reaction Status Date / Time ciprofloxacin Allergy Unknown Verified 04/27/21 17:15 Fish Containing Products Allergy Food Verified 08/24/21 15:16 Allergy Penicillins Allergy Unknown Verified 04/27/21 17:15 Sulfa (Sulfonamide Allergy Unknown Verified 04/27/21 17:15 Antibiotics) thimerosal [From Merthiolate] Allergy Rash Verified 04/27/21 17:15 topiramate [From Topamax] AdvReac Nausea Verified 08/24/21 15:16 trazodone [From Desyrel] AdvReac Other Verified 08/24/21 15:16 Family History Mother Cancer lung cancer Heart disease Father Heart disease Hypertension Surgical History History of eye surgery History of knee surgery history of [employer] MANAGER shunt Social History Smoking Status: Former smoker alcohol intake: current substance use type: does not use ROS ROS ED Constitutional Constitutional ED: Denies chills or fever(s) Eyes Eyes: Denies blurry vision or diplopia ENT ENT ED: Denies rhinorrhea or sore throat Cardiovascular Cardiovascular: Denies chest pain or palpitations Respiratory/Chest Respiratory/Chest: Denies cough or dyspnea Gastrointestinal Gastrointestinal: Reports abdominal pain; Denies nausea or vomiting Genitourinary Genitourinary ED: Reports other Details: Urinary incontinence Musculoskeletal Musculoskeletal: Denies myalgias Integumentary Denies rash Neurologic Neurologic: Denies headache(s) or paresthesias EXAM Physical Exam Const Vital Signs: 08/24/21 15:06 08/24/21 15:17 08/24/21 16:14 Temperature 98.3 F Temperature Source Temporal Pulse Rate 51 L 51 L Respiratory Rate 16 17 Blood Pressure 99/57 L 101/61 126/69 H Blood Pressure Mean 71 74 88 Pulse Ox 96 94 Oxygen Delivery Method Room Air Room Air Room Air 08/24/21 17:07 08/24/21 18:22 Temperature Temperature Source Pulse Rate 58 L 89 Respiratory Rate 17 16 Blood Pressure 149/74 H 164/76 H Blood Pressure Mean 99 105 Pulse Ox 95 98 Oxygen Delivery Method Room Air Room Air Positive well nourished General Appearance ED: NAD; Negative for pallor HEENT Reports dry mucous membranes Negative for trauma Mouth ED: Yes dry mucous membranes Mouth: dry mucous membranes Eyes PERRL and EOMs intact bilaterally Resp clear to auscultation bilaterally Cardio regular rhythm Rate: bradycardia GI GI Narrative: Mild suprapubic tenderness. Abdomen nonperitoneal. Neuro oriented x3 Sensorium / Orientation: alert Psych mental status grossly normal Skin General Skin Exam: Negative for jaundice or pallor MDM MDM MDM Narrative Medical decision making narrative: 76-year-old female presenting with altered mental status. After discussing it with the nursing care at her facility apparently she walked all the way upstairs and became very sweaty and then sat down and was unresponsive. She states that she feels well. I did obtain a head CT which shows no acute intracranial process. Given her abdominal pain I did do a CT of the abdomen pelvis and this is negative for acute findings. CBC shows no leukocytosis and her hemoglobin hematocrit are stable. Her creatinine is 1.4 which is slightly elevated for her and she was given IV fluids. LFTs are normal. Troponin is negative at 9. Patient states that she did not have any chest pain. I did attempt to obtain a urinalysis but the patient states that she has had at least 5 test of this and is all been negative. Is not on a medication for it. She request to be discharged home. At this point I find no reason to keep her. She'll be discharged back to her facility. Impression: 1. Syncope Lab Data Labs: Laboratory Results - last 24 hr 08/24/21 08/24/21 15:10 15:10 WBC 8.7 RBC 5.02 Hgb 13.3 Hct 42.0 MCV 83.7 MCH 26.5 L MCHC 31.7 L RDW Std Deviation 46.3 H RDW Coeff of Favian 15.2 H Plt Count 301 MPV 11.0 Immature Gran % (Auto) 0.200 Neut % (Auto) 68.5 Lymph % (Auto) 21.2 [place] % (Auto) 7.5 Eos % (Auto) 2.1 Baso % (Auto) 0.5 Absolute Neuts (auto) 5.9 Absolute Lymphs (auto) 1.84 Nucleated RBC % 0 Sodium 142 Potassium 3.5 Chloride 109 H Carbon Dioxide 26.0 Anion Gap 7 BUN 16 Creatinine 1.40 H Estim Creat Clear Calc 32.50 Est GFR (MDRD) Af Amer 47 L Est GFR (MDRD) Non-Af 39 L BUN/Creatinine Ratio 11.4 Glucose 149 H Calcium 8.4 L Total Bilirubin 0.50 AST 19 ALT 21 Alkaline Phosphatase 67 Troponin I High Sens 9 Total Protein 7.5 Albumin 3.6 Globulin 3.9 Albumin/Globulin Ratio 0.9 Radiography Diagnostic Testing: Clinical Impression(s) from Imaging Studies Brain CT 08/24/21 15:48 IMPRESSION: 1. Mild ventricular dilatation with evidence of right-sided [employer]EV[employer]OP[employer] SITE MANAGER shunt catheter. 2. No evidence of acute intracranial or calvarial abnormality. Electronically Signed: Zack Bonilla DO at 16:53 EST Tel [phone], Service support , Abdomen/Pelvis CT 08/24/21 16:17 IMPRESSION: 1. No evidence of acute intra-abdominal or pelvic process. 2. Status post hysterectomy. 3. Atherosclerotic changes of the aorta without aneurysm. 4. [employer]EVELOP[employer] SITE MANAGER shunt catheter. 5. Degenerative changes lumbar spine and hips. Electronically Signed: Zack Bonilla DO at 16:51 EST Tel [phone], Service support , Chest X-Ray 08/24/21 16:20 IMPRESSION: No acute cardiopulmonary disease Electronically Signed: Zack Bonilla DO at 17:15 EST Tel [phone], Service support , Discharge Plan Triage Chief Complaint: Syncope ED Provider: Akin Rivero Dx/Rx/DC Orders Instructions: ED Dizziness or Syncope ... Prescriptions: No Action donepezil 10 MG tablet 10 mg PO DAILY RF: 0 esomeprazole magnesium 40 MG capsule,delayed release(DR/EC) 40 mg PO DAILY RF: 0 sertraline 50 MG tablet 50 mg PO QHS RF: 0 solifenacin 10 MG tablet 5 mg PO DAILY RF: 0 cholecalciferol (vitamin D3) 5,000 UNIT tablet,disintegrating 5,000 unit PO DAILY RF: 0 clopidogrel 75 MG tablet 75 mg PO DAILY RF: 0 quetiapine 50 MG tablet 50 mg PO QHS RF: 0 rosuvastatin 5 MG tablet 5 mg PO QHS RF: 0 brimonidine-timolol 10 ML drops 1 drp LEFT EYE BID RF: 0 hydrochlorothiazide 12.5 mg Capsule 12.5 mg PO DAILY RF: 0 levothyroxine 50 mcg Capsule 50 mcg PO DAILY RF: 0 Vyzulta 0.024 % Drops 1 drp OPHTHALMIC (EYE) DAILY RF: 0 Primary Care Provider: Germain Field Referrals: Germain Field MD [Primary Care Provider] - Disposition Disposition: Home, Self Care
--- NOTE | 2021-08-24 15:48 | CT_ITS ---
STUDY: CT BRAIN WITHOUT CONTRAST REASON FOR EXAM: Female, 76 years old. Weakness. Syncope. RADIATION DOSAGE (If Supplied By Facility): CTDIvol = ( 44.99 ) mGy, DLP = ( 812.98 ) mGycm TECHNIQUE: Transaxial CT imaging of the brain was performed without administration of intravenous contrast material. Individualized dose optimization techniques were used for this CT. COMPARISON: No relevant priors. FINDINGS: Normal soft tissue structures. There is a MASTER SHIP shunt catheter entering through the right frontal region extending into the frontal horn of the right lateral ventricle. Otherwise normal calvarium. There is ventricular dilatation greater than expected for the degree of atrophy. There are areas of decreased attenuation within the white matter tracts of the supratentorial brain, consistent with microvascular disease changes. Normal basal ganglia and thalami. Normal brainstem. Normal cerebellum. There is no intracranial hemorrhage. There are no findings of an acute ischemic infarction. Normal visualized paranasal sinuses. CT/Brain/Head without Contrast IMPRESSION: 1. Mild ventricular dilatation with evidence of right-sided MASTER SHIP shunt catheter. 2. No evidence of acute intracranial or calvarial abnormality. Electronically Signed: Zack Bonilla DO at 16:53 EST Tel [phone], Service support ,
[2021-08-24 15:50] LABS: Absolute Lymphocyte Count 1.84 X10^3/uL (0.83-4.51); Absolute Neutrophil Count 5.9 X10^3/uL (2.0-7.7); Basophil# 0.04 X10^3/uL; Basophil% 0.5 % (0-1); Eosinophil# 0.18 X10^3/uL; Eosinophils% 2.1 % (0-5); Hemoglobin 13.3 g/dL (12.0-15.0); Lymphocyte # 1.84 X10^3/ul (0.83-4.51); Lymphocyte % 21.2 % (19-41); Mean Corp Hgb Conc 31.7 g/dL (32-36); Mean Corpuscular Hgb 26.5 pg (27.0-32.0); Mean Corpuscular Volume 83.7 fL (81-99); Monocyte# 0.65 X10^3/uL; Monocyte% 7.5 % (0-10); NRBC Flagged by Analyzer 0 % (0-5); Neutrophil # 5.93 X10^3/uL (2.7-7.7); Neutrophil % 68.5 % (47-70); Platelet Count 301 K/mm3 (150-450); RBC Distribution Width CV 15.2 % (11.6-14.6); RBC Distribution Width SD 46.3 fl (35.1-43.9); Red Blood Count 5.02 M/mm3 (4.2-5.4); White Blood Count 8.7 K/mm3 (4.4-11.0)
[2021-08-24 16:03] LABS: ALB/GLOB Ratio 0.9 RATIO (0.9-2.4); AST(SGOT) 19 U/L (15-37); Alanine Aminotransfer ALT/SGPT 21 U/L (13-56); Albumin, Serum 3.6 g/dL (3.2-5.0); Alkaline Phosphatase 67 U/L (45-117); Anion Gap 7 (5-15); BUN 16 mg/dL (7-18); BUN/Creat Ratio 11.4 RATIO (10-20); Calcium,Total 8.4 mg/dL (8.5-10.1); Chloride 109 mmol/L (98-107); EST Glomerular Filtration Rate 39 mL/min (>60); Est Glom Filt Rate - Afr Amer 47 mL/min (>60); Globulin 3.9 g/dL (2.2-4.2); Glucose 149 mg/dL (74-106); Potassium 3.5 mmol/L (3.5-5.1); Protein, Total 7.5 g/dL (6.4-8.2); Sodium Level 142 mmol/L (136-145); Troponin-I HS 9 pg/mL (3.0-54.0)
[2021-08-24 16:14] VITALS: BP 126/69
--- NOTE | 2021-08-24 16:17 | CT_ITS ---
STUDY: CT ABDOMEN AND PELVIS WITHOUT CONTRAST REASON FOR EXAM: Female, 76 years old. Abdominal pain. RADIATION DOSAGE (If Supplied By Facility): CTDIvol = ( 7.22 ) mGy, DLP = ( 360.61 ) mGycm TECHNIQUE: Transaxial images were obtained from the dome of the diaphragm to the symphysis pubis without oral contrast, and without intravenous contrast. Sagittal and coronal images were reconstructed. Individualized dose optimization techniques were used for this CT. COMPARISON: None. FINDINGS: The visualized lung bases are unremarkable. The visualized portions of the heart are within normal limits. Normal liver. Normal gallbladder and extrahepatic biliary system. Normal spleen. Normal pancreas. Normal bilateral adrenal glands. Normal right kidney. Normal left kidney. Normal visualized ureters. Normal visualized stomach. Normal small intestine. Normal colon. There is non-visualization of the appendix. There is diffuse atherosclerotic calcification of the abdominal aorta with elongation and tortuosity, but without a demonstrated aneurysm. Normal inferior vena cava. Normal retroperitoneum. Normal urinary bladder. Air is seen in the vaginal vault. The patient is status post hysterectomy. There are no ovaries on pelvic sidewalls without lymphadenopathy. No free air or free fluid is seen within the peritoneal cavity. Small umbilical hernia of omental fat. The abdominal wall is otherwise unremarkable. There is a SERVICE SPECIALIST shunt catheter extending down the right lower chest and entering the right upper abdomen. The tip of the catheter is coiled in the left upper quadrant. There are diffuse degenerative changes of the visualized lumbar spine and hips. There is a sacral stimulator on the right with its generator in the upper buttock. CT/Abdomen/Pelvis without Cont IMPRESSION: 1. No evidence of acute intra-abdominal or pelvic process. 2. Status post hysterectomy. 3. Atherosclerotic changes of the aorta without aneurysm. 4. SERVICE SPECIALIST shunt catheter. 5. Degenerative changes lumbar spine and hips. Electronically Signed: Zack Bonilla DO at 16:51 EST Tel [phone], Service support ,
--- NOTE | 2021-08-24 16:20 | RAD_ITS ---
STUDY: X-RAY CHEST REASON FOR EXAM: Female, 76 years old. Syncope. TECHNIQUE: Single AP portable view of the chest. COMPARISON: None. FINDINGS: There is a IV TECHNICIAN shunt catheter along the right anterior chest wall. There is an implantable gear keeper over the region of the main pulmonary artery. The lungs are clear and expanded. There is no demonstrated pleural abnormality. Normal size heart. Normal mediastinum and rere. Normal visualized pulmonary arteries. There is atherosclerotic calcification of the aortic arch with tortuosity. Normal visualized thoracic spine. There is degenerative osteoarthritis of the bilateral shoulders. There is no demonstrated abnormality of the visualized soft tissue structures of the upper abdomen. RAD/Chest 1 View (Portable) IMPRESSION: No acute cardiopulmonary disease Electronically Signed: Zack Bonilla DO at 17:15 EST Tel [phone], Service support ,
[2021-08-24 17:07] VITALS: BP 149/74; PULSE 58; RESP 17; O2SAT 95
--- NOTE | 2021-08-24 17:45 | ED.RN ---
pt was assisted to the restroom. unable to provide a sample. dr be. craig culver, rn [id number]
[2021-08-24 18:22] VITALS: BP 164/76; PULSE 89; RESP 16; O2SAT 98
--- NOTE | 2021-08-24 18:47 | ED.RN ---
second attempt made to gather a ua. pt ambulated to restroom and staff stayed with patient. pt was unable to go again. pt is refusing to allow catheter sample and states i want to go back to [facility]. craig culver rn [id number]
[2021-08-24 20:17] VITALS: PULSE 76; RESP 16; O2SAT 98
--- NOTE | 2021-08-24 20:19 | ED.RN ---
pt's family asked for a call back. she stated I'll call them when i asked her permission to notify them. craig culver rn [id number]
--- NOTE | 2021-08-24 20:58 | ED.RN ---
roxie de la torre called from [facility]. report given. craig culver rn [id number]
== END 2021-08-25 01:00 | disposition home or self-care (01) ==
PROVIDERS: Emergency Provider Student in an Organized Health Care Education/Training Program; PCP Family Medicine
DX: R55 Syncope and collapse (principal); F03.90 Unspecified dementia, unspecified severity, without behavioral disturbance, psychotic disturbance, mood disturbance, and anxiety; I63.9 Cerebral infarction, unspecified; I69.322 Dysarthria following cerebral infarction; I10 Essential (primary) hypertension; F31.9 Bipolar disorder, unspecified; K21.9 Gastro-esophageal reflux disease without esophagitis; E03.9 Hypothyroidism, unspecified; M06.9 Rheumatoid arthritis, unspecified; Z79.899 Other long term (current) drug therapy; Z87.891 Personal history of nicotine dependence
CPT/HCPCS: 70450; 71045; 74176; 80053; 84484; 85025; 93005; 99285